=== PATIENT | female | born 1945 | race Caucasian/White ===

== ENCOUNTER 2019-04-09 10:04 | Inpatient (IN) ==
--- NOTE | 2019-04-09 11:06 | Emergency Department Note ---
[facility] [place] Disposition Clinical Impression: Ileus Abdominal pain Qualifiers: Abdominal location: left upper quadrant Qualified Code(s): R10.12 - Left upper quadrant pain Disposition: Still a Patient Condition on Discharge: Fair Referrals: Nancy Petersen MD [Primary Care Provider] - Time of Disposition: 11:14 Medical Decision Making - Medical Records Medical records reviewed: No: I reviewed the patient's medical records. - Alejandro Inquiry Pt receiving controlled substance: No Vital Signs: 04/09/19 10:09 04/09/19 11:12 04/09/19 11:23 Temperature 97.8 F 97.8 F 97.8 F Temperature Source Oral Oral Oral Pulse Rate [Right Radial] 97 H 97 H 97 H Respiratory Rate 18 18 18 Blood Pressure [Right Arm] 146/80 H 146/80 H 146/80 H Blood Pressure Mean [Right Arm] 102 102 102 02 Sat by Pulse Oximetry 97 97 97 Oxygen Delivery Method Room Air Room Air Room Air - Radiology Data #1 Image(s): Abdomen Image Reviewed: Yes I reviewed the patient's radiology image, Yes I have reviewed radiologist's interpretation Preliminary Findings: Abnormal FINDINGS: There are some mildly prominent small bowel loops noted in the mid abdomen and left. There is a mild amount of retained colonic feces. No acute bony anomalies or abnormal IMPRESSION: Calcifications constipation mildly prominent small bowel loops which are nonspecific. Early obstruction enteritis or ileus is a consideration. [facility] HPI - General Stated complaint: Constipation, vomiting Time Seen by Provider: 04/09/19 10:45 Mode of Arrival: Ambulatory Source of Information: Patient Limitations: No Limitations Description of Symptoms (Recalled from Triage Doc. by RN): pt states she has not had a bowel movement x 6 days. pt states she took a laxative on tuesday with no relief and the laxative made her sick. pt states she vomited this morning and it was consistent with a dr pepper she drank last pm. - History of Present Illness Provider Complaint: She c/o left sided abdominal pain and chilling. This has been ongoing for the past 6 days. She has not had a normal bowel movment in 6 days. - Related Data Home Medications Medication Instructions Recorded Confirmed No Known Home Medications 04/09/19 04/09/19 Allergies Allergy/AdvReac Type Severity Reaction Status Date / Time Sulfa (Sulfonamide Allergy Unknown Verified 04/10/18 09:04 Antibiotics) [SULFA (SULFONAMIDE ANTIBIOTICS)] walnut [WALNUT] Allergy Unknown Verified 04/10/18 09:04 FRESH ORANGES Allergy Unknown ASTHMA Uncoded 05/10/17 14:51 FL[facility]ES UP [facility] History - Hepatitis A Screen Attestation statement:: This patient has been screened for Hepatitis A risk factors. I have reviewed the patient's past medical history: Yes Medical History: Denies:: Cancer, Diabetes Mellitus Type 1, Diabetes Mellitus Type 2, MRSA Amputation: No Fractures: No - Social History Smoking Status: Never smoker Alcohol Intake: never ROS Obtained: Yes All systems reviewed & no additional complaints - Constitutional Constitutional: Reports chills, Denies fever(s), Reports poor appetite, Reports malaise - Eyes Eyes: Denies eye discharge - ENT Ears, Nose, Mouth, and Throat: Reports dizziness, Denies otalgia, Denies sore throat - Cardiovascular Cardiovascular: Denies chest pain - Respiratory Respiratory: No chest congestion, No cough - Gastrointestinal Gastrointestingal: Reports: as per HPI - Genitourinary Female Genitourinary: Denies dysuria - Musculoskeletal Musculoskeletal: Denies back pain - Integumentary/Breasts Skin/Breast: Denies rash Physical Exam - General General appearance: alert, in no apparent distress - Head Head exam: atraumatic, normocephalic, normal inspection - Eye Eye exam: Present: normal appearance, PERRL, EOMI - ENT ENT exam: Present: normal exam, normal oropharynx, mucous membranes moist, TM's normal bilaterally, normal external ear exam - Neck Neck exam: Present: normal inspection, full ROM, trachea midline. Absent: meningismus, lymphadenopathy - Chest Chest inspection: Present: normal inspection, symmetric chest wall rise. Absent: tenderness - Respiratory Respiratory exam: Present: normal lung sounds bilaterally. Absent: respiratory distress - Cardiovascular Cardiovascular exam: Present: regular rate, normal rhythm. Absent: JVD - Abdominal Exam Abdominal exam: Present: soft, tenderness, guarding, rebound, rigidity, hypoactive bowel sounds. Absent: distention, psoas sign, obturator sign, heel tap sign, Thompson's sign, Rovsing's sign, tenderness at McBurney's Point Abdominal tenderness: Present: LLQ, moderate - Extremities Exam Extremities exam: Present: normal inspection, full ROM, normal capillary refill. Absent: calf tenderness - Back Exam Back exam: Present: normal inspection. Absent: tenderness - Neurological Exam Neurological exam: Present: alert, oriented X3 - Psychiatric Psychiatric exam: Present: normal affect, normal mood - Skin Skin exam: Present: warm, dry, intact, normal color - Lymphatic Lymphatic Findings: no adenopathy
[2019-04-09 12:40] LABS: Basophils % 0.1 % (0.1-2.0); Eosinophils % 0.2 % (0.1-12.0); Hematocrit 46.3 % (37.0-47.0); Hemoglobin 15.2 g/dL (12.2-16.2); Lymphocytes # 2.4 K/mm3 (0.7-4.5); Lymphocytes % 12.2 % (10-50); Mean Corpuscular HGB Conc 32.9 g/dL (31.8-35.4); Mean Corpuscular Volume 94.9 fl (81-99); Mean Platelet Volume 9.2 fl (7.4-10.4); Monocytes # 1.3 K/mm3 (0.1-1.0); Monocytes % 6.7 % (1.7-9.3); Neutrophils % 80.8 % (37.0-80.0); Platelet Count 316 K/mm3 (142-424); Red Blood Count 4.88 M/mm3 (4.20-5.40); Red Cell Distribution Width 13.2 % (11.5-17.5); White Blood Count 19.9 K/mm3 (4.8-10.8)
[2019-04-09 12:48] LABS: Lymphocytes % 9 % (10-50); Monocytes % 8 % (2-9); Neutrophils % 83 % (42-76); Total Cells Counted 100
[2019-04-09 12:49] LABS: RBC Morphology Normal
[2019-04-09 13:00] LABS: Microscopic, Urine URINE MICROSCOPIC (MICROSCOPIC)
[2019-04-09 13:01] LABS: Appearance,Urine SL CLOUDY (Clear); Blood, Urine Negative (Negative); Color,Urine YELLOW (Yellow); Glucose,Urine (UA) 1+ (Negative); Ketones,Urine 1+ (Negative); Leukocyte Esterase,Urine Negative (Negative); PH,Urine 5.5 (5.0-8.5); Protein,Urine 2+ (Negative); Specific Gravity, Urine >= 1.030 (1.005-1.030); Urobilinogen,Urine 0.2 EU/dl (0.2)
[2019-04-09 13:03] LABS: Bilirubin,Urine Negative (Negative)
[2019-04-09 13:04] LABS: Albumin Level 3.6 gm/dL (3.4-5.0); Albumin/Globulin Ratio 0.7 (1.1-1.8); Anion Gap 14.4 mEq/L (5-15); Bilirubin,Total 0.7 mg/dL (0.2-1.0); Calcium 9.7 mg/dL (8.5-10.1); Globulin 5.1 gm/dl (1.3-3.2); Total Protein,Serum 8.7 gm/dL (6.4-8.2)
[2019-04-09 13:08] LABS: Bacteria,Urine 2+ /lpf
--- NOTE | 2019-04-09 14:44 | Emergency Department Note ---
ED Disposition Clinical Impression: Ileus, Small bowel obstruction, Umbilical hernia with obstruction Abdominal pain Qualifiers: Abdominal location: generalized Qualified Code(s): R10.84 - Generalized abdominal pain Disposition: Admitted As Inpatient Condition on Discharge: Fair Referrals: Nancy Petersen MD [Primary Care Provider] - - Critical Care Critical Care Time: Yes Attestation: On 04/09/19, the high probability of a clinically significant, sudden or life threatening deterioration of the following system(s) required my full and direct attention, intervention and personal management. The time I documented below is in addition to time spent performing reported procedures but includes the following listed in this critical care notation. 30 minutes of critical care at the bedside management as well as consult, do cumentation and admission. Total Critical Care Time: 30 Vital system(s) involved:: Metabolic Failure My critical care processes included: Assessment & monitoring of V/S, Initial and Re-exams, Data Review/Interpretation, Coordinating Care, Documentation Medical Decision Making - Alejandro Inquiry Pt receiving controlled substance: No Vital Signs: 04/09/19 10:09 04/09/19 11:12 04/09/19 11:23 Temperature 97.8 F 97.8 F 97.8 F Temperature Source Oral Oral Oral Pulse Rate [Right Radial] 97 H 97 H 97 H Respiratory Rate 18 18 18 Blood Pressure [Right Arm] 146/80 H 146/80 H 146/80 H Blood Pressure Mean [Right Arm] 102 102 102 Blood Pressure Position [Right Arm] 02 Sat by Pulse Oximetry 97 97 97 Oxygen Delivery Method Room Air Room Air Room Air 04/09/19 14:28 Temperature Temperature Source Pulse Rate [Right Radial] 71 Respiratory Rate Blood Pressure [Right Arm] 163/76 H Blood Pressure Mean [Right Arm] 105 Blood Pressure Position [Right Arm] Sitting 02 Sat by Pulse Oximetry 97 Oxygen Delivery Method Room Air - Lab Data Lab Results 04/09/19 12:20: WBC 19.9 H, RBC 4.88, Hgb 15.2, Hct 46.3, MCV 94.9, MCH 31.2, MCHC 32.9, RDW 13.2, Plt Count 316, MPV 9.2, Neut % (Auto) 80.8 H, Lymph % (Auto) 12.2, [place] % (Auto) 6.7, Eos % (Auto) 0.2, Baso % (Auto) 0.1, Neut # (Auto) 16.0 H, Lymph # (Auto) 2.4, [place] # (Auto) 1.3 H, Eos # (Auto) 0.0, Baso # (Auto) 0.0, Total Counted 100, Neutrophils % (Manual) 83 H, Lymphocytes % (Manual) 9 L, Monocytes % (Manual) 8, Platelet Estimate Normal, RBC Morphology N ormal 04/09/19 12:20: Sodium 133 L, Potassium 4.4, Chloride 95 L, Carbon Dioxide 28, Anion Gap 14.4, BUN 23 H, Creatinine 1.01, Estimated Creat Clear 52, Estimated GFR 54 L, Est GFR ( Amer) 65, Glucose 283 H, Calcium 9.7, Total Bilirubin 0.7, AST 17, ALT 25, Alkaline Phosphatase 104, Total Protein 8.7 H, Albumin 3.6, Globulin 5.1 H, Albumin/Globulin Ratio 0.7 L, Lipase 126 04/09/19 12:20: Urine Color Yellow, Urine Appearance Sl cloudy, Urine pH 5.5, Ur Specific [place] >= 1.030, Urine Protein 2+, Urine Glucose (UA) 1+, Urine Ketones 1+, Urine Blood Negative, Urine Nitrate Negative, Urine Bilirubin Negative, Urine Urobilinogen 0.2, Ur Leukocyte Esterase Negative, Urine WBC 3-5, Ur Squamous Epith Cells 10-20, Urine Bacteria 2+ Result diagrams: 04/09/19 12:20 04/09/19 12:20 Orders (Tests/Meds): ED MEDICATIONS Generic Name Dose Route Start Last Admin Trade Name Freq PRN Reason Stop Dose Admin Piperacillin Sod/Tazobactam 50 mls @ 100 mls/hr 04/09/19 14:19 04/09/19 14:22 Sod 3.375 gm/ Sodium Chloride IV 04/09/19 14:48 100 mls/hr ONCE ONE Administration Protocol Sodium Chloride 10 ml 04/09/19 13:50 04/09/19 13:50 Rad-Saline Flush 10ml Syringe IV 05/09/19 13:49 10 ml NEEDED PRN Administration Maintain IV Site Discontinued Medications Generic Name Dose Route Start Last Admin Trade Name Freq PRN Reason Stop Dose Admin Sodium Chloride 500 mls @ 999 mls/hr 04/09/19 12:15 04/09/19 12:16 Sod Chlor 0.9% 1000ml Bag IV 04/09/19 12:45 Not Given .Q31M ELIE Sodium Chloride 1,000 mls @ 999 mls/hr 04/09/19 12:30 04/09/19 12:36 Sod Chlor 0.9% 1000ml Bag IV 04/09/19 13:30 999 mls/hr .Q1H1M ELIE Administration Ioversol 75 ml 04/09/19 13:49 04/09/19 13:49 Rad-Optiray 350 100ml Vial IV 04/09/19 13:50 75 ml ONCE ONE Administration Protocol Morphine Sulfate 4 mg 04/09/19 14:29 04/09/19 14:30 Morphine 4mg/Ml Syringe IV 04/09/19 14:30 4 mg ONCE ONE Administration Ondansetron HCl 4 mg 04/09/19 14:28 04/09/19 14:30 Zofran 4mg/2ml Vial IV 04/09/19 14:29 4 mg ONCE ONE Administration ORDERS Category Date Time Status Urine Culture Stat Micro 04/09/19 12:20 Received - CT Data CT Scan: Abdomen Time Received: 14:00 (Small bowel obstruction with obstructed umbilical hernia.) ED CT Reviewed: Yes: I discussed the CT results w/the radiologist, I have viewed the radiologist's interpretation - Physician Consults Physician Consulted: Discussed with Dr. Chavez, regarding the patient and he came to see the pt Reason -: Admission, Pt condition, Surgical Eval/Care (Discussed with Dr. Chavez regarding the patient and the came to evaluate the patient in the emergency department and wanted to admit the patient to the surgical floor for surgical management possible open laparotomy.) Abdominal Pain HPI - General Chief Complaint: Abdominal Pain Stated Complaint: Constipation, vomiting Time Seen by Provider: 04/09/19 10:45 Mode of Arrival: Ambulatory Source of Information: Patient Limitations: No Limitations Description of Symptoms (Recalled from ER Triage Doc. by RN): pt presents to ed with c/o constipation x 6 days. pt was seen in [facility] and her kub showed a possible ileus. pt sent to ed for further care. - History of Present Illness HPI narrative: 74-year-old female presents to the emergency department with chief complaint of having abdomen pain and discomfort. She has been having pain and discomfort on the abdomen for the last 7 days. She has not had a bowel movement for the last 7 days. She had taken some [id number] medication for constipation but it did not help her. She has been vomiting a lot for the last 3 to 4 days. She vomited almost about 20 to 25 times in the last 3 days. She was seen at the urgent treatment center today and was referred to the emergency department to rule out bowel obstruction since the x-ray report was showing possibility of obstruction. MD complaint: abdominal pain Location: periumbilical, suprapubic Severity scale (1-10): 8 Quality: sharp Radiation: none Migration to: no migration Relieving factors: nothing Exacerbating factors: nothing - Related Data Home Medications Medication Instructions Recorded Confirmed No Known Home Medications 04/09/19 04/09/19 Allergies Allergy/AdvReac Type Severity Reaction Status Date / Time Sulfa (Sulfonamide Allergy Unknown Verified 04/10/18 09:04 Antibiotics) [SULFA (SULFONAMIDE ANTIBIOTICS)] walnut [WALNUT] Allergy Unknown Verified 04/10/18 09:04 FRESH ORANGES Allergy Unknown ASTHMA Uncoded 05/10/17 14:51 FL[facility] History - Hepatitis A Screen Drug use history?: No High risk sexual behaviors?: No History of sexually transmitted infection?: No Currently employed?: No Childcare worker?: No Do you have indoor plumbing?: Yes Do you have electricity?: Yes Attestation statement:: This patient has been screened for Hepatitis A risk factors. Medical History: Denies:: Cancer, Diabetes Mellitus Type 1, Diabetes Mellitus Type 2, MRSA Amputation: No Fractures: No - Social History Smoking Status: Never smoker Alcohol Intake: never Occupational Status: other ROS Obtained: Yes All systems reviewed & no additional complaints - Constitutional Constitutional: Denies chills, Denies fever(s) - Gastrointestinal Gastrointestingal: Reports: other (As mentioned in the HPI) Physical Exam - General General appearance: alert, in no apparent distress - Head Head exam: atraumatic, normocephalic - Eye Eye exam: Present: normal appearance, PERRL, EOMI - ENT ENT exam: Present: normal exam, normal oropharynx, mucous membranes moist - Neck Neck exam: Present: normal inspection, full ROM, trachea midline - Chest Chest inspection: Present: normal inspection - Respiratory Respiratory exam: Present: normal lung sounds bilaterally. Absent: respiratory distress, wheezes, stridor, accessory muscle use - Cardiovascular Cardiovascular exam: Present: regular rate, normal rhythm - Abdominal Exam Abdominal exam: Present: distention, tenderness, other (There is a 8 cm area of hernia on the supraumbilical aspect with form on palpation. The hernia is not reducible. Unable to appreciate bowel sounds on the hernia. Bowel sounds appreciated all other parts of the abdomen. Patient's abdomen is distended. She is tender on the abdomen throughout the abdomen. The tenderness may be worse on the left than the right side.) - Extremities Exam Extremities exam: Present: normal inspection, full ROM, normal capillary refill. Absent: tenderness - Back Exam Back exam: Present: normal inspection, full ROM. Absent: tenderness - Neurological Exam Neurological exam: Present: alert, oriented X3, CN II-XII intact, reflexes normal. Absent: normal gait, motor sensory deficit - Psychiatric Psychiatric exam: Present: normal affect, normal mood - Skin Skin exam: Present: normal color
--- NOTE | 2019-04-09 14:48 | History & Physical Report ---
*Admission Date: 04/09/19 *Chief complaint: Vomiting and abdominal pain *History of present illness: Patient is a very pleasant otherwise healthy 74-year-old female. She states that she has not moved her bowels for approximately 7 days. A few days ago she had taken a laxative. She then developed significant vomiting. Her symptoms persisted. She developed some pain and focal swelling in her mid abdomen. She presented to the [facility] this afternoon and underwent plain abdominal x-ray. There is concern for possible bowel obstruction she was sent to the ER where she underwent CT scan which reveals findings of small bowel obstruction secondary to supraumbilical hernia containing a loop of small bowel. This was unable to be reduced. The area is rather tender and surgical consultation was obtained. [facility] History I have reviewed the patient's past medical history: Yes Medical History: Denies:: Cancer, Diabetes Mellitus Type 1, Diabetes Mellitus Type 2, MRSA *Have you ever received a pneumonia vaccine?: No *Have you received a flu vaccine this season?: Yes Other Surgeries: Yes: Hysterectomy-Total Amputation: No Fractures: No - *Social History Smoking Status: Never smoker Alcohol Intake: never *Occupational Status:: other *Travel in the last 8 weeks: None Family Hx:: No significant family history Review of Systems - Review of Systems Review of systems:: pertinent systems reviewed and negative unless documented below - *Neurologic Reports dizziness Meds Home Medications Medication Instructions Recorded Confirmed Type No Known Home Medications 04/09/19 04/09/19 History Allergies Allergy/AdvReac Type Severity Reaction Status Date / Time Sulfa (Sulfonamide Allergy Unknown Verified 04/10/18 09:04 Antibiotics) [SULFA (SULFONAMIDE ANTIBIOTICS)] walnut [WALNUT] Allergy Unknown Verified 04/10/18 09:04 FRESH ORANGES Allergy Unknown ASTHMA Uncoded 05/10/17 14:51 FLARES UP Exam Vital signs and Labs for Last 24 Hours: Temp Pulse Resp BP Pulse Ox 97.8 F 71 18 163/76 H 97 04/09/19 11:23 04/09/19 14:28 04/09/19 11:23 04/09/19 14:28 04/09/19 14:28 Laboratory Results - last 24 hr 04/09/19 12:20: WBC 19.9 H, RBC 4.88, Hgb 15.2, Hct 46.3, MCV 94.9, MCH 31.2, MCHC 32.9, RDW 13.2, Plt Count 316, MPV 9.2, Neut % (Auto) 80.8 H, Lymph % (Auto) 12.2, [place] % (Auto) 6.7, Eos % (Auto) 0.2, Baso % (Auto) 0.1, Neut # (Auto) 16.0 H, Lymph # (Auto) 2.4, [place] # (Auto) 1.3 H, Eos # (Auto) 0.0, Baso # (Auto) 0.0, Total Counted 100, Neutrophils % (Manual) 83 H, Lymphocytes % (Manual) 9 L, Monocytes % (Manual) 8, Platelet Estimate Normal, RBC Morphology Normal 04/09/19 12:20: Sodium 133 L, Potassium 4.4, Chloride 95 L, Carbon Dioxide 28, Anion Gap 14.4, BUN 23 H, Creatinine 1.01, Estimated Creat Clear 52, Estimated GFR 54 L, Est GFR ( Amer) 65, Glucose 283 H, Calcium 9.7, Total Bilirubin 0.7, AST 17, ALT 25, Alkaline Phosphatase 104, Total Protein 8.7 H, Albumin 3.6, Globulin 5.1 H, Albumin/Globulin Ratio 0.7 L, Lipase 126 04/09/19 12:20: Urine Color Yellow, Urine Appearance Sl cloudy, Urine pH 5.5, Ur Specific [place] >= 1.030, Urine Protein 2+, Urine Glucose (UA) 1+, Urine Ketones 1+, Urine Blood Negative, Urine Nitrate Negative, Urine Bilirubin Negative, Urine Urobilinogen 0.2, Ur Leukocyte Esterase Negative, Urine WBC 3-5, Ur Squamous Epith Cells 10-20, Urine Bacteria 2+ I & O for Last 24 hours: Intake & Output 04/07/19 04/08/19 04/09/19 04/10/19 11:59 11:59 11:59 11:59 Weight 145 lb - *Routine HEENT Exam Head: Present: normocephalic Eye: Present: EOMI, PERRL ENT: Present: mucous membranes moist - *Routine Neck Exam Present: supple. Absent: lymphadenopathy - *Routine Respiratory Exam Present: CTA bilaterally - *Routine Cardiovascular Exam Present: RRR - *Routine Abdominal Exam Present: soft, tenderness Comments: She has a focal swelling above the umbilical area. Palpation elicits tenderness. I am unable to reduce the hernia. - *Routine Extremities Exam Absent: cyanosis, clubbing, edema - *Routine Skin Exam Present: warm. Absent: rash - *Routine Neurological Exam Present: alert, oriented X3 - Detailed Eye Exam Eyelids: Left normal inspection Assessment and Plan - Assessment and plan all Dx Assessment and Plan for all problems:: Patient has a small bowel obstruction secondary to incarcerated, potentially strangulated, ventral abdominal wall hernia. I explained the nature of this condition to the patient. I informed her that she needs surgical intervention to relieve the bowel obstruction. Also informed her that if there is evidence of strangulated and potentially necrotic bowel she could require small bowel resection. Patient understands and agrees to proceed.
--- NOTE | 2019-04-09 15:08 | Progress Note ---
[facility] Anesthesia Checklist - Structural Data Admitted From: Emergency Dept Planned Operative Procedure/s: hernia repair Consent for Planned Operative Procedure(s) Verified: Yes - Airway Assessment C-Spine Mobility Assessed: Yes TMJ Mobility Assessed: Yes Dentition: Poor Dentition - Neurological Assessment Level of Consciousness: Awake, Alert, Appropriate - Anesthesia Plan Anesthesia Risk discussed: Yes Anesthesia Plan: Verified Anesthesia Type: General [facility] History I have reviewed the patient's past medical history: Yes Medical History: Denies:: Cancer, Diabetes Mellitus Type 1, Diabetes Mellitus Type 2, MRSA *Have you ever received a pneumonia vaccine?: No *Have you received a flu vaccine this season?: Yes Anesthesia experience/problems:: none Other Surgeries: Yes: Hysterectomy-Total Amputation: No Fractures: No - *Social History Smoking Status: Never smoker Alcohol Intake: never Substance Use Type: denies use *Occupational Status:: other *Travel in the last 8 weeks: None Family Hx:: No significant family history
[2019-04-09 16:29] LABS: Prothrombin Time 10.4 seconds (9.4-11.8)
--- NOTE | 2019-04-09 17:26 | Operative Note ---
Date of procedure: 04/09/19 Pre-op Diagnosis:: Small bowel obstruction secondary to incarcerated ventral hernia Post-op Diagnosis:: Small bowel obstruction secondary to strangulated ventral hernia Procedure performed:: 1. Open repair of strangulated ventral hernia, primary repair 2. Small bowel resection with primary anastomosis 3. Freeing of intestinal obstruction Surgeon:: Omar Chavez MD IMPORT/EXPORT SPECIALIST:: Ghassan Isaca Anesthesia: GETA Estimated blood loss (mL): 30 Clinical Note:: Patient is a very pleasant otherwise healthy 74-year-old female. She states that she has not moved her bowels for approximately 7 days. A few days ago she had taken a laxative. She then developed significant vomiting. Her symptoms persisted. She developed some pain and focal swelling in her mid abdomen. She presented to the [facility] this afternoon and underwent plain abdominal x-ray. There was concern for possible bowel obstruction she was sent to the ER where she underwent CT scan which revealed findings of small bowel obstruction secondary to supraumbilical hernia containing a loop of small bowel. This was unable to be reduced. The area was rather tender and surgical consultation was obtained. She was seen and evaluated. She had findings of incarcerated with potentially strangulated ventral hernia with resultant complete bowel obstruction. Plan was made for emergent repair with possible bowel resection. Operative findings:: Patient had a rather small defect, approximately 3 cm. However there was a significant amount of omentum and a loop of small bowel within a rather large hernia sac. Small bowel was strangulated and somewhat necrotic but without perforation. Operative note:: Consent was obtained and patient was taken emergently to the operating room. She was given broad-spectrum preoperative intravenous antibiotics. In the operating room she was placed in a supine position. General anesthesia was induced via endotracheal tube. Fajardo catheter was placed. Abdomen was prepped and draped in the standard surgical fashion. Midline incision was made in the periumbilical location. Dissection was carried down through subcutaneous tissues until hernia sac was encountered. She had a rather large hernia sac which contained what appeared to be purplish dusky enteric contents. Neck of the hernia sac was isolated. Hernia sac was opened carefully sharply. There was some somewhat hemorrhagic fluid which exuded from the hernia sac consistent with omental and bowel infarction. Exposure was achieved. There was a loop of purplish dusky necrotic but nonperforated small bowel. There was also some ischemic infarcted omentum. Omental pedicle was clamped excised and ligated wi th Vicryl ties. She had extensive adhesions to the hernia sac including omentum and small bowel consistent with chronic underlying ventral hernia. Due to the appearance of the bowel plan was made for small bowel resection. The neck of the hernia was extremely tight. This was enlarged somewhat using electrocautery incising the fascia. Ultimately the majority of the remaining omentum in the hernia sac was able to be reduced into the peritoneal cavity. The loop of small bowel was then delivered through the wound. Proximally and distally the bowel appeared viable and healthy. Small bowel was divided at the proximal and distal healthy margins using a CHINEDU-75 type stapling device. The small bowel mesentery was sequentially clamped divided and ligated with Vicryl ties. A [id number], functional end-to-end anastomosis was created with a CHINEDU-75 type stapling device. The enterectomy was closed with a TX 60 B type stapling device. There was a small residual persistent residual enterotomy defect. This was closed with 3-0 Vicryl and then oversewn with 3 oh Surgilon seromuscular sutures. 3-0 Surgilon sutures were placed at the staple line angle and at the confluence of the staple lines. The mesenteric defect was closed with a running locking 3-0 Vicryl. Remaining adhesions of omentum to the hernia sac peritoneum were incised using electrocautery. The residual peritoneum of the hernia sac was dissected free from the fascia. Please note that the excised infarcted omentum and peritoneum of the hernia sac were sent as specimen labeled hernia sac and contents. Small bowel was sent as portion of small bowel. Enteric contents return to the peritoneal cavity. The fascia was closed primarily with multiple interrupted #1 Prolene sutures. Local anesthetic was infiltrated. There was good hemostasis. Wound was irrigated. Skin was closed with skin jaya. Clean dry sterile dressing was applied. Condition: stable Disposition: PACU Specimens:: Hernia sac and contents Small bowel Complications:: None immediately apparent
--- NOTE | 2019-04-09 17:50 | Progress Note ---
[facility] Anesthesia Record Part I Intake, IV Amount: 1,300 Estimated blood loss (mL): 20 Urine output (mL): 50 Blood Products used (#): none Blood Pressure: 128/61 SaO2: 97 Pulse Rate: 68 Respiratory Rate: 20 Temperature: 97.0 F Patient is:: Drowsy, Mask O2, Stable Stable to PACU at:: 17:30
--- NOTE | 2019-04-09 17:51 | Progress Note ---
[facility] Anesthesia Record Part II Discharge Time: 18:00 Destination: Medical Surgical Department PACU nurse assessment reviewed?: Yes Patient Condition:: Fair Anesthesia Complications:: None Swallowing reflex intact?: Yes Cyanosis?: No
[2019-04-10 06:12] LABS: Basophils % 0.1 % (0.1-2.0); Hematocrit 36.4 % (37.0-47.0); Lymphocytes % 12.8 % (10-50); Mean Corpuscular Volume 96.8 fl (81-99); Mean Platelet Volume 9.4 fl (7.4-10.4); Monocytes # 1.1 K/mm3 (0.1-1.0); Monocytes % 7.2 % (1.7-9.3); Neutrophils # 12.6 K/mm3 (1.8-7.8); Neutrophils % 79.8 % (37.0-80.0); Platelet Count 226 K/mm3 (142-424); Red Blood Count 3.76 M/mm3 (4.20-5.40); Red Cell Distribution Width 13.2 % (11.5-17.5); White Blood Count 15.8 K/mm3 (4.8-10.8)
[2019-04-10 06:19] LABS: Anion Gap 10.1 mEq/L (5-15)
--- NOTE | 2019-04-10 06:53 | Progress Note ---
Subjective Narrative: Patient is without any complaints other than being thirsty. She denies abdominal pain. Denies nausea. Exam Vital signs and Labs for Last 24 Hours: Temp Pulse Resp BP Pulse Ox 98.9 F 80 18 146/69 H 1 L 04/10/19 01:25 04/10/19 04:00 04/10/19 01:25 04/10/19 01:25 04/10/19 02:23 Laboratory Results - last 24 hr 04/09/19 12:20: WBC 19.9 H, RBC 4.88, Hgb 15.2, Hct 46.3, MCV 94.9, MCH 31.2, MCHC 32.9, RDW 13.2, Plt Count 316, MPV 9.2, Neut % (Auto) 80.8 H, Lymph % (Auto) 12.2, [place] % (Auto) 6.7, Eos % (Auto) 0.2, Baso % (Auto) 0.1, Neut # (Auto) 16.0 H, Lymph # (Auto) 2.4, [place] # (Auto) 1.3 H, Eos # (Auto) 0.0, Baso # (Auto) 0.0, Total Counted 100, Neutrophils % (Manual) 83 H, Lymphocytes % (Manual) 9 L, Monocytes % (Manual) 8, Platelet Estimate Normal, RBC Morphology Normal 04/09/19 12:20: Sodium 133 L, Potassium 4.4, Chloride 95 L, Carbon Dioxide 28, Anion Gap 14.4, BUN 23 H, Creatinine 1.01, Estimated Creat Clear 52, Estimated GFR 54 L, Est GFR ( Amer) 65, Glucose 283 H, Calcium 9.7, Total Bilirubin 0.7, AST 17, ALT 25, Alkaline Phosphatase 104, Total Protein 8.7 H, Albumin 3.6, Globulin 5.1 H, Albumin/Globulin Ratio 0.7 L, Lipase 126 04/09/19 12:20: Urine Color Yellow, Urine Appearance Sl cloudy, Urine pH 5.5, Ur Specific [place] >= 1.030, Urine Protein 2+, Urine Glucose (UA) 1+, Urine Ketones 1+, Urine Blood Negative, Urine Nitrate Negative, Urine Bilirubin Negative, Urine Urobilinogen 0.2, Ur Leukocyte Esterase Negative, Urine WBC 3-5, Ur Squamous Epith Cells 10-20, Urine Bacteria 2+ 04/09/19 12:20: PT 10.4, INR 1.00 04/09/19 12:20: Troponin I < 0.02 04/09/19 15:20: Urine Color Yellow, Urine Appearance Clear, Urine pH 5.5, Ur Specific [place] 1.010, Urine Protein 1+, Urine Glucose (UA) Negative, Urine Ketones Negative, Urine Blood Negative, Urine Nitrate Negative, Urine Bilirubin Negative, Urine Urobilinogen 0.2, Ur Leukocyte Esterase Negative, Urine WBC 3-5, Ur Squamous Epith Cells 20-50, Urine Bacteria 1+ 04/09/19 20:29: POC Glucose 253 H 04/10/19 05:37: WBC 15.8 H, RBC 3.76 L, Hgb 12.0 L D, Hct 36.4 L, MCV 96.8, MCH 31.9 H, MCHC 33.0, RDW 13.2, Plt Count 226 D, MPV 9.4, Neut % (Auto) 79.8, Lymph % (Auto) 12.8, [place] % (Auto) 7.2, Eos % (Auto) 0.0 L, Baso % (Auto) 0.1, N eut # (Auto) 12.6 H, Lymph # (Auto) 2.0, [place] # (Auto) 1.1 H, Eos # (Auto) 0.0, Baso # (Auto) 0.0 04/10/19 05:37: Sodium 138, Potassium 4.1, Chloride 105, Carbon Dioxide 27, Anion Gap 10.1, BUN 20 H, Creatinine 0.98, Estimated Creat Clear 52, Estimated GFR 56 L, Est GFR ( Amer) 67, Glucose , Calcium 04/10/19 05:38: POC Glucose 168 H I & O for Last 24 hours: Intake & Output 04/07/19 04/08/19 04/09/19 04/10/19 11:59 11:59 11:59 11:59 Intake Total 1300 / 1300 Output Total 250 / 250 Balance 1050 / 1050 Weight 145 lb 145 lb 2 oz - *Routine Abdominal Exam Present: soft Comments: Dressing intact. No appreciable bowel sounds. Progress Note: A&P Assessment and Plan for All Diagnoses:: Plan to transfer out of stepdown today. Continue nasogastric tube and IV fluids.
--- NOTE | 2019-04-10 07:27 | Consult Report ---
*Admission Date: 04/09/19 *Reason for consult:: Medical management *History of present illness: 74-year-old female with very little medical history underwent open repair of strangulated ventral hernia with resection of small bowel and primary anastomosis yesterday by Dr. Chavez. I have been consulted for medical management of issues that may arise during hospitalization. Patient's previous primary care physician was Dr. JANICE Petersen but she admits she has not seen him in over 10 years. Patient denies any significant health problems that were occurring prior to her admission. Patient did have hypoglycemia postoperatively and was ordered to have fingersticks with meals and at night. This morning her only request is water [facility] History I have reviewed the patient's past medical history: Yes Medical History: Denies:: Cancer, Diabetes Mellitus Type 1, Diabetes Mellitus Type 2, MRSA *Have you ever received a pneumonia vaccine?: No (does note want at d/c) *Have you received a flu vaccine this season?: No (does not want at d/c) Anesthesia experience/problems:: none Other Surgeries: Yes: Hysterectomy-Total Amputation: No Fractures: No - *Social History Educational Level: Completed High School Smoking Status: Never smoker Alcohol Intake: never Substance Use Type: denies use *Occupational Status:: other Household Members: spouse *Travel in the last 8 weeks: None Family Hx:: No significant family history Review of Systems - *Cardiovascular Denies chest pain, Denies chest pain at rest, Denies chest pain with activity, Denies shortness of breath with activity - *Respiratory Denies change in phlegm color, Denies cough - *Neurologic Reports dizziness Meds Home Medications Medication Instructions Recorded Confirmed Type No Known Home Medications 04/09/19 04/09/19 History Allergies Allergy/AdvReac Type Severity Reaction Status Date / Time orange Allergy Unknown ASTHMA Verified 04/09/19 16:04 FLARES UP Sulfa (Sulfonamide Allergy Unknown Unknown Verified 04/09/19 16:04 Antibiotics) allergy [SULFA (SULFONAMIDE reaction ANTIBIOTICS)] walnut [WALNUT] Allergy Unknown Unknown Verified 04/09/19 16:04 allergy reaction FRESH ORANGES Allergy Unknown ASTHMA Uncoded 05/10/17 14:51 FLARES UP Exam Vital signs and Labs for Last 24 Hours: Temp Pulse Resp BP Pulse Ox 98.9 F 80 18 146/69 H 1 L 04/10/19 01:25 04/10/19 04:00 04/10/19 01:25 04/10/19 01:25 04/10/19 02:23 Laboratory Results - last 24 hr 04/09/19 12:20: WBC 19.9 H, RBC 4.88, Hgb 15.2, Hct 46.3, MCV 94.9, MCH 31.2, MCHC 32.9, RDW 13.2, Plt Count 316, MPV 9.2, Neut % (Auto) 80.8 H, Lymph % (Auto) 12.2, [place] % (Auto) 6.7, Eos % (Auto) 0.2, Baso % (Auto) 0.1, Neut # (Auto) 16.0 H, Lymph # (Auto) 2.4, [place] # (Auto) 1.3 H, Eos # (Auto) 0.0, Baso # (Auto) 0.0, Total Counted 100, Neutrophils % (Manual) 83 H, Lymphocytes % (Manual) 9 L, Monocytes % (Manual) 8, Platelet Estimate Normal, RBC Morphology Normal 04/09/19 12:20: Sodium 133 L, Potassium 4.4, Chloride 95 L, Carbon Dioxide 28, Anion Gap 14.4, BUN 23 H, Creatinine 1.01, Estimated Creat Clear 52, Estimated G FR 54 L, Est GFR ( Amer) 65, Glucose 283 H, Calcium 9.7, Total Bilirubin 0.7, AST 17, ALT 25, Alkaline Phosphatase 104, Total Protein 8.7 H, Albumin 3.6, Globulin 5.1 H, Albumin/Globulin Ratio 0.7 L, Lipase 126 04/09/19 12:20: Urine Color Yellow, Urine Appearance Sl cloudy, Urine pH 5.5, Ur Specific [place] >= 1.030, Urine Protein 2+, Urine Glucose (UA) 1+, Urine Ketones 1+, Urine Blood Negative, Urine Nitrate Negative, Urine Bilirubin Negative, Urine Urobilinogen 0.2, Ur Leukocyte Esterase Negative, Urine WBC 3-5, Ur Squamous Epith Cells 10-20, Urine Bacteria 2+ 04/09/19 12:20: PT 10.4, INR 1.00 04/09/19 12:20: Troponin I < 0.02 04/09/19 15:20: Urine Color Yellow, Urine Appearance Clear, Urine pH 5.5, Ur Specific [place] 1.010, Urine Protein 1+, Urine Glucose (UA) Negative, Urine Ketones Negative, Urine Blood Negative, Urine Nitrate Negative, Urine Bilirubin Negative, Urine Urobilinogen 0.2, Ur Leukocyte Esterase Negative, Urine WBC 3-5, Ur Squamous Epith Cells 20-50, Urine Bacteria 1+ 04/09/19 20:29: POC Glucose 253 H 04/10/19 05:37: WBC 15.8 H, RBC 3.76 L, Hgb 12.0 L D, Hct 36.4 L, MCV 96.8, MCH 31.9 H, MCHC 33.0, RDW 13.2, Plt Count 226 D, MPV 9.4, Neut % (Auto) 79.8, Lymph % (Auto) 12.8, [place] % (Auto) 7.2, Eos % (Auto) 0.0 L, Baso % (Auto) 0.1, Neut # (Auto) 12.6 H, Lymph # (Auto) 2.0, [place] # (Auto) 1.1 H, Eos # (Auto) 0.0, Baso # (Auto) 0.0 04/10/19 05:37: Sodium 138, Potassium 4.1, Chloride 105, Carbon Dioxide 27, Anion Gap 10.1, BUN 20 H, Creatinine 0.98, Estimated Creat Clear 52, Estimated GFR 56 L, Est GFR ( Amer) 67, Glucose , Calcium 04/10/19 05:38: POC Glucose 168 H I & O for Last 24 hours: Intake & Output 04/07/19 04/08/19 04/09/19 04/10/19 11:59 11:59 11:59 11:59 Intake Total 1300 / 1300 Output Total 250 / 250 Balance 1050 / 1050 Weight 145 lb 145 lb 2 oz Narrative: Patient is awake and alert this morning. She is oriented to person, place, time. NG tube is in place. Oropharynx is dry. Neck is without lymphadeno regan. Lungs are clear to auscultation. Heart has a regular rate and rhythm. Abdomen is soft with midline tenderness. Bowel sounds are absent. Patient moves her arms and legs. There are no focal neurologic deficits. Skin is intact. Internal Medicine - CN: Reslt - Labs CBC & Chem 7: 04/10/19 05:37 04/10/19 05:37 Labs: Short CBC 04/09/19 04/10/19 Range/Units 12:20 05:37 WBC 19.9 H 15.8 H (4.8-10.8) K/mm3 Hgb 15.2 12.0 L D (12.2-16.2) g/dL Hct 46.3 36.4 L (37.0-47.0) % Plt Count 316 226 D (142-424) K/mm3 BMP 04/09/19 04/10/19 12:20 05:37 Sodium 133 L 138 Potassium 4.4 4.1 Chloride 95 L 105 Carbon Dioxide 28 27 BUN 23 H 20 H Creatinine 1.01 0.98 Glucose 283 H Calcium 9.7 Cardiac Enzymes 04/09/19 Range/Units 12:20 Troponin I < 0.02 (0.00-0.06) ng/ml Liver Function 04/09/19 Range/Units 12:20 Total Bilirubin 0.7 (0.2-1.0) mg/dL AST 17 (15-37) U/L ALT 25 (12-78) U/L Alkaline Phosphatase 104 (46-116) U/L Albumin 3.6 (3.4-5.0) gm/dL Urine 04/09/19 04/09/19 Range/Units 12:20 15:20 Urine Color Yellow Yellow (Yellow) Urine Appearance Sl cloudy Clear (Clear) Urine pH 5.5 5.5 (5.0-8.5) Ur Specific [place] >= 1.030 1.010 (1.005-1.030) Urine Protein 2+ 1+ (Negative) Urine Glucose (UA) 1+ Negative (Negative) Assessment and Plan (1) Ileus Current visit: Yes Status: Acute Category: Medical Code(s): K56.7 - Ileus, unspecified (2) Small bowel obstruction Current visit: Yes Status: Acute Category: Medical Code(s): K56.609 - Unspecified intestinal obstruction, unspecified as to partial versus complete obstruction (3) Umbilical hernia with obstruction Current visit: Yes Status: Acute Category: Medical Code(s): K42.0 - Umbil ical hernia with obstruction, without gangrene - Assessment and plan all Dx Assessment and Plan for all problems:: Patient is stable. Continue to follow blood sugars as well as blood pressures. Patient was mildly hypertensive on presentation and after surgery but blood pressure seem to be trending down. No medicine will be ordered at this time.
--- NOTE | 2019-04-10 07:50 | Pharmacy Consult Notes ---
[facility] Pharmacy VTE Monitoring - Patient Demographics Admission date: 04/09/19 Report Date: 04/10/19 Time: 07:50 Allergies/Adverse Reactions: Patient Allergies orange Allergy (Unknown, Verified 04/09/19 16:04) ASTHMA FLARES UP Sulfa (Sulfonamide Antibiotics) [SULFA (SULFONAMIDE ANTIBIOTICS)] Allergy (Unknown, Verified 04/09/19 16:04) Unknown allergy reaction walnut [WALNUT] Allergy (Unknown, Verified 04/09/19 16:04) Unknown allergy reaction FRESH ORANGES Allergy (Unknown, Uncoded 05/10/17 14:51) ASTHMA FLARES UP Height: 1.45 m Weight: 65.828 kg Patient Problems: Current Active Problems Abdominal pain (Acute) Ileus (Acute) Small bowel obstruction (Acute) Umbilical hernia with obstruction (Acute) - VTE Risk Labs: VTE Related Lab Results Hgb 12.0 g/dL (12.2-16.2) L D 04/10/19 05:37 Hct 36.4 % (37.0-47.0) L 04/10/19 05:37 Plt Count 226 K/mm3 (142-424) D 04/10/19 05:37 PT 10.4 seconds (9.4-11.8) 04/09/19 12:20 INR 1.00 (0.9-1.1) 04/09/19 12:20 BUN 20 mg/dL (7-18) H 04/10/19 05:37 Creatinine 0.98 mg/dL (0.55-1.02) 04/10/19 05:37 Estimated Creat Clear 52 mL/min (50-200) 04/10/19 05:37 VTE Score: 4 VTE Risk Level: Low Risk - Prophylaxis VTE Prophylaxis Ordered?: Yes Types of VTE Prophylaxis: IPCS Thigh High Location of Applied Device: Bilateral Lower Extremeties - VTE Diagnosis Confirmed Treatment or plan recommended: Continue Current Treatment
[2019-04-10 08:43] LABS: Lymphocytes % 21 % (10-50); Monocytes % 11 % (2-9); Neutrophils % 65 % (42-76); RBC Morphology Normal; Total Cells Counted 100
--- NOTE | 2019-04-11 06:59 | Progress Note ---
Subjective Narrative: Patient pulled out nasogastric tube yesterday afternoon. Plan was made to see how she does without this. This morning, a short time ago, she complained of some substernal sharp pain. This has now resolved. She denies nausea. She is not passing flatus. She does have some abdominal pains at the incision when moving according to her. She has had minimal effort with the incentive spirometer. Exam Vital signs and Labs for Last 24 Hours: Temp Pulse Resp BP Pulse Ox 98.3 F 70 16 165/77 H 100 04/11/19 06:30 04/11/19 06:30 04/11/19 06:30 04/11/19 06:30 04/11/19 06:30 Laboratory Results - last 24 hr 04/10/19 05:37: Total Counted 100, Neutrophils % (Manual) 65, Band Neutrophils % 3.0, Lymphocytes % (Manual) 21, Monocytes % (Manual) 11 H, Platelet Estimate Normal, RBC Morphology Normal 04/10/19 05:37: Glucose 175 H D, Calcium 8.0 L D 04/10/19 05:37: Hemoglobin A1c 8.4 H 04/10/19 11:07: POC Glucose 137 H 04/10/19 16:50: POC Glucose 129 H 04/10/19 19:58: POC Glucose 131 H I & O for Last 24 hours: Intake & Output 04/08/19 04/09/19 04/10/19 04/11/19 11:59 11:59 11:59 11:59 Intake Total 3209 / 3209 3293 / 3293 Output Total 355 / 355 1450 / 1450 Balance 2854 / 2854 1843 / 1843 Weight 145 lb 145 lb 2 oz 147 lb 3 oz Microbiology Reports for the Last 24 Hours: Microbiology 04/09/19 12:20 Urine,Clean Catch Urine Culture - Preliminary - *Routine Abdominal Exam Present: normoactive bowel sounds, distended Progress Note: A&P (1) Ileus Status: Acute Current Visit: Yes (2) Small bowel obstruction Status: Acute Current Visit: Yes (3) Umbilical hernia with obstruction Status: Acute Current Visit: Yes Assessment and Plan for All Diagnoses:: Continue to limit to ice chips and chewing gum at this time. LEVI Fajardo. Increase activity.
[2019-04-11 07:02] LABS: Basophils % 0.3 % (0.1-2.0); Eosinophils # 0.1 K/mm3 (0.0-0.4); Eosinophils % 0.7 % (0.1-12.0); Hematocrit 35.1 % (37.0-47.0); Hemoglobin 11.6 g/dL (12.2-16.2); Lymphocytes # 2.7 K/mm3 (0.7-4.5); Lymphocytes % 18.8 % (10-50); Mean Corpuscular HGB Conc 33.1 g/dL (31.8-35.4); Mean Corpuscular Volume 96.1 fl (81-99); Mean Platelet Volume 9.4 fl (7.4-10.4); Monocytes # 1.2 K/mm3 (0.1-1.0); Monocytes % 8.4 % (1.7-9.3); Neutrophils # 10.3 K/mm3 (1.8-7.8); Neutrophils % 71.8 % (37.0-80.0); Platelet Count 238 K/mm3 (142-424); Red Blood Count 3.65 M/mm3 (4.20-5.40); Red Cell Distribution Width 13.2 % (11.5-17.5); White Blood Count 14.3 K/mm3 (4.8-10.8)
[2019-04-11 07:16] LABS: Anion Gap 8.3 mEq/L (5-15); Blood Urea Nitrogen 12 mg/dL (7-18); Calcium 8.3 mg/dL (8.5-10.1); Carbon Dioxide 29 mmol/L (21.0-32.0); Chloride 104 mmol/L (98-107); Glucose 115 mg/dL (74-106); Sodium 137 mmol/L (136-145)
--- NOTE | 2019-04-11 07:31 | Progress Note ---
Internal Medicine - PN: Subj *Date: 04/11/19 *Time: 07:27 Interval history: Nursing staff reports patient had episode of chest pain radiating through to the back this morning. Labs were ordered including troponin which is been negative. EKG did not show any acute ischemic changes. Chest pain was relieved with morphine and nitroglycerin. Patient denies any prior history of chest pain. Does appear based on monitoring and labs that patient is a diabetic as well as has hypertension. Exam Vital signs and Labs for Last 24 Hours: Temp Pulse Resp BP Pulse Ox 98.3 F 70 16 165/77 H 100 04/11/19 06:30 04/11/19 06:30 04/11/19 06:30 04/11/19 06:30 04/11/19 06:30 Laboratory Results - last 24 hr 04/10/19 05:37: Total Counted 100, Neutrophils % (Manual) 65, Band Neutrophils % 3.0, Lymphocytes % (Manual) 21, Monocytes % (Manual) 11 H, Platelet Estimate Normal, RBC Morphology Normal 04/10/19 05:37: Glucose 175 H D, Calcium 8.0 L D 04/10/19 05:37: Hemoglobin A1c 8.4 H 04/10/19 11:07: POC Glucose 137 H 04/10/19 16:50: POC Glucose 129 H 04/10/19 19:58: POC Glucose 131 H 04/11/19 06:22: POC Glucose 110 04/11/19 06:35: WBC 14.3 H, RBC 3.65 L, Hgb 11.6 L, Hct 35.1 L, MCV 96.1, MCH 31.8 H, MCHC 33.1, RDW 13.2, Plt Count 238, MPV 9.4, Neut % (Auto) 71.8, Lymph % (Auto) 18.8, [place] % (Auto) 8.4, Eos % (Auto) 0.7, Baso % (Auto) 0.3, Neut # (Auto) 10.3 H, Lymph # (Auto) 2.7, [place] # (Auto) 1.2 H, Eos # (Auto) 0.1, Baso # (Auto) 0.0 04/11/19 06:35: Sodium 137, Potassium 4.3, Chloride 104, Carbon Dioxide 29, Anion Gap 8.3, BUN 12 D, Creatinine 0.76 D, Estimated Creat Clear 53, Estimated GFR 75, Est GFR ( Amer) 90 D, Glucose 115 H, Calcium 8.3 L, Troponin I < 0.02 I & O for Last 24 hours: Intake & Output 04/08/19 04/09/19 04/10/19 04/11/19 11:59 11:59 11:59 11:59 Intake Total 3209 / 3209 3293 / 3293 Output Total 355 / 355 1450 / 1450 Balance 2854 / 2854 1843 / 1843 Weight 145 lb 145 lb 2 oz 147 lb 3 oz Microbiology Reports for the Last 24 Hours: Microbiology 04/09/19 12:20 Urine,Clean Catch Urine Culture - Preliminary Narrative: Patient is awake and alert. Lungs are distant. Heart has a regular rate and rhythm with a systolic murmur best heard over the aortic valve. The aortic murmur radiates into both carotids. Abdomen is soft and without bowel sounds this morning. Extremities have no edema Assessment and Plan (1) Ileus Current visit: Yes Status: Acute Category: Medical Code(s): K56.7 - Ileus, unspecified (2) Small bowel obstruction Current visit: Yes Status: Acute Category: Medical Code(s): K56.609 - Unspecified intestinal obstruction, unspecified as to partial versus complete obstruction (3) Umbilical hernia with obstruction Current visit: Yes Status: Acute Category: Medical Code(s): K42.0 - Umbilical hernia with obstruction, without gangrene (4) Diabetes mellitus type 2, uncontrolled Current visit: Yes Status: Acute Category: Medical Code(s): E11.65 - Type 2 diabetes mellitus with hyperglycemia (5) Hypertension, essential Current visit: Yes Status: Acute Category: Medical Code(s): I10 - Essential (primary) hypertension (6) Aortic systolic murmur on examination Current visit: Yes Status: Acute Category: Medical Code(s): I35.8 - Other nonrheumatic aortic valve disorders - Assessment and plan all Dx Assessment and Plan for all problems:: 1. Continue sliding scale insulin coverage for now. Once patient is tolerating oral she can be transitioned to oral hypoglycemics 2. Echocardiogram will be ordered this morning for the patient's aortic murmur. 3. Antihypertensives will be ordered. Repeat BMP tomorrow
[2019-04-12 06:00] LABS: Basophils % 0.2 % (0.1-2.0); Eosinophils # 0.2 K/mm3 (0.0-0.4); Eosinophils % 1.5 % (0.1-12.0); Hemoglobin 11.5 g/dL (12.2-16.2); Lymphocytes # 2.6 K/mm3 (0.7-4.5); Lymphocytes % 18.5 % (10-50); Mean Corpuscular HGB Conc 31.9 g/dL (31.8-35.4); Mean Corpuscular Volume 98.2 fl (81-99); Mean Platelet Volume 9.3 fl (7.4-10.4); Monocytes # 1.1 K/mm3 (0.1-1.0); Monocytes % 7.4 % (1.7-9.3); Neutrophils # 10.2 K/mm3 (1.8-7.8); Neutrophils % 72.3 % (37.0-80.0); Platelet Count 262 K/mm3 (142-424); Red Blood Count 3.66 M/mm3 (4.20-5.40); Red Cell Distribution Width 13.2 % (11.5-17.5); White Blood Count 14.2 K/mm3 (4.8-10.8)
[2019-04-12 06:07] LABS: Calcium 8.6 mg/dL (8.5-10.1)
--- NOTE | 2019-04-12 06:58 | Progress Note ---
Internal Medicine - PN: Subj *Date: 04/12/19 *Time: 06:56 Interval history: Patient has no complaints this morning and she is feeling better. Nursing staff reports patient's blood pressures remained elevated overnight. Patient admits to flatus but no bowel movement. Exam Vital signs and Labs for Last 24 Hours: Temp Pulse Resp BP Pulse Ox 98.1 F 65 17 160/84 H 93 L 04/11/19 23:42 04/12/19 05:39 04/12/19 03:50 04/12/19 05:39 04/12/19 00:00 Laboratory Results - last 24 hr 04/11/19 06:22: POC Glucose 110 04/11/19 06:35: WBC 14.3 H, RBC 3.65 L, Hgb 11.6 L, Hct 35.1 L, MCV 96.1, MCH 31.8 H, MCHC 33.1, RDW 13.2, Plt Count 238, MPV 9.4, Neut % (Auto) 71.8, Lymph % (Auto) 18.8, [place] % (Auto) 8.4, Eos % (Auto) 0.7, Baso % (Auto) 0.3, Neut # (Auto) 10.3 H, Lymph # (Auto) 2.7, [place] # (Auto) 1.2 H, Eos # (Auto) 0.1, Baso # (Auto) 0.0 04/11/19 06:35: Sodium 137, Potassium 4.3, Chloride 104, Carbon Dioxide 29, Anion Gap 8.3, BUN 12 D, Creatinine 0.76 D, Estimated Creat Clear 53, Estimated GFR 75, Est GFR ( Amer) 90 D, Glucose 115 H, Calcium 8.3 L, Troponin I < 0.02 04/11/19 11:53: POC Glucose 100 04/11/19 16:52: POC Glucose 92 04/11/19 20:01: POC Glucose 84 04/12/19 05:40: WBC 14.2 H, RBC 3.66 L, Hgb 11.5 L, Hct 36.0 L, MCV 98.2, MCH 31.3 H, MCHC 31.9, RDW 13.2, Plt Count 262, MPV 9.3, Neut % (Auto) 72.3, Lymph % (Auto) 18.5, [place] % (Auto) 7.4, Eos % (Auto) 1.5, Baso % (Auto) 0.2, Neut # (Auto) 10.2 H, Lymph # (Auto) 2.6, [place] # (Auto) 1.1 H, Eos # (Auto) 0.2, Baso # (Auto) 0.0 04/12/19 05:40: Sodium 135 L, Potassium 4.0, Chloride 102, Carbon Dioxide 27, Anion Gap 10.0, BUN 10, Creatinine 0.72, Estimated Creat Clear 52, Estimated GFR 79, Est GFR ( Amer) 96, Glucose 91 D, Calcium 8.6 I & O for Last 24 hours: Intake & Output 04/09/19 04/10/19 04/11/19 04/12/19 11:59 11:59 11:59 11:59 Intake Total 3209 / 3209 3293 / 3293 3143 / 3143 Output Total 355 / 355 1950 / 1950 Balance 2854 / 2854 1343 / 1343 3143 / 3143 Weight 145 lb 145 lb 2 oz 147 lb 3 oz 143 lb 9 oz Microbiology Reports for the Last 24 Hours: Microbiology 04/09/19 12:20 Urine,Clean Catch Urine Culture - Preliminary Narrative: Patient looks like she is feeling better. Heart has a regular rate and rhythm with systolic murmur over the right second intercostal space. Lungs are clear. Abdomen is soft with hypoactive bowel sounds. Abdomen is also mildly distended this morning Assessment and Plan (1) Ileus Current visit: Yes Status: Acute Category: Medical Code(s): K56.7 - Ileus, unspecified (2) Small bowel obstruction Current visit: Yes Status: Acute Category: Medical Code(s): K56.609 - Unspecified intestinal obstruction, unspecified as to partial versus complete obstruction (3) Umbilical hernia with obstruction Current visit: Yes Status: Acute Category: Medical Code(s): K42.0 - Umbilical hernia with obstruction, without gangrene (4) Diabetes mellitus type 2, uncontrolled Current visit: Yes Status: Acute Category: Medical Code(s): E11.65 - Type 2 diabetes mellitus with hyperglycemia (5) Hypertension, essential Current visit: Yes Status: Acute Category: Medical Code(s): I10 - Essential (primary) hypertension (6) Aortic systolic murmur on examination Current visit: Yes Status: Acute Category: Medical Code(s): I35.8 - Other nonrheumatic aortic valve disorders - Assessment and plan all Dx Assessment and Plan for all problems:: Add IV hydralazine to antihypertensive regimen until patient is able to tolerate orals. Continue IV Vasotec
--- NOTE | 2019-04-12 07:17 | Progress Note ---
Subjective Patient reports: no new complaints, feels better, voiding w/o difficulty (ambulating without difficulty), flatus, no bowel movement Exam Vital signs and Labs for Last 24 Hours: Temp Pulse Resp BP Pulse Ox 98.1 F 65 17 160/84 H 93 L 04/11/19 23:42 04/12/19 05:39 04/12/19 03:50 04/12/19 05:39 04/12/19 00:00 Laboratory Results - last 24 hr 04/11/19 06:35: Sodium 137, Potassium 4.3, Chloride 104, Carbon Dioxide 29, Anion Gap 8.3, BUN 12 D, Creatinine 0.76 D, Estimated Creat Clear 53, Estimated GFR 75, Est GFR ( Amer) 90 D, Glucose 115 H, Calcium 8.3 L, Troponin I < 0.02 04/11/19 11:53: POC Glucose 100 04/11/19 16:52: POC Glucose 92 04/11/19 20:01: POC Glucose 84 04/12/19 05:40: WBC 14.2 H, RBC 3.66 L, Hgb 11.5 L, Hct 36.0 L, MCV 98.2, MCH 31.3 H, MCHC 31.9, RDW 13.2, Plt Count 262, MPV 9.3, Neut % (Auto) 72.3, Lymph % (Auto) 18.5, [place] % (Auto) 7.4, Eos % (Auto) 1.5, Baso % (Auto) 0.2, Neut # (Auto) 10.2 H, Lymph # (Auto) 2.6, [place] # (Auto) 1.1 H, Eos # (Auto) 0.2, Baso # (Auto) 0.0 04/12/19 05:40: Sodium 135 L, Potassium 4.0, Chloride 102, Carbon Dioxide 27, Anion Gap 10.0, BUN 10, Creatinine 0.72, Estimated Creat Clear 52, Estimated GFR 79, Est GFR ( Amer) 96, Glucose 91 D, Calcium 8.6 I & O for Last 24 hours: Intake & Output 04/09/19 04/10/19 04/11/19 04/12/19 11:59 11:59 11:59 11:59 Intake Total 3209 / 3209 3293 / 3293 3143 / 3143 Output Total 355 / 355 1950 / 1950 Balance 2854 / 2854 1343 / 1343 3143 / 3143 Weight 145 lb 145 lb 2 oz 147 lb 3 oz 143 lb 9 oz Microbiology Reports for the Last 24 Hours: Microbiology 04/09/19 12:20 Urine,Clean Catch Urine Culture - Preliminary - Constitutional no acute distress - *Routine Respiratory Exam Absent: respiratory distress - *Routine Cardiovascular Exam Present: RRR - *Routine Abdominal Exam Present: soft Comments: incision c/d/i. no erythema. Progress Note: A&P (1) Ileus Status: Acute Assessment and plan: Postoperative ileus improving with ongoing flatus. Slowly advance quantity of sips/chips. Current Visit: Yes (2) Small bowel obstruction Status: Acute Current Visit: Yes (3) Umbilical hernia with obstruction Status: Acute Assessment and plan: Overall, doing well status post operative repair with partial small bowel resection. Continue to increase ambulation and continue incentive spirometer. Current Visit: Yes (4) Diabetes mellitus type 2, uncontrolled Status: Acute Assessment and plan: As per primary care provider Current Visit: Yes (5) Hypertension, essential Status: Acute Assessment and plan: Ongoing therapeutic changes as per primary provider Current Visit: Yes (6) Aortic systolic murmur on examination Status: Acute Assessment and plan: Postoperative evaluation as directed by primary care provider Current Visit: Yes
--- NOTE | 2019-04-12 13:08 | Cardiology Report ---
APPROVED REPORT EXAM: Comprehensive 2D, Doppler, and color-flow Echocardiogram Configuration Engineer: Sagrario Staley CRT Ht: 4 ft 9 in Wt: 147lbs BSA: 1.58 BP: 165/77 mmHg Indications: murmur, small bowel obstruction 2D Dimensions LVOT 1.72 cm (M/F) 1.5-2.5 M-Mode Dimensions RVDd 3.14 cm (0.9-2.6)LVDd 4.89 cm (3.5-5.7) LVDs 3.75 cm (3.5-5.7)IVSd 1.50 cm (0.6-1.1) PWd 0.75 cm (0.6-1.1)EF (Teich) 46.60% FS 23.30% EDV (Teich) 112.30 mL ESV (Teich) 60.00 mL LV Diastology E/A Ratio 0.65 Aortic Valve LVOT Max 171.00 (70-110 cm/s)LVOT VTI 40.43 cm Mitral Valve MV A Velocity 106.00 (40-130 cm/s) Left Ventricle Left atrium is mildly enlarged, left ventricle is normal size, mild concentric left ventricular hypertrophy, visually estimated ejection fraction 55% with no regional wall motion abnormality, grade 1 diastolic dysfunction seen without tissue Doppler evidence of raise left atrial pressure. Right Ventricle Right atrium and right ventricle normal size and contractility. Aortic Valve Aortic valve is thickened and calcified, there is no aortic stenosis or aortic insufficiency. Mitral Valve Mitral valve has mitral calcification, there is no mitral stenosis, there is mild mitral regurgitation. Tricuspid Valve Tricuspid valve is grossly normal, there is mild tricuspid regurgitation. Pulmonic Valve Pulmonic valve is poorly visualized. Great Vessels Aortic root is normal size. Pericardium Trivial pericardial effusion noted. Conclusion 1. Mildly enlarged left atrium, normal left ventricular size, mild concentric left ventricular hypertrophy, visually estimated ejection fraction 55% with no regional wall motion abnormality, grade 1 diastolic dysfunction seen without tissue Doppler evidence of raise left atrial pressure. 2. Mild mitral and tricuspid regurgitation 3. Trivial pericardial effusion noted. Electronically signed by : Papa Claudio, 04/12/2019 13:08:23
[2019-04-13 06:47] LABS: Basophils % 0.3 % (0.1-2.0); Eosinophils # 0.3 K/mm3 (0.0-0.4); Eosinophils % 2.2 % (0.1-12.0); Hematocrit 36.2 % (37.0-47.0); Hemoglobin 11.9 g/dL (12.2-16.2); Lymphocytes # 1.9 K/mm3 (0.7-4.5); Lymphocytes % 14.7 % (10-50); Mean Corpuscular HGB Conc 32.8 g/dL (31.8-35.4); Mean Corpuscular Volume 95.2 fl (81-99); Mean Platelet Volume 9.2 fl (7.4-10.4); Monocytes % 7.6 % (1.7-9.3); Neutrophils # 9.9 K/mm3 (1.8-7.8); Neutrophils % 75.2 % (37.0-80.0); Platelet Count 278 K/mm3 (142-424); Red Blood Count 3.81 M/mm3 (4.20-5.40); Red Cell Distribution Width 13.3 % (11.5-17.5); White Blood Count 13.1 K/mm3 (4.8-10.8)
[2019-04-13 06:56] LABS: Anion Gap 14.4 mEq/L (5-15); Calcium 8.1 mg/dL (8.5-10.1)
--- NOTE | 2019-04-13 07:07 | Progress Note ---
Internal Medicine - PN: Subj *Date: 04/13/19 *Time: 07:06 Interval history: Patient has no complaints this morning and states her day went well yesterday. She reports a bowel movement yesterday. Nursing staff reports to me patient's O2 sats dropped to 88 to 89% overnight. Patient claims she is compliant with use of incentive spirometer Exam Vital signs and Labs for Last 24 Hours: Temp Pulse Resp BP Pulse Ox 97.8 F 72 26 H 153/68 H 96 04/13/19 04:00 04/13/19 04:00 04/13/19 04:00 04/13/19 06:30 04/13/19 04:00 Laboratory Results - last 24 hr 04/09/19 12:20: Urine Color Yellow, Urine Appearance Sl cloudy, Urine pH 5.5, Ur Specific [place] >= 1.030, Urine Protein 2+, Urine Glucose (UA) 1+, Urine Ketones 1+, Urine Blood Negative, Urine Nitrate Negative, Urine Bilirubin Negative, Urine Urobilinogen 0.2, Ur Leukocyte Esterase Negative, Urine WBC 3-5, Ur Squamous Epith Cells 10-20, Urine Bacteria 2+ 04/12/19 20:40: POC Glucose 103 04/13/19 05:36: POC Glucose 97 04/13/19 06:42: WBC 13.1 H, RBC 3.81 L, Hgb 11.9 L, Hct 36.2 L, MCV 95.2, MCH 31.3 H, MCHC 32.8, RDW 13.3, Plt Count 278, MPV 9.2, Neut % (Auto) 75.2, Lymph % (Auto) 14.7, [place] % (Auto) 7.6, Eos % (Auto) 2.2, Baso % (Auto) 0.3, Neut # (Auto) 9.9 H, Lymph # (Auto) 1.9, [place] # (Auto) 1.0, Eos # (Auto) 0.3, Baso # (Auto) 0.0 04/13/19 06:42: Sodium 134 L, Potassium 3.4 L, Chloride 100, Carbon Dioxide 23, Anion Gap 14.4, BUN 9, Creatinine 0.58, Estimated Creat Clear 53, Estimated GFR 102, Est GFR ( Amer) 123 D, Glucose 102, Calcium 8.1 L I & O for Last 24 hours: Intake & Output 04/10/19 04/11/19 04/12/19 04/13/19 11:59 11:59 11:59 11:59 Intake Total 3209 / 3209 3293 / 3293 3153 / 3153 3366 / 3366 Output Total 355 / 355 1950 / 1950 250 / 250 Balance 2854 / 2854 1343 / 1343 3153 / 3153 3116 / 3116 Weight 145 lb 2 oz 147 lb 3 oz 143 lb 9 oz 148 lb Microbiology Reports for the Last 24 Hours: Microbiology 04/09/19 12:20 Urine,Clean Catch Urine Culture - Preliminary Gram Positive Cocci Narrative: Patient is in no distress. Lungs are overall clear with distant breath sounds at the bases. Heart has a regular rate and rhythm. Abdomen is soft with mild distention and hypoactive bowel sounds. Assessment and Plan (1) Ileus Current visit: Yes Status: Acute Category: Medical Code(s): K56.7 - Ileus, unspecified (2) Small bowel obstruction Current visit: Yes Status: Acute Category: Medical Code(s): K56.609 - Unspecified intestinal obstruction, unspecified as to partial versus complete obstruction (3) Umbilical hernia with obstruction Current visit: Yes Status: Acute Category: Medical Code(s): K42.0 - Umbilical hernia with obstruction, without gangrene (4) Diabetes mellitus type 2, uncontrolled Current visit: Yes Status: Acute Category: Medical Code(s): E11.65 - Type 2 diabetes mellitus with hyperglycemia (5) Hypertension, essential Current visit: Yes Status: Acute Category: Medical Code(s): I10 - Essential (primary) hypertension (6) Aortic systolic murmur on examination Current visit: Yes Status: Acute Category: Medical Code(s): I35.8 - Other nonrheumatic aortic valve disorders - Assessment and plan all Dx Assessment and Plan for all problems:: 1. Patient's blood pressures remain high and I am going to add a beta-alphonso (bisoprolol) as well as torsemide 10 mg. 2. Patient's blood sugars have remained under very good control for the last few days. 3. DC telemetry
--- NOTE | 2019-04-13 07:46 | Progress Note ---
Subjective Narrative: Patient is without complaints. She did have apparent diminished oxygen saturations overnight but denied any subjective respiratory complaints. She did have a bowel movement. She has been taking ice chips and sips of water. Exam Vital signs and Labs for Last 24 Hours: Temp Pulse Resp BP Pulse Ox 97.8 F 72 26 H 153/68 H 96 04/13/19 04:00 04/13/19 04:00 04/13/19 04:00 04/13/19 06:30 04/13/19 04:00 Laboratory Results - last 24 hr 04/09/19 12:20: Urine Color Yellow, Urine Appearance Sl cloudy, Urine pH 5.5, Ur Specific [place] >= 1.030, Urine Protein 2+, Urine Glucose (UA) 1+, Urine Ketones 1+, Urine Blood Negative, Urine Nitrate Negative, Urine Bilirubin Negative, Urine Urobilinogen 0.2, Ur Leukocyte Esterase Negative, Urine WBC 3-5, Ur Squamous Epith Cells 10-20, Urine Bacteria 2+ 04/12/19 20:40: POC Glucose 103 04/13/19 05:36: POC Glucose 97 04/13/19 06:42: WBC 13.1 H, RBC 3.81 L, Hgb 11.9 L, Hct 36.2 L, MCV 95.2, MCH 31.3 H, MCHC 32.8, RDW 13.3, Plt Count 278, MPV 9.2, Neut % (Auto) 75.2, Lymph % (Auto) 14.7, [place] % (Auto) 7.6, Eos % (Auto) 2.2, Baso % (Auto) 0.3, Neut # (Auto) 9.9 H, Lymph # (Auto) 1.9, [place] # (Auto) 1.0, Eos # (Auto) 0.3, Baso # (Auto) 0.0 04/13/19 06:42: Sodium 134 L, Potassium 3.4 L, Chloride 100, Carbon Dioxide 23, Anion Gap 14.4, BUN 9, Creatinine 0.58, Estimated Creat Clear 53, Estimated GFR 102, Est GFR ( Amer) 123 D, Glucose 102, Calcium 8.1 L I & O for Last 24 hours: Intake & Output 04/10/19 04/11/19 04/12/19 04/13/19 11:59 11:59 11:59 11:59 Intake Total 3209 / 3209 3293 / 3293 3153 / 3153 3366 / 3366 Output Total 355 / 355 1950 / 1950 250 / 250 Balance 2854 / 2854 1343 / 1343 3153 / 3153 3116 / 3116 Weight 145 lb 2 oz 147 lb 3 oz 143 lb 9 oz 148 lb Microbiology Reports for the Last 24 Hours: Microbiology 04/09/19 12:20 Urine,Clean Catch Urine Culture - Final Staphylococcus intermedius - *Routine Abdominal Exam Present: soft Comments: Hypoactive bowel sounds Progress Note: A&P (1) Ileus Status: Acute Current Visit: Yes (2) Small bowel obstruction Status: Acute Current Visit: Yes (3) Umbilical hernia with obstruction Status: Acute Current Visit: Yes (4) Diabetes mellitus type 2, uncontrolled Status: Acute Current Visit: Yes (5) Hypertension, essential Status: Acute Current Visit: Yes (6) Aortic systolic murmur on examination Status: Acute Current Visit: Yes Assessment and Plan for All Diagnoses:: Clear liquid diet
--- NOTE | 2019-04-13 08:13 | Electrocardiograph Report ---
APPROVED REPORT Exam: Resting ECG HR:73 bpm ECG Measurements Heart Rate 73 AXES VA 144 P 58 QRSd 72 QRS 59 QT 398 T31 QTc 438 <Conclusion> Normal sinus rhythm Cannot rule out Anterior infarct, age undetermined Abnormal ECG Electronically signed by : Rhett Irving, 04/13/2019 08:13:23
--- NOTE | 2019-04-13 11:58 | Pharmacy Consult Notes ---
- Pharmacy Consult Date: 04/13/19 Time: 11:50 Referring provider: DR. OHARA Reason for Consult:: BASED ON PATIENT'S FACTORS, RECOMMEND SHE START WITH GENTAMICIN 260 MG Q48H AT THIS TIME. WILL OBTAIN 4 AND 12 HOUR POST INFUSION LEVELS. Allergies and ADEs:: Allergies Allergy/AdvReac Type Severity Reaction Status Date / Time orange Allergy Unknown ASTHMA Verified 04/09/19 16:04 FLARES UP Sulfa (Sulfonamide Allergy Unknown Unknown Verified 04/09/19 16:04 Antibiotics) allergy [SULFA (SULFONAMIDE reaction ANTIBIOTICS)] walnut [WALNUT] Allergy Unknown Unknown Verified 04/09/19 16:04 allergy reaction Home Medications:: Home Medications Medication Instructions Recorded Confirmed Type No Known Home Medications 04/09/19 04/09/19 History Height: 1.45 m Weight: 67.132 kg Laboratory Results:: Laboratory Results - last 24 hr 04/09/19 12:20: Urine Color Yellow, Urine Appearance Sl cloudy, Urine pH 5.5, Ur Specific [place] >= 1.030, Urine Protein 2+, Urine Glucose (UA) 1+, Urine Ketones 1+, Urine Blood Negative, Urine Nitrate Negative, Urine Bilirubin Negative, Urine Urobilinogen 0.2, Ur Leukocyte Esterase Negative, Urine WBC 3-5, Ur Squamous Epith Cells 10-20, Urine Bacteria 2+ 04/12/19 20:40: POC Glucose 103 04/13/19 05:36: POC Glucose 97 04/13/19 06:42: WBC 13.1 H, RBC 3.81 L, Hgb 11.9 L, Hct 36.2 L, MCV 95.2, MCH 31.3 H, MCHC 32.8, RDW 13.3, Plt Count 278, MPV 9.2, Neut % (Auto) 75.2, Lymph % (Auto) 14.7, [place] % (Auto) 7.6, Eos % (Auto) 2.2, Baso % (Auto) 0.3, Neut # (Auto) 9.9 H, Lymph # (Auto) 1.9, [place] # (Auto) 1.0, Eos # (Auto) 0.3, Baso # (Auto) 0.0 04/13/19 06:42: Sodium 134 L, Potassium 3.4 L, Chloride 100, Carbon Dioxide 23, Anion Gap 14.4, BUN 9, Creatinine 0.58, Estimated Creat Clear 53, Estimated GFR 102, Est GFR ( Amer) 123 D, Glucose 102, Calcium 8.1 L 04/13/19 10:54: POC Glucose 138 H Medical History: Denies:: Cancer, Diabetes Mellitus Type 1, Diabetes Mellitus Type 2, MRSA Assessment and Plan (1) Ileus Current visit: Yes Status: Acute Category: Medical Code(s): K56.7 - Ileus, unspecified (2) Small bowel obstruction Current visit: Yes Status: Acute Category: Medical Code(s): K56.609 - Unspecified intestinal obstruction, unspecified as to partial versus complete obstruction (3) Umbilical hernia with obstruction Current visit: Yes Status: Acute Category: Medical Code(s): K42.0 - Umbilical hernia with obstruction, without gangrene (4) Diabetes mellitus type 2, uncontrolled Current visit: Yes Status: Acute Category: Medical Code(s): E11.65 - Type 2 diabetes mellitus with hyperglycemia (5) Hypertension, essential Current visit: Yes Status: Acute Category: Medical Code(s): I10 - Essential (primary) hypertension (6) Aortic systolic murmur on examination Current visit: Yes Status: Acute Category: Medical Code(s): I35.8 - Other nonrheumatic aortic valve disorders
[2019-04-14 06:32] LABS: Basophils # 0.1 K/mm3 (0-0.2); Basophils % 0.5 % (0.1-2.0); Eosinophils # 0.4 K/mm3 (0.0-0.4); Eosinophils % 3.6 % (0.1-12.0); Hematocrit 33.9 % (37.0-47.0); Hemoglobin 11.7 g/dL (12.2-16.2); Lymphocytes # 2.3 K/mm3 (0.7-4.5); Lymphocytes % 21.2 % (10-50); Mean Corpuscular HGB Conc 34.4 g/dL (31.8-35.4); Mean Corpuscular Volume 92.6 fl (81-99); Mean Platelet Volume 8.9 fl (7.4-10.4); Monocytes % 9.6 % (1.7-9.3); Neutrophils # 7.1 K/mm3 (1.8-7.8); Neutrophils % 65.1 % (37.0-80.0); Platelet Count 326 K/mm3 (142-424); Red Blood Count 3.66 M/mm3 (4.20-5.40); Red Cell Distribution Width 12.7 % (11.5-17.5); White Blood Count 10.8 K/mm3 (4.8-10.8)
[2019-04-14 06:39] LABS: Anion Gap 12.4 mEq/L (5-15); Calcium 8.4 mg/dL (8.5-10.1)
--- NOTE | 2019-04-14 08:09 | Progress Note ---
Internal Medicine - PN: Subj *Date: 04/14/19 *Time: 08:05 Interval history: Patient has no complaints this morning. She is tolerating a full liquid diet. She had multiple loose watery bowel movements overnight. She denies nausea or abdominal pain. Urine culture grew staph intermedius and patient was given a dose of gentamicin. Patient denies any symptoms of urinary tract infection Exam Vital signs and Labs for Last 24 Hours: Temp Pulse Resp BP Pulse Ox 98.2 F 68 18 165/64 H 92 L 04/14/19 07:35 04/14/19 07:35 04/14/19 07:35 04/14/19 07:35 04/14/19 07:35 Laboratory Results - last 24 hr 04/12/19 09:31: POC Glucose 88 04/13/19 10:54: POC Glucose 138 H 04/13/19 16:28: POC Glucose 145 H 04/13/19 16:38: Random Gentamicin 4.9 04/13/19 20:06: POC Glucose 172 H 04/14/19 00:30: Random Gentamicin 1.4 L 04/14/19 05:36: POC Glucose 164 H 04/14/19 06:00: WBC 10.8, RBC 3.66 L, Hgb 11.7 L, Hct 33.9 L, MCV 92.6, MCH 31.8 H, MCHC 34.4, RDW 12.7, Plt Count 326, MPV 8.9, Neut % (Auto) 65.1, Lymph % (Auto) 21.2, [place] % (Auto) 9.6 H, Eos % (Auto) 3.6, Baso % (Auto) 0.5, Neut # (Auto) 7.1, Lymph # (Auto) 2.3, [place] # (Auto) 1.0, Eos # (Auto) 0.4, Baso # (Auto) 0.1 04/14/19 06:00: Sodium 137, Potassium 3.4 L, Chloride 101, Carbon Dioxide 27, Anion Gap 12.4, BUN 9, Creatinine 0.64, Estimated Creat Clear 52, Estimated GFR 91, Est GFR ( Amer) 110, Glucose 170 H D, Calcium 8.4 L I & O for Last 24 hours: Intake & Output 04/11/19 04/12/19 04/13/19 04/14/19 11:59 11:59 11:59 11:59 Intake Total 3293 / 3293 3153 / 3153 3366 / 3366 2695 / 2695 Output Total 1950 / 1950 250 / 250 Balance 1343 / 1343 3153 / 3153 3116 / 3116 2695 / 2695 Weight 147 lb 3 oz 143 lb 9 oz 148 lb 144 lb 5 oz Microbiology Reports for the Last 24 Hours: Microbiology 04/09/19 12:20 Urine,Clean Catch Urine Culture - Final Staphylococcus intermedius Narrative: Patient is awake and alert. Lungs are clear. Heart is a regular rate and rhythm with systolic murmur loudest at the right second intercostal space. Abdomen is soft and distended with hypoactive bowel sounds. Assessment and Plan (1) Ileus Current visit: Yes Status: Acute Category: Medical Code(s): K56.7 - Ileus, unspecified (2) Small bowel obstruction Current visit: Yes Status: Acute Category: Medical Code(s): K56.609 - Unspecified intestinal obstruction, unspecified as to partial versus complete obstruction (3) Umbilical hernia with obstruction Current visit: Yes Status: Acute Category: Medical Code(s): K42.0 - Umbilical hernia with obstruction, without gangrene (4) Diabetes mellitus type 2, uncontrolled Current visit: Yes Status: Acute Category: Medical Code(s): E11.65 - Type 2 diabetes mellitus with hyperglycemia (5) Hypertension, essential Current visit: Yes Status: Acute Category: Medical Code(s): I10 - Essential (primary) hypertension (6) Aortic systolic murmur on examination Current visit: Yes Status: Acute Category: Medical Code(s): I35.8 - Other nonrheumatic aortic valve disorders (7) Infection due to methicillin resistant Staphylococcus intermedius Current visit: Yes Status: Acute Category: Medical Code(s): B95.7 - Other staphylococcus as the cause of diseases classified elsewhere (8) Urinary tract infection Current visit: Yes Status: Acute Category: Medical Code(s): N39.0 - Urinary tract infection, site not specified - Assessment and plan all Dx Assessment and Plan for all problems:: 1. During hospitalization patient has been diagnosed as diabetic. Due to being under controlled conditions where her diet is limited I am going to wait and start oral hypoglycemics at follow-up appointments. 2. During hospitalization patient has been diagnosed as having hypertension. Medication will be started at discharge. 3. Patient's urine has grown staph intermedius which is very rare in the urine. I am going to repeat a urine culture. Patient was given gentamicin yesterday and will be given gentamicin today. I will send a prescription for doxycycline to her pharmacy as the bacteria is sensitive to tetracycline
--- NOTE | 2019-04-14 09:36 | Progress Note ---
Subjective Patient reports: feels better, bowel movement (loose stool yesterday...improved with last BM) Exam Vital signs and Labs for Last 24 Hours: Temp Pulse Resp BP Pulse Ox 98.2 F 68 18 165/64 H 92 L 04/14/19 07:35 04/14/19 07:35 04/14/19 07:35 04/14/19 07:35 04/14/19 07:35 Laboratory Results - last 24 hr 04/12/19 09:31: POC Glucose 88 04/13/19 10:54: POC Glucose 138 H 04/13/19 16:28: POC Glucose 145 H 04/13/19 16:38: Random Gentamicin 4.9 04/13/19 20:06: POC Glucose 172 H 04/14/19 00:30: Random Gentamicin 1.4 L 04/14/19 05:36: POC Glucose 164 H 04/14/19 06:00: WBC 10.8, RBC 3.66 L, Hgb 11.7 L, Hct 33.9 L, MCV 92.6, MCH 31.8 H, MCHC 34.4, RDW 12.7, Plt Count 326, MPV 8.9, Neut % (Auto) 65.1, Lymph % (Auto) 21.2, [place] % (Auto) 9.6 H, Eos % (Auto) 3.6, Baso % (Auto) 0.5, Neut # (Auto) 7.1, Lymph # (Auto) 2.3, [place] # (Auto) 1.0, Eos # (Auto) 0.4, Baso # (Auto) 0.1 04/14/19 06:00: Sodium 137, Potassium 3.4 L, Chloride 101, Carbon Dioxide 27, Anion Gap 12.4, BUN 9, Creatinine 0.64, Estimated Creat Clear 52, Estimated GFR 91, Est GFR ( Amer) 110, Glucose 170 H D, Calcium 8.4 L I & O for Last 24 hours: Intake & Output 04/11/19 04/12/19 04/13/19 04/14/19 11:59 11:59 11:59 11:59 Intake Total 3293 / 3293 3153 / 3153 3366 / 3366 2695 / 2695 Output Total 1950 / 1950 250 / 250 Balance 1343 / 1343 3153 / 3153 3116 / 3116 2695 / 2695 Weight 147 lb 3 oz 143 lb 9 oz 148 lb 144 lb 5 oz Microbiology Reports for the Last 24 Hours: Microbiology 04/09/19 12:20 Urine,Clean Catch Urine Culture - Final Staphylococcus intermedius - Constitutional no acute distress - *Routine Respiratory Exam Absent: respiratory distress - *Routine Cardiovascular Exam Present: RRR - *Routine Abdominal Exam Present: soft Comments: Incision clean, dry, and intact. No erythema. Progress Note: A&P (1) Ileus Status: Acute Current Visit: Yes (2) Small bowel obstruction Status: Acute Assessment and plan: Overall, doing well status post partial small bowel resection. Slowly advance diet Continue incentive spirometer Continue to to encourage ambulation Likely discharge home tomorrow after gentamicin re-dose for atypical urinary tract infection Current Visit: Yes (3) Umbilical hernia with obstruction Status: Acute Current Visit: Yes (4) Diabetes mellitus type 2, uncontrolled Status: Acute Current Visit: Yes (5) Hypertension, essential Status: Acute Current Visit: Yes (6) Aortic systolic murmur on examination Status: Acute Current Visit: Yes (7) Infection due to methicillin resistant Staphylococcus intermedius Status: Acute Current Visit: Yes (8) Urinary tract infection Status: Acute Assessment and plan: Due for Gent "re-dose" tomorrow Current Visit: Yes
--- NOTE | 2019-04-14 10:48 | Pharmacy Consult Notes ---
- Pharmacy Consult Date: 04/14/19 Time: 10:45 Referring provider: DR. OHARA Reason for Consult:: GENTAMICIN LEVELS AND DOSE CHANGE Allergies and ADEs:: Allergies Allergy/AdvReac Type Severity Reaction Status Date / Time orange Allergy Unknown ASTHMA Verified 04/09/19 16:04 FLARES UP Sulfa (Sulfonamide Allergy Unknown Unknown Verified 04/09/19 16:04 Antibiotics) allergy [SULFA (SULFONAMIDE reaction ANTIBIOTICS)] walnut [WALNUT] Allergy Unknown Unknown Verified 04/09/19 16:04 allergy reaction Home Medications:: Home Medications Medication Instructions Recorded Confirmed Type No Known Home Medications 04/09/19 04/09/19 History Bisoprolol Fumarate [Zebeta 5mg 5 mg PO DAILY #30 tab 04/14/19 Rx tablet] Doxycycline Hyclate [Doxycycline 100 mg PO Q12 #10 cap 04/14/19 Rx 100mg Capsule] Lisinopril/Hydrochlorothiazide 1 tab PO DAILY #30 tab 04/14/19 Rx [Lisinopril-Hctz 20-25 mg Tab] Height: 1.45 m Weight: 65.459 kg Laboratory Results:: Laboratory Results - last 24 hr 04/12/19 09:31: POC Glucose 88 04/13/19 10:54: POC Glucose 138 H 04/13/19 16:28: POC Glucose 145 H 04/13/19 16:38: Random Gentamicin 4.9 04/13/19 20:06: POC Glucose 172 H 04/14/19 00:30: Random Gentamicin 1.4 L 04/14/19 05:36: POC Glucose 164 H 04/14/19 06:00: WBC 10.8, RBC 3.66 L, Hgb 11.7 L, Hct 33.9 L, MCV 92.6, MCH 31.8 H, MCHC 34.4, RDW 12.7, Plt Count 326, MPV 8.9, Neut % (Auto) 65.1, Lymph % (Auto) 21.2, [place] % (Auto) 9.6 H, Eos % (Auto) 3.6, Baso % (Auto) 0.5, Neut # (Auto) 7.1, Lymph # (Auto) 2.3, [place] # (Auto) 1.0, Eos # (Auto) 0.4, Baso # (Auto) 0.1 04/14/19 06:00: Sodium 137, Potassium 3.4 L, Chloride 101, Carbon Dioxide 27, Anion Gap 12.4, BUN 9, Creatinine 0.64, Estimated Creat Clear 52, Estimated GFR 91, Est GFR ( Amer) 110, Glucose 170 H D, Calcium 8.4 L Medical History: Denies:: Cancer, Diabetes Mellitus Type 1, Diabetes Mellitus Type 2, MRSA Assessment and Plan (1) Ileus Current visit: Yes Status: Acute Category: Medical Code(s): K56.7 - Ileus, unspecified (2) Small bowel obstruction Current visit: Yes Status: Acute Category: Medical Code(s): K56.609 - Unspecified intestinal obstruction, unspecified as to partial versus complete obstruction (3) Umbilical hernia with obstruction Current visit: Yes Status: Acute Category: Medical Code(s): K42.0 - Umbilical hernia with obstruction, without gangrene (4) Diabetes mellitus type 2, uncontrolled Current visit: Yes Status: Acute Category: Medical Code(s): E11.65 - Type 2 diabetes mellitus with hyperglycemia (5) Hypertension, essential Current visit: Yes Status: Acute Category: Medical Code(s): I10 - Essential (primary) hypertension (6) Aortic systolic murmur on examination Current visit: Yes Status: Acute Category: Medical Code(s): I35.8 - Other nonrheumatic aortic valve disorders (7) Infection due to methicillin resistant Staphylococcus intermedius Current visit: Yes Status: Acute Category: Medical Code(s): B95.7 - Other staphylococcus as the cause of diseases classified elsewhere (8) Urinary tract infection Current visit: Yes Status: Acute Category: Medical Code(s): N39.0 - Urinary tract infection, site not specified - Assessment and plan all Dx Assessment and Plan for all problems:: CALCULATED CMAX OF 7.85 AND CMIN OF 0.00. 4-HOUR POST INFUSION LEVEL 4.9 AND 12- HOUR POST INFUSION LEVEL 1.4. RECOMMEND CHANGING GENTAMICIN DOSE TO 360MG (7MG/KG DBW) AND CHANGING INTERVAL TO Q24H. PHARMACY WILL OBTAIN TROUGH LEVEL PRIOR TO DOSE ON 04/15/19 AND ADJUST DOSE APPROPRIATE AT THAT POINT. -RAMIREZ ZACARIAS PHARMD
[2019-04-15 06:02] LABS: Basophils # 0.1 K/mm3 (0-0.2); Basophils % 0.5 % (0.1-2.0); Eosinophils # 0.4 K/mm3 (0.0-0.4); Eosinophils % 3.1 % (0.1-12.0); Hematocrit 35.5 % (37.0-47.0); Hemoglobin 11.9 g/dL (12.2-16.2); Lymphocytes % 25.8 % (10-50); Mean Corpuscular HGB Conc 33.4 g/dL (31.8-35.4); Mean Platelet Volume 8.7 fl (7.4-10.4); Monocytes % 8.2 % (1.7-9.3); Neutrophils # 7.3 K/mm3 (1.8-7.8); Neutrophils % 62.4 % (37.0-80.0); Platelet Count 346 K/mm3 (142-424); Red Blood Count 3.78 M/mm3 (4.20-5.40); Red Cell Distribution Width 12.7 % (11.5-17.5); White Blood Count 11.7 K/mm3 (4.8-10.8)
[2019-04-15 06:16] LABS: Anion Gap 10.7 mEq/L (5-15); Calcium 8.5 mg/dL (8.5-10.1)
--- NOTE | 2019-04-15 07:27 | Progress Note ---
Internal Medicine - PN: Subj *Date: 04/15/19 *Time: 07:25 Interval history: Patient has no complaints this morning. She has done well over the last 24 hours. She received gentamicin again yesterday because her trough level was low. She will receive a dose this morning. She is having bowel movements and is ambulating without difficulty. Her bowel movements are more formed Exam Vital signs and Labs for Last 24 Hours: Temp Pulse Resp BP Pulse Ox 97.8 F 61 22 179/71 H 95 04/15/19 04:00 04/15/19 04:00 04/15/19 04:00 04/15/19 04:00 04/15/19 04:00 Laboratory Results - last 24 hr 04/14/19 11:21: POC Glucose 248 H 04/14/19 16:23: POC Glucose 191 H 04/14/19 20:59: POC Glucose 180 H 04/15/19 05:50: WBC 11.7 H, RBC 3.78 L, Hgb 11.9 L, Hct 35.5 L, MCV 94.0, MCH 31.4 H, MCHC 33.4, RDW 12.7, Plt Count 346, MPV 8.7, Neut % (Auto) 62.4, Lymph % (Auto) 25.8, [place] % (Auto) 8.2, Eos % (Auto) 3.1, Baso % (Auto) 0.5, Neut # (Auto) 7.3, Lymph # (Auto) 3.0, [place] # (Auto) 1.0, Eos # (Auto) 0.4, Baso # (Auto) 0.1 04/15/19 05:50: Sodium 138, Potassium 3.7, Chloride 102, Carbon Dioxide 29, Anion Gap 10.7, BUN 6 L D, Creatinine 0.76, Estimated Creat Clear 51, Estimated GFR 75, Est GFR ( Amer) 90, Glucose 170 H, Calcium 8.5 04/15/19 06:19: POC Glucose 164 H I & O for Last 24 hours: Intake & Output 04/12/19 04/13/19 04/14/19 04/15/19 11:59 11:59 11:59 11:59 Intake Total 3153 / 3153 3366 / 3366 2695 / 2695 2544 / 2544 Output Total 250 / 250 Balance 3153 / 3153 3116 / 3116 2695 / 2695 2544 / 2544 Weight 143 lb 9 oz 148 lb 144 lb 5 oz 141 lb 3 oz Microbiology Reports for the Last 24 Hours: Microbiology 04/14/19 11:10 Urine,Clean Catch Urine Culture - Preliminary Narrative: Patient is awake and alert. Lungs are clear. Heart has a regular rate and rhythm. Abdomen is soft with active bowel sounds Assessment and Plan (1) Ileus Current visit: Yes Status: Acute Category: Medical Code(s): K56.7 - Ileus, unspecified (2) Small bowel obstruction Current visit: Yes Status: Acute Category: Medical Code(s): K56.609 - Unspecified intestinal obstruction, unspecified as to partial versus complete obstruction (3) Umbilical hernia with obstruction Current visit: Yes Status: Acute Category: Medical Code(s): K42.0 - Umbilical hernia with obstruction, without gangrene (4) Diabetes mellitus type 2, uncontrolled Current visit: Yes Status: Acute Category: Medical Code(s): E11.65 - Type 2 diabetes mellitus with hyperglycemia (5) Hypertension, essential Current visit: Yes Status: Acute Category: Medical Code(s): I10 - Essential (primary) hypertension (6) Aortic systolic murmur on examination Current visit: Yes Status: Chronic Category: Medical Code(s): I35.8 - Other nonrheumatic aortic valve disorders Co. cardiogram showed only mitral and tricuspid regurgitation (7) Infection due to methicillin resistant Staphylococcus intermedius Current visit: Yes Status: Acute Category: Medical Code(s): B95.7 - Other staphylococcus as the cause of diseases classified elsewhere (8) Urinary tract infection Current visit: Yes Status: Acute Category: Medical Code(s): N39.0 - Urinary tract infection, site not specified (9) History of rheumatic fever as a child Current visit: Yes Status: Chronic Category: Medical Code(s): Z86.79 - Personal history of other diseases of the circulatory system - Assessment and plan all Dx Assessment and Plan for all problems:: Anticipate discharge today. Patient should be discharged after receiving her morning dose of gentamicin. Prescriptions for antihypertensive and antibiotics have been sent to the pharmacy. Patient will follow-up in my office on Tuesday at 1030.
--- NOTE | 2019-04-15 09:49 | Progress Note ---
Subjective Patient reports: feels better, bowel movement (States that her last bowel movement was "more normal". She is tolerating advancement of her diet.) Exam Vital signs and Labs for Last 24 Hours: Temp Pulse Resp BP Pulse Ox 97.7 F 60 18 163/61 H 96 04/15/19 07:40 04/15/19 07:40 04/15/19 07:40 04/15/19 07:40 04/15/19 07:40 Laboratory Results - last 24 hr 04/14/19 11:21: POC Glucose 248 H 04/14/19 16:23: POC Glucose 191 H 04/14/19 20:59: POC Glucose 180 H 04/15/19 05:50: WBC 11.7 H, RBC 3.78 L, Hgb 11.9 L, Hct 35.5 L, MCV 94.0, MCH 31.4 H, MCHC 33.4, RDW 12.7, Plt Count 346, MPV 8.7, Neut % (Auto) 62.4, Lymph % (Auto) 25.8, [place] % (Auto) 8.2, Eos % (Auto) 3.1, Baso % (Auto) 0.5, Neut # (Auto) 7.3, Lymph # (Auto) 3.0, [place] # (Auto) 1.0, Eos # (Auto) 0.4, Baso # (Auto) 0.1 04/15/19 05:50: Sodium 138, Potassium 3.7, Chloride 102, Carbon Dioxide 29, Anion Gap 10.7, BUN 6 L D, Creatinine 0.76, Estimated Creat Clear 51, Estimated GFR 75, Est GFR ( Amer) 90, Glucose 170 H, Calcium 8.5 04/15/19 06:19: POC Glucose 164 H I & O for Last 24 hours: Intake & Output 04/12/19 04/13/19 04/14/19 04/15/19 11:59 11:59 11:59 11:59 Intake Total 3153 / 3153 3366 / 3366 2695 / 2695 2784 / 2784 Output Total 250 / 250 Balance 3153 / 3153 3116 / 3116 2695 / 2695 2784 / 2784 Weight 143 lb 9 oz 148 lb 144 lb 5 oz 141 lb 3 oz Microbiology Reports for the Last 24 Hours: Microbiology 04/14/19 11:10 Urine,Clean Catch Urine Culture - Preliminary - Constitutional no acute distress - *Routine Respiratory Exam Absent: respiratory distress - *Routine Cardiovascular Exam Present: RRR - *Routine Abdominal Exam Present: soft Comments: Incision clean, dry, and intact. No erythema. Progress Note: A&P (1) Ileus Status: Acute Current Visit: Yes (2) Small bowel obstruction Status: Acute Current Visit: Yes (3) Umbilical hernia with obstruction Status: Acute Assessment and plan: Overall, doing well status post small bowel resection and hernia repair. Discharge home today with close outpatient follow-up Current Visit: Yes (4) Diabetes mellitus type 2, uncontrolled Status: Acute Current Visit: Yes (5) Hypertension, essential Status: Acute Current Visit: Yes (6) Aortic systolic murmur on examination Status: Chronic Current Visit: Yes (7) Infection due to methicillin resistant Staphylococcus intermedius Status: Acute Current Visit: Yes (8) Urinary tract infection Status: Acute Current Visit: Yes (9) History of rheumatic fever as a child Status: Chronic Current Visit: Yes
--- NOTE | 2019-04-15 09:50 | Discharge Summary ---
General - General Admission date:: 04/09/19 Discharge date: 04/15/19 HPI HPI: Patient is a very pleasant otherwise healthy 74-year-old female. She states that she has not moved her bowels for approximately 7 days. A few days ago she had taken a laxative. She then developed significant vomiting. Her symptoms persisted. She developed some pain and focal swelling in her mid abdomen. She presented to the [facility] this afternoon and underwent plain abdominal x-ray. There is concern for possible bowel obstruction she was sent to the ER where she underwent CT scan which reveals findings of small bowel obstruction secondary to supraumbilical hernia containing a loop of small bowel. This was unable to be reduced. The area is rather tender and surgical consultation was obtained. Hospital Course Hospital Course: The patient was taken to the operating room for hernia repair. See the following findings. Operative findings:: Patient had a rather small defect, approximately 3 cm. However there was a significant amount of omentum and a loop of small bowel within a rather large hernia sac. Small bowel was strangulated and somewhat necrotic but without perforation. She underwent partial small bowel resection with primary hernia repair. Postoperatively she convalesced fairly well. However, she was found to have previously-undiagnosed hypertension and diabetes. Dr. Rhett Sage was consulted for medical management. Her blood pressures and glucose levels progressively improved and outpatient management will be ongoing. She was discharged with prescriptions for bisoprolol and lisinopril/hydrochlorothiazide. In addition, she was found to have a cardiac murmur. Concerns for possible aortic stenosis were evaluated. An echocardiogram revealed only mitral and t ricuspid regurgitation. A methicillin-resistant staph intermedius urinary tract infection was also treated during her hospitalization with gentamicin (dosing per pharmacy). A completion course of doxycycline was ordered by her primary service at time of discharge. At the time of discharge she was afebrile with stable and normal vital signs. She was tolerating slow advancement of her diet (soft diet at time of discharge) and ambulating without difficulty Objective Vital signs: Temp Pulse Resp BP Pulse Ox 97.7 F 60 18 163/61 H 96 04/15/19 07:40 04/15/19 07:40 04/15/19 07:40 04/15/19 07:40 04/15/19 07:40 no acute distress - *Routine HEENT Exam Head: Present: normocephalic, atraumatic - *Routine Neck Exam Present: full ROM - Routine Chest/Breast/Axilla Exam Chest wall: Absent: tenderness - *Routine Respiratory Exam Absent: respiratory distress - *Routine Cardiovascular Exam Present: RRR - *Routine Abdominal Exam Present: soft Comments: Incision clean, dry, and intact. No erythema. - *Routine Extremities Exam Present: full ROM. Absent: cyanosis, clubbing, edema - Routine Back/Spine/Pelvis Exam Back/Spine: Present: full ROM - *Routine Skin Exam Present: intact - *Routine Neurological Exam Present: alert, oriented X3 - Routine Psychiatric Exam Present: normal affect Results Labs on day of discharge: Labs from last 24 hours 04/15/19 04/15/19 04/15/19 06:19 05:50 05:50 WBC 11.7 H RBC 3.78 L Hgb 11.9 L Hct 35.5 L MCV 94.0 MCH 31.4 H MCHC 33.4 RDW 12.7 Plt Count 346 MPV 8.7 Neut % (Auto) 62.4 Lymph % (Auto) 25.8 [place] % (Auto) 8.2 Eos % (Auto) 3.1 Baso % (Auto) 0.5 Neut # (Auto) 7.3 Lymph # (Auto) 3.0 [place] # (Auto) 1.0 Eos # (Auto) 0.4 Baso # (Auto) 0.1 Sodium 138 Potassium 3.7 Chloride 102 Carbon Dioxide 29 Anion Gap 10.7 BUN 6 L D Creatinine 0.76 Estimated Creat Clear 51 Estimated GFR 75 Est GFR ( Amer) 90 Glucose 170 H POC Glucose 164 H Calcium 8.5 04/14/19 04/14/19 04/14/19 20:59 16:23 11:21 WBC RBC Hgb Hct MCV MCH MCHC RDW Plt Count MPV Neut % (Auto) Lymph % (Auto) [place] % (Auto) Eos % (Auto) Baso % (Auto) Neut # (Auto) Lymph # (Auto) [place] # (Auto) Eos # (Auto) Baso # (Auto) Sodium Potassium Chloride Carbon Dioxide Anion Gap BUN Creatinine Estimated Creat Clear Estimated GFR Est GFR ( Amer) Glucose POC Glucose 180 H 191 H 248 H Calcium Preliminary micro results at discharge 04/14/19 11:10 Urine Culture - Preliminary Urine,Clean Catch DS: Diagnosis - Discharge Diagnosis (1) Ileus Status: Resolved (2) Small bowel obstruction Status: Acute Problem details: Secondary to umbilical hernia. Surgically corrected by way of partial small bowel resection and hernia repair. (3) Umbilical hernia with obstruction Status: Acute Problem details: Surgically corrected by way of primary repair. (4) Diabetes mellitus type 2, uncontrolled Status: Acute (5) Hypertension, essential Status: Acute (6) Aortic systolic murmur on examination Status: Acute Problem details: No obvious aortic stenosis noted on echocar diogram. (7) Infection due to methicillin resistant Staphylococcus intermedius Status: Acute (8) Urinary tract infection Status: Acute (9) History of rheumatic fever as a child Status: Chronic Discharge Plan - Patient Discharge Instructions ACTIVITY: No heavy lifting DIET: advance to your usual diet Patient Instructions: Type 2 Diabetes, Methicillin-Resistant Staph Infection, DI for Ileus, DI for Small Bowel Obstruction, DI for Urinary Tract Infection (UTI), DI for Surgical Site Infection - Follow up Plan Follow up with: Omar Chavez MD [Staff Physician] - (Kathy (or Sanya) to see this week for staple removal. The patient will call on 04/16 to make appt.) Rhett Sage MD [Staff Physician] - 04/17/19 10:30 am Disposition: Home, [facility] Medications: Home Medications Medication Instructions Recorded Confirmed Type No Known Home Medications 04/09/19 04/09/19 History Bisoprolol Fumarate [Zebeta 5mg 5 mg PO DAILY #30 tab 04/14/19 Rx tablet] Doxycycline Hyclate [Doxycycline 100 mg PO Q12 #10 cap 04/14/19 Rx 100mg Capsule] Lisinopril/Hydrochlorothiazide 1 tab PO DAILY #30 tab 04/14/19 Rx [Lisinopril-Hctz 20-25 mg Tab] Prescriptions/Medication Reconciliation: New Lisinopril/Hydrochlorothiazide [Lisinopril-Hctz 20-25 mg Tab] 1 tab PO DAILY #30 tab Doxycycline Hyclate [Doxycycline 100mg Capsule] 100 mg PO Q12 #10 cap Bisoprolol Fumarate [Zebeta 5mg tablet] 5 mg PO DAILY #30 tab Continued No Known Home Medications - Problem Reconciliation Problems Reviewed?: Yes
== END 2019-04-15 15:30 | disposition home or self-care (01) | DRG 329 ==
LOC: ER 10:04 → UTC 10:04 → 2ND 14:48 → OR 15:00 → 2ND 15:16 → ICU 04-11 15:50 → 2ND 04-12 14:48
PROVIDERS: ADMIT Surgery; ATTEND Surgery
CPT/HCPCS: 36415; 74000; 74018; 74177; 80048; 80053; 80170; 81001; 82962; 83036; 83690; 84484; 85007; 85025; 85610; 87086; 87088; 87186; 88302; 88307; 93005; 93306; 94640; 94761; 96365; 96366; 96367; 96375; 99284; J1335; J2405; J2543; J3490; Q9967

== ENCOUNTER 2019-05-01 13:02 | Outpatient (CLI) | payer MEDICARE, OTHER, SELFPAY | END 2019-05-01 13:15 | disposition home or self-care (01) | LOC: INF 13:02 | PROVIDERS: Visit Provider Surgery | DX: Z48.01 Encounter for change or removal of surgical wound dressing (principal); K42.0 Umbilical hernia with obstruction, without gangrene; K56.609 Unspecified intestinal obstruction, unspecified as to partial versus complete obstruction | CPT/HCPCS: G0463 ==

== ENCOUNTER → 2020-02-25 09:30 | Outpatient (CLI) | payer MEDICARE, OTHER, SELFPAY ==
--- NOTE | 2020-02-25 | US_ITS ---
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: RT David(R) Indications Claudication: Bilaterally Rest Pain: Bilaterally Numbness/Tingling Risk Factors Hypertension Diabetes Pressures/Indices Right Indices Left Indices Brachial 211.00 mmHg Brachial 208.00 mmHg Low Thigh 177.00 mmHg 0.84 Low Thigh 140.00 mmHg 0.66 Calf 188.00 mmHg 0.89 Calf 219.00 mmHg 1.04 Ankle(PT) 136.00 mmHg 0.64 Ankle(PT) 165.00 mmHg 0.78 Ankle(DP) 127.00 mmHg 0.60 Ankle(DP) 161.00 mmHg 0.76 Digit 80.00 mmHg 0.38 Digit 52.00 mmHg 0.25 Findings RT GABRIEL=0.6 LT GABRIEL=0.8 RT TBI=0.4 LT TBI=0.3 Abnormal waveforms distally Diminished pulses bilaterally Conclusion RT GABRIEL=0.6 LT GABRIEL=0.8 RT TBI=0.4 LT TBI=0.3 Abnormal waveforms distally Diminished pulses bilaterally MODERATE ARTERIAL DISEASE Electronically signed by : Jerman Riley MD 02/25/2020 17:22:22
== END ==
PROVIDERS: PCP Family Medicine; Visit Provider Family Medicine
DX: I70.213 Atherosclerosis of native arteries of extremities with intermittent claudication, bilateral legs (principal)
CPT/HCPCS: 93923

== ENCOUNTER → 2020-03-07 12:27 | Outpatient (CLI) | payer MEDICARE, OTHER, SELFPAY ==
--- NOTE | 2020-03-07 12:34 | CT_ITS ---
Procedure: CT ANGIO ABDOMEN/FEMORAL CLINICAL HISTORY: DECREASED CIRCULATION <LEFT FOOT WORSE THAN RIGHT COMPARISON: CT CT ABDOMEN PELVIS W CON from 04/09/2019 TECHNIQUE: IV Contrast: 100ml Optiray 350 Axial images obtained with sagittal and coronal reformats. All CT scans at the facility use one or more dose reduction, viz: automated exposure control, ma/kV adjustment per patient size (including targeted exams where dose is matched to indication, i.e. head), or iterative reconstruction technique. FINDINGS: Moderate to severe atheromatous changes are present involving the aortoiliac vessels with diffuse calcific plaque. 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 Calcific plaque is also present at the ostium and proximal aspect of the SMA causing severe stenosis of approximately 90 percent. The MANUEL is patent. No stenotic lesions of the aorta. The renal arteries are somewhat difficult to evaluate. There does appear to be a moderate to high-grade stenosis of the ostium of the left renal artery of 50 percent or greater and 50 percent stenosis at the ostium of the right renal artery. Calcific plaque is present involving the right common iliac artery with approximately 40 percent stenosis of the distal aspect of the right common iliac. Calcific plaque involves the internal iliac on the right. Right external iliac artery has an unremarkable appearance. There is also calcific plaque in the left common iliac artery with 40 percent stenosis distally. No stenotic lesions of the left external iliac artery. Right lower extremity: Long segment soft plaque involves the proximal right femoral artery of approximately 50 percent. There is diffuse multi segmental areas of high-grade stenosis involving the mid distal aspect of the right superficial femoral artery with an 80 percent stenotic area in the mid right SFA and with a severe 99 percent area of stenosis involving the distal right SFA. There is irregular areas of stenosis involving the popliteal artery. There is 3 vessel runoff present with segmental areas of stenosis involving the runoff vessels. There is 3 vessel runoff to the ankle on the right. Left lower extremity: Severe multi segmental areas of stenosis are present involving the left SFA popliteal and runoff vessels. There is a short segment area of occlusion involving the proximal left SFA. This area of occlusion measures 15 mm with reconstitution of the mid SFA on the left. Additional severe areas of narrowing multi segmental nature involves the mid distal left SFA with short segment occlusion at the femoral artery popliteal junction with reconstitution of a small popliteal artery. Two vessel runoff is present on the left including anterior tib and peroneal artery. The peroneal artery reconstitutes the dorsalis pedis. Pertinent non vascular findings: There are 2 pulmonary nodules in the left lower lobe at 5 mm each and 1 in the right middle lobe at 4 mm. These were present on a previous exam of 04/09/2019. 5 mm hypodensity of the spleen nonspecific. Postsurgical changes anterior abdominal wall. There is mild wedging of T12 which appears chronic. Small bilateral inguinal lymph nodes are present IMPRESSION: 1. Abnormal CT angiogram of the abdominal aorta and bilateral lower extremity runoff vessels. Please see above for detailed description. 2. 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 Multi segmental areas of calcific plaque involves the lower extremities on both sides with a an 80 percent stenosis in the mid right SFA and a 99 percent stenosis of the distal right SFA 4. Short segment occlusion of proximal left SFA as well as distal left SFA 5. Three v
[2020-03-07 13:21] LABS: Blood Urea Nitrogen 19 mg/dl (7-17); Estimated Glomerular Filt Rate 44 ml/min (>60); GFR (African American) 53 ML/MIN (>60)
== END ==
PROVIDERS: PCP Family Medicine; Visit Provider Family Medicine
DX: I99.9 Unspecified disorder of circulatory system (principal)
CPT/HCPCS: 36415; 75635; 82565; 84520; Q9967

== ENCOUNTER → 2020-04-08 14:54 | Outpatient (CLI) | payer MEDICARE, OTHER, SELFPAY ==
[2020-04-08 16:05] LABS: Basophils # 0.1 K/mm3 (0-0.2); Basophils % 0.6 % (0.1-2.0); Eosinophils # 0.1 K/mm3 (0.0-0.4); Eosinophils % 1.1 % (0.1-12.0); Hemoglobin 12.9 g/dL (12.2-16.2); Lymphocytes # 2.9 K/mm3 (0.7-4.5); Lymphocytes % 26.9 % (10-50); Mean Corpuscular HGB Conc 32.3 g/dL (31.8-35.4); Mean Corpuscular Hemoglobin 30.1 pg (27.0-31.2); Mean Corpuscular Volume 93.3 fl (81-99); Mean Platelet Volume 9.6 fl (7.4-10.4); Monocytes # 0.5 K/mm3 (0.1-1.0); Monocytes % 5.1 % (1.7-9.3); Neutrophils # 7.1 K/mm3 (1.8-7.8); Neutrophils % 66.3 % (37.0-80.0); Platelet Count 251 K/mm3 (142-424); Red Blood Count 4.29 M/mm3 (4.20-5.40); Red Cell Distribution Width 13.1 % (11.5-17.5); White Blood Count 10.7 K/mm3 (4.8-10.8)
[2020-04-08 17:07] LABS: Chloride 105 mmol/L (98-107)
[2020-04-08 17:08] LABS: Potassium 4.2 mmoL/L (3.5-5.1); Sodium 141 mmol/L (136-145)
[2020-04-08 17:11] LABS: Anion Gap 13.2 mEq/L (5-15); Blood Urea Nitrogen 20 mg/dl (7-17); Calcium 9.6 mg/dl (8.4-10.2); Carbon Dioxide 27 mmol/L (22.0-30.0); Estimated Glomerular Filt Rate 44 ml/min (>60); GFR (African American) 53 ML/MIN (>60); Glucose 167 mg/dl (74-100)
[2020-04-08 17:52] LABS: Coronavirus 19 IgG Antibody Negative (Negative); Coronavirus 19 IgM Antibody Negative (Negative)
== END ==
PROVIDERS: Visit Provider Internal Medicine
DX: Z01.818 Encounter for other preprocedural examination (principal); I25.10 Atherosclerotic heart disease of native coronary artery without angina pectoris; R94.31 Abnormal electrocardiogram [ECG] [EKG]
CPT/HCPCS: 36415; 80048; 85025; 86328

== ENCOUNTER 2020-04-10 07:46 | Day surgery (SDC) | payer MEDICARE, OTHER, SELFPAY ==
[2020-04-10] VITALS (37 sets, daily range): BP systolic 110–207; BP diastolic 49–73; PULSE 50–72; RESP 12–24; TEMP 36.9; O2SAT 90–95; BMI 68.2
--- NOTE | 2020-04-10 | IR_ITS ---
APPROVED REPORT Patient Location: Outpatient Patient Service Specialist: MARILYN Owens RT (R) PROCEDURES Catheter placement in the left common iliac artery Left common iliac artery retrograde angiogram bilateral selective renal angiogram Bare-metal stent deployment to the right renal artery Bare-metal stent deployment to the left renal artery INDICATION Malignant hypertension, Bilateral renal artery stenosis, Renovascular hypertension, 30 mm stenotic gradient involving the right renal artery using a JR4 4 Mongolian catheter Informed consent was obtained prior to the procedure. COMPLICATIONS none Estimated Blood Loss: less than 10 mls TECHNIQUE 1% lidocaine used to anesthetize the right femoral groin. The right femoral artery was accessed via the Seldinger technique. The 5 Mongolian JR4 catheter was used to perform bilateral selective renal angiography. At the end of the procedure therapeutic heparin was administered giving a therapeutic ACT and the 5 Mongolian sheath was exchanged for a 7 Mongolian sheath. A short HERNÁNDEZ guide catheter was used to intubate the right renal artery and a Choice PT extra-support wire was placed distally. A 6 mm x 18 mm Herculink bare-metal stent was deployed at 14 gerald reducing the hemodynamically severe stenosis to 0%. The apparatus was removed and used to cannulate the left renal artery and the Choice PT wire was placed distally. A 6 mm x 15 mm Herculink stent was deployed at 14 gerald reducing the severe stenosis to 0%. Excellent angiographic results were obtained. At the end of the procedure the patient was transferred to the postop holding area in stable condition for sheath removal ANGIOGRAPHIC RESULTS The right renal artery singular and has an ostial hazy mild to moderate stenosis which had a 30 mm stenotic gradient upon pullback with a 4 Mongolian JR4 catheter The left renal artery singular and has an ostial 80 to 90% stenosis The left common, internal and external iliac arteries are patent without stenosis. The left SFA is proximally occluded while the left PF is widely patent IMPRESSION Severe bilateral renal artery stenosis Successful stenting of the bilateral renal arteries severe disease reduced to 0% with 1 bare-metal stent in each respective solitary renal artery PLAN 1. Aspirin and Plavix for 1 month then drop Plavix 2. In 1 month start Xarelto 2.5 mg twice daily combined with aspirin 81 mg 3. Patient can return to the Website Developer in 2 weeks for planned stenting of the left superficial femoral artery Electronically signed by : Brody Daley, 04/10/2020 11:14:36
--- NOTE | 2020-04-10 | CA_ITS ---
APPROVED REPORT EXAM: Comprehensive 2D, Doppler, and color-flow Echocardiogram System Administrator: Sagrario Staley CRT Ht: 4 ft 9 in Wt: 146lbs BSA: 1.57 BP: 200/100 mmHg Indications: Diabetes, Peripheral Edema, Hyperlipidemia, Hypertension/HDD 2D Dimensions LVOT 1.87 cm (M/F) 1.5-2.5 M-Mode Dimensions RVDd 2.90 cm (0.9-2.6) LA Diam 4.21 cm (1.9-4.0) LVDd 4.40 cm (3.5-5.7) Ao Diam 2.97 cm (2.0-3.7) LVDs 2.72 cm (3.5-5.7) IVSd 1.86 cm (0.6-1.1) PWd 0.82 cm (0.6-1.1) EF (Teich) 68.60% FS 38.20% EDV (Teich) 87.70 mL ESV (Teich) 27.50 mL LV Diastology E Decel Time 150.00 (160-240 msec) E/A Ratio 0.95 MED E' 7.60 (< 7 cm/sec) E'/MED E' Ratio 28.17 (>14) LAT E' 5.30 (<10 cm/sec) E/LAT E' Ratio 40.40 (>14) Aortic Valve AO Peak GR. 11.60 mmHg Mitral Valve MV E Max Girish. 214.00 (40-130 cm/s) MV A Velocity 224.00 (40-130 cm/s) E/A Ratio 0.95 MV Decel. Time 150.00 (160-240 ms) MV PHT 44.00 ms Pulmonary Valve PV Peak Velocity 80.00 (50-150 cm/s) Tricuspid Valve TR P. Velocity 297.00 cm/s RAP Estimate 10.00 mmHg RVSP 45.20 mmHg Left Ventricle Left atrium is mildly enlarged, left ventricle is normal size, mild concentric left ventricular hypertrophy visually estimated ejection fraction 55% with no regional wall motion abnormality, grade 1 diastolic dysfunction seen with tissue Doppler evidence of raise left atrial pressure. Right Ventricle Right atrium and right ventricle mildly enlarged with normal contractility. Aortic Valve Aortic valve is minimally thickened and fibrosed, there is no aortic stenosis or aortic insufficiency. Mitral Valve Mitral valve leaflets are minimally thickened, there is mild mitral regurgitation. Tricuspid Valve Tricuspid valve is grossly normal, there is mild tricuspid regurgitation. Tricuspid regurgitation jet velocity is inadequate for calculation of the right ventricular systolic pressure. Pulmonic Valve Pulmonic valve is poorly visualized. Great Vessels Aortic root is normal size. Inferior vena cava is mildly dilated without significant inspiratory collapse. Pericardium Trivial pericardial effusion noted. Conclusion 1. Biatrial enlargement, normal left ventricular size, mild concentric left ventricular hypertrophy, visually estimated ejection fraction 55% with no regional wall motion abnormality, grade 1 diastolic dysfunction seen with tissue Doppler evidence of raise left atrial pressure. 2. Mildly enlarged right ventricle with normal contractility. 3. Mild mitral and tricuspid regurgitation, tricuspid regurgitation jet velocity is inadequate for calculation of the right ventricular systolic pressure, inferior vena cava is mildly dilated without significant inspiratory collapse with 4. Trivial pericardial effusion noted. Electronically signed by : Papa Claudio, 04/10/2020 11:58:24
--- NOTE | 2020-04-10 | CA_ITS ---
APPROVED REPORT Medical Detailist: RONALD Laterality: Bilateral Study Quality: Good Indications: BRUIT Doppler Spectral Velocity Analysis dICA (R) 107.50/18.30 cm/s dICA (L) 88.80/14.70 cm/s Davidson (R) 100.60/19.40 cm/s Davidson (L) 88.80/17.60 cm/s pICA (R) 72.00/16.00 cm/s pICA (L) 81.80/13.40 cm/s dCCA (R) 95.20/23.40 cm/s dCCA (L) 83.50/83.50 cm/s pCCA (R) 107.80/18.00 cm/s pCCA (L) 80.10/16.00 cm/s Vert (R) 91.50/12.50 cm/s Vert (L) 102.10/15.60 cm/s ICA/CCA 1.10 ICA/CCA 1.10 Findings Duplex evaluation demonstrates stenosis of the right proximal internal carotid artery <20% with PSV <140 cm/sec, EDV <100 cm/sec, and IC/CC Ratio <4.0.Duplex evaluation demonstrates stenosis of the left proximal internal carotid artery <20% with PSV <140 cm/sec, EDV <100 cm/sec, and IC/CC Ratio <4.0.Antegrade flow seen bilateral vertebral arteries. Conclusion Duplex evaluation demonstrates stenosis of the right proximal internal carotid artery <20% with PSV <140 cm/sec, EDV <100 cm/sec, and IC/CC Ratio <4.0.Duplex evaluation demonstrates stenosis of the left proximal internal carotid artery <20% with PSV <140 cm/sec, EDV <100 cm/sec, and IC/CC Ratio <4.0.Antegrade flow seen bilateral vertebral arteries. Electronically signed by : Jerman Riley MD 04/10/2020 17:25:42
--- NOTE | 2020-04-10 13:16 | HMH.PHACLD ---
Keyonna Peralta has received discharge medication counseling on the following medications: PATIENT IS CURRENTLY TAKING ASPIRIN EC 81 MG DAILY, ATORVASTATIN 20 MG HS, AND BISOPROLOL 2.5 MG DAILY. PATIENT STARTING PLAVIX 75 MG DAILY POST RENAL STENTS.
[2020-04-10 14:20] LABS: CATHL Activated Clotting Time > 400 SEC (74-125)
[2020-08-04 14:06] LABS: CATHL Activated Clotting Time 167 SEC (74-125)
== END 2020-04-10 17:19 | disposition home or self-care (01) ==
PROVIDERS: PCP Family Medicine; Visit Provider Internal Medicine
DX: I70.223 Atherosclerosis of native arteries of extremities with rest pain, bilateral legs (principal); N18.9 Chronic kidney disease, unspecified; I16.0 Hypertensive urgency; I15.0 Renovascular hypertension; R42 Dizziness and giddiness; E11.22 Type 2 diabetes mellitus with diabetic chronic kidney disease; E11.51 Type 2 diabetes mellitus with diabetic peripheral angiopathy without gangrene; I77.1 Stricture of artery; I70.1 Atherosclerosis of renal artery; R09.89 Other specified symptoms and signs involving the circulatory and respiratory systems; Z79.84 Long term (current) use of oral hypoglycemic drugs; Z79.82 Long term (current) use of aspirin; Z79.899 Other long term (current) drug therapy; Z88.2 Allergy status to sulfonamides; Z88.8 Allergy status to other drugs, medicaments and biological substances; I25.10 Atherosclerotic heart disease of native coronary artery without angina pectoris; Z95.5 Presence of coronary angioplasty implant and graft; I70.213 Atherosclerosis of native arteries of extremities with intermittent claudication, bilateral legs
CPT/HCPCS: 36245; 37236; 37237; 85347; 93306; 93880; 99152; 99153; C1725; C1769; C1876; C1894; J1644; J2720; Q9966

== ENCOUNTER → 2020-04-21 12:05 | Outpatient (CLI) | payer MEDICARE, OTHER, SELFPAY ==
[2020-04-21 12:26] LABS: Basophils # 0.1 K/mm3 (0-0.2); Basophils % 0.8 % (0.1-2.0); Eosinophils # 0.1 K/mm3 (0.0-0.4); Eosinophils % 1.2 % (0.1-12.0); Hematocrit 39.2 % (37.0-47.0); Lymphocytes # 2.5 K/mm3 (0.7-4.5); Lymphocytes % 23.6 % (10-50); Mean Corpuscular HGB Conc 33.3 g/dL (31.8-35.4); Mean Corpuscular Hemoglobin 30.4 pg (27.0-31.2); Mean Corpuscular Volume 91.2 fl (81-99); Mean Platelet Volume 8.3 fl (7.4-10.4); Monocytes # 0.6 K/mm3 (0.1-1.0); Monocytes % 5.3 % (1.7-9.3); Neutrophils # 7.3 K/mm3 (1.8-7.8); Neutrophils % 69.1 % (37.0-80.0); Platelet Count 372 K/mm3 (142-424); Red Blood Count 4.29 M/mm3 (4.20-5.40); Red Cell Distribution Width 13.1 % (11.5-17.5); White Blood Count 10.5 K/mm3 (4.8-10.8)
[2020-04-21 12:43] LABS: Chloride 103 mmol/L (98-107); Potassium 3.7 mmoL/L (3.5-5.1); Sodium 139 mmol/L (136-145)
[2020-04-21 12:46] LABS: Anion Gap 14.7 mEq/L (5-15); Blood Urea Nitrogen 15 mg/dl (7-17); Calcium 9.9 mg/dl (8.4-10.2); Carbon Dioxide 25 mmol/L (22.0-30.0); Estimated Glomerular Filt Rate 49 ml/min (>60); GFR (African American) 59 ML/MIN (>60); Glucose 114 mg/dl (74-100)
[2020-04-21 15:02] LABS: Coronavirus 19 IgG Antibody Positive (Negative)
[2020-04-21 15:04] LABS: Coronavirus 19 IgM Antibody Positive (Negative)
[2020-04-22 10:57] LABS: Adenovirus,PCR Not Detected (NotDetected); Bordetella Pertussis Not Detected (NotDetected); Chlamydophila Pneumoniae, PCR Not Detected (NotDetected); Coronavirus 19, PCR Not Detected (NotDetected); Coronavirus 229E Not Detected (NotDetected); Coronavirus NL63 Not Detected (NotDetected); Coronavirus OC43 Not Detected (NotDetected); Coronovirus HKU1,PCR Not Detected (NotDetected); Human Metapneumovirus Not Detected (NotDetected); Influenza A, PCR Not Detected (NotDetected); Influenza AH1, 2009 Not Detected (NotDetected); Influenza AH1, PCR Not Detected (NotDetected); Influenza AH3,PCR Not Detected (NotDetected); Influenza B, PCR Not Detected (NotDetected); Mycoplasma Pneumoniae, PCR Not Detected (NotDetected); Parainfluenza 1, PCR Not Detected (NotDetected); Parainfluenza 2, PCR Not Detected (NotDetected); Parainfluenza 3, PCR Not Detected (NotDetected); Parainfluenza 4, PCR Not Detected (NotDetected); Respiratory Syncytial Virus Not Detected (NotDetected); Rhinovirus/Enterovirus Not Detected (NotDetected)
== END ==
LOC: LAB 15:55 → COVID.OUT 16:02
PROVIDERS: PCP Family Medicine; Visit Provider Internal Medicine
DX: Z01.818 Encounter for other preprocedural examination (principal); I25.10 Atherosclerotic heart disease of native coronary artery without angina pectoris
CPT/HCPCS: 36415; 80048; 85025; 86328; 87581; 87633; 87798; U0003; U0004

== ENCOUNTER 2020-04-23 08:46 | Day surgery (SDC) | payer MEDICARE, OTHER, SELFPAY ==
[2020-04-23] VITALS (24 sets, daily range): BP systolic 120–159; BP diastolic 51–77; PULSE 51–66; RESP 14–20; TEMP 36.4–36.7; O2SAT 91–100; BMI 31.6
--- NOTE | 2020-04-23 07:19 | IR_ITS ---
APPROVED REPORT Patient Location: Outpatient Electron Beam Welder Setter: MARILYN Owens RT (R) PROCEDURES Right femoral arterial access Catheter placement in the left popliteal artery Left popliteal artery angiogram Drug-coated balloon angioplasty to the left popliteal artery and left superficial femoral artery Bare-metal self-expanding stent deployment to the left popliteal artery INDICATION Peripheral artery disease, Ringgold class III claudication Informed consent was obtained prior to the procedure. COMPLICATIONS See below Estimated Blood Loss: less than 10 mls TECHNIQUE 1% lidocaine used anesthetize the right groin the right femoral artery was accessed via the Salinger technique and a 6 Maldivian sheath was placed in the right femoral artery. A rim catheter was used to cannulate the left common iliac artery and an advantage wire was placed distally. The wire was used to traverse the chronic occlusion throughout the left superficial femoral artery and left popliteal artery. A trailblazer catheter was advanced into the left popliteal artery the wire was pulled back and antegrade angiography was performed demonstrating the catheter was within the true lumen. A 4 mm x 150 mm drug-coated balloon was deployed for 3 minutes followed by a 5 mm x 250 mm drug-coated balloon in the superficial femoral artery yet still overlapping the treatment area for the first balloon. A small perforation was identified in the popliteal artery therefore a 5 mm x 120 mm self-expanding stent was deployed in the left popliteal artery and on multiple occasions the balloon was inflated for 5 and 10 minutes along with administration of protamine. At the end of the therapeutic balloon inflation the extravasation was minimal therefore the apparatus was removed and a 5 blood pressure cuff was placed distally on the thigh to achieve external hemostasis. After achieving excellent angiographic results the apparatus was removed the patient was transferred to the postop holding area stable condition for sheath removal IMPRESSION Successful reconstruction of the left superficial femoral artery left popliteal artery mostly with a drug-coated balloons along with one self-expanding stent in the left popliteal artery PLAN 1. Dual antiplatelet therapy 2. Risk factor modification 3. In 1 month convert to Xarelto 2.5 twice daily plus aspirin 81 mg daily Electronically signed by : Brody Daley, 04/23/2020 14:11:54
--- NOTE | 2020-04-23 14:15 | HMH.PHACLD ---
Keyonna Peralta has received discharge medication counseling on the following medications: CONTINUE MEDICATIONS: PLAVIX, ASPIRIN, LIPITOR, BISOPROLOL PERIPHERAL STENT-SHARITA/ARB NOT INDICATED
--- NOTE | 2020-04-23 14:58 | SUR.PHASEII ---
pt to stay for observation overnight as outpt. pt in stable condition.
[2020-04-23 14:59] LABS: CATHL Activated Clotting Time 125 SEC (74-125)
[2020-04-23 15:01] LABS: CATHL Activated Clotting Time 298 SEC (74-125)
[2020-04-24 04:00] VITALS: BP 161/72; PULSE 68; RESP 16; TEMP 37.2; O2SAT 95
[2020-04-24 04:50] VITALS: BMI 31.3
--- NOTE | 2020-04-24 06:00 | PC.NURSE ---
Pt is A&Ox4 and has ambualted to the bathroom 1x this shift with staff SBA and tolerated well. Pt has denied any pain, SOA, or dizziness. Cath site to R groin is soft, no bruising noted and DSG is C/D/I. Edema to left thigh did progress to the top of pt's knee. New borders marked. Dr. Daley was notified and no new orders given. MD stated pt could get up and walk and no limits. 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 It is noted the right foot is slightly cooler than left. Pt is anxious to go home. VSS, call light within reach.
--- NOTE | 2020-04-24 08:52 | HMH.DCSUM ---
General - General Admission date:: 04.23.2020 Discharge date: 04/24/20 HPI HPI: Patient was brought into the hospital as an outpatient to undergo a left lower extremity runoff. Patient had successful reconstruction of the left superficial femoral artery and left popliteal artery mostly with a drug-coated balloons along with 1 self-expanding stent in the left popliteal artery. She will remain on dual antiplatelet therapy with Plavix and aspirin. The patient was admitted overnight for observation due to the extensive procedure. This morning she denies any chest pain or pressure. She denies any shortness of breath or edema. She denies any fever, chills, nausea, vomiting, diarrhea, PND or orthopnea. She does complain of some pain in her left upper leg but she states that this is much better than it was prior to starting the procedure and the pain in the lower portion of her left leg has resolved. Objective Vital signs: Temp Pulse Resp BP Pulse Ox 98.9 F 68 16 161/72 H 95 04/24/20 04:00 04/24/20 04:00 04/24/20 04:00 04/24/20 04:00 04/24/20 04:00 no acute distress, obese - *Routine HEENT Exam Head: Present: normocephalic, atraumatic Eye: Present: EOMI, PERRL ENT: Present: mucous membranes moist - *Routine Neck Exam Present: supple, full ROM, normal carotid upstroke. Absent: JVD, carotid bruit - *Routine Respiratory Exam Present: CTA bilaterally - *Routine Cardiovascular Exam Present: RRR, Normal S1, Normal S2. Absent: murmur - *Routine Abdominal Exam Present: soft, normoactive bowel sounds. Absent: tenderness, distended - *Routine Extremities Exam Present: full ROM, pulses intact, normal capillary refill. Absent: cyanosis, clubbing, edema - *Routine Skin Exam Present: intact, warm. Absent: erythema, rash - Detailed Eye Exam Eyelids: Bilateral normal inspection Results Labs on day of discharge: Labs from last 24 hours 04/23/20 04/23/20 13:13 12:36 Activated Clotting Time 125 D 298 H* DS: Diagnosis - Discharge Diagnosis (1) Peripheral arterial disease Status: Acute Discharge Plan - Patient Discharge Instructions ACTIVITY: Ambulate as tolerated DIET: diabetic diet, cardiac - Follow up Plan Follow up with: Brody Daley MD [Staff Physician] - 1 week Disposition: Home, Self-[facility] Medications: Home Medications Medication Instructions Recorded Confirmed Type atorvastatin 20 mg tablet 20 mg PO HS tab 04/07/20 04/10/20 History glimepiride 2 mg tablet 2 mg PO DAILY 04/07/20 04/10/20 History Amlodipine Besylate [Amlodipine 10 mg PO DAILY 04/10/20 04/10/20 History 10mg Tab] Aspirin [Low Dose Aspirin EC] 81 mg PO DAILY 04/10/20 04/10/20 History bisoproloL fumarate [Bisoprolol 2.5 mg PO DAILY 04/10/20 04/10/20 History Fumarate] Clopidogrel Bisulfate [Plavix 75mg 75 mg PO DAILY 04/23/20 04/23/20 History Tab] Prescriptions/Medication Reconciliation: No Action atorvastatin 20 mg tablet 20 mg PO HS tab glimepiride 2 mg tablet 2 mg PO DAILY bisoproloL fumarate [Bisoprolol Fumarate] 2.5 mg PO DAILY Amlodipine Besylate [Amlodipine 10mg Tab] 10 mg PO DAILY Clopidogrel Bisulfate [Plavix 75mg Tab] 75 mg PO DAILY Aspirin [Low Dose Aspirin EC] 81 mg PO DAILY - Problem Reconciliation Problems Reviewed?: Yes
--- NOTE | 2020-04-24 09:18 | SUR.PHASEII ---
patient given discharge instructions, patient and spouse both stated understanding
--- NOTE | 2020-04-24 09:19 | SUR.PHASEII ---
Patient given discharge instructions, patient and spouse both stated understanding.
== END 2020-04-24 09:20 | disposition home or self-care (01) ==
PROVIDERS: PCP Family Medicine; Visit Provider Internal Medicine
DX: I70.212 Atherosclerosis of native arteries of extremities with intermittent claudication, left leg; E11.51 Type 2 diabetes mellitus with diabetic peripheral angiopathy without gangrene; I10 Essential (primary) hypertension; Z79.01 Long term (current) use of anticoagulants; Z88.2 Allergy status to sulfonamides; Z88.8 Allergy status to other drugs, medicaments and biological substances; Z79.899 Other long term (current) drug therapy; I77.1 Stricture of artery
CPT/HCPCS: 37226; 85347; 99152; 99153; C1725; C1766; C1769; C1876; C1894; C2623; J1644; J2720; Q9966

== ENCOUNTER → 2021-02-23 09:11 | Outpatient (CLI) | payer MEDICARE, OTHER, SELFPAY ==
[2021-02-23 11:04] LABS: Blood Urea Nitrogen 24 mg/dl (7-17); Calcium 9.7 mg/dl (8.4-10.2); Carbon Dioxide 26 mmol/L (22.0-30.0); Chloride 107 mmol/L (98-107); Estimated Glomerular Filt Rate 44 ml/min (>60); GFR (African American) 53 ML/MIN (>60); Glucose 129 mg/dl (74-100); Sodium 143 mmol/L (136-145)
== END ==
PROVIDERS: Visit Provider Nurse Practitioner Family
DX: E78.2 Mixed hyperlipidemia (principal); I10 Essential (primary) hypertension; I35.8 Other nonrheumatic aortic valve disorders; I73.9 Peripheral vascular disease, unspecified; R00.1 Bradycardia, unspecified; R60.0 Localized edema
CPT/HCPCS: 36415; 80048

== ENCOUNTER → 2021-08-31 12:04 | Outpatient (CLI) | payer MEDICARE, OTHER, SELFPAY ==
--- NOTE | 2021-08-31 12:10 | XR_ITS ---
FINAL REPORT CLINICAL HISTORY: left foot/ankle pain wt bearing views COMPARISON: June 05, 2019 FINDINGS: LEFT ANKLE Three weight-bearing views demonstrate no acute fracture or dislocation. The visualized joint spaces are normally aligned. There are vascular calcifications. There is mild soft tissue swelling. IMPRESSION: Swelling without acute bony abnormality. Reviewed, Interpreted and Dictated by Juno Dunaway MD Transcribed by Felisha De La Cruz Authenticated by Juno Dunaway MD on 08/31/2021 01:03:46 PM [facility]
--- NOTE | 2021-08-31 12:10 | XR_ITS ---
FINAL REPORT CLINICAL HISTORY: left foot/ankle pain wt bearing views COMPARISON: June 05, 2019 FINDINGS: LEFT FOOT Three weight-bearing views of the left foot demonstrate no acute fracture or dislocation. The visualized joint spaces are normally aligned. There is a small plantar spur. There is moderate Andreas's deformity. The soft tissues are unremarkable. IMPRESSION: Moderate Andreas's deformity. No acute bony abnormality. Reviewed, Interpreted and Dictated by Juno Dunaway MD Transcribed by Felisha De La Cruz Authenticated by Juno Dunaway MD on 08/31/2021 01:03:47 PM [facility]
[2021-08-31 12:54] LABS: Basophils # 0.1 K/mm3 (0-0.2); Basophils % 1.1 % (0.1-2.0); Eosinophils # 0.2 K/mm3 (0.0-0.4); Eosinophils % 1.5 % (0.1-12.0); Hematocrit 38.9 % (37.0-47.0); Hemoglobin 12.5 g/dL (12.2-16.2); Lymphocytes # 1.8 K/mm3 (0.7-4.5); Lymphocytes % 17.6 % (10-50); Mean Corpuscular HGB Conc 32.2 g/dL (31.8-35.4); Mean Corpuscular Volume 93.1 fl (81-99); Mean Platelet Volume 9.6 fl (7.4-10.4); Monocytes # 0.6 K/mm3 (0.1-1.0); Monocytes % 5.6 % (1.7-9.3); Neutrophils # 7.4 K/mm3 (1.8-7.8); Neutrophils % 74.1 % (37.0-80.0); Platelet Count 247 K/mm3 (142-424); Red Blood Count 4.18 M/mm3 (4.20-5.40); Red Cell Distribution Width 13.7 % (11.5-17.5)
[2021-08-31 13:19] LABS: Erythrocyte Sedimentation Rate 77 mm/hr (0-30)
[2021-08-31 13:40] LABS: Alanine Aminotransferase 21 U/L (12-78); Albumin Level 4.3 g/dl (3.5-5.0); Albumin/Globulin Ratio 1.4 (1.1-1.8); Alkaline Phosphatase 141 U/L (38-126); Anion Gap 14.8 mEq/L (5-15); Aspartate Amino Transferase 27 U/L (14-36); Bilirubin,Total 0.5 mg/dl (0.2-1.3); Blood Urea Nitrogen 27 mg/dl (7-17); Calcium 9.3 mg/dl (8.4-10.2); Carbon Dioxide 24 mmol/L (22.0-30.0); Chloride 109 mmol/L (98-107); Estimated Glomerular Filt Rate 40 ml/min (>60); GFR (African American) 48 ML/MIN (>60); Glucose 117 mg/dl (74-100); Potassium 4.8 mmoL/L (3.5-5.1); Sodium 143 mmol/L (136-145); Total Protein,Serum 7.3 g/dl (6.3-8.2)
[2021-08-31 13:45] LABS: C-Reactive Protein 17.4 mg/L (0-4)
[2021-08-31 14:41] LABS: Hemoglobin A1C 6.3 % (4.0-6.0)
== END ==
PROVIDERS: Nurse Practitioner Family; PCP Family Medicine; Visit Provider Podiatrist
DX: E11.8 Type 2 diabetes mellitus with unspecified complications (principal); Z87.2 Personal history of diseases of the skin and subcutaneous tissue; Z79.84 Long term (current) use of oral hypoglycemic drugs
CPT/HCPCS: 36415; 73610; 73630; 80053; 83036; 85025; 85651; 86140

== ENCOUNTER 2022-02-10 05:42 | Emergency (ER) | payer MEDICARE, OTHER, SELFPAY ==
[2022-02-10 05:43] VITALS: BP 199/74; PULSE 55; RESP 19; TEMP 36.8; O2SAT 98; BMI 31.2
[2022-02-10 06:20] VITALS: BMI 31.2
--- NOTE | 2022-02-10 06:24 | XR_ITS ---
FINAL REPORT CLINICAL HISTORY: pain, swelling, hit on something 1 wk ago FINDINGS: 3 views of the left wrist were obtained. There is no acute fracture or dislocation. There are moderate hypertrophic changes of osteoarthritis at the basilar joint. There is no soft tissue abnormality. IMPRESSION: No acute abnormality. Reviewed, Interpreted and Dictated by Juno Dunaway MD Transcribed by Yogesh Peña Authenticated and [facility]
[2022-02-10 06:31] VITALS: BP 199/74; PULSE 48; O2SAT 97
--- NOTE | 2022-02-10 06:49 | HMH.EDUPEXT ---
Discharge Plan Disposition Patient Disposition: Home, Self-Care Prescriptions Prescriptions: New prednisone [prednisone] 20 mg tablet 10 mg PO BID Qty: 10 0RF No Action atorvastatin 40 mg tablet 40 mg PO HS Qty: 90 3RF hydrochlorothiazide 12.5 mg tablet 12.5 mg PO DAILY Qty: 90 3RF lisinopril 2.5 mg tablet 2.5 mg PO glimepiride 1 mg tablet 1 mg PO bisoprolol fumarate 5 mg tablet 5 mg PO Label Comments: TAKE 1 TABLET BY MOUTH ONCE DAILY clopidogrel [Plavix] 75 mg tablet 75 mg PO DAILY Qty: 90 3RF aspirin 81 MG tablet,delayed release (DR/EC) 81 mg PO DAILY Referrals Follow up/Referrals: Nancy Petersen MD [Primary Care Provider] - See instructions Clinical Impressions Clinical Impression: Injury of wrist, left, Sprain and strain of wrist Instructions Patient Instructions: DI for Wrist Strain Discharge ED Provider: David Reina Upper Extremity HPI General Chief Complaint: Extremity Injury, Upper Stated Complaint: Left hand pain/swelling Time Seen by Provider: 02/10/22 05:45 Mode of Arrival: Family Vehicle Source of Information: Patient Limitations: No Limitations Description of Symptoms (Recalled from ER Triage Doc. by RN): Pt c/o pain, swelling, and redness to L wrsit. States she hit it on something about 1 wk ago. Denied any significant pain. Then, last night it became slightly swollen and pain increased. This am around 4am it woke her up from her sleep d/t the pain and swelling. Pt noted it was red and warm to touch. History of Present Illness HPI narrative: had acute injury to lt wrist about 1 week ago now has redness and swelling with dec rom MD complaint: injury to: right and wrist Onset (ago): day(s) Other Extremity Injury: Right: wrist Other injuries: none Handedness: right Place: home Severity: moderate Context: direct blow Associated symptoms: denies other symptoms Related Data Home Medications Medication Instructions Recorded Confirmed aspirin 81 mg tablet,delayed 81 mg PO DAILY [facility] 04/10/20 08/31/21 release bisoprolol fumarate 5 mg tablet 5 mg PO 08/31/21 08/31/21 glimepiride 1 mg tablet 1 mg PO 08/31/21 08/31/21 lisinopril 2.5 mg tablet 2.5 mg PO 08/31/21 08/31/21 Previous Rx's Medication Instructions Recorded atorvastatin 40 mg tablet 40 mg PO HS Cholesterol #90 tabs 06/29/21 hydrochlorothiazide 12.5 mg tablet 12.5 mg PO DAILY #90 tabs 06/29/21 clopidogrel 75 mg tablet (Plavix) 75 mg PO DAILY #90 tabs 07/13/21 prednisone 20 mg tablet 10 mg PO BID #10 tabs 02/10/22 Allergies Allergy/AdvReac Type Severity Reaction Status Date / Time orange Allergy Unknown ASTHMA Verified 08/31/21 11:00 FLARES UP Sulfa (Sulfonamide Allergy Unknown Unknown Verified 08/31/21 11:00 Antibiotics) allergy [SULFA (SULFONAMIDE reaction ANTIBIOTICS)] walnut [WALNUT] Allergy Unknown Unknown Verified 08/31/21 11:00 allergy reaction PFSH PFSH Social History Smoking Status: Never smoker alcohol intake: never substance use type: denies use current occupational status: retired Travel in the last 8 weeks: None household members: spouse housing: house 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 current occupational exposures/hazards: No caffeine: Yes ROS Obtained: Yes All systems reviewed & no additional complaints except as documented Constitutional Constitutional: Denies fever(s) and Denies headache(s) Eyes Eyes: Denies diplopia ENT Ears, Nose, Mouth, and Throat: Denies headache(s) Cardiovascular Cardiovascular: Denies chest pain with activity Respiratory Respiratory: Denies cough Gastrointestinal Gastrointestingal: Denies change in bowel habits Genitourinary Female Genitourinary: Denies hematuria Musculoskeletal Musculoskeletal: Reports as per HPI, Reports arthralgias, Reports joint swelling and Reports limited range of motion Integumentary/Breasts Skin/Breast: Denies rash Ne
--- NOTE | 2022-02-10 07:00 | PC.NURSE ---
Dr. Reina ordered velcro splint to L wrist
[2022-02-10 07:01] VITALS: BP 207/57; PULSE 48; O2SAT 98
[2022-02-10 07:31] VITALS: BP 205/66; PULSE 48; O2SAT 98
[2022-02-10 08:10] VITALS: BP 205/66; PULSE 48; RESP 19; TEMP 36.8; O2SAT 98
== END 2022-02-10 08:12 | disposition home or self-care (01) ==
PROVIDERS: Emergency Provider Emergency Medicine; PCP Family Medicine
DX: S63.502A Unspecified sprain of left wrist, initial encounter (principal); W22.8XXA Striking against or struck by other objects, initial encounter
CPT/HCPCS: 73110; 99283

== ENCOUNTER 2022-02-22 10:17 | Emergency (ER) | payer MEDICARE, OTHER, SELFPAY ==
[2022-02-22 10:18] VITALS: BP 179/54; PULSE 60; RESP 18; TEMP 36.7; O2SAT 100; BMI 33.6
--- NOTE | 2022-02-22 10:32 | HMH.EDGENADL ---
Discharge Plan Disposition Patient Disposition: Home, Self-Care Condition: Fair Chief Complaint: PAIN Prescriptions Prescriptions: No Action atorvastatin 40 mg tablet 40 mg PO HS Qty: 90 3RF hydrochlorothiazide 12.5 mg tablet 12.5 mg PO DAILY Qty: 90 3RF lisinopril 2.5 mg tablet 2.5 mg PO glimepiride 1 mg tablet 1 mg PO bisoprolol fumarate 5 mg tablet 5 mg PO Label Comments: TAKE 1 TABLET BY MOUTH ONCE DAILY clopidogrel [Plavix] 75 mg tablet 75 mg PO DAILY Qty: 90 3RF prednisone [prednisone] 20 mg tablet 10 mg PO BID Qty: 10 0RF aspirin 81 MG tablet,delayed release (DR/EC) 81 mg PO DAILY Referrals Follow up/Referrals: Rhett Sage MD [Primary Care Provider] - See instructions Activity Restrictions/Add. Instructions Additional Instructions/Restrictions: Please follow-up with your primary care doctor within the next 3 to 4 days to have your white blood cell count and kidney functions checked again. Your white blood cell count was elevated today. I believe this to be to the steroids you have been using. Please return to the emergency department if you develop a fever or feel worse in any way. Continue taking all medications as prescribed. Clinical Impressions Clinical Impression: Myoclonic jerking, Leukocytosis, Chronic renal insufficiency Discharge ED Provider: Antoni Bundy Adult HPI General Chief complaint: PAIN Stated complaint: both feet,right leg,left wrist pain, no accident Time Seen by Provider: 02/22/22 10:32 Mode of Arrival: Family Vehicle Source of Information: Patient Limitations: No Limitations History of Present Illness HPI narrative: The patient presents to the emergency department complaining of right sided foot jerking associated with intermittent burning sensation in the heel. She has a history of peripheral vascular disease and has stents in both legs. She is also diabetic. She denies fevers. She is worried that she may have cellulitis. Related Data Home Medications Medication Instructions Recorded Confirmed aspirin 81 mg tablet,delayed 81 mg PO DAILY heart [facility] 04/10/20 08/31/21 release bisoprolol fumarate 5 mg tablet 5 mg PO 08/31/21 08/31/21 glimepiride 1 mg tablet 1 mg PO 08/31/21 08/31/21 lisinopril 2.5 mg tablet 2.5 mg PO 08/31/21 08/31/21 Previous Rx's Medication Instructions Recorded atorvastatin 40 mg tablet 40 mg PO HS Cholesterol #90 tabs 06/29/21 hydrochlorothiazide 12.5 mg tablet 12.5 mg PO DAILY #90 tabs 06/29/21 clopidogrel 75 mg tablet (Plavix) 75 mg PO DAILY #90 tabs 07/13/21 prednisone 20 mg tablet 10 mg PO BID #10 tabs 02/10/22 Allergies Allergy/AdvReac Type Severity Reaction Status Date / Time orange Allergy Unknown ASTHMA Verified 08/31/21 11:00 FLARES UP Sulfa (Sulfonamide Allergy Unknown Unknown Verified 08/31/21 11:00 Antibiotics) allergy [SULFA (SULFONAMIDE reaction ANTIBIOTICS)] walnut [WALNUT] Allergy Unknown Unknown Verified 08/31/21 11:00 allergy reaction PFSH PFS Medical History (Updated 02/22/22 @ 12:54 by Antoni Bundy MD) Diabetes Hypertension Social History Smoking Status: Never smoker alcohol intake: never substance use type: denies use current occupational status: retired Travel in the last 8 weeks: None household members: spouse housing: house 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
[2022-02-22 10:49] LABS: Basophils # 0.1 K/mm3 (0-0.2); Basophils % 0.4 % (0.1-2.0); Eosinophils % 0.1 % (0.1-12.0); Hematocrit 38.3 % (37.0-47.0); Hemoglobin 12.5 g/dL (12.2-16.2); Lymphocytes # 1.1 K/mm3 (0.7-4.5); Lymphocytes % 5.3 % (10-50); Mean Corpuscular HGB Conc 32.6 g/dL (31.8-35.4); Mean Corpuscular Hemoglobin 30.4 pg (27.0-31.2); Mean Corpuscular Volume 93.2 fl (81-99); Mean Platelet Volume 9.1 fl (7.4-10.4); Monocytes # 1.1 K/mm3 (0.1-1.0); Monocytes % 5.4 % (1.7-9.3); Neutrophils # 18.5 K/mm3 (1.8-7.8); Neutrophils % 88.9 % (37.0-80.0); Platelet Count 327 K/mm3 (142-424); Red Blood Count 4.11 M/mm3 (4.20-5.40); Red Cell Distribution Width 14.1 % (11.5-17.5); White Blood Count 20.8 K/mm3 (4.8-10.8)
[2022-02-22 10:51] LABS: MANUAL DIFFERENTIAL MANUAL DIFFERENTIAL (MANUAL DIFF)
[2022-02-22 11:04] LABS: Lymphocytes % 7 % (10-50); Monocytes % 11 % (2-9); Neutrophils % 82 % (42-76); Total Cells Counted 100
[2022-02-22 11:05] LABS: Platelet Estimate Normal; RBC Morphology Normal
--- NOTE | 2022-02-22 11:15 | PC.NURSE ---
ER at inquiring about pt medication hx
[2022-02-22 11:18] VITALS: BP 178/62; PULSE 58; TEMP -7.7; TEMP 18; O2SAT 95
[2022-02-22 11:40] LABS: Magnesium 1.9 mg/dl (1.6-2.3)
[2022-02-22 11:49] LABS: NT Pro Brain Natriuretic Pep. 2010 pg/mL (0-450)
[2022-02-22 12:03] VITALS: BP 197/58; PULSE 52; O2SAT 98
[2022-02-22 12:31] VITALS: BP 205/59; PULSE 54; O2SAT 98
[2022-02-22 12:41] LABS: Chloride 101 mmol/L (98-107)
[2022-02-22 12:42] LABS: Potassium 4.8 mmoL/L (3.5-5.1); Sodium 137 mmol/L (136-145)
[2022-02-22 12:44] LABS: Blood Urea Nitrogen 32 mg/dl (7-17); Creatinine Clearance Estimated 37 mL/min (50-200); Estimated Glomerular Filt Rate 37 ml/min (>60); GFR (African American) 44 ML/MIN (>60)
[2022-02-22 12:45] LABS: Anion Gap 18.8 mEq/L (5-15); Calcium 8.8 mg/dl (8.4-10.2); Carbon Dioxide 22 mmol/L (22.0-30.0); Glucose 226 mg/dl (74-100)
[2022-02-22 13:01] VITALS: BP 194/59; PULSE 54; O2SAT 99
[2022-02-22 13:22] VITALS: BP 194/59; PULSE 54; RESP 19; TEMP 36.6; O2SAT 99
== END 2022-02-22 13:23 | disposition home or self-care (01) ==
PROVIDERS: Emergency Provider Emergency Medicine; PCP Family Medicine
DX: M79.604 Pain in right leg (principal); M25.532 Pain in left wrist; M79.672 Pain in left foot; M79.671 Pain in right foot; D72.829 Elevated white blood cell count, unspecified; I12.9 Hypertensive chronic kidney disease with stage 1 through stage 4 chronic kidney disease, or unspecified chronic kidney disease; N18.9 Chronic kidney disease, unspecified; I73.9 Peripheral vascular disease, unspecified; E11.22 Type 2 diabetes mellitus with diabetic chronic kidney disease; G25.3 Myoclonus; Z79.51 Long term (current) use of inhaled steroids; Z79.52 Long term (current) use of systemic steroids; Z79.899 Other long term (current) drug therapy; Z88.2 Allergy status to sulfonamides; Z91.018 Allergy to other foods; Z95.5 Presence of coronary angioplasty implant and graft
CPT/HCPCS: 80048; 83735; 83880; 85007; 85025; 99283

== ENCOUNTER → 2022-03-08 11:47 | Outpatient (CLI) | payer MEDICARE, OTHER, SELFPAY ==
--- NOTE | 2022-03-08 11:58 | XR_ITS ---
FINAL REPORT CLINICAL HISTORY: PAIN AND SWELLING OF LEFT WRIST COMPARISON: February 10, 2022 FINDINGS: LEFT WRIST Three views demonstrate no acute fracture or dislocation. The visualized joint spaces are normally aligned. There are mild and moderate degenerative changes which are greater at the 1st CMC joint. There are vascular calcifications. IMPRESSION: Mild and moderate degenerative changes with no acute bony abnormality. Reviewed, Interpreted and Dictated by Omar Tariq III, MD Transcribed by Felisha De La Cruz Authenticated and [facility]
== END ==
PROVIDERS: PCP Family Medicine; Visit Provider Family Medicine
DX: M25.532 Pain in left wrist (principal); M25.432 Effusion, left wrist
CPT/HCPCS: 73110

== ENCOUNTER → 2022-03-11 12:33 | Outpatient (CLI) | payer MEDICARE, OTHER, SELFPAY ==
--- NOTE | 2022-03-11 12:48 | US_ITS ---
FINAL REPORT CLINICAL HISTORY: claudication/swelling of legs.,PVD,STENTS IN BLE,DM,HTN FINDINGS: COMPLETE ANKLE/BRACHIAL INDICES BILATERAL Complete ankle brachial indices were obtained. The right GABRIEL is 0.73. The left GABRIEL is 1.1. IMPRESSION: Mild vascular disease in the right lower extremity. Reviewed, Interpreted and Dictated by Omar Tariq III, MD Transcribed by Randee Uribe Authenticated and [facility]
[2022-03-11 14:19] LABS: Chloride 107 mmol/L (98-107); Sodium 143 mmol/L (136-145)
[2022-03-11 14:20] LABS: Potassium 5.7 mmoL/L (3.5-5.1)
[2022-03-11 14:22] LABS: Blood Urea Nitrogen 33 mg/dl (7-17); Estimated Glomerular Filt Rate 40 ml/min (>60); GFR (African American) 48 ML/MIN (>60)
[2022-03-11 15:29] LABS: Anion Gap 17.7 mEq/L (5-15); Calcium 9.3 mg/dl (8.4-10.2); Carbon Dioxide 24 mmol/L (22.0-30.0); Glucose 163 mg/dl (74-100)
== END ==
PROVIDERS: PCP Family Medicine; Visit Provider Nurse Practitioner Family
DX: I73.9 Peripheral vascular disease, unspecified (principal); E78.2 Mixed hyperlipidemia; I10 Essential (primary) hypertension; R60.0 Localized edema
CPT/HCPCS: 36415; 80048; 93923

== ENCOUNTER → 2022-03-15 08:39 | Outpatient (CLI) | payer MEDICARE, OTHER, SELFPAY ==
[2022-03-15 10:28] LABS: Anion Gap 16.8 mEq/L (5-15); Blood Urea Nitrogen 31 mg/dl (7-17); Calcium 9.2 mg/dl (8.4-10.2); Carbon Dioxide 20 mmol/L (22.0-30.0); Chloride 107 mmol/L (98-107); Estimated Glomerular Filt Rate 40 ml/min (>60); GFR (African American) 48 ML/MIN (>60); Glucose 126 mg/dl (74-100); Potassium 4.8 mmoL/L (3.5-5.1); Sodium 139 mmol/L (136-145)
== END ==
PROVIDERS: PCP Family Medicine; Visit Provider Physician Assistant
DX: N18.9 Chronic kidney disease, unspecified (principal); I10 Essential (primary) hypertension
CPT/HCPCS: 36415; 80048

== ENCOUNTER → 2022-04-28 07:25 | Outpatient (CLI) | payer MEDICARE, OTHER, SELFPAY ==
--- NOTE | 2022-04-28 | CA_ITS ---
FINAL REPORT TECHNIQUE: Grayscale, color Doppler and duplex Doppler ultrasound of the kidneys, aorta and renal arteries was performed. Multiple velocities were measured. CLINICAL HISTORY: .HTN FINDINGS: Aorta velocity: 129 cm/sec Right kidney: 10.6 cm. No evidence of hydronephrosis or mass. Right intrarenal RI: .87 Right renal artery velocity: 175 cm/sec. Right RAR (Renal artery-Aortic Ratio): 1.4 Left Kidney: 9.6 cm. No evidence of hydronephrosis or mass. Left intrarenal RI: .85 Left renal artery velocity: 199 cm/sec. Left RAR (Renal Artery-Aortic Ratio): 1.6 IMPRESSION: No evidence of significant renal artery stenosis. There is less than 60% renal artery stenosis on the left. CT angiogram or postcontrast MR angiogram would be more sensitive for evaluation of possible renal artery stenosis. Reviewed, Interpreted and Dictated by Omar Tariq III, MD Transcribed by Randee Uribe Authenticated and [facility]
== END ==
PROVIDERS: PCP Family Medicine; Visit Provider Internal Medicine
DX: I10 Essential (primary) hypertension (principal)
CPT/HCPCS: 93976

== ENCOUNTER → 2022-05-25 12:38 | Outpatient (CLI) | payer MEDICARE, OTHER, SELFPAY ==
--- NOTE | 2022-05-25 12:39 | CA_ITS ---
FINAL REPORT TECHNIQUE: Axial and color Doppler waveform evaluation of the left and right upper extremity was performed. Spectral analysis was performed. CLINICAL HISTORY: evaluate for subclavian stenosis FINDINGS: Right upper extremity Velocities cm/sec: SCA: 86 AxA Mid: 92 BrA Prox: 129 BrA Mid: 72 BrA Dist: 70 Rad: 66 Ul: 47 : Waveforms are triphasic. Left upper extremity Velocities cm/sec: SCA: 109 AxA Mid: 152 BrA Prox: 46 BrA Mid: 43 BrA Dist: 39 Rad: 87 Ul: 67 Waveforms are triphasic. IMPRESSION: No significant peripheral vascular disease. Reviewed, Interpreted and Dictated by Evin Blackburn MD Transcribed by Yogesh Peña Authenticated and . [facility]
== END ==
PROVIDERS: PCP Family Medicine; Visit Provider Nurse Practitioner Family
DX: I73.9 Peripheral vascular disease, unspecified (principal)
CPT/HCPCS: 93930

== ENCOUNTER 2022-06-30 14:43 | Inpatient (IN) | payer MEDICARE, OTHER, SELFPAY ==
[2022-06-30] VITALS (25 sets, daily range): BP systolic 130–205; BP diastolic 70–100; PULSE 63–92; RESP 18–20; TEMP 36.4; O2SAT 95–99; BMI 31.8
--- NOTE | 2022-06-30 14:43 | ECG_ITS ---
APPROVED REPORT Exam: Resting ECG HR:65 bpm ECG Measurements Heart Rate 65 AXES MA 151 P 67 QRSd 87 QRS 51 QT 386 T 100 QTc [address] DEVIATION AND MODERATE T-WAVE ABNORMALITY, CONSIDER LATERAL ISCHEMIA [-0.1+ mV T-WAVE IN I/aVL/V5/V6] ABNORMAL ECG UNCONFIRMED REPORT Electronically signed by : Rhett Irving MD 06/30/2022 21:21:13
--- NOTE | 2022-06-30 14:51 | XR_ITS ---
FINAL REPORT CLINICAL HISTORY: chest pain FINDINGS: SINGLE-VIEW CHEST There is mild cardiomegaly. The mediastinum is normal. There are chronic changes at the bases. There is no pneumothorax. IMPRESSION: No acute cardiopulmonary process. Reviewed, Interpreted and Dictated by Juno Dunaway MD Transcribed by Randee Uribe Authenticated and [facility]
--- NOTE | 2022-06-30 15:00 | PC.NURSE ---
847- notified in house cra per dr. lopez to call blood bank laboratory technologist team in [phone]--[facility] [place] has spoken with all blood bank laboratory technologist staff for call back
--- NOTE | 2022-06-30 15:07 | HMH.EDGENADL ---
Discharge Plan Disposition Patient Disposition: Admitted As Inpatient Prescriptions Prescriptions: No Action doxazosin [Cardura] 1 mg tablet 1 mg PO DAILY Qty: 30 3RF atorvastatin 40 mg tablet 40 mg PO HS Qty: 90 3RF glimepiride 1 mg tablet 1 mg PO DAILY hydrochlorothiazide 25 mg tablet 25 mg PO DAILY Qty: 90 3RF lisinopril 40 mg tablet 80 mg PO DAILY Qty: 60 5RF clopidogrel [Plavix] 75 mg tablet 75 mg PO DAILY Qty: 90 3RF aspirin 81 MG tablet,delayed release (DR/EC) 81 mg PO DAILY Referrals Follow up/Referrals: Rhett Sage MD [Primary Care Provider] - See instructions Clinical Impressions Clinical Impression: Acute non-ST elevation myocardial infarction (NSTEMI) Discharge ED Provider: Royce Martinez General Adult HPI General Chief complaint: Chest Pain Stated complaint: chest pain Time Seen by Provider: 06/30/22 14:45 Mode of Arrival: Ambulatory Source of Information: Patient Limitations: No Limitations Description of Symptoms (Recalled from ER Triage Doc. by RN): Pt c/o chest pain for 2-3 days. Pt reports SOA with chest pain. Pt reports pain 10/10 upon arrival to ED. History of Present Illness HPI narrative: 77-year-old female with history of renal stents and peripheral artery disease presents with substernal chest pain for the last 3 days. She says she has had chest pain with exertion going down both arms. She also has shortness of breath when she walks. No nausea vomiting. No hemoptysis or prior pulmonary embolism. She does have history of diabetes and high blood pressure. Related Data Home Medications Medication Instructions Recorded Confirmed aspirin 81 mg tablet,delayed 81 mg PO DAILY [facility] 04/10/20 05/20/22 release glimepiride 1 mg tablet 1 mg PO DAILY 03/08/22 05/20/22 Previous Rx's Medication Instructions Recorded atorvastatin 40 mg tablet 40 mg PO HS Cholesterol #90 tabs 06/29/21 clopidogrel 75 mg tablet (Plavix) 75 mg PO DAILY #90 tabs 07/13/21 hydrochlorothiazide 25 mg tablet 25 mg PO DAILY #90 tabs 03/08/22 lisinopril 40 mg tablet 80 mg PO DAILY #60 tabs 04/20/22 doxazosin 1 mg tablet (Cardura) 1 mg PO DAILY #30 tabs 05/04/22 Allergies Allergy/AdvReac Type Severity Reaction Status Date / Time orange Allergy Unknown ASTHMA Verified 05/20/22 12:01 FLARES UP Sulfa (Sulfonamide Allergy Unknown Unknown Verified 05/20/22 12:01 Antibiotics) allergy [SULFA (SULFONAMIDE reaction ANTIBIOTICS)] walnut [WALNUT] Allergy Unknown Unknown Verified 05/20/22 12:01 allergy reaction PFSH [facility] Disclaimer: The information contained in this section may have been updated after the patient was seen, as this information can be updated by other users. Medical History Abnormal ankle brachial index (GABRIEL) Aortic systolic murmur on examination Chronic renal insufficiency Diabetes Diabetes mellitus Diabetes mellitus type 2, uncontrolled Heart murmur HLD (hyperlipidemia) HTN (hypertension) Hypertension Hypertension, essential Ileus PAD (peripheral artery disease) Peripheral arterial disease Sinus bradycardia Sinus bradycardia Small bowel obstruction Umbilical hernia with obstruction Social History Smoking Status: Never smoker alcohol intake: never substance use type: denies use current occupational status: retired Travel in the last 8 weeks: None household members: spouse housing: house 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 current occupational exposures/hazards: No caffeine: Yes ROS Obtained: Yes All systems reviewed & no additional complaints except as documented Constitutional Constitutional: Reports fatigue and Denies weakness Eyes Eyes: Denies dry eyes ENT Ears, Nose, Mouth, and Throat: Denies hoarseness and Denies tongue swelling Cardiovascular Cardiovascular: Denies diaphoresis and Reports dyspnea Respiratory Respiratory: Denies cough, Reports dyspnea and Denies wheezing Gastrointestinal Gastrointestingal: Denies constipation or hematemesis Genitourinary Female Genitourinary: Denies dysuria and Denies hematuria Musculoskeletal Musculoskeletal: Denies joint swelling and Denies numbness Integumentary/Breasts Skin/Breast: Denies rash Neurologic Neurologic: Denies confusion, Denies numbness and Denies weakness Endocrine Endocrine: Reports fatigue Hematologic/Lymphatic Henatologic/Lymphatic: Denies easy bleeding Allergic/Immunologic Allergic/Immunologic: Denies tongue swelling and Denies wheezing Physical Exam General General appearance: alert and in no apparent distress Eye Eye exam: Present PERRL and EOMI ENT ENT exam: Present normal exam and normal oropharynx Neck Neck exam: Present normal inspection Chest Chest inspection: Present symmetric chest wall rise Respiratory Respiratory exam: Present normal lung sounds bilaterally; Absent respiratory distress Cardiovascular Cardiovascular exam: Present regular rate and normal rhythm Abdominal Exam Abdominal exam: Present soft; Absent distention, tenderness, guarding, rebound, Thompson's sign or tenderness at McBurney's Point Back Exam Back exam: Present normal inspection Neurological Exam Neurological exam: Present alert and oriented X3 Psychiatric Psychiatric exam: Present normal affect and normal mood Skin Skin exam: Present warm, dry and intact Lymphatic Lymphatic Findings: no adenopathy Medical Decision Making Medical Records Medical records reviewed: Yes I reviewed the patient's medical records. Alejandro Inquiry Pt receiving controlled substance: No Alejandro was queried for this patient: No Vital Signs: 06/30/22 14:50 06/30/22 15:13 Temperature 97.6 F Temperature Source Oral Pulse Rate 65 Pulse Rate [Right Radial] 63 Respiratory Rate 18 18 Blood Pressure 196/93 H Blood Pressure [Right Arm] 130/80 Blood Pressure Mean 108 Blood Pressure Mean [Right Arm] 96 Blood Pressure Source [Right Arm] Automatic Cuff Blood Pressure Position [Right Arm] Sitting 02 Sat by Pulse Oximetry 99 97 Oxygen Delivery Method Room Air Lab Data Lab Results 06/30/22 14:56: WBC 15.6 H, RBC 4.15 L, Hgb 12.6, Hct 38.2, MCV 92.1, MCH 30.3, MCHC 32.9, RDW 15.0, Plt Count 252, MPV 8.9, Neut % (Auto) 91.1 H, Lymph % (Auto) 6.6 L, Warrick % (Auto) 2.0, Eos % (Auto) 0.1, Baso % (Auto) 0.3, Neut # (Auto) 14.2 H, Lymph # (Auto) 1.0, Warrick # (Auto) 0.3, Eos # (Auto) 0.0, Baso # (Auto) 0.0 06/30/22 14:56: Sodium 141, Potassium 4.9, Chloride 109 H, Carbon Dioxide 22, Anion Gap 14.9, BUN 34 H, Creatinine 1.30 H, Estimated Creat Clear 39, Estimated GFR 40 L, Est GFR ( Amer) 48 L, Glucose 278 H, Calcium 9.1, Troponin I 0.41 H Result diagrams: 06/30/22 14:56 06/30/22 14:56 Orders (Tests/Meds): ED MEDICATIONS Generic Name Dose Route Start Last Admin Trade Name Freq PRN Reason Stop Dose Admin Nitroglycerin/Dextrose 250 mls @ 1.5 mls/hr 06/30/22 16:00 Nitroglycerin 50mg/250ml D5w IV 07/30/22 15:59 .Q24H ELIE Protocol 5 MCG/MIN Nitroglycerin 0.4 mg 06/30/22 14:58 06/30/22 15:42 Nitroglycerin 0.4mg Sl Tablet SL 07/30/22 14:57 0.4 mg Q5MINP PRN Administration Chest Pain Sodium Chloride 10 ml 06/30/22 14:51 Sodium Chloride 0.9% 10ml Flush Syringe IV 07/30/22 14:50 NEEDED PRN Maintain IV Site Ticagrelor 90 mg 06/30/22 15:46 Ticagrelor 90mg Tablet PO 06/30/22 15:47 ONCE ONE Discontinued Medications Generic Name Dose Route Start Last Admin Trade Name Freq PRN Reason Stop Dose Admin Aspirin 325 mg 06/30/22 14:58 06/30/22 15:09 Aspirin 325mg Tablet PO 06/30/22 14:59 Not Given ONCE ONE Aspirin 243 mg 06/30/22 15:09 06/30/22 15:12 Aspirin 81mg Chewable Tablet PO 06/30/22 15:10 243 mg ONCE ONE Administration ORDERS Category Date Time Status Chest XR -- portable [XR chest portable] Stat Exams 06/30/22 14:51 Taken Basic Metabolic Panel Stat Lab 06/30/22 14:56 Completed Complete Blood Count Auto Diff Stat Lab 06/30/22 14:56 Results Troponin I Q3H Lab 06/30/22 18:00 Ordered Troponin I Q3H Lab 06/30/22 21:00 Ordered Troponin I Stat Lab 06/30/22 14:56 Completed ECG initial Besson Routine Y 06/30/22 14:43 Completed Medical Decision Narrative: 77-year-old female presents with chest pain. She is in no acute distress nontoxic-appearing comfortable in the room. She does have mild ST depression on EKG. Given aspirin and nitroglycerin in the emergency department. Plan to obtain troponin chest x-ray and chest pain work-up and discussed with cardiology Troponin elevated, cardiology consulted. Chest pain is improving with nitroglycerin Discussed with case with cardiology, plan to admit to medicine and do heart cath. Recommended Brilinta and NTG gtt. Will discuss with Dr. Pollack for admission Critical Care Time Critical Care Time Critical Care Time: No Attestation: On 06/30/22, the high probability of a clinically significant, sudden or life threatening deterioration of the following system(s) required my full and direct attention, intervention and personal management. The time I documented below is in addition to time spent performing reported procedures but includes the following listed in this critical care notation.
[2022-06-30] MEDS: NITROGLYCERIN 0.4MG SL TABLET 0.4 MG SL ×3 (15:12→15:42)
[2022-06-30] MEDS: ASPIRIN 81MG CHEWABLE TABLET 243 MG PO (15:12)
[2022-06-30 15:13] LABS: Basophils % 0.3 % (0.1-2.0); Eosinophils % 0.1 % (0.1-12.0); Hematocrit 38.2 % (37.0-47.0); Hemoglobin 12.6 g/dL (12.2-16.2); Lymphocytes % 6.6 % (10-50); Mean Corpuscular HGB Conc 32.9 g/dL (31.8-35.4); Mean Corpuscular Hemoglobin 30.3 pg (27.0-31.2); Mean Corpuscular Volume 92.1 fl (81-99); Mean Platelet Volume 8.9 fl (7.4-10.4); Monocytes # 0.3 K/mm3 (0.1-1.0); Neutrophils # 14.2 K/mm3 (1.8-7.8); Neutrophils % 91.1 % (37.0-80.0); Platelet Count 252 K/mm3 (142-424); Red Blood Count 4.15 M/mm3 (4.20-5.40); White Blood Count 15.6 K/mm3 (4.8-10.8)
[2022-06-30 15:17] LABS: Anion Gap 14.9 mEq/L (5-15); Blood Urea Nitrogen 34 mg/dl (7-17); Calcium 9.1 mg/dl (8.4-10.2); Carbon Dioxide 22 mmol/L (22.0-30.0); Chloride 109 mmol/L (98-107); Creatinine Clearance Estimated 39 mL/min (50-200); Estimated Glomerular Filt Rate 40 ml/min (>60); GFR (African American) 48 ML/MIN (>60); Glucose 278 mg/dl (74-100); Potassium 4.9 mmoL/L (3.5-5.1); Sodium 141 mmol/L (136-145)
[2022-06-30 15:22] LABS: MANUAL DIFFERENTIAL MANUAL DIFFERENTIAL (MANUAL DIFF)
[2022-06-30 15:32] LABS: Troponin I 0.41 ng/ml (0.00-0.034)
--- NOTE | 2022-06-30 15:32 | PC.NURSE ---
pt reports pain 8/10 after initial nitro dose, notified ER
--- NOTE | 2022-06-30 15:33 | PC.NURSE ---
critical lab value reported to INGRID goff MD. troponin 0.41
--- NOTE | 2022-06-30 15:34 | PC.NURSE ---
waiting customer contact representative back from cardiology
--- NOTE | 2022-06-30 15:37 | PC.NURSE ---
spoke with radha moss at this time notified her of pt consult
--- NOTE | 2022-06-30 15:43 | PC.NURSE ---
andres mossn at [facility]
--- NOTE | 2022-06-30 15:58 | EXP.CARD.CON ---
History of Present Illness History of Present Illness Consult date: 06/30/22 Requesting physician: Royce Martinez Consult reason: chest pain Chief complaint: chest pain History of present illness: This is a 77-year-old white female who presented to the emergency department with chest pain. She states her symptoms started initially about a week ago. She states that she has never had chest pain before that time. She states that she is having a substernal pressure with exertion and improves with rest. She states today the pain significantly worsened and was a 10 out of 10 in intensity. She is having shortness of breath associated with the chest pain. It gets better with rest but does not completely resolve. She states that the pain is radiating down her bilateral arms. She states that she is extremely short of breath when she is walking which is new for her. The patient does have known PAD and hypertension. She states that her blood pressure has been under good control until she got to the hospital today. She does not have a history of coronary disease that she is aware of. She is diabetic. She denies any lower extremity edema. She denies any fever, chills, nausea, vomiting, diarrhea, PND orthopnea. [facility] Disclaimer: The information contained in this section may have been updated after the patient was seen, as this information can be updated by other users. Medical History (Updated 06/30/22 @ 16:03 by Cookie Solorzano APRN) Abnormal ankle brachial index (GABRIEL) Aortic systolic murmur on examination Chronic renal insufficiency Diabetes Diabetes mellitus Diabetes mellitus type 2, uncontrolled Heart murmur HLD (hyperlipidemia) HTN (hypertension) Hypertension Hypertension, essential Ileus PAD (peripheral artery disease) Peripheral arterial disease Sinus bradycardia Sinus bradycardia Small bowel obstruction Umbilical hernia with obstruction Unstable angina Family History (Updated 06/30/22 @ 16:01 by Cookie Solorzano APRN) Father Heart attack Social History Smoking Status: Never smoker alcohol intake: never substance use type: denies use current occupational status: retired Travel in the last 8 weeks: None household members: spouse housing: house 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 current occupational exposures/hazards: No caffeine: Yes Review of Systems Review of Systems Review of systems:: pertinent systems reviewed and negative unless documented below Constitutional Constitutional: Reports system reviewed and no additional complaints, except as documented and Denies weakness Eyes Eyes: Reports system reviewed and no additional complaints, except as documented ENT Ears, Nose, Mouth, and Throat: Reports system reviewed and no additional complaints, except as documented *Cardiovascular Cardiovascular: Reports system reviewed and no additional complaints, except as documented, Reports chest pain at rest, Reports chest pain with activity, Reports claudication, Reports dyspnea, Reports dyspnea on exertion and Reports radiating jaw, neck or arm pain *Respiratory Respiratory: Reports system reviewed and no additional complaints, except as documented, Reports dyspnea and Reports dyspnea on exertion *Gastrointestinal Gastrointestinal: Reports system reviewed and no additional complaints, except as documented *Genitourinary Genitourinary: Reports system reviewed and no additional complaints, except as documented *Musculoskeletal Musculoskeletal: Reports system reviewed and no additional complaints, except as documented and Denies numbness Integumentary/Breasts Skin/Breast: Reports system reviewed and no additional complaints, except as documented *Neurologic Neurologic: Reports system reviewed and no additional complaints, except as documented, Denies confusion, Denies numbness and Denies weakness Psychiatric Psychiatric: Reports system reviewed and no additional complaints, except as documented and Denies confusion Endocrine Endocrine: Reports system reviewed and no additional complaints, except as documented Hematologic/Lymphatic Hematologic/Lymphatic: Reports system reviewed and no additional complaints, except as documented Allergic/Immunologic Allergic/Immunologic: Reports system reviewed and no additional complaints, except as documented Exam Data for Last 24 hours Vital signs and Labs for Last 24 Hours: Temp Pulse Resp BP Pulse Ox 97.6 F 65 18 196/93 H 97 06/30/22 14:50 06/30/22 15:13 06/30/22 15:13 06/30/22 15:13 06/30/22 15:13 Laboratory Results - last 24 hr 06/30/22 14:56: WBC 15.6 H, RBC 4.15 L, Hgb 12.6, Hct 38.2, MCV 92.1, MCH 30.3, MCHC 32.9, RDW 15.0, Plt Count 252, MPV 8.9, Neut % (Auto) 91.1 H, Lymph % (Auto) 6.6 L, [place] % (Auto) 2.0, Eos % (Auto) 0.1, Baso % (Auto) 0.3, Neut # (Auto) 14.2 H, Lymph # (Auto) 1.0, [place] # (Auto) 0.3, Eos # (Auto) 0.0, Baso # (Auto) 0.0 06/30/22 14:56: Sodium 141, Potassium 4.9, Chloride 109 H, Carbon Dioxide 22, Anion Gap 14.9, BUN 34 H, Creatinine 1.30 H, Estimated Creat Clear 39, Estimated GFR 40 L, Est GFR ( Amer) 48 L, Glucose 278 H, Calcium 9.1, Troponin I 0.41 H I & O for Last 24 hours: Intake & Output 06/27/22 06/28/22 06/29/22 06/30/22 23:59 23:59 23:59 23:59 Weight 147 lb Narrative: EKG is sinus rhythm with lateral ST depression and T wave abnormality. Rate is 65 bpm. Constitutional Constitutional: no acute distress and obese *Routine HEENT Exam Head: Present normocephalic and atraumatic ENT: Present mucous membranes moist *Routine Neck Exam Neck: Present supple, full ROM and normal carotid upstroke; Absent JVD, carotid bruit or lymphadenopathy *Routine Respiratory Exam Respiratory: Present CTA bilaterally, normal respiratory effort, able to speak in complete sentences and symmetric chest movement *Routine Cardiovascular Exam Cardiovascular: Present RRR, Normal S1 and Normal S2; Absent murmur or gallop *Routine Abdominal Exam Abdominal: Present soft and normoactive bowel sounds; Absent tenderness, distended or organomegaly *Routine Extremities Exam Extremities: Present full ROM, pulses intact and normal capillary refill; Absent cyanosis, clubbing or edema *Routine Skin Exam Skin: Present intact and warm; Absent erythema *Routine Neurological Exam Neurological: Present alert, oriented X3 and CN II-XII intact; Absent sensory deficit or motor deficit Routine Psychiatric Exam Psychiatric: Present normal affect Meds Home Medications and Allergies Home Medications Medication Instructions Recorded Confirmed Type aspirin 81 mg tablet,delayed 81 mg PO DAILY heart health 04/10/20 05/20/22 History release atorvastatin 40 mg tablet 40 mg PO HS Cholesterol #90 tabs 06/29/21 05/20/22 Rx clopidogrel 75 mg tablet (Plavix) 75 mg PO DAILY #90 tabs 07/13/21 05/20/22 Rx glimepiride 1 mg tablet 1 mg PO DAILY 03/08/22 05/20/22 History hydrochlorothiazide 25 mg tablet 25 mg PO DAILY #90 tabs 03/08/22 05/20/22 Rx lisinopril 40 mg tablet 80 mg PO DAILY #60 tabs 04/20/22 05/20/22 Rx doxazosin 1 mg tablet (Cardura) 1 mg PO DAILY #30 tabs 05/04/22 05/20/22 Rx New Prescriptions to Start Prescriptions: Allergies Allergy/AdvReac Type Severity Reaction Status Date / Time orange Allergy Unknown ASTHMA Verified 05/20/22 12:01 FLARES UP Sulfa (Sulfonamide Allergy Unknown Unknown Verified 05/20/22 12:01 Antibiotics) allergy [SULFA (SULFONAMIDE reaction ANTIBIOTICS)] walnut [WALNUT] Allergy Unknown Unknown Verified 05/20/22 12:01 allergy reaction Assessment and Plan *Assessment and plan (1) Acute non-ST elevation myocardial infarction (NSTEMI): Status: Acute Category: Medical Code(s): I21.4 - Non-ST elevation (NSTEMI) myocardial infarction (2) Unstable angina: Status: Acute Category: Medical Code(s): I20.0 - Unstable angina (3) PAD (peripheral artery disease): Status: Chronic Category: Medical Code(s): I73.9 - Peripheral vascular disease, unspecified (4) Hypertension, essential: Status: Chronic Category: Medical Code(s): I10 - Essential (primary) hypertension (5) Diabetes mellitus type 2, uncontrolled: Status: Chronic Qualifiers: Coma presence: without coma Glycemic state: with hypoglycemia Qualified Code(s): E11.649 - Type 2 diabetes mellitus with hypoglycemia without coma Category: Medical Code(s): E11.65 - Type 2 diabetes mellitus with hyperglycemia (6) HLD (hyperlipidemia): Status: Chronic Qualifiers: Hyperlipidemia type: mixed hyperlipidemia Qualified Code(s): E78.2 - Mixed hyperlipidemia Category: Medical Code(s): E78.5 - Hyperlipidemia, unspecified (7) Diabetes mellitus: Status: Chronic Qualifiers: Diabetes mellitus complication detail: with peripheral angiopathy without gangrene Diabetes mellitus complication status: with circulatory complication Diabetes mellitus director physical therapy insulin use: without intermediate use Diabetes mellitus type: type 2 Qualified Code(s): E11.51 - Type 2 diabetes mellitus with diabetic peripheral angiopathy without gangrene Category: Medical Code(s): E11.9 - Type 2 diabetes mellitus without complications (8) Chronic renal insufficiency: Status: Acute Qualifiers: Chronic kidney disease stage: unspecified stage Qualified Code(s): N18.9 - Chronic kidney disease, unspecified Category: Medical Code(s): N18.9 - Chronic kidney disease, unspecified Plan Plan: 1. The patient presented to the emergency department with complaints of chest pain. She is having symptoms consistent with unstable angina. She does have an elevated troponin consistent with a non-STEMI. The patient has known PAD which is CAD equivalent. We will plan to proceed with left cardiac catheterization today to evaluate her coronary artery disease. 2. The patient has been educated the risk and benefits of proceeding with left cardiac catheterization. The patient verbalized understanding and is agreeable to proceeding with the procedure. 3. The patient be n.p.o. in preparation for left cardiac catheterization. 4. Patient will get premedications and IV fluids prior to the procedure. 5. PAD is likely stable. 6. Her blood pressure is malignantly elevated at this time. We will start her on a nitroglycerin drip at this time for her hypertension and chest pain. 7. Brilinta 180 mg p.o. x1 dose now. 8. Aspirin 325 mg p.o. x1 dose now. 9. We will get an echocardiogram to evaluate her LV function. 10. Her LDL goal is less than 55. We will get a lipid panel in the morning. She is on a statin. 11. The patient is diabetic. She will need aggressive control of her diabetes. We will defer management of this to her primary care team. 12. Patient does have some renal insufficiency. We will repeat a BMP in the morning. 13. Further recommendations will be made pending the patient's response to treatment. Thank you for the opportunity to help participate in the care of this patient. All recommendations and orders are per Dr. Daley. AMB Pre-cath Criteria Pre-cath considerations: Clinical evaluation and indication for coronary angiography includes:: suspected CAD, new onset angina <= 2 months and worsening angina Patient is describing chest pain symtom as:: typical angina Clinical risk factors:: PAD, HTN, HLD, DM, family history of CAD. How many antianginals is the patient taking?: 0 Risks and benefits:: We will plan to proceed with LHC/coronary angiography with right radial access. The patient has been educated on the risks and benefits of proceeding with LHC/coronary angiography with right radial access. The patient verbalized understanding and is agreeable in proceeding with the procedure. SCAI (diagnostic catheter AUC results):: A8
[2022-06-30] MEDS: TICAGRELOR 90MG TABLET 180 MG PO (16:02)
[2022-06-30] MEDS: NITROGLYCERIN IN 5 % DEXTROSE 250 ML 1.5 MG IV (16:03)
[2022-06-30 16:07] LABS: Eosinophils % 1 % (0-3); Lymphocytes % 9 % (10-50); Monocytes % 1 % (2-9); Neutrophils % 89 % (42-76); Platelet Estimate Normal; RBC Morphology Normal; Total Cells Counted 100
[2022-06-30 16:24] LABS: Coronavirus 19, PCR Not Detected (NotDetected); Influenza A, PCR Not Detected (NotDetected); Influenza B, PCR Not Detected (NotDetected)
--- NOTE | 2022-06-30 16:27 | PC.NURSE ---
nitro drip increased to 10 mcg/min at this time
--- NOTE | 2022-06-30 16:28 | PC.NURSE ---
pt in gown, non-skid socks on, nitro drip infusing, cath procedure consent signed, saad groins clipped. pt resting in bed
--- NOTE | 2022-06-30 16:29 | IR_ITS ---
APPROVED REPORT Patient Location: [facility] Technician: MARILYN Alcantar RT (R) PROCEDURES Left heart catheterization Left ventriculogram Selective coronary angiogram Drug-eluting stent deployment to the ostial left main artery Drug-eluting stent deployment to the proximal LAD Intravascular lithotripsy to the mid dominant right coronary artery Drug-eluting stent deployment to the ostial proximal mid and distal dominant right coronary in a contiguous manner INDICATION Acute non-ST elevation myocardial infarction, Heavily calcified noncompliant coronary disease, Patient was not a surgical candidate Informed consent was obtained prior to the procedure. COMPLICATIONS None Estimated Blood Loss: Less than 10 mls TECHNIQUE One percent lidocaine used to anesthetize the right anterior aspect of the wrist. The right radial artery was accessed via the Seldinger technique. A 6 [place] sheath was placed in the right radial artery. 2.5 mg of verapamil, 800 mcg of nitroglycerin, 1mg Lidocaine and 5000 U Heparin were given through the arterial sheath. The papa catheter was also used to perform left heart catheterization, left ventriculogram and selective coronary angiogram. At the end the diagnostic angiogram therapeutic heparin was administered giving a therapeutic ACT and the guide catheter was placed in the left main artery followed by Choice PT extra-support wire down the LAD. A 2.5 x 12 mm noncompliant balloon was deployed at 20 gerald in the proximal LAD and then pulled back and deployed at 20 gerald in the ostial left main artery. A 3.5 x 12 mm resolute Velva stent was placed in the ostial proximal segment of the left main artery and deployed at 20 and then 24 gerald. An additional 2.75 x 15 mm resolute Bassam stent was then deployed in the proximal LAD which crossed the large first diagonal artery and deployed at 20 gerald. Excellent angiographic results were obtained with MARYANN-3 flow being present down the vessel before and after the procedure. The guide catheter was pulled back and placed into the right coronary artery followed by a new Choice PT extra-support wire. Predilatation was made using 3 mm noncompliant balloon. A guide liner was required and a 3.5 x 38 mm resolute Velva stent was placed in the ostial proximal mid segment and deployed at 20 and then 24 gerald. An additional 3.5 x 38 mm resolute Velva stent was placed distal to the first stent yet still overlapping it and deployed at 20 gerald. A 4 mm balloon was then deployed distally and in the midsegment at 2024 and then 26 gerald. When this failed to reduce the heavily calcified mid segment a 4 mm x 12 mm shockwave balloon was deployed at 810 and 12 gerald for a total of 80 pulsations which then reduced the stenosis. A 4.5 x 12 mm noncompliant balloon was then deployed at 20 and 24 gerald in the mid proximal and ostial segment. An additional 4 mm x 12 mm noncompliant balloon was then placed distally and deployed at 20 and 24 gerald to post dilate the distal segment. MARYANN II flow was present at the beginning of the procedure with MARYANN-3 flow at the end of the procedure. At the end of the procedure the apparatus was removed the sheath was removed good hemostasis was achieved using TR banding patient was transferred to the postop holding area in stable condition ANGIOGRAPHIC RESULTS The left main artery Has an ostial calcified 90% stenosis The left anterior descending artery Has a proximal calcified 80% stenosis immediately adjacent to the moderate-sized first diagonal artery. The remaining LAD has distal 30% calcified stenosis. The first diagonal artery has an ostial calcified 70 to 80% stenosis and is 2 mm in diameter The circumflex artery Is a nondominant vessel with proximal and mid vessel calcified 30% stenoses. The terminal obtuse marginal artery is less than 1.5 mm in diameter and has a proximal 80% calcified stenosis The right coronary artery Is a massively large dominant vessel and has proximal 60% and 70% calcified stenosis with a mid vessel heavily calcified greater than 90% stenosis with a distal calcified 70% stenosis The POWELL ventriculogram reveals Normal 65% The left ventricular end-diastolic pressure 30 mmHg IMPRESSION Critical ostial left main disease with successful stenting reducing the critical disease to 0% with 1 drug-eluting stent Severe proximal LAD disease with successful stenting reducing the severe disease to 0% with 1 drug-eluting stent Critical mid dominant right coronary artery stenosis with successful intravascular lithotripsy followed by extensive drug-eluting stenting to the ostial proximal mid and distal segment in a contiguous manner reducing all the disease to less than 10% Normal ejection fraction Elevated LVEDP PLAN 1. Brilinta 90 twice daily plus aspirin 81 mg daily 2. LDL less than 55 to be achieved with high intensity statin 3. IV fluids overnight due to copious contrast and renal insufficiency 4. Cardiac rehabilitation 5. Avoidance of tobacco products 6. Risk factor modification 7. Echocardiogram in the morning Electronically signed by : Brody Daley MD 06/30/2022 18:16:00
--- NOTE | 2022-06-30 16:45 | PC.NURSE ---
nitro drip increased to 15mcg/min at this time
--- NOTE | 2022-06-30 16:46 | PC.NURSE ---
pt being transported to the wastewater analyst lab analyst at this time
[2022-06-30] MEDS: diphenhydrAMINE 50MG/ML VIAL 50 MG IV (17:11)
[2022-06-30] MEDS: VERAPAMIL 2.5MG/ML 2ML VIAL 2.5 MG IV (17:11)
[2022-06-30] MEDS: HEPARIN 1,000 UNITS/500ML NS (CATH LAB) 3000 UNIT IV (17:11)
[2022-06-30] MEDS: HEPARIN 1,000 UNITS/ML 10ML VIAL (CATH LAB) 10000 UNIT IV (17:11)
[2022-06-30] MEDS: NITROGLYCERIN 800MCG/8ML SYR (CATH LAB) 800 MCG IV (17:11)
[2022-06-30] MEDS: LIDOCAINE 1% 10ML MDV 20 ML IJ (17:11)
[2022-06-30] MEDS: 0.9 % SODIUM CHLORIDE 500 ML 25 ML IV (17:12)
[2022-06-30] MEDS: FENTANYL 100MCG/2ML VIAL 25 MCG IV (17:12)
[2022-06-30] MEDS: MIDAZOLAM HCL 1MG/1ML 5ML VIAL 1 MG IV (18:16)
[2022-06-30] MEDS: IOPAMIDOL-370 (76%);100ML BOTTLE 200 ML IV (18:22)
[2022-06-30 18:24] LABS: CATHL Activated Clotting Time 305 SEC (74-125)
[2022-06-30 18:45] LABS: Hemoglobin A1C 7.1 % (4.0-6.0)
--- NOTE | 2022-06-30 19:01 | PC.NURSE ---
Pt arrived to floor via stretcher @ 1901 from chemical lab technician.
--- NOTE | 2022-06-30 21:13 | P.HP_ITS ---
History of Present Illness *Admission Date: 06/30/22 [facility] Disclaimer: The information contained in this section may have been updated after the patient was seen, as this information can be updated by other users. Medical History (Updated 06/30/22 @ 16:03 by Cookie Solorzano APRN) Abnormal ankle brachial index (GABRIEL) Aortic systolic murmur on examination Chronic renal insufficiency Diabetes Diabetes mellitus Diabetes mellitus type 2, uncontrolled Heart murmur HLD (hyperlipidemia) HTN (hypertension) Hypertension Hypertension, essential Ileus PAD (peripheral artery disease) Peripheral arterial disease Sinus bradycardia Sinus bradycardia Small bowel obstruction Umbilical hernia with obstruction Unstable angina Family History (Updated 06/30/22 @ 16:01 by Cookie Solorzano APRN) Father Heart attack Social History Smoking Status: Never smoker alcohol intake: never substance use type: denies use current occupational status: retired Travel in the last 8 weeks: None household members: spouse housing: house 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 current occupational exposures/hazards: No caffeine: Yes Review of Systems Constitutional Constitutional: Denies weakness *Musculoskeletal Musculoskeletal: Denies numbness *Neurologic Neurologic: Reports system reviewed and no additional complaints, except as documented, Denies confusion, Denies numbness and Denies weakness Psychiatric Psychiatric: Denies confusion Meds Home Medications and Allergies Home Medications Medication Instructions Recorded Confirmed Type aspirin 81 mg tablet,delayed 81 mg PO DAILY heart health 04/10/20 05/20/22 History release atorvastatin 40 mg tablet 40 mg PO HS Cholesterol #90 tabs 06/29/21 05/20/22 Rx clopidogrel 75 mg tablet (Plavix) 75 mg PO DAILY #90 tabs 07/13/21 05/20/22 Rx glimepiride 1 mg tablet 1 mg PO DAILY 03/08/22 05/20/22 History hydrochlorothiazide 25 mg tablet 25 mg PO DAILY #90 tabs 03/08/22 05/20/22 Rx lisinopril 40 mg tablet 80 mg PO DAILY #60 tabs 04/20/22 05/20/22 Rx doxazosin 1 mg tablet (Cardura) 1 mg PO DAILY #30 tabs 05/04/22 05/20/22 Rx New Prescriptions to Start Prescriptions: Allergies Allergy/AdvReac Type Severity Reaction Status Date / Time orange Allergy Unknown ASTHMA Verified 05/20/22 12:01 FLARES UP Sulfa (Sulfonamide Allergy Unknown Unknown Verified 05/20/22 12:01 Antibiotics) allergy [SULFA (SULFONAMIDE reaction ANTIBIOTICS)] walnut [WALNUT] Allergy Unknown Unknown Verified 05/20/22 12:01 allergy reaction Exam Data for Last 24 hours Vital signs and Labs for Last 24 Hours: Temp Pulse Resp BP Pulse Ox 97.6 F 81 18 158/96 H 97 06/30/22 16:50 06/30/22 18:55 06/30/22 18:55 06/30/22 18:55 06/30/22 18:55 Laboratory Results - last 24 hr 06/30/22 14:56: WBC 15.6 H, RBC 4.15 L, Hgb 12.6, Hct 38.2, MCV 92.1, MCH 30.3, MCHC 32.9, RDW 15.0, Plt Count 252, MPV 8.9, Neut % (Auto) 91.1 H, Lymph % (Auto) 6.6 L, [place] % (Auto) 2.0, Eos % (Auto) 0.1, Baso % (Auto) 0.3, Neut # (Auto) 14.2 H, Lymph # (Auto) 1.0, [place] # (Auto) 0.3, Eos # (Auto) 0.0, Baso # (Auto) 0.0, Total Counted 100, Neutrophils % (Manual) 89 H, Lymphocytes % (Manual) 9 L, Monocytes % (Manual) 1 L, Eosinophils % (Manual) 1, Platelet E stimate Normal, RBC Morphology Normal 06/30/22 14:56: Sodium 141, Potassium 4.9, Chloride 109 H, Carbon Dioxide 22, Anion Gap 14.9, BUN 34 H, Creatinine 1.30 H, Estimated Creat Clear 39, Estimated GFR 40 L, Est GFR ( Amer) 48 L, Glucose 278 H, Calcium 9.1, Troponin I 0.41 H 06/30/22 14:56: Hemoglobin A1c 7.1 H 06/30/22 16:00: SARS-CoV-2 (PCR) Not detected, Influenza A Untype (PCR) Not detected, Influenza Type B (PCR) Not detected 06/30/22 18:51: Activated Clotting Time 305 H* I & O for Last 24 hours: Intake & Output 06/27/22 06/28/22 06/29/22 06/30/22 23:59 23:59 23:59 23:59 Intake Total 8.425 / 8.425 Balance 8.425 / 8.425 Weight 66.678 kg
[2022-06-30] MEDS: ATORVASTATIN 40MG TABLET 80 MG PO (21:52)
--- NOTE | 2022-06-30 22:12 | EXP.HP ---
History of Present Illness *Admission Date: 06/30/22 *Reason for visit:: Chest Pain *History of present illness: Ms. Peralta is a 77-year-old female who presented to the ER due to chest pain that had been going on and off for 1 week prior to arrival but worsened on the day of arrival. The pain was reported to be in the substernal area and was associated with shortness of air and radiation down both arms. In the ER EKG showed ST with no ST segment elevation or depression. Troponin was elevated at 0.41. Cxray showed no acute cardiopulmonary process. The patient was taken to the shift lab technician and underwent percutaneous intervention with drug-eluting stents by [employer] Dr. Daley. She had stents placed to the ostial left main, proximal LAD, mid dominant RCA and Ostial Proximal mid and distal dominant RCA. She was seen following her cardiac intervention. Family is at bedside. She is stable at bedside on exam. [facility] Disclaimer: The information contained in this section may have been updated after the patient was seen, as this information can be updated by other users. Medical History Abnormal ankle brachial index (GABRIEL) Aortic systolic murmur on examination Chronic renal insufficiency Diabetes Diabetes mellitus Diabetes mellitus type 2, uncontrolled DVT (deep venous thrombosis) Heart murmur HLD (hyperlipidemia) HTN (hypertension) Hypertension Hypertension, essential Ileus PAD (peripheral artery disease) Peripheral arterial disease Sinus bradycardia Sinus bradycardia Small bowel obstruction Umbilical hernia with obstruction Unstable angina Surgical History History of hernia surgery History of renal stent Family History Father Heart attack Other Gout Renal insufficiency UTI (urinary tract infection) Social History Smoking Status: Never smoker alcohol intake: never substance use type: denies use current occupational status: retired Travel in the last 8 weeks: None household members: spouse housing: house 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 current occupational exposures/hazards: No caffeine: Yes Review of Systems Review of Systems Review of systems:: pertinent systems reviewed and negative unless documented below Constitutional Constitutional: Reports system reviewed and no additional complaints, except as documented and Denies weakness Eyes Eyes: Reports system reviewed and no additional complaints, except as documented ENT Ears, Nose, Mouth, and Throat: Reports system reviewed and no additional complaints, except as documented *Cardiovascular Cardiovascular: Reports chest pain and Reports dyspnea *Respiratory Respiratory: Reports dyspnea *Gastrointestinal Gastrointestinal: Reports system reviewed and no additional complaints, except as documented *Genitourinary Genitourinary: Reports system reviewed and no additional complaints, except as documented *Musculoskeletal Musculoskeletal: Reports system reviewed and no additional complaints, except as documented and Denies numbness Integumentary/Breasts Skin/Breast: Reports system reviewed and no additional complaints, except as documented *Neurologic Neurologic: Reports system reviewed and no additional complaints, except as documented, Denies confusion, Denies numbness and Denies weakness Psychiatric Psychiatric: Reports system reviewed and no additional complaints, except as documented and Denies confusion Hematologic/Lymphatic Hematologic/Lymphatic: Reports system reviewed and no additional complaints, except as documented Meds Home Medications and Allergies Home Medications Medication Instructions Recorded Confirmed Type aspirin 81 mg tablet,delayed 81 mg PO DAILY heart health 04/10/20 06/30/22 History release atorvastatin 40 mg tablet 40 mg PO HS Cholesterol #90 tabs 06/29/21 06/30/22 Rx clopidogrel 75 mg tablet (Plavix) 75 mg PO DAILY #90 tabs 07/13/21 06/30/22 Rx glimepiride 1 mg tablet 1 mg PO DAILY Diabetes 03/08/22 06/30/22 History hydrochlorothiazide 25 mg tablet 25 mg PO DAILY #90 tabs 03/08/22 06/30/22 Rx lisinopril 40 mg tablet 80 mg PO DAILY #60 tabs 04/20/22 06/30/22 Rx doxazosin 1 mg tablet (Cardura) 1 mg PO DAILY #30 tabs 05/04/22 06/30/22 Rx New Prescriptions to Start Prescriptions: Allergies Allergy/AdvReac Type Severity Reaction Status Date / Time orange Allergy Unknown ASTHMA Verified 05/20/22 12:01 FLARES UP Sulfa (Sulfonamide Allergy Unknown Unknown Verified 05/20/22 12:01 Antibiotics) allergy [SULFA (SULFONAMIDE reaction ANTIBIOTICS)] walnut [WALNUT] Allergy Unknown Unknown Verified 05/20/22 12:01 allergy reaction Exam Data for Last 24 hours Vital signs and Labs for Last 24 Hours: Temp Pulse Resp BP Pulse Ox 97.6 F 81 18 158/96 H 97 06/30/22 16:50 06/30/22 18:55 06/30/22 18:55 06/30/22 18:55 06/30/22 18:55 Laboratory Results - last 24 hr 06/30/22 14:56: WBC 15.6 H, RBC 4.15 L, Hgb 12.6, Hct 38.2, MCV 92.1, MCH 30.3, MCHC 32.9, RDW 15.0, Plt Count 252, MPV 8.9, Neut % (Auto) 91.1 H, Lymph % (Auto) 6.6 L, [place] % (Auto) 2.0, Eos % (Auto) 0.1, Baso % (Auto) 0.3, Neut # (Auto) 14.2 H, Lymph # (Auto) 1.0, [place] # (Auto) 0.3, Eos # (Auto) 0.0, Baso # (Auto) 0.0, Total Counted 100, Neutrophils % (Manual) 89 H, Lymphocytes % (Manual) 9 L, Monocytes % (Manual) 1 L, Eosinophils % (Manual) 1, Platelet Estimate Normal, RBC Morphology Normal 06/30/22 14:56: Sodium 141, Potassium 4.9, Chloride 109 H, Carbon Dioxide 22, Anion Gap 14.9, BUN 34 H, Creatinine 1.30 H, Estimated Creat Clear 39, Estimated GFR 40 L, Est GFR ( Amer) 48 L, Glucose 278 H, Calcium 9.1, Troponin I 0.41 H 06/30/22 14:56: Hemoglobin A1c 7.1 H 06/30/22 16:00: SARS-CoV-2 (PCR) Not detected, Influenza A Untype (PCR) Not detected, Influenza Type B (PCR) Not detected 06/30/22 18:51: Activated Clotting Time 305 H* I & O for Last 24 hours: Intake & Output 06/27/22 06/28/22 06/29/22 06/30/22 23:59 23:59 23:59 23:59 Intake Total 8.425 / 8.425 Output Total 0 / 0 Balance 8.425 / 8.425 Weight 66.678 kg Constitutional Constitutional: no acute distress *Routine HEENT Exam Head: Present normocephalic Eye: Present EOMI ENT: Present mucous membranes moist *Routine Neck Exam Neck: Present supple *Routine Respiratory Exam Respiratory: Present CTA bilaterally *Routine Cardiovascular Exam Cardiovascular: Present RRR, Normal S1 and Normal S2 *Routine Abdominal Exam Abdominal: Present soft and normoactive bowel sounds *Routine Rectal Exam Rectal:: deferred *Routine Genitalia Exam Genitalia:: deferred Assessment and Plan *Assessment and plan (1) NSTEMI (non-ST elevated myocardial infarction): Status: Acute Category: Medical Code(s): I21.4 - Non-ST elevation (NSTEMI) myocardial infarction (2) ELDA (acute kidney injury): Status: Acute Category: Medical Code(s): N17.9 - Acute kidney failure, unspecified (3) Diabetes: Status: Acute Category: Medical Code(s): E11.9 - Type 2 diabetes mellitus without complications (4) PAD (peripheral artery disease): Status: Acute Category: Medical Code(s): I73.9 - Peripheral vascular disease, unspecified (5) Hypertension: Status: Acute Category: Medical Code(s): I10 - Essential (primary) hypertension (6) Hyperlipidemia: Status: Acute Category: Medical Code(s): E78.5 - Hyperlipidemia, unspecified (7) Gout: Status: Acute Category: Medical Code(s): M10.9 - Gout, unspecified Plan 77-year-old female presents with substernal chest pain that was present x 1 week, worsened over 1 day associated with shortness of air and bilateral arm pain, taken to shift lab technician found to have multi-vessel disease not amendable to surgery, underwent percutaneous intervention with drug-eluting stents - NSTEMI Cardiology following, appreciate consult Echo ordered for am Brilinta 90 mg po bid SHARITA LDL recommended <55, continue statin, checking FLP in am Cardiac Rehab at discharge and follow-up with Cardiology - Diabetes Sliding Scale insulin while inpatient Check A1c in am - PAD Brilinta, ASA, Statin - Hypertension Continue Lisinopril 80 mg po q day - Hypertension Atorvastatin, check FLP in am, goal therapy for LDL <55 - Gout Continue diet low in purines - DVT ppx Brilinta
[2022-06-30 22:27] LABS: POC Glucose,Bedside 158 (70-110)
[2022-07-01] VITALS (24 sets, daily range): BP systolic 125–155; BP diastolic 60–82; PULSE 67–90; RESP 17–26; TEMP 36.4–37.4; O2SAT 95–98; BMI 32.8
[2022-07-01] MEDS: 0.9 % SODIUM CHLORIDE 1,000 ML 100 ML IV ×2 (01:55→11:56)
--- NOTE | 2022-07-01 05:30 | PC.NURSE ---
Nitro gtt titrated to 10 mcg/min. Pt resting in bed. (R) radial cath site has some drainage to dressing.
[2022-07-01 05:38] LABS: POC Glucose,Bedside 138 (70-110)
--- NOTE | 2022-07-01 05:59 | PC.NURSE ---
Nitro gtt titrated to 10 mcg/min.
[2022-07-01 07:02] LABS: Basophils # 0.1 K/mm3 (0-0.2); Basophils % 0.4 % (0.1-2.0); Eosinophils # 0.1 K/mm3 (0.0-0.4); Eosinophils % 0.6 % (0.1-12.0); Hematocrit 29.4 % (37.0-47.0); Lymphocytes # 1.5 K/mm3 (0.7-4.5); Lymphocytes % 9.7 % (10-50); Mean Corpuscular HGB Conc 31.7 g/dL (31.8-35.4); Mean Corpuscular Hemoglobin 29.6 pg (27.0-31.2); Mean Corpuscular Volume 93.5 fl (81-99); Mean Platelet Volume 9.3 fl (7.4-10.4); Monocytes # 0.8 K/mm3 (0.1-1.0); Monocytes % 5.3 % (1.7-9.3); Neutrophils # 12.8 K/mm3 (1.8-7.8); Neutrophils % 84.1 % (37.0-80.0); Platelet Count 234 K/mm3 (142-424); Red Blood Count 3.15 M/mm3 (4.20-5.40); Red Cell Distribution Width 15.3 % (11.5-17.5); White Blood Count 15.2 K/mm3 (4.8-10.8)
[2022-07-01 07:07] LABS: MANUAL DIFFERENTIAL MANUAL DIFFERENTIAL (MANUAL DIFF)
[2022-07-01 07:12] LABS: Hemoglobin 9.3 g/dL (12.2-16.2)
[2022-07-01 07:13] LABS: Chloride 115 mmol/L (98-107); Potassium 4.6 mmoL/L (3.5-5.1); Sodium 140 mmol/L (136-145)
[2022-07-01 07:16] LABS: Alanine Aminotransferase 68 U/L (12-78); Albumin Level 3.1 g/dl (3.5-5.0); Albumin/Globulin Ratio 1.1 (1.1-1.8); Alkaline Phosphatase 87 U/L (38-126); Anion Gap 8.6 mEq/L (5-15); Aspartate Amino Transferase 382 U/L (14-36); Bilirubin,Total 0.6 mg/dl (0.2-1.3); Blood Urea Nitrogen 29 mg/dl (7-17); Calcium 8.1 mg/dl (8.4-10.2); Carbon Dioxide 21 mmol/L (22.0-30.0); Creatinine Clearance Estimated 47 mL/min (50-200); Estimated Glomerular Filt Rate 48 ml/min (>60); GFR (African American) 58 ML/MIN (>60); Globulin 2.7 g/dL (1.3-3.2); Glucose 117 mg/dl (74-100); Total Protein,Serum 5.8 g/dl (6.3-8.2)
[2022-07-01 07:17] LABS: Magnesium 1.9 mg/dl (1.6-2.3)
[2022-07-01 07:30] LABS: Anisocytosis 1+; Hypochromasia 1+; Lymphocytes % 9 % (10-50); Monocytes % 3 % (2-9); Neutrophils % 88 % (42-76); Platelet Estimate Normal; Total Cells Counted 100
--- NOTE | 2022-07-01 09:09 | HMH.PHAINT1 ---
Pharmacy Intervention Comments: Medication reconciliation completed utilizing external fill history
--- NOTE | 2022-07-01 09:23 | EXP.PN ---
Subjective *Date: 07/01/22 *Time: 20:17 Interval history: Date of service July 01, 2022 The patient reports that her chest pain has resolved. Nursing staff report that she remains afebrile with stable vital signs and saturating appropriately on room air. We have reviewed and discussed her morning labs. I have personally interpreted her CBC which identifies a white blood cell count of 15,000, hemoglobin 9.3, hematocrit 29.4 and platelet count of 234. Her morning electrolytes are normal her BUN is 29 and her creatinine is 1.1. Her glucose levels are under 175. Her hemoglobin A1c was 7.1%. Exam Data for Last 24 hours Vital signs and Labs for Last 24 Hours: Temp Pulse Resp BP Pulse Ox 97.8 F 76 17 129/76 97 07/01/22 07:51 07/01/22 06:00 07/01/22 06:00 07/01/22 06:00 07/01/22 06:00 Laboratory Results - last 24 hr 06/30/22 14:56: WBC 15.6 H, RBC 4.15 L, Hgb 12.6, Hct 38.2, MCV 92.1, MCH 30.3, MCHC 32.9, RDW 15.0, Plt Count 252, MPV 8.9, Neut % (Auto) 91.1 H, Lymph % (Auto) 6.6 L, [place] % (Auto) 2.0, Eos % (Auto) 0.1, Baso % (Auto) 0.3, Neut # (Auto) 14.2 H, Lymph # (Auto) 1.0, [place] # (Auto) 0.3, Eos # (Auto) 0.0, Baso # (Auto) 0.0, Total Counted 100, Neutrophils % (Manual) 89 H, Lymphocytes % (Manual) 9 L, Monocytes % (Manual) 1 L, Eosinophils % (Manual) 1, Platelet Estimate Normal, RBC Morphology Normal 06/30/22 14:56: Sodium 141, Potassium 4.9, Chloride 109 H, Carbon Dioxide 22, Anion Gap 14.9, BUN 34 H, Creatinine 1.30 H, Estimated Creat Clear 39, Estimated GFR 40 L, Est GFR ( Amer) 48 L, Glucose 278 H, Calcium 9.1, Troponin I 0.41 H 06/30/22 14:56: Hemoglobin A1c 7.1 H 06/30/22 16:00: SARS-CoV-2 (PCR) Not detected, Influenza A Untype (PCR) Not detected, Influenza Type B (PCR) Not detected 06/30/22 18:51: Activated Clotting Time 305 H* 06/30/22 21:58: POC Glucose 158 H 06/30/22 22:34: Troponin I 147.00 H 07/01/22 05:29: POC Glucose 138 H 07/01/22 06:04: WBC 15.2 H, RBC 3.15 L, Hgb 9.3 L D, Hct 29.4 L, MCV 93.5, MCH 29.6, MCHC 31.7 L, RDW 15.3, Plt Count 234, MPV 9.3, Neut % (Auto) 84.1 H, Lymph % (Auto) 9.7 L, [place] % (Auto) 5.3, Eos % (Auto) 0.6, Baso % (Auto) 0.4, Neut # (Auto) 12.8 H, Lymph # (Auto) 1.5, [place]ye # (Auto) 0.8, Eos # (Auto) 0.1, Baso # (Auto) 0.1, Total Counted 100, Neutrophils % (Manual) 88 H, Lymphocytes % (Manual) 9 L, Monocytes % (Manual) 3, Platelet Estimate Normal, RBC Morphology Not Reportable, Hypochromasia 1+, Anisocytosis 1+ 07/01/22 06:04: Sodium 140, Potassium 4.6, Chloride 115 H, Carbon Dioxide 21 L, Anion Gap 8.6, BUN 29 H, Creatinine 1.10 H, Estimated Creat Clear 47, Estimated GFR 48 L, Est GFR ( Amer) 58 L D, Glucose 117 H D, Calcium 8.1 L, Magnesium 1.9, Total Bilirubin 0.6, AST 382 H*, ALT 68, Alkaline Phosphatase 87, Total Protein 5.8 L, Albumin 3.1 L, Globulin 2.7, Albumin/Globulin Ratio 1.1 I & O for Last 24 hours: Intake & Output 06/28/22 06/29/22 06/30/22 07/01/22 23:59 23:59 23:59 23:59 Intake Total 8.425 / 8.425 800 / 800 Output Total 0 / 0 0 / 0 Balance 8.425 / 8.425 800 / 800 Weight 66.678 kg 69.037 kg Constitutional Constitutional: no acute distress and cooperative *Routine HEENT Exam Head: Present normocephalic Eye: Present EOMI and PERRL ENT: Present mucous membranes moist *Routine Neck Exam Neck: Present supple; Absent lymphadenopathy *Routine Respiratory Exam Respiratory: Present CTA bilaterally, normal respiratory effort and symmetric chest movement *Routine Cardiovascular Exam Cardiovascular: Present RRR *Routine Abdominal Exam Abdominal: Present soft and normoactive bowel sounds; Absent tenderness *Routine Extremities Exam Extremities: Absent cyanosis, clubbing or edema *Routine Skin Exam Skin: Present warm; Absent rash *Routine Neurological Exam Neurological: Present alert, oriented X3, moving all extremities, vision grossly intact, hearing grossly intact and normal speech Routine Psychiatric Exam Psychiatric: Present normal affect, normal thought process, cooperative and good insight Assessment and Plan *Assessment and plan (1) NSTEMI (non-ST elevated myocardial infarction): Status: Acute Category: Medical Code(s): I21.4 - Non-ST elevation (NSTEMI) myocardial infarction (2) ELDA (acute kidney injury): Status: Acute Category: Medical Code(s): N17.9 - Acute kidney failure, unspecified (3) Diabetes: Status: Acute Category: Medical Code(s): E11.9 - Type 2 diabetes mellitus without complications (4) PAD (peripheral artery disease): Status: Acute Category: Medical Code(s): I73.9 - Peripheral vascular disease, unspecified (5) Hypertension: Status: Acute Category: Medical Code(s): I10 - Essential (primary) hypertension (6) Hyperlipidemia: Status: Acute Category: Medical Code(s): E78.5 - Hyperlipidemia, unspecified (7) Gout: Status: Acute Category: Medical Code(s): M10.9 - Gout, unspecified Plan 77-year-old female presents with substernal chest pain that was present x 1 week, worsened over 1 day associated with shortness of air and bilateral arm pain, taken to cardiac catheterization technician found to have multi-vessel disease not amendable to surgery, underwent percutaneous intervention with drug-eluting stents - NSTEMI Cardiology consult noted and discussed with cardiology PA including post cath ACC guideline directed therapy Echo pending Brilinta 90 mg po bid Aspirin 81 mg daily Statin therapy Beta-alphonso therapy ARB therapy Cardiac Rehab at discharge and follow-up with Cardiology - Diabetes Routine blood sugar monitoring Sliding Scale insulin therapy Carbohydrate controlled diet - PAD Brilinta, ASA, Statin - Hypertension Continue Lisinopril 80 mg po q day - Hypertension Atorvastatin, check FLP in am, goal therapy for LDL <55 - Gout Continue diet low in purines The patient is hospitalized day 1 with above diagnoses. We appreciate cardiology evaluation, procedural intervention and ongoing recommendations. Barriers to discharge currently include postprocedural care including monitoring of hemoglobin. Expected date of discharge June 01, 2022.
[2022-07-01] MEDS: DOXAZOSIN MESYLATE 1 MG TABLET PO (09:35)
[2022-07-01] MEDS: TICAGRELOR 90MG TABLET 90 MG PO ×2 (09:35→21:16)
[2022-07-01] MEDS: ASPIRIN EC 81MG TABLET 81 MG PO (09:35)
[2022-07-01] MEDS: hydroCHLOROthiazide 25MG TABLET 25 MG PO (09:35)
[2022-07-01 10:24] LABS: Bilirubin,Direct 0.3 mg/dl (0.0-0.4); Cholesterol 128 mg/dl (140-200); HDL Cholesterol 42 mg/dl (40-60); Triglycerides 108 mg/dl (30-150); VLDL Cholesterol 22 mg/dL (0-40)
--- NOTE | 2022-07-01 11:18 | P.PN_ITS ---
Subjective Subjective Date: 07/01/22 Time: 08:30 Principal diagnosis: non-stemi, CAD Interval history: This is a 77-year-old white female who presented to the emergency department with complaints of chest pain. The patient states that her pain started about a week ago. She was having substernal chest pressure with exertion that improved with rest. She states that it was a 10 out of 10 in intensity. The patient was taken to the cardiac catheterization laboratory last night and underwent stenting to the critical ostial left main with 1 drug-eluting stent. She also had 1 stent placed to the superior proximal LAD. The patient had a critical mid dominant right coronary artery disease with successful intravascular lithotripsy followed by extensive drug-eluting stenting to the ostial proximal mid and distal right coronary artery. This morning she denies any chest pain or pressure. She denies any shortness of breath or edema. She denies any fever, chills, nausea, vomiting, diarrhea, PND or orthopnea Exam Data for Last 24 hours Vital signs and Labs for Last 24 Hours: Temp Pulse Resp BP Pulse Ox 98.1 F 76 17 129/76 97 07/01/22 11:09 07/01/22 06:00 07/01/22 06:00 07/01/22 06:00 07/01/22 06:00 Laboratory Results - last 24 hr 06/30/22 14:56: WBC 15.6 H, RBC 4.15 L, Hgb 12.6, Hct 38.2, MCV 92.1, MCH 30.3, MCHC 32.9, RDW 15.0, Plt Count 252, MPV 8.9, Neut % (Auto) 91.1 H, Lymph % (Auto) 6.6 L, [place] % (Auto) 2.0, Eos % (Auto) 0.1, Baso % (Auto) 0.3, Neut # (Auto) 14.2 H, Lymph # (Auto) 1.0, [place] # (Auto) 0.3, Eos # (Auto) 0.0, Baso # (Auto) 0.0, Total Counted 100, Neutrophils % (Manual) 89 H, Lymphocytes % (Manual) 9 L, Monocytes % (Manual) 1 L, Eosinophils % (Manual) 1, Platelet Estimate Normal, RBC Morphology Normal 06/30/22 14:56: Sodium 141, Potassium 4.9, Chloride 109 H, Carbon Dioxide 22, Anion Gap 14.9, BUN 34 H, Creatinine 1.30 H, Estimated Creat Clear 39, Estimated GFR 40 L, Est GFR ( Amer) 48 L, Glucose 278 H, Calcium 9.1, Troponin I 0.41 H 06/30/22 14:56: Hemoglobin A1c 7.1 H 06/30/22 16:00: SARS-CoV-2 (PCR) Not detected, Influenza A Untype (PCR) Not detected, Influenza Type B (PCR) Not detected 06/30/22 18:51: Activated Clotting Time 305 H* 06/30/22 21:58: POC Glucose 158 H 06/30/22 22:34: Troponin I 147.00 H 07/01/22 05:29: POC Glucose 138 H 07/01/22 06:04: Sodium Cancelled, Potassium Cancelled, Chloride Cancelled, Carbon Dioxide Cancelled, Anion Gap Cancelled, BUN Cancelled, Creatinine Cancelled, Estimated Creat Clear Cancelled, Estimated GFR Cancelled, Est GFR ( Amer) Cancelled, Glucose Cancelled, Calcium Cancelled, Total Bilirubin Cancelled, Direct Bilirubin 0.3, Conjugated Bilirubin Cancelled, Unconjugated Bilirubin Cancelled, AST Cancelled, ALT Cancelled, Alkaline Phosphatase Cancelled, Total Protein Cancelled, Albumin Cancelled, Triglycerides 108, Cholesterol 128 L, LDL Cholesterol Direct 63.90 L, VLDL Cholesterol 22, HDL Cholesterol 42, Cholesterol/HDL Ratio 3.0 07/01/22 06:04: WBC 15.2 H, RBC 3.15 L, Hgb 9.3 L D, Hct 29.4 L, MCV 93.5, MCH 29.6, MCHC 31.7 L, RDW 15.3, Plt Count 234, MPV 9.3, Neut % (Auto) 84.1 H, Lymph % (Auto) 9.7 L, [place] % (Auto) 5.3, Eos % (Auto) 0.6, Baso % (Auto) 0.4, Neut # (Auto) 12.8 H, Lymph # (Auto) 1.5, [place] # (Auto) 0.8, Eos # (Auto) 0.1, Baso # (Auto) 0.1, Total Counted 100, Neutrophils % (Manual) 88 H, Lymphocytes % (Manual) 9 L, Monocytes % (Manual) 3, Platelet Estimate Normal, RBC Morphology Not Reportable, Hypochromasia 1+, Anisocytosis 1+ 07/01/22 06:04: Sodium 140, Potassium 4.6, Chloride 115 H, Carbon Dioxide 21 L, Anion Gap 8.6, BUN 29 H, Creatinine 1.10 H, Estimated Creat Clear 47, Estimated GFR 48 L, Est GFR ( Amer) 58 L D, Glucose 117 H D, Calcium 8.1 L, Magnesium 1.9, Total Bilirubin 0.6, AST 382 H*, ALT 68, Alkaline Phosphatase 87, Total Protein 5.8 L, Albumin 3.1 L, Globulin 2.7, Albumin/Globulin Ratio 1.1 I & O for Last 24 hours: Intake & Output 06/28/22 06/29/22 06/30/22 07/01/22 23:59 23:59 23:59 23:59 Intake Total 8.425 / 8.425 800 / 800 Output Total 0 / 0 0 / 0 Balance 8.425 / 8.425 800 / 800 Weight 147 lb 152 lb 3.2 oz Narrative: Telemetry strip is sinus rhythm. Constitutional Constitutional: no acute distress and obese *Routine HEENT Exam Head: Present normocephalic and atraumatic ENT: Present mucous membranes moist *Routine Neck Exam Neck: Present supple, full ROM and normal carotid upstroke; Absent JVD, carotid bruit or lymphadenopathy *Routine Respiratory Exam Respiratory: Present CTA bilaterally, normal respiratory effort, able to speak in complete sentences and symmetric chest movement *Routine Cardiovascular Exam Cardiovascular: Present RRR, Normal S1 and Normal S2; Absent murmur or gallop *Routine Abdominal Exam Abdominal: Present soft and normoactive bowel sounds; Absent tenderness, distended or organomegaly *Routine Extremities Exam Extremities: Present full ROM, pulses intact and normal capillary refill; Absent cyanosis, clubbing or edema *Routine Skin Exam Skin: Present intact and warm; Absent erythema *Routine Neurological Exam Neurological: Present alert, oriented X3 and CN II-XII intact; Absent sensory deficit or motor deficit Routine Psychiatric Exam Psychiatric: Present normal affect Progress Note: A&P Assessment and plan (1) NSTEMI (non-ST elevated myocardial infarction): Status: Acute (2) CAD in [place] artery: Status: Acute (3) ELDA (acute kidney injury): Status: Acute (4) Diabetes: Status: Acute (5) PAD (peripheral artery disease): Status: Acute (6) Hypertension: Status: Acute (7) Hyperlipidemia: Status: Acute (8) Gout: Status: Acute (9) Stented coronary artery: Status: Acute Assessment and Plan Assessment and Plan for All Diagnoses:: Plan: 1. This is a 77-year-old female who presented to the emergency department with complaints of chest pain. The patient was found to have a non-STEMI and taken directly to the cardiac catheterization laboratory yesterday. The patient underwent stenting to the left main, LAD and right coronary artery. Her right coronary artery had lithotripsy with multiple stents placed. The patient is on Brilinta and aspirin for dual antiplatelet therapy. This morning she denies any chest pain or pressure. We will continue her dual antiplatelet therapy at this time. 2. Her blood pressure is well controlled this morning but she remains on a nitroglycerin drip. We will add Toprol-XL 25 mg daily and switch her lisinopril over to losartan 100 mg daily. Apparently, the patient's primary care provider had already switched her to losartan on an outpatient basis and the patient did not report this when she was admitted to the hospital. We will try to wean her off of the nitroglycerin drip today. 3. Her LDL goal is less than 55. Her LDL is 63. We will increase her Lipitor to 80 mg p.o. nightly. 4. Her echocardiogram is currently pending. 5. PAD is present. This is likely stable. 6. The patient is diabetic. She needs aggressive control of her diabetes. Will defer this to the hospitalist. 7. Her renal function is stable today with a creatinine of 1.1. 8. The patient is anemic this morning with a hemoglobin of 9.3 which is down from 12.6. We will continue to follow. 9. Further recommendations were made pending the patient's response to treatment. Thank you for the opportunity to help participate in the care of this patient. All recommendations and orders are per Dr. Daley.
[2022-07-01] MEDS: METOPROLOL SUCCINATE XL 25MG TABLET 25 MG PO (11:57)
[2022-07-01] MEDS: IRBESARTAN 150MG TAB 150 MG PO (11:57)
[2022-07-01 12:05] LABS: POC Glucose,Bedside 133 (70-110)
--- NOTE | 2022-07-01 12:21 | PC.NURSE ---
at start of shift pt nitroglycerin drip was infusing at 10mcg. 1220 drip decreased to 6mcg r/t bp 125/81 and no cp this shift.
--- NOTE | 2022-07-01 16:09 | CA_ITS ---
APPROVED REPORT EXAM: Comprehensive 2D, Doppler, and color-flow Echocardiogram Stock Handler: Sagrario Staley CRT Ht: 4 ft 9 in Wt: 147lbs BSA: 1.58 BP: 196/93 mmHg Indications: Chest Pain, Shortness of Breath, Non STEMI, Diabetes, Hyperlipidemia, Hypertension/HDD, renal and leg stents 2D Dimensions LVOT 1.70 cm (M/F) 1.5-2.5 LA Volume 45.10 mL LA Volume Index 27.80 mL/m2 (M/F) 16-34 M-Mode Dimensions RVDd 3.51 cm (0.9-2.6) LA Diam 4.08 cm (1.9-4.0) LVDd 3.78 cm (3.5-5.7) Ao Diam 3.49 cm (2.0-3.7) LVDs 2.75 cm (3.5-5.7) IVSd 1.73 cm (0.6-1.1) PWd 1.12 cm (0.6-1.1) EF (Teich) 53.80% FS 27.20% EDV (Teich) 61.20 mL TAPSE 1.33 (<1.7) ESV (Teich) 28.30 mL LV Diastology E Decel Time 220.00 (160-240 msec) E/A Ratio 0.53 MED E' 5.50 (< 7 cm/sec) MED A' 10.50 cm/s E'/MED E' Ratio 12.33 (>14) LAT E' 4.10 (<10 cm/sec) LAT A' 7.30 cm/s E/LAT E' Ratio 16.54 (>14) Aortic Valve AI PHT 474.00 ms AO Peak GR. 9.70 mmHg Mitral Valve MV E Max Girish. 68.00 (40-130 cm/s) MV A Velocity 127.00 (40-130 cm/s) E/A Ratio 0.53 MV Decel. Time 220.00 (160-240 ms) MV PHT 64.00 ms Pulmonary Valve PV Peak Velocity 95.00 (50-150 cm/s) Tricuspid Valve TR P. Velocity 341.00 cm/s RAP Estimate 10.00 mmHg RVSP 56.40 mmHg Left Ventricle Left atrium is mildly enlarged, left ventricle is normal size moderate concentric left ventricular hypertrophy, estimated ejection fraction 45%, there is moderate hypokinesis involving mid to distal septum, anterior, and anterior apical wall. Grade 1 diastolic dysfunction seen with tissue Doppler evidence of restricted atrial pressure. Right Ventricle Right atrium and right ventricle are mildly large with normal contractility. Aortic Valve Aortic valve is thickened and calcified without aortic stenosis, there is trace aortic insufficiency. Mitral Valve Mitral valve has mitral calcification, there is no mitral stenosis, there is mild mitral regurgitation. Tricuspid Valve Tricuspid valve grossly normal, there is mild tricuspid regurgitation, tricuspid regurgitation jet velocity is inadequate for calculation of the right ventricular systolic pressure. Pulmonic Valve Pulmonic valve is poorly visualized. Great Vessels Aortic root is normal size. Inferior vena cava is poorly visualized. Pericardium Small pericardial effusion noted. Conclusion 1. Biatrial enlargement, normal left ventricular size, moderate concentric left ventricular hypertrophy, estimated ejection fraction 45% with segmental wall motion abnormality described above, grade 1 diastolic dysfunction seen with tissue Doppler evidence of wrist left atrial pressure. 2. Trace aortic, mild mitral and tricuspid regurgitation. 3. Mildly ventricle with normal contractility. 4. Small pericardial effusion noted. 5. Inferior vena cava is poorly visualized. Electronically signed by : Papa Claudio MD 07/02/2022 16:42:23
[2022-07-01] MEDS: humaLOG 100 UNITS/ML 3ML VIAL (SSI) SQ (16:30)
[2022-07-01 16:34] LABS: POC Glucose,Bedside 166 (70-110)
--- NOTE | 2022-07-01 18:23 | PC.NURSE ---
nitro gtt turned to standby at approximately 1615, SBP have been less than 160, no complaints of chest pain or SOA, remains on room air, telemetry has shown NSR, right radial cath site, dressing in place, changed this shift, small amount of sanguineous drainage noted
[2022-07-01] MEDS: ATORVASTATIN 40MG TABLET 80 MG PO (21:16)
[2022-07-01 21:37] LABS: POC Glucose,Bedside 132 (70-110)
[2022-07-02] VITALS (8 sets, daily range): BP systolic 144–162; BP diastolic 59–80; PULSE 60–100; RESP 19–23; TEMP 36.8–37.7; O2SAT 95–98; BMI 32.8
[2022-07-02 06:14] LABS: Basophils % 0.3 % (0.1-2.0); Eosinophils # 0.3 K/mm3 (0.0-0.4); Eosinophils % 2.6 % (0.1-12.0); Hematocrit 27.9 % (37.0-47.0); Hemoglobin 9.2 g/dL (12.2-16.2); Lymphocytes # 1.7 K/mm3 (0.7-4.5); Lymphocytes % 14.4 % (10-50); Mean Corpuscular HGB Conc 32.9 g/dL (31.8-35.4); Mean Corpuscular Volume 91.2 fl (81-99); Mean Platelet Volume 9.2 fl (7.4-10.4); Monocytes # 0.7 K/mm3 (0.1-1.0); Monocytes % 5.9 % (1.7-9.3); Neutrophils # 9.2 K/mm3 (1.8-7.8); Neutrophils % 76.8 % (37.0-80.0); Platelet Count 212 K/mm3 (142-424); Red Blood Count 3.06 M/mm3 (4.20-5.40); Red Cell Distribution Width 15.3 % (11.5-17.5); White Blood Count 11.9 K/mm3 (4.8-10.8)
[2022-07-02 06:16] LABS: Chloride 115 mmol/L (98-107); Sodium 140 mmol/L (136-145)
[2022-07-02 06:17] LABS: Potassium 4.3 mmoL/L (3.5-5.1)
[2022-07-02 06:19] LABS: Blood Urea Nitrogen 24 mg/dl (7-17); Creatinine Clearance Estimated 37 mL/min (50-200); Estimated Glomerular Filt Rate 37 ml/min (>60); GFR (African American) 44 ML/MIN (>60)
[2022-07-02 06:20] LABS: Anion Gap 7.3 mEq/L (5-15); Carbon Dioxide 22 mmol/L (22.0-30.0); Glucose 80 mg/dl (74-100)
[2022-07-02 06:40] LABS: POC Glucose,Bedside 86 (70-110)
--- NOTE | 2022-07-02 07:42 | PC.NURSE ---
Pt continues to have bruising and swelling to RUE. States that it is sore. Hanna CONSTANTINO aware. VSS overnight. Has ambulated to [facility] with standby assist. FSBS 86 this am. Family remains at bedside.
[2022-07-02] MEDS: ASPIRIN EC 81MG TABLET 81 MG PO (08:38)
[2022-07-02] MEDS: DOXAZOSIN MESYLATE 1 MG TABLET PO (08:39)
[2022-07-02] MEDS: TICAGRELOR 90MG TABLET 90 MG PO (08:39)
[2022-07-02] MEDS: METOPROLOL SUCCINATE XL 25MG TABLET 25 MG PO (08:39)
[2022-07-02] MEDS: hydroCHLOROthiazide 25MG TABLET 25 MG PO (08:39)
[2022-07-02] MEDS: IRBESARTAN 150MG TAB 150 MG PO (08:39)
--- NOTE | 2022-07-02 10:30 | CA_ITS ---
FINAL REPORT TECHNIQUE: Limited duplex Doppler imaging of the right upper extremity was obtained. CLINICAL HISTORY: r radial hematoma post heart cath with right wrist access 06/30/22. Bruising and hematoma right arm. DM, HLD, HTN. cardiac stents placed. FINDINGS: Radial artery is patent. Proper flow is seen in the visualized upper extremity vessels. There is heterogeneous soft tissue at the access site likely due to small hematoma. There is no evidence of pseudoaneurysm. IMPRESSION: Heterogeneous soft tissue at the access site likely due to small hematoma. No evidence of pseudoaneurysm . Reviewed, Interpreted and Dictated by Juno Dunaway MD Transcribed by Mariah Askew Authenticated and [facility]
[2022-07-02 11:20] LABS: POC Glucose,Bedside 106 (70-110)
--- NOTE | 2022-07-02 11:49 | EXP.CARD.PN ---
Subjective Subjective Date: 07/02/22 Time: 09:30 Principal diagnosis: non-stemi, CAD Interval history: This is a 77-year-old female who presented to the emergency department complaints of chest pain. The patient was found to have a non-STEMI. 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 The patient underwent stenting to the ostial left main with 1 drug-eluting stent, 1 stent placed to the proximal LAD and the patient had a critical stenosis to the right coronary artery that underwent successful intravascular lithotripsy followed by extensive drug-eluting stenting. The patient tolerated the procedure well. She denies any chest pain or pressure. She is on Brilinta and aspirin for dual antiplatelet therapy. She is complaining of right radial pain and soreness. She denies any chest pain or pressure. She denies any shortness of breath or edema. She denies any fever, chills, nausea, vomiting, diarrhea, PND or orthopnea. Exam Data for Last 24 hours Vital signs and Labs for Last 24 Hours: Temp Pulse Resp BP Pulse Ox 98.2 F 68 20 162/74 H 96 07/02/22 08:00 07/02/22 10:00 07/02/22 10:00 07/02/22 10:00 07/02/22 10:00 Laboratory Results - last 24 hr 07/01/22 06:04: Indirect Bilirubin Cancelled 07/01/22 11:57: POC Glucose 133 H 07/01/22 16:25: POC Glucose 166 H 07/01/22 21:19: POC Glucose 132 H 07/02/22 05:49: WBC 11.9 H, RBC 3.06 L, Hgb 9.2 L, Hct 27.9 L, MCV 91.2, MCH 30.0, MCHC 32.9, RDW 15.3, Plt Count 212, MPV 9.2, Neut % (Auto) 76.8, Lymph % (Auto) 14.4, [place] % (Auto) 5.9, Eos % (Auto) 2.6, Baso % (Auto) 0.3, Neut # (Auto) 9.2 H, Lymph # (Auto) 1.7, [place] # (Auto) 0.7, Eos # (Auto) 0.3, Baso # (Auto) 0.0 07/02/22 05:49: Sodium 140, Potassium 4.3, Chloride 115 H, Carbon Dioxide 22, Anion Gap 7.3, BUN 24 H, Creatinine 1.40 H D, Estimated Creat Clear 37, Estimated GFR 37 L, Est GFR ( Amer) 44 L D, Glucose 80 D, Calcium 8.0 L 07/02/22 06:31: POC Glucose 86 07/02/22 11:12: POC Glucose 106 I & O for Last 24 hours: Intake & Output 06/29/22 06/30/22 07/01/22 07/02/22 23:59 23:59 23:59 23:59 Intake Total 8.425 / 8.425 7 / 2477 240 / 240 Output Total 0 / 0 0 / 0 0 / 0 Balance 8.425 / 8.425 7 / 2477 240 / 240 Weight 147 lb 152 lb 3.2 oz 152 lb 3.173 oz Narrative: Telemetry strip is sinus rhythm. Constitutional Constitutional: no acute distress and obese *Routine HEENT Exam Head: Present normocephalic and atraumatic ENT: Present mucous membranes moist *Routine Neck Exam Neck: Present supple, full ROM and normal carotid upstroke; Absent JVD, carotid bruit or lymphadenopathy *Routine Respiratory Exam Respiratory: Present CTA bilaterally, normal respiratory effort, able to speak in complete sentences and symmetric chest movement *Routine Cardiovascular Exam Cardiovascular: Present RRR, Normal S1 and Normal S2; Absent murmur or gallop *Routine Abdominal Exam Abdominal: Present soft and normoactive bowel sounds; Absent tenderness, distended or organomegaly *Routine Extremities Exam Extremities: Present full ROM, pulses intact and normal capillary refill; Absent cyanosis, clubbing or edema *Routine Skin Exam Skin: Present intact, warm and ecchymosis (To right upper extremity from the wrist to the forearm.); Absent erythema *Routine Neurological Exam Neurological: Present alert, oriented X3 and CN II-XII intact; Absent sensory deficit or motor deficit Routine Psychiatric Exam Psychiatric: Present normal affect Progress Note: A&P Assessment and plan (1) NSTEMI (non-ST elevated myocardial infarction): Status: Acute (2) CAD in [place] artery: Status: Acute (3) ELDA (acute kidney injury): Status: Acute (4) Diabetes: Status: Acute (5) PAD (peripheral artery disease): Status: Acute (6) Hypertension: Status: Acute (7) Hyperlipidemia: Status: Acute (8) Stented coronary artery: Status: Acute Assessment and Plan Assessment and Plan for All Diagnoses:: Plan: 1. This is a 77-year-old female who was admitted to the hospital with chest pain. She was found to have a non-STEMI and underwent left cardiac catheterization with stenting to the left main, LAD and right coronary artery. The patient did have lithotripsy with multiple stents placed to the right coronary artery. She will remain on Brilinta and aspirin for dual antiplatelet therapy. 2. This morning she denies any chest pain or pressure. Her coronary artery disease is likely stable. 3. Her blood pressure is acceptable. She is off of the nitroglycerin drip at this time. We will increase her Cardura to 4 mg p.o. daily for better blood pressure control. 4. Her LDL goal is less than 55. Her LDL is 63. She is on Lipitor. 5. Her echocardiogram is still currently pending. Her preliminary report shows a preserved ejection fraction. 6. Her PAD is likely stable. 7. The patient is diabetic. She will need aggressive control of her diabetes. 8. The patient does have chronic kidney disease. Her creatinine is stable. 9. Her anemia is stable. 10. The patient does have extensive bruising to the right radial site. She does have some soreness and pain with palpation. We will obtain a right arterial duplex. Preliminary report shows no hematoma or AV fistula. 11. No further recommendations at this time from a cardiac standpoint. The patient is stable for discharge home today from a cardiac standpoint. She will need to follow-up in cardiology clinic in 1 week. The patient will need to be discharged on the following cardiac medications: Aspirin 81 mg daily, Brilinta 90 mg p.o. twice daily, Lipitor 80 mg daily, Toprol-XL 25 mg daily, losartan 100 mg daily, Cardura 4 mg daily, HCTZ 25 mg daily. Thank you for the opportunity to participate in the care of this patient. All recommendations and orders are per Dr. Daley.
[2022-07-02] MEDS: DOXAZOSIN 4MG TAB 4 MG PO (12:20)
--- NOTE | 2022-07-02 13:19 | PC.WOUNDNOTE ---
bruising noted from heart cath
--- NOTE | 2022-07-02 15:57 | EXP.DC.SUM ---
General Admission date:: 06/30/22 Discharge date: 07/02/22 HPI HPI HPI: Ms. Peralta is a 77-year-old female who presented to the ER due to chest pain that had been going on and off for 1 week prior to arrival but worsened on the day of arrival.? The pain was reported to be in the substernal area and was associated with shortness of air and radiation down both arms.?In the ER EKG showed ST with no ST segment elevation or depression.? Troponin was elevated at 0.41.? Cxray showed no acute cardiopulmonary process.? The patient was taken to the general laborer and underwent percutaneous intervention with drug-eluting stents by Apparel Pattern Maker Dr. Daley.? She had stents placed to the ostial left main, proximal LAD, mid dominant RCA and Ostial Proximal mid and distal dominant RCA.? She was seen following her cardiac intervention.? Family is at bedside. She is stable at bedside on exam.? Hospital Course Hospital Course Hospital Course: The patient is admitted to the medical unit with telemetry monitoring post left heart cath. Her laboratory studies and inflammatory markers are trended. A discharge echocardiogram preliminary results identified preserved ejection fraction with final report pending. The patient identified improvement and reported no further chest pain, dyspnea or palpitations. She voiced concerns with her right upper extremity bruising. An arterial Doppler identified no pseudoaneurysm or flow restrictions. She identified improvement and inquired about discharge home. Her and family are at bedside on day of discharge and we have reviewed discharge medications and follow-up instructions. Her nurse is at bedside on day of discharge to assist with discharge planning. She will be discharged on dual antiplatelet therapy with high-dose statin therapy. I spent 35 minutes in [id number] time with the patient and nursing staff concerning the discharge process. We discussed the admitting diagnoses and hospital course. We discussed identified improvement and the patient's desire to be discharged. We reviewed inpatient studies and imaging. The patient voiced understanding on the importance of follow-up with her primary care provider and tallier. The patient plans to be compliant with the medication regimen prescribed and follow-up appointments. She understands that she can return to the emergency department with any sudden changes or concerns. Exam Data for Last 24 hours Vital signs and Labs for Last 24 Hours: Temp Pulse Resp BP Pulse Ox 98.7 F 100 H 20 160/79 H 96 07/02/22 12:00 07/02/22 12:00 07/02/22 10:00 07/02/22 12:00 07/02/22 10:00 Laboratory Results - last 24 hr 07/01/22 16:25: POC Glucose 166 H 07/01/22 21:19: POC Glucose 132 H 07/02/22 05:49: WBC 11.9 H, RBC 3.06 L, Hgb 9.2 L, Hct 27.9 L, MCV 91.2, MCH 30.0, MCHC 32.9, RDW 15.3, Plt Count 212, MPV 9.2, Neut % (Auto) 76.8, Lymph % (Auto) 14.4, [place] % (Auto) 5.9, Eos % (Auto) 2.6, Baso % (Auto) 0.3, Neut # (Auto) 9.2 H, Lymph # (Auto) 1.7, [place] # (Auto) 0.7, Eos # (Auto) 0.3, Baso # (Auto) 0.0 07/02/22 05:49: Sodium 140, Potassium 4.3, Chloride 115 H, Carbon Dioxide 22, Anion Gap 7.3, BUN 24 H, Creatinine 1.40 H D, Estimated Creat Clear 37, Estimated GFR 37 L, Est GFR ( Amer) 44 L D, Glucose 80 D, Calcium 8.0 L 07/02/22 06:31: POC Glucose 86 07/02/22 11:12: POC Glucose 106 I & O for Last 24 hours: Intake & Output 06/29/22 06/30/22 07/01/22 07/02/22 23:59 23:59 23:59 23:59 Intake Total 8.425 / 8.425 2477 / 2477 480 / 480 Output Total 0 / 0 0 / 0 0 / 0 Balance 8.425 / 8.425 2477 / 2477 480 / 480 Weight 66.678 kg 69.037 kg 69.036 kg Constitutional Constitutional: no acute distress and cooperative *Routine HEENT Exam Head: Present normocephalic Eye: Present EOMI and PERRL ENT: Present mucous membranes moist *Routine Neck Exam Neck: Present supple; Absent lymphadenopathy *Routine Respiratory Exam Respiratory: Present CTA bilaterally, normal respiratory effort and symmetric chest movement *Routine Cardiovascular Exam Cardiovascular: Present RRR *Routine Abdominal Exam Abdominal: Present soft and normoactive bowel sounds; Absent tenderness *Routine Extremities Exam Extremities: Present full ROM, pulses intact and normal capillary refill Comments: Her right upper extremity ventral forearm identifies ecchymosis with a small palpable hematoma distal to her surgical dressing site. Her brachial pulses are intact, she has good opposition to thumb and pinky, good engineer rf deployment and sensory is intact. *Routine Skin Exam Skin: Present warm; Absent rash *Routine Neurological Exam Neurological: Present alert, oriented X3, moving all extremities, vision grossly intact, hearing grossly intact and normal speech Routine Psychiatric Exam Psychiatric: Present normal affect, normal thought process, cooperative and good insight Results Data Completed and Pending Labs on day of discharge: Labs from last 24 hours 07/02/22 07/02/22 07/02/22 11:12 06:31 05:49 WBC RBC Hgb Hct MCV MCH MCHC RDW Plt Count MPV Neut % (Auto) Lymph % (Auto) [place] % (Auto) Eos % (Auto) Baso % (Auto) Neut # (Auto) Lymph # (Auto) [place] # (Auto) Eos # (Auto) Baso # (Auto) Sodium 140 Potassium 4.3 Chloride 115 H Carbon Dioxide 22 Anion Gap 7.3 BUN 24 H Creatinine 1.40 H D Estimated Creat Clear 37 Estimated GFR 37 L Est GFR ( Amer) 44 L D Glucose 80 D POC Glucose 106 86 Calcium 8.0 L 07/02/22 07/01/22 07/01/22 05:49 21:19 16:25 WBC 11.9 H RBC 3.06 L Hgb 9.2 L Hct 27.9 L MCV 91.2 MCH 30.0 MCHC 32.9 RDW 15.3 Plt Count 212 MPV 9.2 Neut % (Auto) 76.8 Lymph % (Auto) 14.4 [place] % (Auto) 5.9 Eos % (Auto) 2.6 Baso % (Auto) 0.3 Neut # (Auto) 9.2 H Lymph # (Auto) 1.7 [place] # (Auto) 0.7 Eos # (Auto) 0.3 Baso # (Auto) 0.0 Sodium Potassium Chloride Carbon Dioxide Anion Gap BUN Creatinine Estimated Creat Clear Estimated GFR Est GFR ( Amer) Glucose POC Glucose 132 H 166 H Calcium DS: Diagnosis Discharge Diagnosis (1) NSTEMI (non-ST elevated myocardial infarction): Status: Acute (2) CAD in [place] artery: Status: Acute (3) ELDA (acute kidney injury): Status: Acute (4) Diabetes: Status: Acute (5) PAD (peripheral artery disease): Status: Acute (6) Hypertension: Status: Acute (7) Hyperlipidemia: Status: Acute (8) Stented coronary artery: Status: Acute Meds Home Medications and Allergies Home Medications Medication Instructions Recorded Confirmed Type aspirin 81 mg tablet,delayed 81 mg PO DAILY heart health 04/10/20 06/30/22 History release glimepiride 1 mg tablet 1 mg PO DAILY Diabetes 03/08/22 06/30/22 History allopurinol 100 mg tablet 100 mg PO DAILY gout 07/01/22 07/01/22 History hydrochlorothiazide 25 mg tablet 25 mg PO DAILY High blood pressure 07/01/22 07/01/22 History atorvastatin 40 mg tablet 80 mg PO HS #30 tabs 07/02/22 Rx doxazosin 4 mg tablet 4 mg PO DAILY #30 tabs 07/02/22 Rx losartan 25 mg tablet 100 mg PO DAILY High blood 07/02/22 07/01/22 Rx pressure #30 tabs metoprolol succinate 25 mg 25 mg PO DAILY #30 tabs 07/02/22 Rx tablet,extended release 24 hr ticagrelor 90 mg tablet (Brilinta) 90 mg PO BID #60 tabs 07/02/22 Rx New Prescriptions to Start Prescriptions: atorvastatin Emeric,Loy doxazosin Emeric,Loy metoprolol succinate Emeric,Loy ticagrelor [Brilinta] Emeric,Loy Allergies Allergy/AdvReac Type Severity Reaction Status Date / Time orange Allergy Unknown ASTHMA Verified 05/20/22 12:01 FLARES UP Sulfa (Sulfonamide Allergy Unknown Unknown Verified 05/20/22 12:01 Antibiotics) allergy [SULFA (SULFONAMIDE reaction ANTIBIOTICS)] walnut [WALNUT] Allergy Unknown Unknown Verified 05/20/22 12:01 allergy reaction Discharge Plan Disposition Patient Disposition: Home, Self-Care Condition: Good Discharge Order Discharge Orders: Discharge Order (Routine); Ordered 07/02/22 Ordered By: Loy Carrnaza Follow up Plan Follow up with: Brody Daley MD [Staff Physician] - 07/12/22 8:30 am Rhett Sage MD [Primary Care Provider] - 07/12/22 11:15 am Prescriptions/Medication Reconciliation: New atorvastatin 40 mg Tablet 80 mg PO HS Qty: 30 0RF doxazosin 4 mg Tablet 4 mg PO DAILY Qty: 30 0RF metoprolol succinate 25 mg Tablet Extended Release 24 Hr 25 mg PO DAILY Qty: 30 0RF Brilinta 90 mg Tablet 90 mg PO BID Qty: 60 0RF Continued glimepiride 1 mg tablet 1 mg PO DAILY allopurinol 100 mg tablet 100 mg PO DAILY hydrochlorothiazide 25 mg tablet 25 mg PO DAILY Label Comments: TAKE 1 TABLET BY MOUTH ONCE DAILY aspirin 81 MG tablet,delayed release (DR/EC) 81 mg PO DAILY Changed losartan 25 mg tablet 100 mg PO DAILY Qty: 30 0RF Discontinued atorvastatin 40 mg tablet 40 mg PO HS Qty: 90 3RF doxazosin 1 mg tablet 1 mg PO DAILY Label Comments: TAKE 1 TABLET BY MOUTH ONCE DAILY clopidogrel 75 mg tablet 75 mg PO DAILY Label Comments: TAKE 1 TABLET BY MOUTH ONCE DAILY Problem Reconciliation Problems Reviewed?: Yes Patient Discharge Instructions ACTIVITY: Continue current activity DIET: diabetic diet and cardiac Patient Instructions: DI for Cardiac Catheterization, DI for Surgical Site Infection Providers Primary Care Provider: Rhett Sage Admit Provider: Octavio Pollack Attending Provider: Octavio Pollack
--- NOTE | 2022-07-02 16:08 | HMH.PHACL ---
PHA Analytical Lab Analyst Discharge Med Sustainability Project Manager: Keyonna Peralta has received discharge medication counseling on the following medications: -ASPIRIN (ON PREVIOUSLY, NO QUESTIONS) -ATORVASTATIN (DOSE INCREASE FROM 40 MG TO 80 MG, WATCH FOR MUSCLE PAIN/WEAKNESS) -BRILINTA (BLOOD THINNER, TWICE DAILY, BLEED/BRUISE RISK, BUMP HEAD = GO TO ER, BLEED LOCATION AND APPEARANCE) -LOSARTAN (DOSE INCREASE TO 100 MG DAILY, DIZZINESS, LIGHTHEADEDNESS, LOW BP POSSIBLE) -METOPROLOL(BETA MACEY FOR BP/HEART RATE, DAILY, DIZZINESS/LIGHTHEADEDNESS, LOW BP/SLOWED HEART RATE POSSIBLE) -INCREASE DOXAZOSIN TO 4 MG DAILY. -STOP PLAVIX, LOSARTAN 25 MG, DOXAZOSIN 1 MG, ATORVASTATIN 40 MG.
--- NOTE | 2022-07-05 13:45 | CARE MANAGER ---
Contacted patient related to hospital discharge. Patient was able to tack picker all her medications. She is aware of her follow up appointments and denies any questions or concerns. POOJA Mariscal
== END 2022-07-02 16:44 | disposition home or self-care (01) | DRG 246 ==
LOC: ER 16:49 → CATHLAB 16:50 → 2ND 07-01 01:14
PROVIDERS: Nurse Practitioner Family; Admitting Provider Internal Medicine Adolescent Medicine; Emergency Provider Emergency Medicine; PCP Family Medicine; Referring Provider Internal Medicine; Visit Provider Internal Medicine Adolescent Medicine
DX: I21.4 Non-ST elevation (NSTEMI) myocardial infarction (principal); N17.9 Acute kidney failure, unspecified; I25.10 Atherosclerotic heart disease of native coronary artery without angina pectoris; E11.51 Type 2 diabetes mellitus with diabetic peripheral angiopathy without gangrene; Z79.84 Long term (current) use of oral hypoglycemic drugs; E11.22 Type 2 diabetes mellitus with diabetic chronic kidney disease; I12.9 Hypertensive chronic kidney disease with stage 1 through stage 4 chronic kidney disease, or unspecified chronic kidney disease; N18.9 Chronic kidney disease, unspecified; E78.5 Hyperlipidemia, unspecified; M10.9 Gout, unspecified
CPT/HCPCS: 0715T; 36415; 71045; 80048; 80053; 80061; 82248; 82962; 83036; 83735; 84484; 85007; 85025; 85347; 92928; 92941; 93005; 93306; 93458; 93931; 99152; 99153; 99285; C1725; C1761; C1769; C1876; C9600; C9606; C9803; J1644; Q9967; U0003; U0005

== ENCOUNTER → 2022-07-12 08:50 | Outpatient (CLI) | payer MEDICARE, OTHER, SELFPAY ==
--- NOTE | 2022-07-12 08:50 | CA_ITS ---
FINAL REPORT TECHNIQUE: Color Doppler, duplex Doppler and compression sonography of the left lower extremity deep venous systems was performed. CLINICAL HISTORY: left lower extremity swelling. previous Hx chronic edema with cellulitis FINDINGS: There is no evidence of deep venous thrombosis from the level of the groin to the calf. The veins are patent and compressible. IMPRESSION: No evidence of deep venous thrombosis left lower extremity. Reviewed, Interpreted and Dictated by Omar Tariq III, MD Transcribed by Randee Uribe Authenticated and [facility]
== END ==
PROVIDERS: PCP Family Medicine; Visit Provider Nurse Practitioner
DX: E78.5 Hyperlipidemia, unspecified (principal); I10 Essential (primary) hypertension; I25.10 Atherosclerotic heart disease of native coronary artery without angina pectoris; I73.9 Peripheral vascular disease, unspecified; M79.605 Pain in left leg; M79.89 Other specified soft tissue disorders; N18.9 Chronic kidney disease, unspecified; Z95.5 Presence of coronary angioplasty implant and graft
CPT/HCPCS: 93971

== ENCOUNTER → 2022-07-28 10:17 | Outpatient (CLI) | payer MEDICARE, OTHER, SELFPAY ==
--- NOTE | 2022-07-28 10:18 | CA_ITS ---
FINAL REPORT TECHNIQUE: Color Doppler, duplex Doppler and rodriguez scale sonography of the bilateral neck arterial vasculature was performed. Velocities were measured in the carotid arteries. Stenosis evaluation based on the validated velocity criteria. CLINICAL HISTORY: right carotid bruit, OLAF, BILATERAL BRUIT COMPARISON: none FINDINGS: The peak systolic velocity of the right common carotid artery is 83 cm/s. The peak systolic velocity of the right internal carotid artery is 122 cm/s and end diastolic velocity 25 cm/s. The ICA/CCA ratio is 1.5. A mild amount of plaque is present. The right external carotid artery is patent. The right vertebral artery is patent with antegrade flow. The peak systolic velocity of the left common carotid artery is 109 cm/s. The peak systolic velocity of the left internal carotid artery is 106 cm/s and end diastolic velocity 27 cm/s. The ICA/CCA ratio is 1.4. A moderate amount of plaque is present. The left external carotid artery is patent.The left vertebral artery is patent with antegrade flow. IMPRESSION: Less than 50% bilateral carotid stenoses. Bilateral patent vertebral arteries with antegrade flow. If indicated, CTA or MRA could further evaluate. Reviewed, Interpreted and Dictated by Omar Tariq III, MD Transcribed by Mary Gillette Authenticated and [facility]
== END ==
PROVIDERS: PCP Family Medicine; Visit Provider Nurse Practitioner Family
DX: I65.23 Occlusion and stenosis of bilateral carotid arteries (principal); R09.89 Other specified symptoms and signs involving the circulatory and respiratory systems
CPT/HCPCS: 93880

== ENCOUNTER → 2023-01-05 10:35 | Outpatient (CLI) | payer MEDICARE, OTHER, SELFPAY ==
[2023-01-05 11:08] LABS: Basophils % 0.5 % (0.1-2.0); Eosinophils # 0.2 K/mm3 (0.0-0.4); Eosinophils % 2.1 % (0.1-12.0); Hematocrit 39.4 % (37.0-47.0); Hemoglobin 12.9 g/dL (12.2-16.2); Lymphocytes # 1.9 K/mm3 (0.7-4.5); Lymphocytes % 22.8 % (10-50); Mean Corpuscular HGB Conc 32.6 g/dL (31.8-35.4); Mean Corpuscular Hemoglobin 30.9 pg (27.0-31.2); Mean Corpuscular Volume 94.9 fl (81-99); Mean Platelet Volume 9.6 fl (7.4-10.4); Monocytes # 0.5 K/mm3 (0.1-1.0); Monocytes % 6.4 % (1.7-9.3); Neutrophils # 5.7 K/mm3 (1.8-7.8); Neutrophils % 68.2 % (37.0-80.0); Platelet Count 213 K/mm3 (142-424); Red Blood Count 4.15 M/mm3 (4.20-5.40); Red Cell Distribution Width 15.9 % (11.5-17.5); White Blood Count 8.4 K/mm3 (4.8-10.8)
[2023-01-05 11:45] LABS: Alanine Aminotransferase 27 U/L (12-78); Alkaline Phosphatase 175 U/L (38-126); Anion Gap 13.3 mEq/L (5-15); Aspartate Amino Transferase 34 U/L (14-36); Bilirubin,Indirect 0.5 mg/dL (0.0-0.9); Bilirubin,Total 0.5 mg/dl (0.2-1.3); Bilirubin,Unconjugated 0.6 mg/dL (0.0-1.1); Blood Urea Nitrogen 26 mg/dl (7-17); Calcium 9.3 mg/dl (8.4-10.2); Carbon Dioxide 24 mmol/L (22.0-30.0); Chloride 111 mmol/L (98-107); Chol/HDL Ratio 3.8 (1-3.5); Cholesterol 126 mg/dl (140-200); Estimated Glomerular Filt Rate 37 ml/min (>60); GFR (African American) 44 ML/MIN (>60); Glucose 96 mg/dl (74-100); HDL Cholesterol 33 mg/dl (40-60); Potassium 4.3 mmoL/L (3.5-5.1); Sodium 144 mmol/L (136-145); Total Protein,Serum 6.8 g/dl (6.3-8.2); Triglycerides 163 mg/dl (30-150); VLDL Cholesterol 33 mg/dL (0-40)
[2023-01-05 11:56] LABS: Direct LDL Cholesterol 61.94 mg/dL (100-129)
[2023-01-05 12:03] LABS: Free T4 (Free Thyroxine) 0.72 ng/dl (0.78-2.19)
[2023-01-05 12:16] LABS: Thyroid Stimulating Hormone 4.44 uIU/mL (0.465-4.68)
== END ==
PROVIDERS: PCP Family Medicine; Visit Provider Nurse Practitioner
DX: E78.5 Hyperlipidemia, unspecified (principal); I10 Essential (primary) hypertension; I25.10 Atherosclerotic heart disease of native coronary artery without angina pectoris; I65.29 Occlusion and stenosis of unspecified carotid artery; I73.9 Peripheral vascular disease, unspecified; M79.89 Other specified soft tissue disorders; N18.9 Chronic kidney disease, unspecified; R06.00 Dyspnea, unspecified; R09.89 Other specified symptoms and signs involving the circulatory and respiratory systems; Z95.5 Presence of coronary angioplasty implant and graft; I63.9 Cerebral infarction, unspecified; E11.9 Type 2 diabetes mellitus without complications
CPT/HCPCS: 36415; 80048; 80061; 80076; 84439; 84443; 85025

== ENCOUNTER 2023-07-12 08:37 | Outpatient (CLI) | payer MEDICARE, OTHER, SELFPAY ==
--- NOTE | 2023-07-12 08:45 | CT_ITS ---
FINAL REPORT CLINICAL HISTORY: malignant hypertension COMPARISON: 03/07/2020 FINDINGS: Thin section axial CT images of the abdomen, pelvis and lower extremities were obtained with contrast. Multiplanar reformatted images were also obtained and reviewed. ABDOMEN AND PELVIS: There is no abdominal aortic aneurysm or dissection. 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 There are dense calcifications involving the superior mesenteric artery origin, with approximately 90% luminal diameter stenosis. The MANUEL remains patent. There are bilateral stents in the renal arteries, new since the prior exam of 2019. There are mild to moderate stenoses of the common iliac arteries bilaterally, approximately 40% stenosis, stable since the prior exam. The internal iliac arteries are patent. RIGHT LOWER EXTREMITY: There are bulky calcifications and multifocal stenoses of the right superficial femoral artery, with approximately 90% stenosis of the proximal right superficial femoral artery, and approximately 90% distal stenoses of the superficial femoral artery. The right popliteal artery is patent. There is three-vessel runoff to the distal lower leg. LEFT LOWER EXTREMITY: There are irregular calcifications of the left superficial femoral artery, with a proximal approximately 80% stenosis. There is a vascular stent present in the distal third of the superficial femoral artery extending into the popliteal artery. The left popliteal artery is patent. There is 2-vessel runoff to the distal lower leg. OTHER FINDINGS: There are 2 pulmonary nodules in the left lower lobe, which are stable in appearance. There is 1 nodule in the right middle lobe, also stable in appearance. There are several other small less than 5 mm in size pulmonary nodules identified. There is sludge versus debris in the dependent portion of the gallbladder which was not present on the prior exam. There is segmental mucosal thickening in the proximal sigmoid colon best seen on image #66 of series 3, that was not clearly present on the prior examination. 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 Dense calcification and narrowing of the superior mesenteric artery persists. The inferior mesenteric artery is patent. Bilateral renal artery stents are present, new since the prior exam. Multifocal stenoses of the common iliac and superficial femoral arteries remains present. In the interval since the prior exam a stent has been placed in the left superficial femoral artery extending into the popliteal artery with two-vessel runoff in the left leg. Three-vessel runoff remains present in the right leg. Sludge versus debris in the dependent portion of the gallbladder, new since the prior exam. Segmental mucosal thickening of the proximal sigmoid colon as described above, would recommend follow-up with CT with oral and IV contrast as clinically indicated. Reviewed, Interpreted and Dictated by Juno Dunaway MD Transcribed by Humera Abrams Authenticated and [facility]
[2023-07-12 09:30] LABS: Blood Urea Nitrogen 22 mg/dl (7-17); Estimated Glomerular Filt Rate 36 ml/min (>60); GFR (African American) 44 ML/MIN (>60)
[2023-07-12] MEDS: IOPAMIDOL-370 (76%);100ML BOTTLE 120 ML IV (10:14)
[2023-07-12] MEDS: 0.9 % SODIUM CHLORIDE 50 ML VIAL 100 ML IV (10:14)
== END 2023-07-12 23:59 ==
LOC: RAD 08:40
PROVIDERS: PCP Family Medicine; Visit Provider Physician Assistant
DX: I10 Essential (primary) hypertension (principal)
CPT/HCPCS: 36415; 75635; 82565; 84520; Q9967

== ENCOUNTER 2024-08-15 13:55 | Inpatient (IN) | payer MEDICARE, OTHER, SELFPAY ==
[2024-08-15] VITALS (8 sets, daily range): BP systolic 162–190; BP diastolic 69–84; PULSE 62–75; RESP 16–25; TEMP 36.4–36.9; O2SAT 96–99; BMI 32.4; BMI 29.7
--- NOTE | 2024-08-15 14:01 | ED_ITS ---
Discharge Plan Disposition Patient Disposition: Admitted Condition: Serious Clinical Impressions Clinical Impression: Syncope and collapse, Dyspnea on exertion, Elevated brain natriuretic peptide (BNP) level, Elevated troponin I level Acute on chronic renal failure Qualifiers: Acute renal failure type: unspecified Chronic kidney disease stage: stage 4 (GFR 15-29) Qualified Code(s): N17.9 - Acute kidney failure, unspecified Discharge ED Provider: Raimundo Darling General Adult HPI <MARIA DE JESUS Jackson - Last Filed: 08/15/24 16:34> General Chief complaint: Syncope Stated complaint: soa Time Seen by Provider: 08/15/24 14:01 History of Present Illness HPI narrative: Patient presents for evaluation of syncope and collapse. Patient states that she was walking down the hallway felt lightheaded and had a syncopal event. Apparently this was witnessed and she was caught by staff reportedly and was eased to the ground however prior to that she struck her mid to low back against a railing. Patient gives a history of right-sided chest pain that has been going on since June. Patient does have a cardiac history and has a history of previous stents. She saw cardiology for this in June however no further workup was planned. Patient reports that she is continued to have this primarily with exercise and it goes away with rest. Patient currently denies head pain neck pain chest pain-free currently no shortness of breath fever chills hemoptysis hematochezia melena nausea vomiting diarrhea. Related Data Home Medications ?Medication ?Instructions ?Recorded ?Confirmed colchicine 0.6 mg tablet 0.3 mg PO DAILY gout 01/05/23 08/16/24 allopurinol 100 mg tablet 100 mg PO DAILY 08/15/24 08/15/24 atorvastatin 80 mg tablet 80 mg PO HS 08/15/24 08/16/24 eplerenone 25 mg tablet (Inspra) 25 mg PO MOWEFR 08/15/24 08/16/24 Previous Rx's ?Medication ?Instructions ?Recorded aspirin 81 mg tablet,delayed 81 mg PO DAILY heart Audemat #90 08/26/22 release tabs glimepiride 1 mg tablet 1 mg PO DAILY #30 tabs 07/11/23 irbesartan 150 mg tablet 150 mg PO BID #60 tabs 06/04/24 Allergies Allergy/AdvReac Type Severity Reaction Status Date / Time orange Allergy Unknown ASTHMA Verified 08/15/24 14:14 FLARES UP Sulfa (Sulfonamide Allergy Unknown Unknown Verified 08/15/24 14:14 Antibiotics) (SULFA allergy (SULFONAMIDE ANTIBIOTICS)) reaction walnut (WALNUT) Allergy Unknown Unknown Verified 08/15/24 14:14 allergy reaction PFSH <MARIA DE JESUS Jackson - Last Filed: 08/15/24 16:34> [facility] Disclaimer: The information contained in this section may have been updated after the patient was seen, as this information can be updated by other users. 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 DVT (deep venous thrombosis) Heart murmur Sinus bradycardia Chronic renal insufficiency Diabetes Hypertension Peripheral arterial disease HLD (hyperlipidemia) Umbilical hernia with obstruction Small bowel obstruction Surgical History Stented coronary artery History of renal stent History of hernia surgery Family History Father Heart attack Other Gout Renal insufficiency UTI (urinary tract infection) Social History Smoking Status: Never smoker alcohol intake: never substance use type: denies use current occupational status: retired Travel in the last 8 weeks: None household members: spouse housing: house 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 current occupational exposures/hazards: No caffeine: Yes Have you lived/traveled outside US in past 30 days?: No Contact w/someone who lives/traveled outside US past 30 days?: No Exposure to someone with infectious disease in past 14 days?: No Do you have a fever (greater than 100.4 F or 38 C)?: No Have you tested positive for COVID-19: No Exposed to someone with COVID-19 in past 14 days?: No Do you have a sore throat?: No Do you have a cough?: No Do you have any weakness?: No Do you have any diarrhea?: No Are you experiencing any unusual bleeding?: No Do you have any muscle aches/pain?: No Do you have any abdominal pain?: No Are you experiencing loss of taste or smell?: No Other Medical History Have you received the Flu Vaccine for this season: No Have you received the Pneumonia Vaccine: No <MARIA DE JESUS Jackson - Last Filed: 08/15/24 16:34> ROS Obtained: Yes Systems reviewed as appropriate & no additional complaints except as documented Physical Exam <MARIA DE JESSU Jackson - Last Filed: 08/15/24 16:34> General General appearance: alert and in no apparent distress Respiratory Respiratory exam: Present normal lung sounds bilaterally Cardiovascular Cardiovascular exam: Present regular rate Neurological Exam Neurological exam: Present alert and oriented X3 Medical Decision Making <MARIA DE JESUS Jackson - Last Filed: 08/15/24 16:34> Medical Records Medical records reviewed: Yes I reviewed the patient's medical records. Screening: Per USPSTF and CDC recommendations, given the prevalence of disease in our region, it is our hospital?s policy to screen for HIV and viral Hepatitis for all patients aged 18 and over and those with ongoing risk factors. Alejandro Inquiry Pt receiving controlled substance: No Vital Signs: 08/15/24 14:05 08/15/24 14:06 08/15/24 14:31 Temperature 98.5 F Temperature Source Oral Pulse Rate 72 69 Pulse Rate [Left Radial] 71 Respiratory Rate 20 21 20 Blood Pressure 166/79 H 173/74 H Blood Pressure [Right Arm] 162/69 H Blood Pressure Mean Blood Pressure Mean [Right Arm] 100 Blood Pressure Source [Right Arm] Blood Pressure Position [Right Arm] 02 Sat by Pulse Oximetry 97 96 98 Oxygen Delivery Method Room Air Room Air 08/15/24 15:30 08/15/24 16:00 08/15/24 16:41 Temperature Temperature Source Pulse Rate 64 67 Pulse Rate [Left Radial] Respiratory Rate 19 25 H Blood Pressure 182/84 H 190/79 H Blood Pressure [Right Arm] Blood Pressure Mean 116 Blood Pressure Mean [Right Arm] Blood Pressure Source [Right Arm] Blood Pressure Position [Right Arm] 02 Sat by Pulse Oximetry 98 99 Oxygen Delivery Method Room Air Room Air 08/15/24 16:41 08/15/24 16:51 Temperature 98.2 F Temperature Source Pulse Rate 72 Pulse Rate [Left Radial] 62 Respiratory Rate 18 24 Blood Pressure 180/70 H Blood Pressure [Right Arm] 178/71 H Blood Pressure Mean Blood Pressure Mean [Right Arm] 106 Blood Pressure Source [Right Arm] Automatic Cuff Blood Pressure Position [Right Arm] Supine 02 Sat by Pulse Oximetry 98 Oxygen Delivery Method Room Air Room Air Lab Data Lab results reviewed: Yes I reviewed the patient's lab results. Lab Results 08/15/24 13:50: WBC 14.2 H, RBC 3.47 L, Hgb 11.1 L, Hct 33.4 L, MCV 96.3, MCH 32.0 H, MCHC 33.2, RDW 13.7, Plt Count 313, MPV 11.6 H, Neut % (Auto) 71.0, Lymph % (Auto) 19.6, [place] % (Auto) 7.4, Eos % (Auto) 0.8, Baso % (Auto) 0.6, N eut # (Auto) 10.1 H, Lymph # (Auto) 2.8, [place] # (Auto) 1.1 H, Eos # (Auto) 0.1, Baso # (Auto) 0.1, PT 10.9, INR 0.97, Sodium 142, Potassium 5.0, Chloride 113 H, Carbon Dioxide 19 L, Anion Gap 15.0, BUN 40 H, Creatinine 2.60 H, Estimated Creat Clear 19, Estimated GFR 18 L*, Est GFR ( Amer) 22 L, Glucose 91, Calcium 9.2, Magnesium 1.8, Total Bilirubin 0.5, AST 44 H, ALT 31, Alkaline Phosphatase 169 H, Troponin I 0.14 H, NT-Pro-B Natriuret Pep 7970 H, Total Protein 6.7, Albumin 3.9, Globulin 2.8, Albumin/Globulin Ratio 1.4, Procalcitonin 0.201, TSH 6.16 H, Free T4 Index 2.9 L, Thyroxine (T4) 9.3, T3 Uptake 31 08/15/24 14:49: Urine Color Yellow, Urine Appearance Clear, Urine pH 6.0, Ur Specific [place] 1.025, Urine Protein >=300, Urine Glucose (UA) Negative, Urine Ketones Negative, Urine Blood Trace-i, Urine Nitrate Negative, Urine Bilirubin Negative, Urine Urobilinogen 0.2, Ur Leukocyte Esterase Negative, Urine RBC 5- 10, Urine WBC 5-10, Urine Bacteria Trace 08/15/24 16:20: Troponin I 0.20 H 08/16/24 06:10 08/16/24 06:10 Orders (Tests/Meds): ED MEDICATIONS Generic Name Dose Route Start Last Admin Trade Name Chanduq PRN Reason Stop Dose Admin Acetaminophen 650 mg 08/15/24 18:38 Acetaminophen 325mg Tab PO 09/14/24 18:37 Q4HP PRN Fever or Mild Pain (1-3) Aspirin 81 mg 08/17/24 09:00 Aspirin Ec 81mg Tablet PO 09/16/24 08:59 DAILY ELIE Atorvastatin Calcium 40 mg 08/15/24 21:25 08/15/24 22:17 Atorvastatin 40mg Tablet PO 09/14/24 21:24 40 mg HS ELIE Administration Clopidogrel Bisulfate 75 mg 08/17/24 09:00 Clopidogrel 75mg Tab PO 09/16/24 08:59 DAILY ELIE Fentanyl Citrate 50 mcg 08/16/24 10:20 08/16/24 13:24 Fentanyl 100mcg/2ml Vial IV 08/16/24 22:21 37.5 mcg Q3MINP PRN Administration Sedation Fentanyl Citrate 25 mcg 08/16/24 10:20 Fentanyl 100mcg/2ml Vial IV 08/16/24 22:21 Q3MINP PRN Sedation Fentanyl Citrate 50 mcg 08/16/24 13:13 Fentanyl 100mcg/2ml Vial IV 08/17/24 01:13 Q3MINP PRN Sedation Fentanyl Citrate 25 mcg 08/16/24 13:13 Fentanyl 100mcg/2ml Vial IV 08/17/24 01:13 Q3MINP PRN Sedation Flumazenil 0.2 mg 08/16/24 10:20 Flumazenil 0.1mg/Ml 5ml Vial IV 08/16/24 22:21 NEEDED PRN Sedation Flumazenil 0.2 mg 08/16/24 13:13 Flumazenil 0.1mg/Ml 5ml Vial IV 08/17/24 01:13 NEEDED PRN Sedation Heparin Sodium (Porcine) 10,000 unit 08/16/24 13:13 Heparin 1,000 Units/Ml 10ml Vial ([employer]) IV 08/16/24 17:13 NEEDED PRN Emergency [employer] Hydralazine HCl 20 mg 08/16/24 13:13 Hydralazine 20mg/Ml Vial IV 08/16/24 17:13 ONCE PRN sbp>160 Lactated Ringer's 1,000 mls @ 75 mls/hr 08/15/24 18:45 08/16/24 08:47 Lactated Ringer's 1000 Ml Bag IV 09/14/24 18:44 75 mls/hr .[id number] ELIE Administration Adenosine 180 mg/ Sodium 90 mls @ 338.04 mls/hr 08/16/24 13:13 Chloride IV 08/16/24 17:13 ONCE PRN fractional flow reserve 180 MCG/KG/MIN Sodium Chloride 1,000 mls @ 25 mls/hr 08/16/24 13:15 08/16/24 13:23 Sod Chloride 0.9% 500ml Bag IV 08/17/24 13:13 25 mls/hr .Q25H ELIE Administration Adenosine 90 mg/ Sodium 90 mls @ 676.08 mls/hr 08/16/24 13:13 Chloride IV 08/16/24 17:13 ONCE PRN fractional flow reserve 180 MCG/KG/MIN Insulin Human Lispro 0 unit 08/15/24 21:00 08/16/24 11:05 Humalog 100 Units/Ml 10ml Vial ([facility]) SUBCUT 09/14/24 20:59 Not Given ACHS ELIE Protocol Labetalol HCl 20 mg 08/16/24 13:13 08/16/24 14:01 Labetalol 20mg/4ml Syringe IV 08/16/24 17:13 20 mg ONCE PRN Administration sbp>160 Metoprolol Succinate 25 mg 08/15/24 21:25 08/16/24 08:47 Metoprolol Succinate Xl 25mg Tablet PO 09/14/24 21:24 25 mg DAILY ELIE Administration Midazolam HCl 1 mg 08/16/24 10:20 Midazolam 2mg/2ml Vial IV 08/16/24 22:21 Q3MINP PRN Sedation Midazolam HCl 1 mg 08/16/24 10:20 08/16/24 13:23 Midazolam Hcl 1mg/Ml 5ml Vial IV 08/16/24 22:21 2 mg Q3MINP PRN Administration Sedation Midazolam HCl 1 mg 08/16/24 13:13 Midazolam 2mg/2ml Vial IV 08/17/24 01:13 Q3MINP PRN Sedation Midazolam HCl 1 mg 08/16/24 13:13 Midazolam Hcl 1mg/Ml 5ml Vial IV 08/17/24 01:13 Q3MINP PRN Sedation Miscellaneous 1 each 08/16/24 14:48 Consider Pt For Dual Antiplatelet Therapy At Discharge-Stent NOTAPPLIC 09/15/24 14:47 NEEDED PRN Reminder for s/p stent Naloxone HCl 0.4 mg 08/16/24 10:20 Naloxone 0.4mg/Ml Vial IV 08/16/24 22:21 Q5MINP PRN Decreased Respirations Naloxone HCl 0.4 mg 08/16/24 13:13 Naloxone 0.4mg/Ml Vial IV 08/17/24 01:13 Q5MINP PRN Decreased Respirations Nitroglycerin 0.5 gm 08/16/24 11:00 08/16/24 11:17 Nitroglycerin 1 Gm Ointment TD 09/15/24 10:59 0.5 gm Q8H ELIE Administration Nitroglycerin 800 mcg 08/16/24 13:13 Nitroglycerin 800mcg/8ml Syr ([employer]) IA 08/16/24 17:13 NEEDED PRN Emergency [employer] Nitroglycerin 0.4 mg 08/16/24 14:48 Nitroglycerin 0.4mg Sl Tablet SL 09/15/24 14:47 Q5MINP PRN Chest Pain Ondansetron HCl 4 mg 08/15/24 18:38 08/16/24 09:52 Ondansetron 4mg/2ml Vial IV 09/14/24 18:37 4 mg Q8HP PRN Administration Nausea Protamine Sulfate 50 mg 08/16/24 13:13 Protamine Sulfate 50mg/5ml Vial ([employer]) IV 08/16/24 17:13 ONCE PRN act>200 Sodium Chloride 10 ml 08/15/24 18:38 Sodium Chloride 0.9% 10ml Flush Syringe IV 09/14/24 18:37 NEEDED PRN Maintain IV Site Sodium Chloride 10 ml 08/16/24 13:13 Sodium Chloride 0.9% 10ml Flush Syringe IV 09/15/24 13:12 NEEDED PRN Maintain IV Site Discontinued Medications Generic Name Dose Route Start Last Admin Trade Name Freq PRN Reason Stop Dose Admin Acetaminophen 1,000 mg 08/15/24 14:16 08/15/24 14:30 Acetaminophen 500mg Tab PO 08/15/24 14:17 1,000 mg ONCE ONE Administration Aspirin 325 mg 08/15/24 21:20 08/15/24 22:17 Aspirin 325mg Tablet PO 08/15/24 21:21 325 mg ONCE ONE Administration Belladonna Alkaloids 60 ml 08/16/24 09:45 08/16/24 09:52 Belladonna Alkaloids 60 Ml Ml PO 08/16/24 09:46 60 ml ONCE ONE Administration Clopidogrel Bisulfate 600 mg 08/16/24 14:51 08/16/24 14:53 Clopidogrel 300mg Tablet PO 08/16/24 14:52 600 mg ONCE ONE Administration Diphenhydramine HCl 50 mg 08/16/24 13:10 08/16/24 13:12 Diphenhydramine 50mg/Ml Vial IV 08/16/24 13:11 50 mg ONCE ONE Administration Diphenhydramine HCl 50 mg 08/16/24 13:13 Diphenhydramine 50mg/Ml Vial IV 08/16/24 13:14 ONCE ONE Heparin Sodium (Porcine) 3,750 unit 08/15/24 20:15 08/15/24 20:55 Heparin Sodium 5,000 Unit/Ml Vial IV 08/15/24 20:16 3,750 unit BOLUS ONE Administration Heparin Sodium (Porcine) 4,000 unit 08/16/24 09:00 08/16/24 09:06 Heparin Sodium 5,000 Unit/Ml Vial IV 08/16/24 09:01 4,000 unit ONCE ONE Administration Heparin Sodium/Sodium Chloride 3,000 unit 08/16/24 13:13 08/16/24 13:23 Heparin 1,000 Units/500ml Ns ([employer]) IV 08/16/24 13:14 8,600 unit ONCE ONE Administration Lactated Ringer's 1,000 mls @ 999 mls/hr 08/15/24 17:09 08/15/24 17:54 Lactated Ringer's 1000 Ml Bag IV 08/15/24 18:09 999 mls/hr .Q1H1M ONE Administration Heparin Sodium/Dextrose 500 mls @ 15.023 mls/hr 08/15/24 20:15 08/15/24 20:55 Heparin 25,000 Units In D5w 500ml Premix IV 09/14/24 20:14 15.023 mls/hr .Q25H ELIE Administration 12 UNITS/KG/HR Heparin Sodium/Dextrose 500 mls @ 20 mls/hr 08/16/24 09:00 08/16/24 09:06 Heparin 25,000 Units In D5w 500ml Premix IV 09/15/24 08:59 20 mls/hr .Q25H ELIE Administration 1,000 UNIT/HR Iopamidol 120 ml 08/16/24 15:01 08/16/24 15:03 Iopamidol-370 (76%);100ml Bottle IV 08/16/24 15:02 120 ml ONCE ONE Administration Lidocaine HCl 20 ml 08/16/24 13:13 Lidocaine 1% 5ml Pf Vial IJ 08/16/24 13:14 ONCE ONE Lidocaine HCl 20 ml 08/16/24 13:13 08/16/24 13:22 Lidocaine 1% 10ml Mdv IJ 08/16/24 13:14 10 ml ONCE ONE Administration Miscellaneous 1 each 08/15/24 18:45 08/15/24 19:53 Heparin Drip Consult NOTAPPLIC 09/14/24 18:44 1 each CONSULT PHARMACY ELIE Administration Nitroglycerin 0.4 mg 08/16/24 10:00 08/16/24 10:02 Nitroglycerin 0.4mg Sl Tablet SL 08/16/24 10:01 0.4 mg ONCE ONE Administration Perflutren Lipid Microsphere 2 mg 08/16/24 08:26 08/16/24 08:29 Definity Us Echo Contrast 2ml Inj IV 08/16/24 08:27 2 mg ONCE ONE Administration Verapamil HCl 2.5 mg 08/16/24 13:13 08/16/24 13:22 Verapamil 2.5mg/Ml 2ml Vial IV 08/16/24 13:14 2.5 mg ONCE ONE Administration ORDERS Category Date Time Status CT cervical spine wo con Stat Cat Scan 08/15/24 14:[address] chest wo con Stat Cat Scan 08/15/24 14:[address] head/brain wo con Stat Cat Scan 08/15/24 14:[address] lumbar spine wo con Stat Cat Scan 08/15/24 14:[address] thoracic spine wo con Stat Cat Scan 08/15/24 14:18 Completed BNP [NT Pro Brain Natriuretic Pep.] Stat Lab 08/15/24 13:50 Completed CBC w/Auto Diff [Complete Blood Count Auto Diff] Stat Lab 08/15/24 13:50 Completed CMP [Comprehensive Metabolic Panel] Stat Lab 08/15/24 13:50 Completed INR [Prothrombin Time INR] Stat Lab 08/15/24 13:50 Completed Magnesium Stat Lab 08/15/24 13:50 Completed Procalcitonin Stat Lab 08/15/24 13:50 Completed Thyroid Panel Stat Lab 08/15/24 13:50 Completed Trop I [Troponin I] Stat Lab 08/15/24 13:50 Completed Troponin I Q3H Lab 08/15/24 16:20 Completed Troponin I Q3H Lab 08/15/24 19:12 Completed UA [Urinalysis and Microscopic] Stat Lab 08/15/24 14:49 Completed HEART Score History (anamnesis): Slightly suspicious ECG: Non-specific disturbance Age: >65 years Risk factors: Atherosclerosis history Troponin: 1-3x normal limit HEART Score: 6 Medical Decision Narrative: In summary patient is a 79-year-old female who presents to the emergency department for evaluation of syncope and collapse. Patient is currently hemodynamically stable and afebrile upon arrival. Physical exam is remarkable for a [place] Coma Score 15 patient is awake alert and oriented person place and circumstance however she is amnestic of events, she has no cervical spine tenderness but is tender to palpation in the mid to low T/lumbar spine without palpable bony deformities ecchymosis contusions abrasions. Breath sounds clear and equal bilaterally to the bases without adventitious sounds patient is normal sinus rhythm on the bedside monitor, cranial nerves II through XII are intact grossly to exam, patient moves all 4 extremities fully without loss of motor or sensory she has no focal neurologic deficits no dependent edema noted. Patient is cleared by [facility] C-spine and head injury rules however given mechanism will remain C-spine precautions. Differential diagnosis includes vasovagal syncope versus cardiac arrhythmia versus occult fracture etc. Initial workup will be conducted with hematologic labs twelve-lead EKG CT scan urinalysis.. Initial interventions were considered however patient has no complaints currently other than her mid to low back pain so Tylenol for now. Initial workup reviewed by me and her hematologic labs are significant for white count of 14.2 hemoglobin hematocrit 11.1 and 33.4 with an absolute neutrophil count of 10.1, BUN of 40 creatinine 2.6 GFR of 18 initial troponin of 0.14 and NT proBNP of 7970 procalcitonin is 0.201 TSH is 6.16 urinalysis was bland remarkable interpretation of her imaging shows some trace pulmonary edema no effusions and no acute fractures. Please see radiology read for formal interpretation.. Upon repeat evaluation patient remains hemodynamically stable awake alert and oriented. Given this I had interactive discussion with Dr. Daley of cardiology about patient presentation CAPONE and patient management and he is going to plan cardiovascular CAPONE tomorrow. Given that I had interactive discussion with hospital medicine regarding patient management and she will be admitted for further evaluation and care <Moy Garza MD - Last Filed: 08/15/24 16:39> Vital Signs: 08/15/24 14:05 08/15/24 14:06 08/15/24 14:31 Temperature 98.5 F Temperature Source Oral Pulse Rate 72 69 Pulse Rate [Left Radial] 71 Respiratory Rate 20 21 20 Blood Pressure 166/79 H 173/74 H Blood Pressure [Right Arm] 162/69 H Blood Pressure Mean Blood Pressure Mean [Right Arm] 100 Blood Pressure Source [Right Arm] Blood Pressure Position [Right Arm] 02 Sat by Pulse Oximetry 97 96 98 Oxygen Delivery Method Room Air Room Air 08/15/24 15:30 08/15/24 16:00 08/15/24 16:41 Temperature Temperature Source Pulse Rate 64 67 Pulse Rate [Left Radial] Respiratory Rate 19 25 H Blood Pressure 182/84 H 190/79 H Blood Pressure [Right Arm] Blood Pressure Mean 116 Blood Pressure Mean [Right Arm] Blood Pressure Source [Right Arm] Blood Pressure Position [Right Arm] 02 Sat by Pulse Oximetry 98 99 Oxygen Delivery Method Room Air Room Air 08/15/24 16:41 08/15/24 16:51 Temperature 98.2 F Temperature Source Pulse Rate 72 Pulse Rate [Left Radial] 62 Respiratory Rate 18 24 Blood Pressure 180/70 H Blood Pressure [Right Arm] 178/71 H Blood Pressure Mean Blood Pressure Mean [Right Arm] 106 Blood Pressure Source [Right Arm] Automatic Cuff Blood Pressure Position [Right Arm] Supine 02 Sat by Pulse Oximetry 98 Oxygen Delivery Method Room Air Room Air Lab Data Lab Results 08/15/24 13:50: WBC 14.2 H, RBC 3.47 L, Hgb 11.1 L, Hct 33.4 L, MCV 96.3, MCH 32.0 H, MCHC 33.2, RDW 13.7, Plt Count 313, MPV 11.6 H, Neut % (Auto) 71.0, Lymph % (Auto) 19.6, [place] % (Auto) 7.4, Eos % (Auto) 0.8, Baso % (Auto) 0.6, N eut # (Auto) 10.1 H, Lymph # (Auto) 2.8, [place] # (Auto) 1.1 H, Eos # (Auto) 0.1, Baso # (Auto) 0.1, PT 10.9, INR 0.97, Sodium 142, Potassium 5.0, Chloride 113 H, Carbon Dioxide 19 L, Anion Gap 15.0, BUN 40 H, Creatinine 2.60 H, Estimated Creat Clear 19, Estimated GFR 18 L*, Est GFR ( Amer) 22 L, Glucose 91, Calcium 9.2, Magnesium 1.8, Total Bilirubin 0.5, AST 44 H, ALT 31, Alkaline Phosphatase 169 H, Troponin I 0.14 H, NT-Pro-B Natriuret Pep 7970 H, Total Protein 6.7, Albumin 3.9, Globulin 2.8, Albumin/Globulin Ratio 1.4, Procalcitonin 0.201, TSH 6.16 H, Free T4 Index 2.9 L, Thyroxine (T4) 9.3, T3 Uptake 31 08/15/24 14:49: Urine Color Yellow, Urine Appearance Clear, Urine pH 6.0, Ur Specific [place] 1.025, Urine Protein >=300, Urine Glucose (UA) Negative, Urine Ketones Negative, Urine Blood Trace-i, Urine Nitrate Negative, Urine Bilirubin Negative, Urine Urobilinogen 0.2, Ur Leukocyte Esterase Negative, Urine RBC 5- 10, Urine WBC 5-10, Urine Bacteria Trace 08/15/24 16:20: Troponin I 0.20 H Orders (Tests/Meds): ED MEDICATIONS Generic Name Dose Route Start Last Admin Trade Name Ramila PRN Reason Stop Dose Admin Acetaminophen 650 mg 08/15/24 18:38 Acetaminophen 325mg Tab PO 09/14/24 18:37 Q4HP PRN Fever or Mild Pain (1-3) Aspirin 81 mg 08/17/24 09:00 Aspirin Ec 81mg Tablet PO 09/16/24 08:59 DAILY ELIE Atorvastatin Calcium 40 mg 08/15/24 21:25 08/15/24 22:17 Atorvastatin 40mg Tablet PO 09/14/24 21:24 40 mg HS ELIE Administration Clopidogrel Bisulfate 75 mg 08/17/24 09:00 Clopidogrel 75mg Tab PO 09/16/24 08:59 DAILY ELIE Fentanyl Citrate 50 mcg 08/16/24 10:20 08/16/24 13:24 Fentanyl 100mcg/2ml Vial IV 08/16/24 22:21 37.5 mcg Q3MINP PRN Administration Sedation Fentanyl Citrate 25 mcg 08/16/24 10:20 Fentanyl 100mcg/2ml Vial IV 08/16/24 22:21 Q3MINP PRN Sedation Fentanyl Citrate 50 mcg 08/16/24 13:13 Fentanyl 100mcg/2ml Vial IV 08/17/24 01:13 Q3MINP PRN Sedation Fentanyl Citrate 25 mcg 08/16/24 13:13 Fentanyl 100mcg/2ml Vial IV 08/17/24 01:13 Q3MINP PRN Sedation Flumazenil 0.2 mg 08/16/24 10:20 Flumazenil 0.1mg/Ml 5ml Vial IV 08/16/24 22:21 NEEDED PRN Sedation Flumazenil 0.2 mg 08/16/24 13:13 Flumazenil 0.1mg/Ml 5ml Vial IV 08/17/24 01:13 NEEDED PRN Sedation Heparin Sodium (Porcine) 10,000 unit 08/16/24 13:13 Heparin 1,000 Units/Ml 10ml Vial ([employer]) IV 08/16/24 17:13 NEEDED PRN Emergency [employer] Hydralazine HCl 20 mg 08/16/24 13:13 Hydralazine 20mg/Ml Vial IV 08/16/24 17:13 ONCE PRN sbp>160 Lactated Ringer's 1,000 mls @ 75 mls/hr 08/15/24 18:45 08/16/24 08:47 Lactated Ringer's 1000 Ml Bag IV 09/14/24 18:44 75 mls/hr .[id number] ELIE Administration Adenosine 180 mg/ Sodium 90 mls @ 338.04 mls/hr 08/16/24 13:13 Chloride IV 08/16/24 17:13 ONCE PRN fractional flow reserve 180 MCG/KG/MIN Sodium Chloride 1,000 mls @ 25 mls/hr 08/16/24 13:15 08/16/24 13:23 Sod Chloride 0.9% 500ml Bag IV 08/17/24 13:13 25 mls/hr .Q25H ELIE Administration Adenosine 90 mg/ Sodium 90 mls @ 676.08 mls/hr 08/16/24 13:13 Chloride IV 08/16/24 17:13 ONCE PRN fractional flow reserve 180 MCG/KG/MIN Insulin Human Lispro 0 unit 08/15/24 21:00 08/16/24 11:05 Humalog 100 Units/Ml 10ml Vial (Ssi) SUBCUT 09/14/24 20:59 Not Given ACHS ELIE Protocol Labetalol HCl 20 mg 08/16/24 13:13 08/16/24 14:01 Labetalol 20mg/4ml Syringe IV 08/16/24 17:13 20 mg ONCE PRN Administration sbp>160 Metoprolol Succinate 25 mg 08/15/24 21:25 08/16/24 08:47 Metoprolol Succinate Xl 25mg Tablet PO 09/14/24 21:24 25 mg DAILY ELIE Administration Midazolam HCl 1 mg 08/16/24 10:20 Midazolam 2mg/2ml Vial IV 08/16/24 22:21 Q3MINP PRN Sedation Midazolam HCl 1 mg 08/16/24 10:20 08/16/24 13:23 Midazolam Hcl 1mg/Ml 5ml Vial IV 08/16/24 22:21 2 mg Q3MINP PRN Administration Sedation Midazolam HCl 1 mg 08/16/24 13:13 Midazolam 2mg/2ml Vial IV 08/17/24 01:13 Q3MINP PRN Sedation Midazolam HCl 1 mg 08/16/24 13:13 Midazolam Hcl 1mg/Ml 5ml Vial IV 08/17/24 01:13 Q3MINP PRN Sedation Miscellaneous 1 each 08/16/24 14:48 Consider Pt For Dual Antiplatelet Therapy At Discharge-Stent NOTAPPLIC 09/15/24 14:47 NEEDED PRN Reminder for s/p stent Naloxone HCl 0.4 mg 08/16/24 10:20 Naloxone 0.4mg/Ml Vial IV 08/16/24 22:21 Q5MINP PRN Decreased Respirations Naloxone HCl 0.4 mg 08/16/24 13:13 Naloxone 0.4mg/Ml Vial IV 08/17/24 01:13 Q5MINP PRN Decreased Respirations Nitroglycerin 0.5 gm 08/16/24 11:00 08/16/24 11:17 Nitroglycerin 1 Gm Ointment TD 09/15/24 10:59 0.5 gm Q8H ELIE Administration Nitroglycerin 800 mcg 08/16/24 13:13 Nitroglycerin 800mcg/8ml Syr ([employer]) IA 08/16/24 17:13 NEEDED PRN Emergency Box [employer] Nitroglycerin 0.4 mg 08/16/24 14:48 Nitroglycerin 0.4mg Sl Tablet SL 09/15/24 14:47 Q5MINP PRN Chest Pain Ondansetron HCl 4 mg 08/15/24 18:38 08/16/24 09:52 Ondansetron 4mg/2ml Vial IV 09/14/24 18:37 4 mg Q8HP PRN Administration Nausea Protamine Sulfate 50 mg 08/16/24 13:13 Protamine Sulfate 50mg/5ml Vial ([employer]) IV 08/16/24 17:13 ONCE PRN act>200 Sodium Chloride 10 ml 08/15/24 18:38 Sodium Chloride 0.9% 10ml Flush Syringe IV 09/14/24 18:37 NEEDED PRN Maintain IV Site Sodium Chloride 10 ml 08/16/24 13:13 Sodium Chloride 0.9% 10ml Flush Syringe IV 09/15/24 13:12 NEEDED PRN Maintain IV Site Discontinued Medications Generic Name Dose Route Start Last Admin Trade Name Freq PRN Reason Stop Dose Admin Acetaminophen 1,000 mg 08/15/24 14:16 08/15/24 14:30 Acetaminophen 500mg Tab PO 08/15/24 14:17 1,000 mg ONCE ONE Administration Aspirin 325 mg 08/15/24 21:20 08/15/24 22:17 Aspirin 325mg Tablet PO 08/15/24 21:21 325 mg ONCE ONE Administration Belladonna Alkaloids 60 ml 08/16/24 09:45 08/16/24 09:52 Belladonna Alkaloids 60 Ml Ml PO 08/16/24 09:46 60 ml ONCE ONE Administration Clopidogrel Bisulfate 600 mg 08/16/24 14:51 08/16/24 14:53 Clopidogrel 300mg Tablet PO 08/16/24 14:52 600 mg ONCE ONE Administration Diphenhydramine HCl 50 mg 08/16/24 13:10 08/16/24 13:12 Diphenhydramine 50mg/Ml Vial IV 08/16/24 13:11 50 mg ONCE ONE Administration Diphenhydramine HCl 50 mg 08/16/24 13:13 Diphenhydramine 50mg/Ml Vial IV 08/16/24 13:14 ONCE ONE Heparin Sodium (Porcine) 3,750 unit 08/15/24 20:15 08/15/24 20:55 Heparin Sodium 5,000 Unit/Ml Vial IV 08/15/24 20:16 3,750 unit BOLUS ONE Administration Heparin Sodium (Porcine) 4,000 unit 08/16/24 09:00 08/16/24 09:06 Heparin Sodium 5,000 Unit/Ml Vial IV 08/16/24 09:01 4,000 unit ONCE ONE Administration Heparin Sodium/Sodium Chloride 3,000 unit 08/16/24 13:13 08/16/24 13:23 Heparin 1,000 Units/500ml Ns ([employer]) IV 08/16/24 13:14 8,600 unit ONCE ONE Administration Lactated Ringer's 1,000 mls @ 999 mls/hr 08/15/24 17:09 08/15/24 17:54 Lactated Ringer's 1000 Ml Bag IV 08/15/24 18:09 999 mls/hr .Q1H1M ONE Administration Heparin Sodium/Dextrose 500 mls @ 15.023 mls/hr 08/15/24 20:15 08/15/24 20:55 Heparin 25,000 Units In D5w 500ml Premix IV 09/14/24 20:14 15.023 mls/hr .Q25H ELIE Administration 12 UNITS/KG/HR Heparin Sodium/Dextrose 500 mls @ 20 mls/hr 08/16/24 09:00 08/16/24 09:06 Heparin 25,000 Units In D5w 500ml Premix IV 09/15/24 08:59 20 mls/hr .Q25H ELIE Administration 1,000 UNIT/HR Iopamidol 120 ml 08/16/24 15:01 08/16/24 15:03 Iopamidol-370 (76%);100ml Bottle IV 08/16/24 15:02 120 ml ONCE ONE Administration Lidocaine HCl 20 ml 08/16/24 13:13 Lidocaine 1% 5ml Pf Vial IJ 08/16/24 13:14 ONCE ONE Lidocaine HCl 20 ml 08/16/24 13:13 08/16/24 13:22 Lidocaine 1% 10ml Mdv IJ 08/16/24 13:14 10 ml ONCE ONE Administration Miscellaneous 1 each 08/15/24 18:45 08/15/24 19:53 Heparin Drip Consult NOTAPPLIC 09/14/24 18:44 1 each CONSULT PHARMACY ELIE Administration Nitroglycerin 0.4 mg 08/16/24 10:00 08/16/24 10:02 Nitroglycerin 0.4mg Sl Tablet SL 08/16/24 10:01 0.4 mg ONCE ONE Administration Perflutren Lipid Microsphere 2 mg 08/16/24 08:26 08/16/24 08:29 Definity Us Echo Contrast 2ml Inj IV 08/16/24 08:27 2 mg ONCE ONE Administration Verapamil HCl 2.5 mg 08/16/24 13:13 08/16/24 13:22 Verapamil 2.5mg/Ml 2ml Vial IV 08/16/24 13:14 2.5 mg ONCE ONE Administration ORDERS Category Date Time Status CT cervical spine wo con Stat Cat Scan 08/15/24 14:[address] chest wo con Stat Cat Scan 08/15/24 14:[address] head/brain wo con Stat Cat Scan 08/15/24 14:[address] lumbar spine wo con Stat Cat Scan 08/15/24 14:[address] thoracic spine wo con Stat Cat Scan 08/15/24 14:18 Completed BNP [NT Pro Brain Natriuretic Pep.] Stat Lab 08/15/24 13:50 Completed CBC w/Auto Diff [Complete Blood Count Auto Diff] Stat Lab 08/15/24 13:50 Completed CMP [Comprehensive Metabolic Panel] Stat Lab 08/15/24 13:50 Completed INR [Prothrombin Time INR] Stat Lab 08/15/24 13:50 Completed Magnesium Stat Lab 08/15/24 13:50 Completed Procalcitonin Stat Lab 08/15/24 13:50 Completed Thyroid Panel Stat Lab 08/15/24 13:50 Completed Trop I [Troponin I] Stat Lab 08/15/24 13:50 Completed Troponin I Q3H Lab 08/15/24 16:20 Completed Troponin I Q3H Lab 08/15/24 19:12 Completed UA [Urinalysis and Microscopic] Stat Lab 08/15/24 14:49 Completed HEART Score HEART Score: 6 Medical Decision Narrative: In summary patient is a 79-year-old female who presents to the emergency department for evaluation of syncope and collapse. Patient is currently hemodynamically stable and afebrile upon arrival. Physical exam is remarkable for a [place] Coma Score 15 patient is awake alert and oriented person place and circumstance however she is amnestic of events, she has no cervical spine tenderness but is tender to palpation in the mid to low T/lumbar spine without palpable bony deformities ecchymosis contusions abrasions. Breath sounds clear and equal bilaterally to the bases without adventitious sounds patient is normal sinus rhythm on the bedside monitor, cranial nerves II through XII are intact grossly to exam, patient moves all 4 extremities fully without loss of motor or sensory she has no focal neurologic deficits no dependent edema noted. Patient is cleared by [facility] C-spine and head injury rules however given mechanism will remain C-spine precautions. Differential diagnosis includes vasovagal syncope versus cardiac arrhythmia versus occult fracture etc. Initial workup will be conducted with hematologic labs twelve-lead EKG CT scan urinalysis.. Initial interventions were considered however patient has no complaints currently other than her mid to low back pain so Tylenol for now. Initial workup reviewed by me and her hematologic labs are significant for white count of 14.2 hemoglobin hematocrit 11.1 and 33.4 with an absolute neutrophil count of 10.1, BUN of 40 creatinine 2.6 GFR of 18 initial troponin of 0.14 and NT proBNP of 7970 procalcitonin is 0.201 TSH is 6.16 urinalysis was bland remarkable interpretation of her imaging shows some trace pulmonary edema no effusions and no acute fractures. Please see radiology read for formal interpretation.. Upon repeat evaluation patient remains hemodynamically stable awake alert and oriented. Given this I had interactive discussion with Dr. Daley of cardiology about patient presentation CAPONE and patient management and he is going to plan cardiovascular CAPONE tomorrow. Given that I had interactive discussion with hospital medicine regarding patient management and she will be admitted for further evaluation and care I was consulted by the TASNEEM, and we discussed the complexity of the problems being addressed. I approved the treatment and management plan for this patient's care in the emergency department, thus performing a substantive portion of the medical decision making. Moy Garza MD <Raimundo Darling MD - Last Filed: 08/16/24 15:20> Vital Signs: 08/15/24 14:05 08/15/24 14:06 08/15/24 14:31 Temperature 98.5 F Temperature Source Oral Pulse Rate 72 69 Pulse Rate [Left Radial] 71 Respiratory Rate 20 21 20 Blood Pressure 166/79 H 173/74 H Blood Pressure [Right Arm] 162/69 H Blood Pressure Mean Blood Pressure Mean [Right Arm] 100 Blood Pressure Source [Right Arm] Blood Pressure Position [Right Arm] 02 Sat by Pulse Oximetry 97 96 98 Oxygen Delivery Method Room Air Room Air 08/15/24 15:30 08/15/24 16:00 08/15/24 16:41 Temperature Temperature Source Pulse Rate 64 67 Pulse Rate [Left Radial] Respiratory Rate 19 25 H Blood Pressure 182/84 H 190/79 H Blood Pressure [Right Arm] Blood Pressure Mean 116 Blood Pressure Mean [Right Arm] Blood Pressure Source [Right Arm] Blood Pressure Position [Right Arm] 02 Sat by Pulse Oximetry 98 99 Oxygen Delivery Method Room Air Room Air 08/15/24 16:41 08/15/24 16:51 Temperature 98.2 F Temperature Source Pulse Rate 72 Pulse Rate [Left Radial] 62 Respiratory Rate 18 24 Blood Pressure 180/70 H Blood Pressure [Right Arm] 178/71 H Blood Pressure Mean Blood Pressure Mean [Right Arm] 106 Blood Pressure Source [Right Arm] Automatic Cuff Blood Pressure Position [Right Arm] Supine 02 Sat by Pulse Oximetry 98 Oxygen Delivery Method Room Air Room Air Lab Data Lab Results 08/15/24 13:50: WBC 14.2 H, RBC 3.47 L, Hgb 11.1 L, Hct 33.4 L, MCV 96.3, MCH 32.0 H, MCHC 33.2, RDW 13.7, Plt Count 313, MPV 11.6 H, Neut % (Auto) 71.0, Lymph % (Auto) 19.6, [place] % (Auto) 7.4, Eos % (Auto) 0.8, Baso % (Auto) 0.6, N eut # (Auto) 10.1 H, Lymph # (Auto) 2.8, [place] # (Auto) 1.1 H, Eos # (Auto) 0.1, Baso # (Auto) 0.1, PT 10.9, INR 0.97, Sodium 142, Potassium 5.0, Chloride 113 H, Carbon Dioxide 19 L, Anion Gap 15.0, BUN 40 H, Creatinine 2.60 H, Estimated Creat Clear 19, Estimated GFR 18 L*, Est GFR ( Amer) 22 L, Glucose 91, Calcium 9.2, Magnesium 1.8, Total Bilirubin 0.5, AST 44 H, ALT 31, Alkaline Phosphatase 169 H, Troponin I 0.14 H, NT-Pro-B Natriuret Pep 7970 H, Total Protein 6.7, Albumin 3.9, Globulin 2.8, Albumin/Globulin Ratio 1.4, Procalcitonin 0.201, TSH 6.16 H, Free T4 Index 2.9 L, Thyroxine (T4) 9.3, T3 Uptake 31 08/15/24 14:49: Urine Color Yellow, Urine Appearance Clear, Urine pH 6.0, Ur Specific [place] 1.025, Urine Protein >=300, Urine Glucose (UA) Negative, Urine Ketones Negative, Urine Blood Trace-i, Urine Nitrate Negative, Urine Bilirubin Negative, Urine Urobilinogen 0.2, Ur Leukocyte Esterase Negative, Urine RBC 5- 10, Urine WBC 5-10, Urine Bacteria Trace 08/15/24 16:20: Troponin I 0.20 H Orders (Tests/Meds): ED MEDICATIONS Generic Name Dose Route Start Last Admin Trade Name Freq PRN Reason Stop Dose Admin Acetaminophen 650 mg 08/15/24 18:38 Acetaminophen 325mg Tab PO 09/14/24 18:37 Q4HP PRN Fever or Mild Pain (1-3) Aspirin 81 mg 08/17/24 09:00 Aspirin Ec 81mg Tablet PO 09/16/24 08:59 DAILY ELIE Atorvastatin Calcium 40 mg 08/15/24 21:25 08/15/24 22:17 Atorvastatin 40mg Tablet PO 09/14/24 21:24 40 mg HS ELIE Administration Clopidogrel Bisulfate 75 mg 08/17/24 09:00 Clopidogrel 75mg Tab PO 09/16/24 08:59 DAILY ELIE Fentanyl Citrate 50 mcg 08/16/24 10:20 08/16/24 13:24 Fentanyl 100mcg/2ml Vial IV 08/16/24 22:21 37.5 mcg Q3MINP PRN Administration Sedation Fentanyl Citrate 25 mcg 08/16/24 10:20 Fentanyl 100mcg/2ml Vial IV 08/16/24 22:21 Q3MINP PRN Sedation Fentanyl Citrate 50 mcg 08/16/24 13:13 Fentanyl 100mcg/2ml Vial IV 08/17/24 01:13 Q3MINP PRN Sedation Fentanyl Citrate 25 mcg 08/16/24 13:13 Fentanyl 100mcg/2ml Vial IV 08/17/24 01:13 Q3MINP PRN Sedation Flumazenil 0.2 mg 08/16/24 10:20 Flumazenil 0.1mg/Ml 5ml Vial IV 08/16/24 22:21 NEEDED PRN Sedation Flumazenil 0.2 mg 08/16/24 13:13 Flumazenil 0.1mg/Ml 5ml Vial IV 08/17/24 01:13 NEEDED PRN Sedation Heparin Sodium (Porcine) 10,000 unit 08/16/24 13:13 Heparin 1,000 Units/Ml 10ml Vial ([employer]) IV 08/16/24 17:13 NEEDED PRN Emergency Box [employer] Hydralazine HCl 20 mg 08/16/24 13:13 Hydralazine 20mg/Ml Vial IV 08/16/24 17:13 ONCE PRN sbp>160 Lactated Ringer's 1,000 mls @ 75 mls/hr 08/15/24 18:45 08/16/24 08:47 Lactated Ringer's 1000 Ml Bag IV 09/14/24 18:44 75 mls/hr .[id number] ELIE Administration Adenosine 180 mg/ Sodium 90 mls @ 338.04 mls/hr 08/16/24 13:13 Chloride IV 08/16/24 17:13 ONCE PRN fractional flow reserve 180 MCG/KG/MIN Sodium Chloride 1,000 mls @ 25 mls/hr 08/16/24 13:15 08/16/24 13:23 Sod Chloride 0.9% 500ml Bag IV 08/17/24 13:13 25 mls/hr .Q25H ELIE Administration Adenosine 90 mg/ Sodium 90 mls @ 676.08 mls/hr 08/16/24 13:13 Chloride IV 08/16/24 17:13 ONCE PRN fractional flow reserve 180 MCG/KG/MIN Insulin Human Lispro 0 unit 08/15/24 21:00 08/16/24 11:05 Humalog 100 Units/Ml 10ml Vial (Ssi) SUBCUT 09/14/24 20:59 Not Given ACHS ELIE Protocol Labetalol HCl 20 mg 08/16/24 13:13 08/16/24 14:01 Labetalol 20mg/4ml Syringe IV 08/16/24 17:13 20 mg ONCE PRN Administration sbp>160 Metoprolol Succinate 25 mg 08/15/24 21:25 08/16/24 08:47 Metoprolol Succinate Xl 25mg Tablet PO 09/14/24 21:24 25 mg DAILY ELIE Administration Midazolam HCl 1 mg 08/16/24 10:20 Midazolam 2mg/2ml Vial IV 08/16/24 22:21 Q3MINP PRN Sedation Midazolam HCl 1 mg 08/16/24 10:20 08/16/24 13:23 Midazolam Hcl 1mg/Ml 5ml Vial IV 08/16/24 22:21 2 mg Q3MINP PRN Administration Sedation Midazolam HCl 1 mg 08/16/24 13:13 Midazolam 2mg/2ml Vial IV 08/17/24 01:13 Q3MINP PRN Sedation Midazolam HCl 1 mg 08/16/24 13:13 Midazolam Hcl 1mg/Ml 5ml Vial IV 08/17/24 01:13 Q3MINP PRN Sedation Miscellaneous 1 each 08/16/24 14:48 Consider Pt For Dual Antiplatelet Therapy At Discharge-Stent NOTAPPLIC 09/15/24 14:47 NEEDED PRN Reminder for s/p stent Naloxone HCl 0.4 mg 08/16/24 10:20 Naloxone 0.4mg/Ml Vial IV 08/16/24 22:21 Q5MINP PRN Decreased Respirations Naloxone HCl 0.4 mg 08/16/24 13:13 Naloxone 0.4mg/Ml Vial IV 08/17/24 01:13 Q5MINP PRN Decreased Respirations Nitroglycerin 0.5 gm 08/16/24 11:00 08/16/24 11:17 Nitroglycerin 1 Gm Ointment TD 09/15/24 10:59 0.5 gm Q8H ELIE Administration Nitroglycerin 800 mcg 08/16/24 13:13 Nitroglycerin 800mcg/8ml Syr ([employer]) IA 08/16/24 17:13 NEEDED PRN Emergency [employer] Nitroglycerin 0.4 mg 08/16/24 14:48 Nitroglycerin 0.4mg Sl Tablet SL 09/15/24 14:47 Q5MINP PRN Chest Pain Ondansetron HCl 4 mg 08/15/24 18:38 08/16/24 09:52 Ondansetron 4mg/2ml Vial IV 09/14/24 18:37 4 mg Q8HP PRN Administration Nausea Protamine Sulfate 50 mg 08/16/24 13:13 Protamine Sulfate 50mg/5ml Vial ([employer]) IV 08/16/24 17:13 ONCE PRN act>200 Sodium Chloride 10 ml 08/15/24 18:38 Sodium Chloride 0.9% 10ml Flush Syringe IV 09/14/24 18:37 NEEDED PRN Maintain IV Site Sodium Chloride 10 ml 08/16/24 13:13 Sodium Chloride 0.9% 10ml Flush Syringe IV 09/15/24 13:12 NEEDED PRN Maintain IV Site Discontinued Medications Generic Name Dose Route Start Last Admin Trade Name Chanduq PRN Reason Stop Dose Admin Acetaminophen 1,000 mg 08/15/24 14:16 08/15/24 14:30 Acetaminophen 500mg Tab PO 08/15/24 14:17 1,000 mg ONCE ONE Administration Aspirin 325 mg 08/15/24 21:20 08/15/24 22:17 Aspirin 325mg Tablet PO 08/15/24 21:21 325 mg ONCE ONE Administration Belladonna Alkaloids 60 ml 08/16/24 09:45 08/16/24 09:52 Belladonna Alkaloids 60 Ml Ml PO 08/16/24 09:46 60 ml ONCE ONE Administration Clopidogrel Bisulfate 600 mg 08/16/24 14:51 08/16/24 14:53 Clopidogrel 300mg Tablet PO 08/16/24 14:52 600 mg ONCE ONE Administration Diphenhydramine HCl 50 mg 08/16/24 13:10 08/16/24 13:12 Diphenhydramine 50mg/Ml Vial IV 08/16/24 13:11 50 mg ONCE ONE Administration Diphenhydramine HCl 50 mg 08/16/24 13:13 Diphenhydramine 50mg/Ml Vial IV 08/16/24 13:14 ONCE ONE Heparin Sodium (Porcine) 3,750 unit 08/15/24 20:15 08/15/24 20:55 Heparin Sodium 5,000 Unit/Ml Vial IV 08/15/24 20:16 3,750 unit BOLUS ONE Administration Heparin Sodium (Porcine) 4,000 unit 08/16/24 09:00 08/16/24 09:06 Heparin Sodium 5,000 Unit/Ml Vial IV 08/16/24 09:01 4,000 unit ONCE ONE Administration Heparin Sodium/Sodium Chloride 3,000 unit 08/16/24 13:13 08/16/24 13:23 Heparin 1,000 Units/500ml Ns ([employer]) IV 08/16/24 13:14 8,600 unit ONCE ONE Administration Lactated Ringer's 1,000 mls @ 999 mls/hr 08/15/24 17:09 08/15/24 17:54 Lactated Ringer's 1000 Ml Bag IV 08/15/24 18:09 999 mls/hr .Q1H1M ONE Administration Heparin Sodium/Dextrose 500 mls @ 15.023 mls/hr 08/15/24 20:15 08/15/24 20:55 Heparin 25,000 Units In D5w 500ml Premix IV 09/14/24 20:14 15.023 mls/hr .Q25H ELIE Administration 12 UNITS/KG/HR Heparin Sodium/Dextrose 500 mls @ 20 mls/hr 08/16/24 09:00 08/16/24 09:06 Heparin 25,000 Units In D5w 500ml Premix IV 09/15/24 08:59 20 mls/hr .Q25H ELIE Administration 1,000 UNIT/HR Iopamidol 120 ml 08/16/24 15:01 08/16/24 15:03 Iopamidol-370 (76%);100ml Bottle IV 08/16/24 15:02 120 ml ONCE ONE Administration Lidocaine HCl 20 ml 08/16/24 13:13 Lidocaine 1% 5ml Pf Vial IJ 08/16/24 13:14 ONCE ONE Lidocaine HCl 20 ml 08/16/24 13:13 08/16/24 13:22 Lidocaine 1% 10ml Mdv IJ 08/16/24 13:14 10 ml ONCE ONE Administration Miscellaneous 1 each 08/15/24 18:45 08/15/24 19:53 Heparin Drip Consult NOTAPPLIC 09/14/24 18:44 1 each CONSULT PHARMACY ELIE Administration Nitroglycerin 0.4 mg 08/16/24 10:00 08/16/24 10:02 Nitroglycerin 0.4mg Sl Tablet SL 08/16/24 10:01 0.4 mg ONCE ONE Administration Perflutren Lipid Microsphere 2 mg 08/16/24 08:26 08/16/24 08:29 Definity Us Echo Contrast 2ml Inj IV 08/16/24 08:27 2 mg ONCE ONE Administration Verapamil HCl 2.5 mg 08/16/24 13:13 08/16/24 13:22 Verapamil 2.5mg/Ml 2ml Vial IV 08/16/24 13:14 2.5 mg ONCE ONE Administration ORDERS Category Date Time Status CT cervical spine wo con Stat Cat Scan 08/15/24 14:[address] chest wo con Stat Cat Scan 08/15/24 14:[address] head/brain wo con Stat Cat Scan 08/15/24 14:[address] lumbar spine wo con Stat Cat Scan 08/15/24 14:[address] thoracic spine wo con Stat Cat Scan 08/15/24 14:18 Completed BNP [NT Pro Brain Natriuretic Pep.] Stat Lab 08/15/24 13:50 Completed CBC w/Auto Diff [Complete Blood Count Auto Diff] Stat Lab 08/15/24 13:50 Completed CMP [Comprehensive Metabolic Panel] Stat Lab 08/15/24 13:50 Completed INR [Prothrombin Time INR] Stat Lab 08/15/24 13:50 Completed Magnesium Stat Lab 08/15/24 13:50 Completed Procalcitonin Stat Lab 08/15/24 13:50 Completed Thyroid Panel Stat Lab 08/15/24 13:50 Completed Trop I [Troponin I] Stat Lab 08/15/24 13:50 Completed Troponin I Q3H Lab 08/15/24 16:20 Completed Troponin I Q3H Lab 08/15/24 19:12 Completed UA [Urinalysis and Microscopic] Stat Lab 08/15/24 14:49 Completed HEART Score HEART Score: 6 Critical Care <MARIA DE JESUS Jackson - Last Filed: 08/15/24 16:34> Critical Care Time Critical Care Time: No
--- NOTE | 2024-08-15 14:01 | ECG_ITS ---
APPROVED REPORT Exam: Resting ECG HR:60 bpm ECG Measurements Heart Rate 60 AXES SD 176 P 68 QRSd 94 QRS 16 QT 458 T 101 QTc [address] DEVIATION AND MODERATE T-WAVE ABNORMALITY, CONSIDER LATERAL ISCHEMIA [-0.1+ mV T-WAVE IN I/aVL/V5/V6] ABNORMAL ECG No STEMI Electronically signed by : LUIS FELIPE, 08/17/2024 04:47:32
--- NOTE | 2024-08-15 14:16 | PC.NURSE ---
fbs 72 per er staff
--- NOTE | 2024-08-15 14:18 | CT_ITS ---
FINAL REPORT TECHNIQUE: Thin section axial images were obtained through the thoracic spine without contrast. Sagittal and coronal images were obtained from the axial data. CLINICAL HISTORY: Syncope and collapse COMPARISON: CT abdomen and pelvis 04/09/2019 FINDINGS: There is a chronic mild compression deformity of T12. There is a mild compression deformity of T3, also likely chronic. Remaining vertebral body heights are preserved. There is no acute fracture of the thoracic spine. There is no malalignment. Multilevel degenerative disc disease is noted.. No acute paraspinal abnormality is identified. IMPRESSION: No acute fracture. Chronic compression deformities of T3 and T12. Reviewed, Interpreted and Dictated by Priscilla Shelton MD Transcribed by Mary Gillette Authenticated and [facility]
--- NOTE | 2024-08-15 14:18 | CT_ITS ---
FINAL REPORT TECHNIQUE: Thin section axial images were obtained through the lumbar spine without contrast. Sagittal and coronal reconstruction images were obtained from the axial data. Exam was performed using dose reduction techniques. CLINICAL HISTORY: Syncope and collapse COMPARISON: None FINDINGS: There is no acute fracture or acute malalignment of the lumbar spine. Vertebral body height is preserved. There is mild multilevel degenerative disc disease. There is no significant central stenosis. Paraspinal soft tissues are within normal limits. There is no paraspinal mass or fluid collection. IMPRESSION: No acute abnormality of the lumbar spine. Reviewed, Interpreted and Dictated by Priscilla Shelton MD Transcribed by Mary Gillette Authenticated and [facility]
--- NOTE | 2024-08-15 14:18 | CT_ITS ---
FINAL REPORT TECHNIQUE: Thin section axial images were obtained from skull base to vertex without contrast. Coronal reconstruction images were obtained from the axial data. Exam was performed using dose reduction techniques such as automated exposure control, adjustment of the mA and kV according to patient size, and use of iterative reconstruction technique. CLINICAL HISTORY: Syncope and collapse COMPARISON: None FINDINGS: There is no mass effect or midline shift. There is no hydrocephalus. There is no intracranial hemorrhage. Periventricular hypodensities are likely chronic small vessel ischemia. There are chronic lacunar infarcts in the inferior basal ganglia. There is a nonspecific calcification along the anterior horn of the right lateral ventricle. The soft tissues are without acute abnormality. No acute osseous abnormality is identified. IMPRESSION: No acute intracranial abnormality. Chronic findings. Reviewed, Interpreted and Dictated by Priscilla Shelton MD Transcribed by Mary Gillette Authenticated and [facility]
--- NOTE | 2024-08-15 14:18 | CT_ITS ---
FINAL REPORT TECHNIQUE: Thin section axial images were obtained through the cervical spine without contrast. Multiplanar reconstruction images were obtained from the axial data. Exam was performed using dose reduction techniques. CLINICAL HISTORY: Syncope and collapse COMPARISON: None FINDINGS: There is no acute fracture or acute malalignment of the cervical spine. There is no evidence of unilateral or bilateral facet lock. The craniocervical junction is intact. Multilevel degenerative disc disease is noted. No acute paraspinal abnormality is identified. IMPRESSION: Degenerative changes without acute osseous abnormality of the cervical spine. Reviewed, Interpreted and Dictated by Priscilla Shelton MD Transcribed by Mary Gillette Authenticated and [facility]
[2024-08-15] MEDS: ACETAMINOPHEN 500MG TAB 1000 MG PO (14:30)
[2024-08-15 14:31] LABS: Albumin Level 3.9 g/dl (3.5-5.0); Chloride 113 mmol/L (98-107); Sodium 142 mmol/L (136-145)
[2024-08-15 14:34] LABS: Alanine Aminotransferase 31 U/L (12-78); Albumin/Globulin Ratio 1.4 (1.1-1.8); Alkaline Phosphatase 169 U/L (38-126); Aspartate Amino Transferase 44 U/L (14-36); Basophils # 0.1 K/mm3 (0-0.2); Basophils % 0.6 % (0.1-2.0); Bilirubin,Total 0.5 mg/dl (0.2-1.3); Blood Urea Nitrogen 40 mg/dl (7-17); Carbon Dioxide 19 mmol/L (22.0-30.0); Creatinine Clearance Estimated 19 mL/min (50-200); Eosinophils # 0.1 K/mm3 (0.0-0.4); Eosinophils % 0.8 % (0.1-12.0); Estimated Glomerular Filt Rate 18 ml/min (>60); GFR (African American) 22 ML/MIN (>60); Globulin 2.8 g/dL (1.3-3.2); Hematocrit 33.4 % (37.0-47.0); Hemoglobin 11.1 g/dL (12.2-16.2); Lymphocytes # 2.8 K/mm3 (0.7-4.5); Lymphocytes % 19.6 % (10-50); Mean Corpuscular HGB Conc 33.2 g/dL (31.8-35.4); Mean Corpuscular Volume 96.3 fl (81-99); Mean Platelet Volume 11.6 fl (7.4-10.4); Monocytes # 1.1 K/mm3 (0.1-1.0); Monocytes % 7.4 % (1.7-9.3); Neutrophils # 10.1 K/mm3 (1.8-7.8); Platelet Count 313 K/mm3 (142-424); Red Blood Count 3.47 M/mm3 (4.20-5.40); Red Cell Distribution Width 13.7 % (11.5-17.5); Total Protein,Serum 6.7 g/dl (6.3-8.2); White Blood Count 14.2 K/mm3 (4.8-10.8)
[2024-08-15 14:35] LABS: Calcium 9.2 mg/dl (8.4-10.2); Glucose 91 mg/dl (74-100); Magnesium 1.8 mg/dl (1.6-2.3)
[2024-08-15 14:41] LABS: INR 0.97 (0.9-1.1); Prothrombin Time 10.9 seconds (10.1-12.5)
[2024-08-15 14:45] LABS: NT Pro Brain Natriuretic Pep. 7970 pg/mL (0-450)
[2024-08-15 14:48] LABS: Troponin I 0.14 ng/ml (0.00-0.034)
[2024-08-15 14:51] LABS: Triiodothryronine (T3) Uptake 31 % (23.5-40.5)
[2024-08-15 14:52] LABS: Free Thyroxine Index 2.9 ug/dL (5.93-13.13); T4 (Thyroxine) 9.3 ug/dl (5.53-11.0)
--- NOTE | 2024-08-15 14:54 | CT_ITS ---
FINAL REPORT TECHNIQUE: Thin section axial images were obtained from the lung apices through the upper abdomen without contrast. This study was performed with techniques to keep radiation doses as low as reasonably achievable (ALARA). Individualized dose reduction techniques using automated exposure control or adjustment of mA and/or kV according to the patient's size were employed. CLINICAL HISTORY: Syncope and collapse COMPARISON: None FINDINGS: There is no mediastinal, hilar, or axillary lymphadenopathy. No pleural or pericardial effusion. There are prominent coronary artery calcifications. There is a 14 mm nodule in the left upper lobe. A 5 mm nodule is noted in the right lower lobe on series 3 image 52. There are multiple bilateral additional 1 cm or less pulmonary nodules. A 15 mm nodule is noted in the upper left breast. Limited, unenhanced evaluation of the upper abdomen demonstrates gallstones in the gallbladder. No acute findings.. There is no acute osseous abnormality. IMPRESSION: Multiple bilateral noncalcified pulmonary nodules. Metastatic disease not excluded. Infectious or inflammatory etiology is less likely. Left breast nodule. Recommend correlation with mammogram. Reviewed, Interpreted and Dictated by Priscilla Shelton MD Transcribed by Mary Gillette Authenticated and [facility]
[2024-08-15 15:04] LABS: Microscopic, Urine URINE MICROSCOPIC (MICROSCOPIC)
[2024-08-15 15:06] LABS: Thyroid Stimulating Hormone 6.16 uIU/mL (0.465-4.68)
[2024-08-15 15:09] LABS: Appearance,Urine CLEAR (Clear); Bilirubin,Urine Negative (Negative); Blood, Urine TRACE-I (Negative); Color,Urine YELLOW (Yellow); Glucose,Urine (UA) Negative (Negative); Ketones,Urine Negative (Negative); Leukocyte Esterase,Urine Negative (Negative); Nitrate,Urine Negative (Negative); Protein,Urine >=300 (Negative); Specific Gravity, Urine 1.025 (1.005-1.030); Urobilinogen,Urine 0.2 EU/dl (0.2)
--- NOTE | 2024-08-15 15:10 | PC.NURSE ---
PT RETURNED FROM CT
[2024-08-15 15:42] LABS: Procalcitonin 0.201 ng/mL (0.0-2.0)
--- NOTE | 2024-08-15 16:34 | PC.NURSE ---
LADLE REPAIRMAN NOTIFIED OF ADMISSION
[2024-08-15] MEDS: LACTATED RINGERS 1000ML 1,000 ML 999 ML IV (17:54)
--- NOTE | 2024-08-15 18:18 | PC.NURSE ---
a&ox4. resting supine in bed with son at bedside. bolus of LR running currently per JUL. pt denies any pain or feelings of dizziness. tolerating ra with sats >90%. no needs at this time. bed alarm on and bed in low and locked position for pt safety. call light within reach.
--- NOTE | 2024-08-15 18:40 | EXP.HP ---
History of Present Illness *Admission Date: 08/15/24 *Reason for visit:: Syncope *History of present illness: Keyonna Peralta is a 79-year-old female with a medical history significant for NSTEMI/CAD with stents in 2022, HFpEF, OLAF, PAD, type 2 diabetes, CKD who presents after a syncopal event today. Patient states she was dropping off her at [facility] today after he had fallen and fractured nonoperable hip. She states this has been especially stressful for her as has Parkinson's, has had recurrent falls, and ultimately broke her hip requiring SNF placement. She states she has not been eating or drinking as well over the past few days, and felt lightheaded today at the nursing facility and had an episode of syncope. She also endorses right-sided chest pain that is ongoing for 2 weeks without radiation, denies shortness of breath, abdominal pain, fever/chills. Workup in the ED significant for WBC 14.2, creatinine 2.6, troponin 0.14, BNP 7970. CT chest showed multiple bilateral noncalcified pulmonary nodules but no acute findings. Case discussed with ED provider and decision was made to admit patient for NSTEMI, ELDA. [facility] Disclaimer: The information contained in this section may have been updated after the patient was seen, as this information can be updated by other users. Medical History Wound of right lower extremity Renal artery stenosis Nonadherence to medication Left leg pain Swelling of lower extremity CAD in [place] artery DVT (deep venous thrombosis) Heart murmur Sinus bradycardia Chronic renal insufficiency Diabetes Hypertension Peripheral arterial disease HLD (hyperlipidemia) Umbilical hernia with obstruction Small bowel obstruction Surgical History Stented coronary artery History of renal stent History of hernia surgery Family History Father Heart attack Other Gout Renal insufficiency UTI (urinary tract infection) Social History Smoking Status: Never smoker alcohol intake: never substance use type: denies use current occupational status: retired Travel in the last 8 weeks: None household members: spouse housing: house 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 current occupational exposures/hazards: No caffeine: Yes Have you lived/traveled outside [place] in past 30 days?: No Contact w/someone who lives/traveled outside US past 30 days?: No Exposure to someone with infectious disease in past 14 days?: No Do you have a fever (greater than 100.4 F or 38 C)?: No Have you tested positive for COVID-19: No Exposed to someone with COVID-19 in past 14 days?: No Do you have a sore throat?: No Do you have a cough?: No Do you have any weakness?: No Do you have any diarrhea?: No Are you experiencing any unusual bleeding?: No Do you have any muscle aches/pain?: No Do you have any abdominal pain?: No Are you experiencing loss of taste or smell?: No Other Medical History Have you received the Flu Vaccine for this season: Yes Have you received the Pneumonia Vaccine: No Meds Home Medications and Allergies Home Medications ?Medication ?Instructions ?Recorded ?Confirmed ?Type aspirin 81 mg tablet,delayed 81 mg PO DAILY heart health #90 08/26/22 08/15/24 Rx release tabs colchicine 0.6 mg tablet 0.6 mg PO DAILY gout 01/05/23 08/15/24 History glimepiride 1 mg tablet 1 mg PO DAILY #30 tabs 07/11/23 08/15/24 Rx irbesartan 150 mg tablet 150 mg PO BID #60 tabs 06/04/24 08/15/24 Rx allopurinol 100 mg tablet 100 mg PO DAILY 08/15/24 08/15/24 History atorvastatin 80 mg tablet 80 mg PO DAILY 08/15/24 08/15/24 History eplerenone 25 mg tablet (Inspra) 25 mg PO DAILY 08/15/24 08/15/24 History New Prescriptions to Start Prescriptions: Allergies Allergy/AdvReac Type Severity Reaction Status Date / Time orange Allergy Unknown ASTHMA Verified 08/15/24 14:14 FLARES UP Sulfa (Sulfonamide Allergy Unknown Unknown Verified 08/15/24 14:14 Antibiotics) (SULFA allergy (SULFONAMIDE ANTIBIOTICS)) reaction walnut (WALNUT) Allergy Unknown Unknown Verified 08/15/24 14:14 allergy reaction Exam Data for Last 24 hours Vital signs and Labs for Last 24 Hours: Temp Pulse Resp BP Pulse Ox O2 Del Method 98.2 F 72 24 180/70 H 98 Room Air 08/15/24 16:51 08/15/24 16:51 08/15/24 16:51 08/15/24 16:51 08/15/24 16:41 08/15/24 18:39 Laboratory Results - last 24 hr 08/15/24 13:50: WBC 14.2 H, RBC 3.47 L, Hgb 11.1 L, Hct 33.4 L, MCV 96.3, MCH 32.0 H, MCHC 33.2, RDW 13.7, Plt Count 313, MPV 11.6 H, Neut % (Auto) 71.0, Lymph % (Auto) 19.6, [place] % (Auto) 7.4, Eos % (Auto) 0.8, Baso % (Auto) 0.6, Neut # (Auto) 10.1 H, Lymph # (Auto) 2.8, [place] # (Auto) 1.1 H, Eos # (Auto) 0.1, Baso # (Auto) 0.1, PT 10.9, INR 0.97, Sodium 142, Potassium 5.0, Chloride 113 H, Carbon Dioxide 19 L, Anion Gap 15.0, BUN 40 H, Creatinine 2.60 H, Estimated Creat Clear 19, Estimated GFR 18 L*, Est GFR ( Amer) 22 L, Glucose 91, Calcium 9.2, Magnesium 1.8, Total Bilirubin 0.5, AST 44 H, ALT 31, Alkaline Phosphatase 169 H, Troponin I 0.14 H, NT-Pro-B Natriuret Pep 7970 H, Total Protein 6.7, Albumin 3.9, Globulin 2.8, Albumin/Globulin Ratio 1.4, Procalcitonin 0.201, TSH 6.16 H, Free T4 Index 2.9 L, Thyroxine (T4) 9.3, T3 Uptake 31 08/15/24 14:49: Urine Color Yellow, Urine Appearance Clear, Urine pH 6.0, Ur Specific [place] 1.025, Urine Protein >=300, Urine Glucose (UA) Negative, Urine Ketones Negative, Urine Blood Trace-i, Urine Nitrate Negative, Urine Bilirubin Negative, Urine Urobilinogen 0.2, Ur Leukocyte Esterase Negative 08/15/24 16:20: Troponin I 0.20 H I & O for Last 24 hours: Intake & Output 08/12/24 08/13/24 08/14/24 03/26/25 23:59 23:59 23:59 23:59 Intake Total 240 / 240 Balance 240 / 240 Weight 62.596 kg Constitutional Constitutional: no acute distress *Routine HEENT Exam Head: Present normocephalic Eye: Present EOMI and PERRL ENT: Present mucous membranes moist *Routine Neck Exam Neck: Present supple; Absent lymphadenopathy *Routine Respiratory Exam Respiratory: Present CTA bilaterally *Routine Cardiovascular Exam Cardiovascular: Present RRR *Routine Abdominal Exam Abdominal: Present soft and normoactive bowel sounds; Absent tenderness *Routine Rectal Exam Rectal:: deferred *Routine Genitalia Exam Genitalia:: deferred *Routine Extremities Exam Extremities: Present edema; Absent cyanosis or clubbing *Routine Skin Exam Skin: Present warm; Absent rash *Routine Neurological Exam Neurological: Present alert and oriented X3 Assessment and Plan *Assessment and plan (1) NSTEMI (non-ST elevated myocardial infarction): Status: Resolved Category: Medical Code(s): I21.4 - Non-ST elevation (NSTEMI) myocardial infarction Plan Keyonna Peralta is a 79-year-old female with a medical history significant for NSTEMI/CAD with stents in 2022, HFpEF, OLAF, PAD, type 2 diabetes, CKD who presents after a syncopal event today. Patient states she was dropping off her at [facility] today after he had fallen and fractured nonoperable hip. She states this has been especially stressful for her as has Parkinson's, has had recurrent falls, and ultimately broke her hip requiring SNF placement. She states she has not been eating or drinking as well over the past few days, and felt lightheaded today at the nursing facility and had an episode of syncope. She also endorses right-sided chest pain that is ongoing for 2 weeks without radiation, denies shortness of breath, abdominal pain, fever/chills. Workup in the ED significant for WBC 14.2, creatinine 2.6, troponin 0.14, BNP 7970. CT chest showed multiple bilateral noncalcified pulmonary nodules but no acute findings. Case discussed with ED provider and decision was made to admit patient for NSTEMI, ELDA. #Chest pain #NSTEMI #History of CAD with stents, OLAF, PAD ? Two week onset of right-sided chest pain without radiation, shortness of breath. ? Troponins up trended to 0.23, EKG without acute ischemic changes. ? While this may be demand ischemia from dehydration, cannot rule out underlying coronary event with a history of NSTEMI with stents. ? Started heparin drip. Ordered aspirin 324 mg. ? Aspirin 81 mg, metoprolol succinate 25 mg, atorvastatin 40 mg daily. ? Follow-up ECHO, A1c, lipid panel, TSH. ? Cardiology consulted, pending further recommendations. ? Continuous cardiology telemetry. #Dehydration #ELDA on CKD stage III ? Initial creatinine 2.6, improved to 2.1 with 1 L LR bolus. ? Will hold off on further IV fluids given HFpEF, will encourage oral repletion. #Hypertension ? Hold home irbesartan, eplerenone due to ELDA. #Type 2 diabetes ? ACHS glucose checks, LDSSI. ? Follow-up repeat A1c. #Gout ? Hold home allopurinol due to ELDA. Full code DVT prophylaxis: Heparin drip.
[2024-08-15] MEDS: LACTATED RINGERS 1000ML 1,000 ML 75 ML IV (18:55)
[2024-08-15 19:31] LABS: Chloride 114 mmol/L (98-107); Sodium 142 mmol/L (136-145)
[2024-08-15 19:32] LABS: Potassium 5.4 mmoL/L (3.5-5.1)
[2024-08-15 19:35] LABS: Anion Gap 16.4 mEq/L (5-15); Blood Urea Nitrogen 36 mg/dl (7-17); Calcium 9.1 mg/dl (8.4-10.2); Carbon Dioxide 17 mmol/L (22.0-30.0); Creatinine Clearance Estimated 22 mL/min (50-200); Estimated Glomerular Filt Rate 23 ml/min (>60); GFR (African American) 28 ML/MIN (>60); Glucose 89 mg/dl (74-100)
[2024-08-15] MEDS: HEPARIN DRIP CONSULT 1 EACH NOTAPPLIC (19:53)
[2024-08-15 19:56] LABS: PTT Heparin (inpatient only) 27.8 Seconds (50-75)
[2024-08-15 20:53] LABS: POC Glucose,Bedside 92 (70-110)
[2024-08-15] MEDS: HEPARIN SODIUM,PORCINE/D5W 500 ML 15.023 UNIT IV (20:55)
[2024-08-15] MEDS: HEPARIN SODIUM 5,000 UNIT/ML VIAL 3750 UNIT IV (20:55)
[2024-08-15 21:16] LABS: Troponin I 0.23 ng/ml (0.00-0.034)
[2024-08-15] MEDS: METOPROLOL SUCCINATE XL 25MG TABLET 25 MG PO (22:17)
[2024-08-15] MEDS: ATORVASTATIN 40MG TABLET 40 MG PO (22:17)
[2024-08-15] MEDS: ASPIRIN 325MG TABLET 325 MG PO (22:17)
[2024-08-16] VITALS (23 sets, daily range): BP systolic 133–176; BP diastolic 71–94; PULSE 60–90; RESP 16–24; TEMP 36.6; O2SAT 90–99; BMI 29.7
[2024-08-16 01:00] LABS: Bacteria,Urine Trace /lpf
[2024-08-16 01:54] LABS: PTT Heparin (inpatient only) 63.2 Seconds (50-75)
--- NOTE | 2024-08-16 02:18 | PC.NURSE ---
[facility] called at this time concerning the patient's infusing heparin drip and aPTT draw (results from 01:20, value was 63.2). Heparin drip is allowed to continue at the same, current rate of 12 units/kg/hr + 15.023 mL/hr.
--- NOTE | 2024-08-16 04:00 | PC.NURSE ---
Patient is alert and oriented x4. She was observed to have eyes closed, respirations even and unlabored on room air, and no apparent distress throughout the night. Patient has not had any complaints of chest pain nor further syncopal episodes this shift. She ambulated with at least x1 assistance in her room/to the bathroom with slight swaying noticed. Patient appeared to be mildly winded after being assisted back into bed. Heparin drip was initiated this shift and continues to infuse in right antecubital IV site; next aPTT draw is expected for 08:00 this morning. Lactated Ringers also continue to infuse at 75 mL/hr in left antecubital IV site. Other scheduled medications were administered as appropriately per JUL. She has been NPO since midnight; previous diet was tolerated well. Auscultation of her heart, lungs, and bowels were within normal findings. Normal sinus rhythm on telemetry. Blood pressures elevated; other vital signs stable. ACHS glucose checks performed. A skin tear on her right elbow was dressed this shift; mild bleeding noted. The patient stated that she could have possibly torn her skin during the fall at [facility]. At this time, the patient is resting in bed without any further complaints. No acute changes noted thus far. Call light within reach.
--- NOTE | 2024-08-16 06:00 | CA_ITS ---
APPROVED REPORT EXAM: Comprehensive 2D, Doppler, and color-flow Echocardiogram with contrast Debeader: Sagrario Staley CRT Ht: 4 ft 9 in Wt: 138lbs BSA: 1.54 BP: 180/70 mmHg Indications: NSTEMI, Congestive Heart Failure, Diabetes, Hyperlipidemia, Hypertension/HDD, CAD, OLAF, PAD, CKD, CARRIE Echo Enhancing Agent Indication: Endocardial border delineation Agent(s) / Amount(s) Used: Definity 2 cc Comments: Definity given 2D Dimensions LA Volume 35.00 mL LA Volume Index 22.30 mL/m2 (M/F) 16-34 M-Mode Dimensions RVDd 2.14 cm (0.9-2.6) LA Diam 3.95 cm (1.9-4.0) LVDd 5.62 cm (3.5-5.7) LVDs 3.80 cm (3.5-5.7) IVSd 1.79 cm (0.6-1.1) PWd 0.61 cm (0.6-1.1) EF (Teich) 60.00% FS 32.40% EDV (Teich) 154.90 mL TAPSE 1.60 (<1.7) ESV (Teich) 62.00 mL LV Diastology E Decel Time 150 (160-240 msec) E/A Ratio 0.62 MED A' 9.20 cm/s LAT A' 6.80 cm/s Aortic Valve AI PHT 514.00 ms AO Peak GR. 6.80 mmHg Mitral Valve MV E Max Girish. 81.0 (40-130 cm/s) MV A Velocity 130.0 (40-130 cm/s) E/A Ratio 0.62 MV PHT 44.0 ms Pulmonary Valve PV Peak Velocity 135.0 (50-150 cm/s) Tricuspid Valve TR P. Velocity 359.00 cm/s RAP Estimate 10.00 mmHg RVSP 61.50 mmHg Left Ventricle The left ventricle is normal size. The left ventricular systolic function is mildly to moderately reduced. There is mild to moderate global hypokinesis. The distal septal and apical LV deluna are akinetic. There is increased LV wall thickness. Grade 1 diastolic dysfunction is present. No left ventricle thrombus noted on this study. LVEF is 40%. Right Ventricle The right ventricle is normal size. The right ventricular systolic function is normal. Atria The left atrium size is normal. The right atrium size is normal. There is no Doppler evidence of interatrial shunt. Aortic Valve Aortic valve is mildly thickened. Mild aortic regurgitation. There is no aortic valvular stenosis. Mitral Valve Mild mitral annular calcification. Mitral valve leaflets are mildly thickened. Trace mitral regurgitation. Tricuspid Valve The tricuspid valve leaflets are thin and pliable. Mild tricuspid regurgitation. RVSP is 30-35 mmHg. Pulmonic Valve The pulmonary valve is normal in structure. Trace pulmonic regurgitation. Great Vessels The aortic root is normal in size. IVC is normal in size and collapses >50% with inspiration. Pericardium There is no pericardial effusion. Other Information Study Quality: Fair Conclusion Mild to moderate reduction in LV systolic function (LVEF 40%). The distal septal and apical LV deluna are akinetic. Mild AI, mild TR. RVSP is 30-35 mmHg. Electronically signed by : Soo Gastelum MD 08/16/2024 13:48:30
[2024-08-16 06:41] LABS: Basophils # 0.1 K/mm3 (0-0.2); Basophils % 0.6 % (0.1-2.0); Eosinophils # 0.3 K/mm3 (0.0-0.4); Eosinophils % 2.3 % (0.1-12.0); Hematocrit 34.7 % (37.0-47.0); Hemoglobin 11.4 g/dL (12.2-16.2); Lymphocytes # 1.6 K/mm3 (0.7-4.5); Lymphocytes % 14.2 % (10-50); Mean Corpuscular HGB Conc 32.9 g/dL (31.8-35.4); Mean Corpuscular Hemoglobin 31.4 pg (27.0-31.2); Mean Corpuscular Volume 95.6 fl (81-99); Mean Platelet Volume 11.4 fl (7.4-10.4); Monocytes % 8.4 % (1.7-9.3); Neutrophils # 8.5 K/mm3 (1.8-7.8); Neutrophils % 74.2 % (37.0-80.0); Platelet Count 302 K/mm3 (142-424); Red Blood Count 3.63 M/mm3 (4.20-5.40); Red Cell Distribution Width 13.6 % (11.5-17.5); White Blood Count 11.5 K/mm3 (4.8-10.8)
[2024-08-16 07:00] LABS: NT Pro Brain Natriuretic Pep. 13000 pg/mL (0-450)
--- NOTE | 2024-08-16 07:40 | HMH.PHAINT1 ---
Pharmacy Intervention Comments: HOME MEDICATION LIST VERIFIED USING LIST FROM OUTPATIENT PHARMACY
[2024-08-16 07:41] LABS: Vitamin B12 601 pg/mL (239-931)
--- NOTE | 2024-08-16 07:44 | HMH.PHAHEP ---
[facility] Heparin Dosing Demographic Data Admission date:: 08/15/24 Date: 08/16/24 Time: 07:44 Allergies Allergy/AdvReac Type Severity Reaction Status Date / Time orange Allergy Unknown ASTHMA Verified 08/15/24 14:14 FLARES UP Sulfa (Sulfonamide Allergy Unknown Unknown Verified 08/15/24 14:14 Antibiotics) (SULFA allergy (SULFONAMIDE ANTIBIOTICS)) reaction walnut (WALNUT) Allergy Unknown Unknown Verified 08/15/24 14:14 allergy reaction Height: 1.45 m Weight: 62.6 kg Indication Medication therapy:: Heparin Current Active Problems (Updated 08/16/24 @ 10:48 by MARIA DE JESUS Pierson) HFrEF (heart failure with reduced ejection fraction) (Acute) NSTEMI (non-ST elevated myocardial infarction) (Acute) Elevated troponin I level (Acute) Elevated brain natriuretic peptide (BNP) level (Acute) Dyspnea on exertion (Acute) Acute on chronic renal failure (Acute) Syncope and collapse (Acute) Hyperlipidemia (Acute) Hypertension (Acute) PAD (peripheral artery disease) (Acute) Diabetes (Acute) CVA?: No Bleeding problem?: No Kidney disease?: No VA?: No Desired PTT range:: 50-75 seconds Labs Anticoagulation Lab Results:: 08/15/24 08/16/24 13:50 06:10 Hgb 11.1 L 11.4 L Hct 33.4 L 34.7 L Plt Count 313 302 Monitoring Dose Monitor 1: Date: 08/15/24 Time: 19:12 PTT Result:: 27.8 (BASELINE) Infusion Rate:: 750 UNITS/HR Comment:: 3,750 UNIT BOLUS Dose Monitor 2: Date: 08/16/24 Time: 01:30 PTT Result:: 63.2 Infusion Rate:: 750 UNITS/HR Dose Monitor 3: Date: 08/16/24 Time: 08:00 Comment:: 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 Is INR > or = 2 at discharge?: No Most Recent Labs:: Laboratory Results - last 24 hr 08/15/24 13:50: WBC 14.2 H, RBC 3.47 L, Hgb 11.1 L, Hct 33.4 L, MCV 96.3, MCH 32.0 H, MCHC 33.2, RDW 13.7, Plt Count 313, MPV 11.6 H, Neut % (Auto) 71.0, Lymph % (Auto) 19.6, [place] % (Auto) 7.4, Eos % (Auto) 0.8, Baso % (Auto) 0.6, Neut # (Auto) 10.1 H, Lymph # (Auto) 2.8, [place] # (Auto) 1.1 H, Eos # (Auto) 0.1, Baso # (Auto) 0.1, PT 10.9, INR 0.97, Sodium 142, Potassium 5.0, Chloride 113 H, Carbon Dioxide 19 L, Anion Gap 15.0, BUN 40 H, Creatinine 2.60 H, Estimated Creat Clear 19, Estimated GFR 18 L*, Est GFR ( Amer) 22 L, Glucose 91, Calcium 9.2, Magnesium 1.8, Total Bilirubin 0.5, AST 44 H, ALT 31, Alkaline Phosphatase 169 H, Troponin I 0.14 H, NT-Pro-B Natriuret Pep 7970 H, Total Protein 6.7, Albumin 3.9, Globulin 2.8, Albumin/Globulin Ratio 1.4, Procalcitonin 0.201, TSH 6.16 H, Free T4 Index 2.9 L, Thyroxine (T4) 9.3, T3 Uptake 31 08/15/24 14:49: Urine Color Yellow, Urine Appearance Clear, Urine pH 6.0, Ur Specific [place] 1.025, Urine Protein >=300, Urine Glucose (UA) Negative, Urine Ketones Negative, Urine Blood Trace-i, Urine Nitrate Negative, Urine Bilirubin Negative, Urine Urobilinogen 0.2, Ur Leukocyte Esterase Negative, Urine RBC 5-10, Urine WBC 5-10, Urine Bacteria Trace 08/15/24 16:20: Troponin I 0.20 H 08/15/24 19:12: APTT 27.8 L, Sodium 142, Potassium 5.4 H, Chloride 114 H, Carbon Dioxide 17 L, Anion Gap 16.4 H, BUN 36 H, Creatinine 2.10 H, Estimated Creat Clear 22, Estimated GFR 23 L, Est GFR ( Amer) 28 L D, Glucose 89, Calcium 9.1, Troponin I 0.23 H 08/15/24 19:55: POC Glucose 92 08/16/24 01:20: APTT 63.2 08/16/24 06:10: WBC 11.5 H, RBC 3.63 L, Hgb 11.4 L, Hct 34.7 L, MCV 95.6, MCH 31.4 H, MCHC 32.9, RDW 13.6, Plt Count 302, MPV 11.4 H, Neut % (Auto) 74.2, Lymph % (Auto) 14.2, [place] % (Auto) 8.4, Eos % (Auto) 2.3, Baso % (Auto) 0.6, Neut # (Auto) 8.5 H, Lymph # (Auto) 1.6, [place] # (Auto) 1.0, Eos # (Auto) 0.3, Baso # (Auto) 0.1, NT-Pro-B Natriuret Pep 56105 H Were Heparin and Warfarin started on the same day?: No If not, why?: 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
[2024-08-16] MEDS: DEFINITY US ECHO CONTRAST 2ML INJ 2 MG IV (08:29)
[2024-08-16 08:31] LABS: Free T4 (Free Thyroxine) 1.24 ng/dl (0.78-2.19)
[2024-08-16 08:42] LABS: PTT Heparin (inpatient only) 37.4 Seconds (50-75)
[2024-08-16 08:43] LABS: Iron 79 ug/dL (37-170)
[2024-08-16] MEDS: LACTATED RINGERS 1000ML 1,000 ML 75 ML IV (08:47)
[2024-08-16] MEDS: METOPROLOL SUCCINATE XL 25MG TABLET 25 MG PO (08:47)
[2024-08-16 08:55] LABS: Total Iron Binding Capacity 298 ug/dL (265-497)
[2024-08-16] MEDS: HEPARIN SODIUM 5,000 UNIT/ML VIAL 4000 UNIT IV (09:06)
[2024-08-16] MEDS: HEPARIN SODIUM,PORCINE/D5W 500 ML 20 UNIT IV (09:06)
[2024-08-16 09:07] LABS: Alanine Aminotransferase 34 U/L (12-78); Albumin Level 3.4 g/dl (3.5-5.0); Albumin/Globulin Ratio 1.2 (1.1-1.8); Alkaline Phosphatase 144 U/L (38-126); Anion Gap 16.3 mEq/L (5-15); Aspartate Amino Transferase 105 U/L (14-36); Bilirubin,Total 0.4 mg/dl (0.2-1.3); Blood Urea Nitrogen 35 mg/dl (7-17); Calcium 9.1 mg/dl (8.4-10.2); Carbon Dioxide 18 mmol/L (22.0-30.0); Chloride 112 mmol/L (98-107); Chol/HDL Ratio 4.2 (1-3.5); Cholesterol 133 mg/dl (140-200); Creatinine Clearance Estimated 21 mL/min (50-200); Estimated Glomerular Filt Rate 22 ml/min (>60); GFR (African American) 26 ML/MIN (>60); Globulin 2.8 g/dL (1.3-3.2); Glucose 85 mg/dl (74-100); HDL Cholesterol 32 mg/dl (40-60); Potassium 5.3 mmoL/L (3.5-5.1); Sodium 141 mmol/L (136-145); Total Protein,Serum 6.2 g/dl (6.3-8.2); Triglycerides 142 mg/dl (30-150); VLDL Cholesterol 28 mg/dL (0-40)
[2024-08-16 09:18] LABS: Direct LDL Cholesterol 56.25 mg/dL (100-129)
[2024-08-16 09:21] LABS: Ferritin 113 ng/ml (11.1-264)
[2024-08-16 09:23] LABS: Hemoglobin A1C 6.4 % (4.0-6.0)
--- NOTE | 2024-08-16 09:44 | ECG_ITS ---
APPROVED REPORT Exam: Resting ECG HR:74 bpm ECG Measurements Heart Rate 74 AXES RI 174 P 67 QRSd 93 QRS 27 QT 380 T 123 QTc 407 Conclusion SINUS RHYTHM ANTEROSEPTAL MYOCARDIAL INFARCTION , OF INDETERMINATE AGE [40+ ms Q WAVE IN V1-V4] MODERATE T-WAVE ABNORMALITY, CONSIDER LATERAL ISCHEMIA [-0.1+ mV T-WAVE IN I/aVL/V5/V6] ABNORMAL ECG UNCONFIRMED REPORT Electronically signed by : Rhett Irving MD 08/17/2024 08:32:49
[2024-08-16] MEDS: BELLADONNA ALKALOIDS 60 ML ML PO (09:52)
[2024-08-16] MEDS: ONDANSETRON 4MG/2ML VIAL 4 MG IV (09:52)
--- NOTE | 2024-08-16 09:59 | PC.NURSE ---
Patient c/o of right sided chest pain 11/29, STAT EKG was ordered, RT was notified. MD Lester at bedside. Verbal orders to administer, GI cocktail, 4mg Zofran, and 1 Nitro tab. All orders carried out. Patient reports pain has decreased some.
[2024-08-16] MEDS: NITROGLYCERIN 0.4MG SL TABLET 0.4 MG SL (10:02)
--- NOTE | 2024-08-16 10:24 | P.CONCA_ITS ---
History of Present Illness History of Present Illness Consult date: 08/16/24 Requesting physician: Carlos Lester Consult reason: chest pain, known to you and shortness of breath Chief complaint: NSTEMI, CHF Additional Medical History:: 1. PAD A. Drug coated balloon with BMS to Left SFA/Popliteal, 04/2020 B. Abdominal CTA, 07/12/2023, high-grade stenosis of the origin of the right celiac axis, dense calcification and narrowing of the SMA. Bilateral patent renal artery stents. 2. CARRIE A. BMS to bilateral renal arteries, 03/2020 3. Diabetes mellitus A. Hemoglobin A1c 6.4 4. Chronic left lower extremity edema 5. Hyperlipidemia A. LDL 56 on 08/16/2024 6. CAD A. MATILDA to ostial left main, proximal LAD, RCA, 06/30/2022 7. Hypertension A. Echo, 07/01/2022, EF 45% with moderate hypokinesis of the mid to distal septum, anterior and anteroapical deluna. No significant valve disease. 8. CKD with baseline creatinine around 1.4 History of present illness: Keyonna Peralta is a 79-year-old female with a medical history significant for NSTEMI/CAD with stents in 2022, HFpEF, OLAF, PAD, type 2 diabetes, CKD who presents after a syncopal event today. Patient states she was dropping off her at [place] today after he had fallen and fractured nonoperable hip. She states this has been especially stressful for her as has Parkinson's, has had recurrent falls, and ultimately broke her hip requiring SNF placement. She states she has not been eating or drinking as well over the past few days, and felt lightheaded today at the nursing facility and had an episode of syncope. She also endorses right-sided chest pain that is ongoing for 2 weeks without radiation, denies shortness of breath, abdominal pain, fever/chills. Workup in the ED significant for WBC 14.2, creatinine 2.6, troponin 0.14, BNP 7970. CT chest showed multiple bilateral noncalcified pulmonary nodules but no acute findings. Case discussed with ED provider and decision was made to admit patient for NSTEMI, ELDA. The above per Dr. Lester Patient had recurrent right-sided chest pain overnight which she states is similar to her symptoms prior to her non-STEMI in 2022. She subsequently had stents placed to her LAD and right arteries back in 2022. Patient also does complain of shortness of breath but dry mucous membranes noted of the mouth. Son is in the room and states patient has neglected her health over the last several months due to declining health of her . He has noted an increased in her shortness of breath and reduced exercise capacity over the last 4 months. Initial troponins trended from 0.14 up to 0.23 with troponin this morning increasing to 14.4. Creatinine has improved from 2.6 down to 2.2 with IV fluids. [facility] Disclaimer: The information contained in this section may have been updated after the patient was seen, as this information can be updated by other users. Medical History (Updated 08/16/24 @ 10:48 by MARIA DE JESUS Pierson) Wound of right lower extremity Renal artery stenosis Nonadherence to medication Left leg pain Swelling of lower extremity CAD in [place] artery DVT (deep venous thrombosis) Heart murmur Sinus bradycardia Chronic renal insufficiency Diabetes Hypertension Peripheral arterial disease HLD (hyperlipidemia) Umbilical hernia with obstruction Small bowel obstruction Surgical History Stented coronary artery History of renal stent History of hernia surgery Family History Father Heart attack Other Gout Renal insufficiency UTI (urinary tract infection) Social History Smoking Status: Never smoker alcohol intake: never substance use type: denies use current occupational status: retired Travel in the last 8 weeks: None household members: spouse housing: house 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 current occupational exposures/hazards: No caffeine: Yes Have you lived/traveled outside US in past 30 days?: No Contact w/someone who lives/traveled outside US past 30 days?: No Exposure to someone with infectious disease in past 14 days?: No Do you have a fever (greater than 100.4 F or 38 C)?: No Have you tested positive for COVID-19: No Exposed to someone with COVID-19 in past 14 days?: No Do you have a sore throat?: No Do you have a cough?: No Do you have any weakness?: No Do you have any diarrhea?: No Are you experiencing any unusual bleeding?: No Do you have any muscle aches/pain?: No Do you have any abdominal pain?: No Are you experiencing loss of taste or smell?: No Review of Systems Review of Systems Review of systems:: pertinent systems reviewed and negative unless documented below *Cardiovascular Cardiovascular: Reports chest pain and Reports dyspnea *Respiratory Respiratory: Reports dyspnea Exam Data for Last 24 hours Vital signs and Labs for Last 24 Hours: Temp Pulse Resp BP Pulse Ox O2 Del Method 97.9 F 75 18 156/75 H 97 Room Air 08/16/24 08:00 08/16/24 10:22 08/16/24 10:22 08/16/24 10:22 08/16/24 10:22 08/16/24 10:22 Laboratory Results - last 24 hr 08/15/24 13:50: WBC 14.2 H, RBC 3.47 L, Hgb 11.1 L, Hct 33.4 L, MCV 96.3, MCH 32.0 H, MCHC 33.2, RDW 13.7, Plt Count 313, MPV 11.6 H, Neut % (Auto) 71.0, Lymph % (Auto) 19.6, [place] % (Auto) 7.4, Eos % (Auto) 0.8, Baso % (Auto) 0.6, Neut # (Auto) 10.1 H, Lymph # (Auto) 2.8, [place] # (Auto) 1.1 H, Eos # (Auto) 0.1, Baso # (Auto) 0.1, PT 10.9, INR 0.97, Sodium 142, Potassium 5.0, Chloride 113 H, Carbon Dioxide 19 L, Anion Gap 15.0, BUN 40 H, Creatinine 2.60 H, Estimated Creat Clear 19, Estimated GFR 18 L*, Est GFR ( Amer) 22 L, Glucose 91, Calcium 9.2, Magnesium 1.8, Total Bilirubin 0.5, AST 44 H, ALT 31, Alkaline Phosphatase 169 H, Troponin I 0.14 H, NT-Pro-B Natriuret Pep 7970 H, Total Protein 6.7, Albumin 3.9, Globulin 2.8, Albumin/Globulin Ratio 1.4, Procalcitonin 0.201, TSH 6.16 H, Free T4 Index 2.9 L, Thyroxine (T4) 9.3, T3 Uptake 31 08/15/24 14:49: Urine Color Yellow, Urine Appearance Clear, Urine pH 6.0, Ur Specific [place] 1.025, Urine Protein >=300, Urine Glucose (UA) Negative, Urine Ketones Negative, Urine Blood Trace-i, Urine Nitrate Negative, Urine Bilirubin Negative, Urine Urobilinogen 0.2, Ur Leukocyte Esterase Negative, Urine RBC 5- 10, Urine WBC 5-10, Urine Bacteria Trace 08/15/24 16:20: Troponin I 0.20 H 08/15/24 19:12: APTT 27.8 L, Sodium 142, Potassium 5.4 H, Chloride 114 H, Carbon Dioxide 17 L, Anion Gap 16.4 H, BUN 36 H, Creatinine 2.10 H, Estimated Creat Clear 22, Estimated GFR 23 L, Est GFR ( Amer) 28 L D, Glucose 89, Calcium 9.1, Troponin I 0.23 H 08/15/24 19:55: POC Glucose 92 08/16/24 01:20: APTT 63.2 08/16/24 06:10: WBC 11.5 H, RBC 3.63 L, Hgb 11.4 L, Hct 34.7 L, MCV 95.6, MCH 31.4 H, MCHC 32.9, RDW 13.6, Plt Count 302, MPV 11.4 H, Neut % (Auto) 74.2, Lymph % (Auto) 14.2, [place] % (Auto) 8.4, Eos % (Auto) 2.3, Baso % (Auto) 0.6, Neut # (Auto) 8.5 H, Lymph # (Auto) 1.6, [place] # (Auto) 1.0, Eos # (Auto) 0.3, Baso # (Auto) 0.1, Sodium 141, Potassium 5.3 H, Chloride 112 H, Carbon Dioxide 18 L, Anion Gap 16.3 H, BUN 35 H, Creatinine 2.20 H, Estimated Creat Clear 21, Estimated GFR 22 L, Est GFR ( Amer) 26 L, Glucose 85, Hemoglobin A1c 6.4 H, Calcium 9.1, Magnesium 2.0 D, Iron 79, TIBC 298, Iron Saturation 26.69844, Ferritin 113, Total Bilirubin 0.4, AST 105 H D, ALT 34, Alkaline Phosphatase 144 H, NT-Pro-B Natriuret Pep 82980 H, Total Protein 6.2 L, Albumin 3.4 L D, Globulin 2.8, Albumin/Globulin Ratio 1.2, Triglycerides 142, Cholesterol 133 L, LDL Cholesterol Direct 56.25 L, VLDL Cholesterol 28, HDL Cholesterol 32 L, Cholesterol/HDL Ratio 4.2 H, Vitamin B12 601, Free T4 1.24 08/16/24 08:21: APTT 37.4 L, Troponin I 14.40 H I & O for Last 24 hours: Intake & Output 08/13/24 08/14/24 08/15/24 08/16/24 11:59 11:59 11:59 11:59 Intake Total 1976 Output Total 0 / 0 Balance 1976 Weight 138 lb 0.15 oz Constitutional Constitutional: mild distress and moderate distress *Routine Respiratory Exam Respiratory: Present crackles; Absent wheezes *Routine Cardiovascular Exam Cardiovascular: Present RRR; Absent murmur, gallop or rubs *Routine Extremities Exam Extremities: Absent edema *Routine Neurological Exam Neurological: Present alert, oriented X3 and CN II-XII intact Meds Home Medications and Allergies Home Medications ?Medication ?Instructions ?Recorded ?Confirmed ?Type aspirin 81 mg tablet,delayed 81 mg PO DAILY heart health #90 08/26/22 08/15/24 Rx release tabs colchicine 0.6 mg tablet 0.3 mg PO DAILY gout 01/05/23 08/16/24 History glimepiride 1 mg tablet 1 mg PO DAILY #30 tabs 07/11/23 08/15/24 Rx irbesartan 150 mg tablet 150 mg PO BID #60 tabs 06/04/24 08/15/24 Rx allopurinol 100 mg tablet 100 mg PO DAILY 08/15/24 08/15/24 History atorvastatin 80 mg tablet 80 mg PO HS 08/15/24 08/16/24 History eplerenone 25 mg tablet (Inspra) 25 mg PO MOWEFR 08/15/24 08/16/24 History New Prescriptions to Start Prescriptions: Allergies Allergy/AdvReac Type Severity Reaction Status Date / Time orange Allergy Unknown ASTHMA Verified 08/15/24 14:14 FLARES UP Sulfa (Sulfonamide Allergy Unknown Unknown Verified 08/15/24 14:14 Antibiotics) (SULFA allergy (SULFONAMIDE ANTIBIOTICS)) reaction walnut (WALNUT) Allergy Unknown Unknown Verified 08/15/24 14:14 allergy reaction Assessment and Plan *Assessment and plan (1) NSTEMI (non-ST elevated myocardial infarction): Status: Acute Category: Medical Code(s): I21.4 - Non-ST elevation (NSTEMI) myocardial infarction (2) Acute on chronic renal failure: Status: Acute Qualifiers: Acute renal failure type: unspecified Chronic kidney disease stage: stage 4 (GFR 15-29) Qualified Code(s): N17.9 - Acute kidney failure, unspecified; N18.4 - Chronic kidney disease, stage 4 (severe) Category: Medical Code(s): N17.9 - Acute kidney failure, unspecified; N18.9 - Chronic kidney disease, unspecified (3) Syncope and collapse: Status: Acute Category: Medical Code(s): R55 - Syncope and collapse (4) Dyspnea on exertion: Status: Acute Category: Medical Code(s): R06.09 - Other forms of dyspnea (5) Elevated brain natriuretic peptide (BNP) level: Status: Acute Category: Medical Code(s): R79.89 - Other specified abnormal findings of blood chemistry (6) Hyperlipidemia: Status: Acute Qualifiers: Hyperlipidemia type: unspecified Qualified Code(s): E78.5 - Hyperlipidemia, unspecified Category: Medical Code(s): E78.5 - Hyperlipidemia, unspecified (7) Hypertension: Status: Acute Qualifiers: Hypertension type: unspecified Qualified Code(s): I10 - Essential (primary) hypertension Category: Medical Code(s): I10 - Essential (primary) hypertension (8) PAD (peripheral artery disease): Status: Acute Category: Medical Code(s): I73.9 - Peripheral vascular disease, unspecified (9) Diabetes: Status: Acute Qualifiers: Chronic kidney disease stage: stage 4 (GFR 15-29) Diabetes mellitus complication detail: with chronic kidney disease Diabetes mellitus complication status: with kidney complications Diabetes mellitus 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 Acute on chronic CKD -continue IVF despite elevated BNP 3. HFrEF -elevated BNP with dyspnea -chest CT did not show any evidence of CHF. Presence of pulm nodules noted 4. Syncope and collapse -head CT negative -likely related to dehydration and NSTEMI -monitor on telemetry 5. DM, type 2 -defer to Hospitalist -Hgb A1C 6.4 6. Hypertension -Continue beta-alphonso 7. Hyperlipidemia -Continue statin therapy [facility] today Continue IVF check echo
[2024-08-16 11:12] LABS: POC Glucose,Bedside 169 (70-110)
[2024-08-16] MEDS: NITROGLYCERIN 1 GM OINTMENT 0.5 GM TD ×2 (11:17→21:00)
--- NOTE | 2024-08-16 12:35 | IR_ITS ---
APPROVED REPORT Patient Location: Inpatient PROCEDURES Selective coronary angiogram Drug-eluting stent deployment to the ostial proximal and mid left main artery Drug-eluting stent deployment to the ostial proximal mid and distal LAD in a contiguous manner Drug-eluting stent deployment to the first diagonal artery Drug-eluting stent deployment to the ostial proximal mid and distal dominant right coronary artery in a contiguous manner INDICATION Acute non-ST elevation myocardial infarction, Systolic congestive heart failure, Patient is not a candidate for bypass surgery Informed consent was obtained prior to the procedure. COMPLICATIONS NONE Estimated Blood Loss: LESS THAN 10 ML TECHNIQUE One percent lidocaine used to anesthetize the right anterior aspect of the wrist. The right radial artery was accessed via the Seldinger technique. A 6 Urdu sheath was placed in the right radial artery. 2.5 mg of Verapamil, 800 mcg of nitroglycerin, 1mg Lidocaine and 5000 U Heparin were given through the arterial sheath. The papa catheter was also used to perform selective coronary angiogram. After engaging the right coronary artery therapeutic Was administered giving a therapeutic ACT and a Choice PT extra-support wire was placed distally. At two 3.5 x 38 mm [place] frontier stents were placed in the ostial proximal and mid segment in a contiguous manner each deployed at 20 gerald. An additional 3 mm x 22 mm [place] frontier stent was placed distal to the last stent yet still overlapping and deployed at 20 gerald. A 3.5 x 12 mm noncompliant balloon was then placed distally into the 3 mm stent and deployed at 20 gerald to post dilate the eccentric calcified stenosis. The balloon was deployed at 24 gerald throughout the right coronary artery to further post dilate. MARYANN II flow was present at the beginning the procedure with MARYANN-3 flow at the end the procedure. Following this the catheter was placed in the left main artery and wires were placed in the LAD and diagonal artery. 2.5 x 20 mm balloon was used to predilate the critical stenosis in a large first diagonal artery and this was repeated in the mid LAD. A 2.5 x 38 mm [place] frontier stent was placed in the proximal LAD extending into the proximal diagonal artery and deployed at 20 gerald. The wire was placed back through the LAD struts into the LAD and predilated with a 2.5 mm balloon. Following this a 3 mm x 34 mm [place] frontier stent was deployed in the proximal LAD extending into the mid LAD at 20 gerald. An additional 2.5 by 15 mm [place] frontier stent was then placed distal to the 3 mm stent and deployed at 20 gerald. Nitroglycerin was administered intra-arterially however persistent lesion remained therefore a 2 mm x 12 mm [place] frontier stent was then deployed distal to the 2.5 mm stent yet still overlapping it and deployed at 20 gerald. The balloon was brought back at 24 gerald and used to post dilate. There was severe dampening each time the catheter went into the left main artery and patient had conduction abnormalities with AV block. Because of this a 3.5 x 26 mm [place] frontier stent was placed in the ostial left main artery extending the proximal LAD and deployed at 24 gerald crossing the circumflex artery. An additional stenosis was identified in the diagonal artery therefore a 2.25 x 12 mm [place] frontier stent was placed distal to the 2.5 mm stent yet still overlapping and deployed at 18 gerald. The balloon was brought back and deployed at 24 gerald to post dilate. A total of 10 stents were placed in the coronary arteries to revascularize the patient. At the end of the procedure the apparatus was removed the sheath was removed and hemostasis was achieved using TR banding patient was transferred to the postop putting in stable addition ANGIOGRAPHIC RESULTS The left main artery Has a severe ostial proximal stenosis based on severe dampening of the catheter which cannot be determined angiographically The left anterior descending artery Has proximal calcified 30% stenosis with a proximal concentric 90% stenosis representing in-stent restenosis which extends into the midportion distal to the diagonal artery. The remaining LAD is wide open. A large diagonal artery has an ostial greater than 90% stenosis followed by an additional 60% concentric stenosis The circumflex artery Nondominant yet still large and patent The right coronary artery Is a large dominant vessel has proximal 80% concentric stenosis followed by mid vessel 80% stenosis with a distal calcified eccentric 90% stenosis. The POWELL ventriculogram reveals Not performed The left ventricular end-diastolic pressure Not measured IMPRESSION Critical coronary artery disease and a nonsurgical bypass candidate patient Successful percutaneous revascularization of the ostial proximal mid distal dominant right coronary artery critical disease reduced to 0% with 3 contiguous drug-eluting stents Successful bifurcating stenting of the proximal to mid LAD with bifurcating stents extending into an ostial and proximal diagonal artery critical disease reduced to 0% with 6 drug-eluting stents as described above, 4 in the LAD and 2 in the large diagonal artery Successful stenting the ostial proximal left main artery severe disease reduced to 0% with 1 drug-eluting stent PLAN 1. IV fluids overnight 2. Supportive care 3. Chemistry panel in the morning 4. Patient is at high risk for contrast nephropathy 5. Dual antiplatelet therapy Electronically signed by : Brody Daley MD 08/16/2024 15:42:10
[2024-08-16] MEDS: diphenhydrAMINE 50MG/ML VIAL 50 MG IV (13:12)
[2024-08-16] MEDS: LIDOCAINE 1% 10ML MDV 20 ML IJ (13:22)
[2024-08-16] MEDS: VERAPAMIL 2.5MG/ML 2ML VIAL 2.5 MG IV (13:22)
[2024-08-16] MEDS: 0.9 % SODIUM CHLORIDE 500 ML 25 ML IV (13:23)
[2024-08-16] MEDS: MIDAZOLAM HCL 1MG/ML 5ML VIAL 1 MG IV (13:23)
[2024-08-16] MEDS: FENTANYL 100MCG/2ML VIAL 50 MCG IV (13:24)
[2024-08-16] MEDS: LABETALOL 20MG/4ML SYRINGE 20 MG IV (14:01)
[2024-08-16] MEDS: CLOPIDOGREL 300MG TABLET 600 MG PO (14:53)
[2024-08-16] MEDS: IOPAMIDOL-370 (76%);100ML BOTTLE 120 ML IV (15:03)
[2024-08-16] MEDS: HEPARIN 1,000 UNITS/500ML NS (CATH LAB) 3000 UNIT IV (16:01)
[2024-08-16] MEDS: HEPARIN 1,000 UNITS/ML 10ML VIAL (CATH LAB) 10000 UNIT IV (16:02)
--- NOTE | 2024-08-16 16:11 | PC.NURSE ---
Report given to POOJA Washington and transferred to ICU at this time.
[2024-08-16] MEDS: humaLOG 100 UNITS/ML 10ML VIAL (SSI) SUBCUT (17:09)
[2024-08-16 17:10] LABS: POC Glucose,Bedside 177 (70-110)
[2024-08-16 17:19] LABS: CATHL Activated Clotting Time 275 SEC (74-125)
--- NOTE | 2024-08-16 19:58 | PC.NURSE ---
Pt left ICU unit transferred to Med Surg floor via bed @ 1957 M Sam SRNA
--- NOTE | 2024-08-16 20:39 | EXP.PN ---
Subjective *Date: 08/16/24 *Time: 20:39 Interval history: Patient had worsening right-sided chest pain, troponins bumped to 14. Taken to [facility] and received 10 drug-eluting stents. Tolerated procedure well. Continue IV fluids to reduce risk of contrast nephropathy, high risk given advanced CKD. Exam Data for Last 24 hours Vital signs and Labs for Last 24 Hours: Temp Pulse Resp BP Pulse Ox O2 Del Method O2 Flow Rate 97.9 F 72 16 150/75 H 95 BiPAP 2 08/16/24 08:00 08/16/24 19:00 08/16/24 19:00 08/16/24 19:00 08/16/24 19:00 08/16/24 19:00 08/16/24 18:44 Laboratory Results - last 24 hr 08/15/24 14:49: Urine RBC 5-10, Urine WBC 5-10, Urine Bacteria Trace 08/15/24 19:12: Troponin I 0.23 H 08/15/24 19:55: POC Glucose 92 08/16/24 01:20: APTT 63.2 08/16/24 06:10: WBC 11.5 H, RBC 3.63 L, Hgb 11.4 L, Hct 34.7 L, MCV 95.6, MCH 31.4 H, MCHC 32.9, RDW 13.6, Plt Count 302, MPV 11.4 H, Neut % (Auto) 74.2, Lymph % (Auto) 14.2, [place] % (Auto) 8.4, Eos % (Auto) 2.3, Baso % (Auto) 0.6, Neut # (Auto) 8.5 H, Lymph # (Auto) 1.6, [place] # (Auto) 1.0, Eos # (Auto) 0.3, Baso # (Auto) 0.1, Sodium 141, Potassium 5.3 H, Chloride 112 H, Carbon Dioxide 18 L, Anion Gap 16.3 H, BUN 35 H, Creatinine 2.20 H, Estimated Creat Clear 21, Estimated GFR 22 L, Est GFR ( Amer) 26 L, Glucose 85, Hemoglobin A1c 6.4 H, Calcium 9.1, Magnesium 2.0 D, Iron 79, TIBC 298, Iron Saturation 26.40787, Ferritin 113, Total Bilirubin 0.4, AST 105 H D, ALT 34, Alkaline Phosphatase 144 H, NT-Pro-B Natriuret Pep 84574 H, Total Protein 6.2 L, Albumin 3.4 L D, Globulin 2.8, Albumin/Globulin Ratio 1.2, Triglycerides 142, Cholesterol 133 L, LDL Cholesterol Direct 56.25 L, VLDL Cholesterol 28, HDL Cholesterol 32 L, Cholesterol/HDL Ratio 4.2 H, Vitamin B12 601, Free T4 1.24 08/16/24 08:21: APTT 37.4 L, Troponin I 14.40 H 08/16/24 11:04: POC Glucose 169 H 08/16/24 14:10: Activated Clotting Time 275 H* 08/16/24 17:02: POC Glucose 177 H I & O for Last 24 hours: Intake & Output 08/13/24 08/14/24 08/15/24 08/16/24 23:59 23:59 23:59 23:59 Intake Total 1976 1737 / 1737 Output Total 0 / 0 400 / 400 Balance 1976 1337 / 1337 Weight 62.596 kg 62.6 kg Constitutional Constitutional: no acute distress *Routine HEENT Exam Head: Present normocephalic Eye: Present EOMI and PERRL ENT: Present mucous membranes moist *Routine Neck Exam Neck: Present supple; Absent lymphadenopathy *Routine Respiratory Exam Respiratory: Present CTA bilaterally *Routine Cardiovascular Exam Cardiovascular: Present RRR *Routine Abdominal Exam Abdominal: Present soft and normoactive bowel sounds; Absent tenderness *Routine Extremities Exam Extremities: Present edema; Absent cyanosis or clubbing *Routine Skin Exam Skin: Present warm; Absent rash *Routine Neurological Exam Neurological: Present alert and oriented X3 Assessment and Plan *Assessment and plan (1) NSTEMI (non-ST elevated myocardial infarction): Status: Resolved Category: Medical Code(s): I21.4 - Non-ST elevation (NSTEMI) myocardial infarction Plan Keyonna Peralta is a 79-year-old female with a medical history significant for NSTEMI/CAD with stents in 2022, HFpEF, OLAF, PAD, type 2 diabetes, CKD who presents after a syncopal event today. Patient states she was dropping off her at [place] today after he had fallen and fractured nonoperable hip. She states this has been especially stressful for her as has Parkinson's, has had recurrent falls, and ultimately broke her hip requiring SNF placement. She states she has not been eating or drinking as well over the past few days, and felt lightheaded today at the nursing facility and had an episode of syncope. She also endorses right-sided chest pain that is ongoing for 2 weeks without radiation, denies shortness of breath, abdominal pain, fever/chills. Workup in the ED significant for WBC 14.2, creatinine 2.6, troponin 0.14, BNP 7970. CT chest showed multiple bilateral noncalcified pulmonary nodules but no acute findings. Case discussed with ED provider and decision was made to admit patient for NSTEMI, ELDA. #Chest pain #NSTEMI #History of CAD with stents, OLAF, PAD #HFrEF ? Two week onset of right-sided chest pain without radiation, shortness of breath. ? Troponins up trended to 14, EKG without acute ischemic changes. ? Cardiology consulted, s/p PCI 08/16/2024 with MATILDA x 10 to RCA, LAD, LMA. Patient tolerated procedure well. However, high risk for contrast nephropathy given advanced CKD. ? Aspirin 81 mg, Plavix 75 mg, metoprolol succinate 25 mg, atorvastatin 40 mg daily. ? ECHO reveals LVEF 40%, with distal and apical akinetic deluna. ? A1c 6.4, LDL 56, TSH slightly elevated 6.16 but acceptable given significant CAD. ? Continuous cardiology telemetry. #Dehydration #ELDA on CKD stage III ? Initial creatinine 2.6, improved to 2.1 with 1 L LR bolus. ? Continue LR at 75 mm/h to reduce risk of contrast nephropathy. #Hypertension ? Hold home irbesartan, eplerenone due to ELDA. #Type 2 diabetes ? ACHS glucose checks, LDSSI. ? A1c 6.4. #Gout ? Hold home allopurinol due to ELDA. Full code DVT prophylaxis: Received heparin bolus in [facility].
--- NOTE | 2024-08-16 21:34 | PC.NURSE ---
Rhythm change noticed on patient Dorene kruse at tele monitor to discuss, patient has no complaints of pain or SOA. No new orders at this time.
[2024-08-16] MEDS: LACTATED RINGERS 1000ML 1,000 ML 50 ML IV (22:06)
[2024-08-16] MEDS: ATORVASTATIN 40MG TABLET 40 MG PO (22:06)
[2024-08-17] VITALS (10 sets, daily range): BP systolic 95–147; BP diastolic 53–83; PULSE 67–80; RESP 14–24; TEMP 36.3–36.8; O2SAT 90–100; BMI 31.5
[2024-08-17] MEDS: ACETAMINOPHEN 325MG TAB 650 MG PO ×2 (01:46→16:23)
[2024-08-17] MEDS: NITROGLYCERIN 1 GM OINTMENT 0.5 GM TD ×2 (03:44→10:56)
--- NOTE | 2024-08-17 05:44 | PC.NURSE ---
Alert and oriented. Right radial cath site, dressing CDI. Patient has had no reports of chest pain or SOA. Tele NSR. Patient was placed on 2L NC when sleeping due to O2 sat dropping to 88%, patient weaned back to room air with no issues. Patient did complain of lower back pain, treated per jul. Uses bedside commode with 1 assist. Bed alarm on. Call light in reach.
[2024-08-17 06:02] LABS: POC Glucose,Bedside 106 (70-110)
[2024-08-17 06:11] LABS: Basophils # 0.1 K/mm3 (0-0.2); Basophils % 0.3 % (0.1-2.0); Eosinophils % 0.1 % (0.1-12.0); Hematocrit 34.4 % (37.0-47.0); Hemoglobin 11.2 g/dL (12.2-16.2); Lymphocytes # 1.5 K/mm3 (0.7-4.5); Lymphocytes % 8.3 % (10-50); Mean Corpuscular HGB Conc 32.6 g/dL (31.8-35.4); Mean Corpuscular Hemoglobin 31.7 pg (27.0-31.2); Mean Corpuscular Volume 97.5 fl (81-99); Mean Platelet Volume 11.7 fl (7.4-10.4); Monocytes # 1.5 K/mm3 (0.1-1.0); Monocytes % 8.7 % (1.7-9.3); Neutrophils # 14.3 K/mm3 (1.8-7.8); Neutrophils % 81.9 % (37.0-80.0); Platelet Count 279 K/mm3 (142-424); Red Blood Count 3.53 M/mm3 (4.20-5.40); Red Cell Distribution Width 13.9 % (11.5-17.5); White Blood Count 17.5 K/mm3 (4.8-10.8)
[2024-08-17 06:27] LABS: Alanine Aminotransferase 58 U/L (12-78); Albumin Level 3.4 g/dl (3.5-5.0); Albumin/Globulin Ratio 1.2 (1.1-1.8); Alkaline Phosphatase 130 U/L (38-126); Anion Gap 19.8 mEq/L (5-15); Aspartate Amino Transferase 284 U/L (14-36); Bilirubin,Total 0.5 mg/dl (0.2-1.3); Blood Urea Nitrogen 38 mg/dl (7-17); Calcium 8.9 mg/dl (8.4-10.2); Carbon Dioxide 14 mmol/L (22.0-30.0); Chloride 110 mmol/L (98-107); Creatinine Clearance Estimated 20 mL/min (50-200); Estimated Glomerular Filt Rate 20 ml/min (>60); GFR (African American) 24 ML/MIN (>60); Globulin 2.8 g/dL (1.3-3.2); Glucose 105 mg/dl (74-100); Potassium 5.8 mmoL/L (3.5-5.1); Sodium 138 mmol/L (136-145); Total Protein,Serum 6.2 g/dl (6.3-8.2)
[2024-08-17 06:36] LABS: MANUAL DIFFERENTIAL MANUAL DIFFERENTIAL (MANUAL DIFF)
[2024-08-17 08:30] LABS: Lymphocytes % 12 % (10-50); Monocytes % 7 % (2-9); Neutrophils % 81 % (42-76); Total Cells Counted 100
[2024-08-17 08:31] LABS: Platelet Estimate Normal; RBC Morphology Normal
[2024-08-17] MEDS: LACTATED RINGERS 1000ML 500 ML 999 ML IV (08:56)
[2024-08-17] MEDS: ASPIRIN EC 81MG TABLET 81 MG PO (08:57)
[2024-08-17] MEDS: METOPROLOL SUCCINATE XL 25MG TABLET 25 MG PO (08:57)
[2024-08-17] MEDS: CLOPIDOGREL 75MG TAB 75 MG PO (08:57)
[2024-08-17] MEDS: DEXTROSE 50% 50ML SYRINGE (CRASH CART) 50 ML IV (10:13)
[2024-08-17] MEDS: INSULIN HUMAN REGULAR 100 UNITS/ML 10ML VIAL 10 UNIT IV (10:13)
[2024-08-17] MEDS: humaLOG 100 UNITS/ML 10ML VIAL (SSI) SUBCUT (10:54)
[2024-08-17 10:58] LABS: POC Glucose,Bedside 267 (70-110)
--- NOTE | 2024-08-17 12:50 | P.PN_ITS ---
Subjective Subjective Date: 08/17/24 Time: 12:50 Principal diagnosis: NSTEMI Interval history: 79 yo WF in bed in NAD Multivessel stenting yesterday Feels better today but has some edema Exam Data for Last 24 hours Vital signs and Labs for Last 24 Hours: Temp Pulse Resp BP Pulse Ox O2 Del Method O2 Flow Rate 97.6 F 72 18 131/61 94 L Room Air 2 08/17/24 08:00 08/17/24 12:00 08/17/24 12:00 08/17/24 12:00 08/17/24 12:00 08/17/24 12:00 08/17/24 08:00 Laboratory Results - last 24 hr 08/16/24 14:10: Activated Clotting Time 275 H* 08/16/24 17:02: POC Glucose 177 H 08/17/24 05:28: WBC 17.5 H D, RBC 3.53 L, Hgb 11.2 L, Hct 34.4 L, MCV 97.5, MCH 31.7 H, MCHC 32.6, RDW 13.9, Plt Count 279, MPV 11.7 H, Neut % (Auto) 81.9 H, Lymph % (Auto) 8.3 L, [place] % (Auto) 8.7, Eos % (Auto) 0.1, Baso % (Auto) 0.3, Neut # (Auto) 14.3 H, Lymph # (Auto) 1.5, [place] # (Auto) 1.5 H, Eos # (Auto) 0.0, Baso # (Auto) 0.1, Total Counted 100, Neutrophils % (Manual) 81 H, Lymphocytes % (Manual) 12, Monocytes % (Manual) 7, Platelet Estimate Normal, RBC Morphology Normal, Sodium 138, Potassium 5.8 H, Chloride 110 H, Carbon Dioxide 14 L, Anion Gap 19.8 H, BUN 38 H, Creatinine 2.40 H, Estimated Creat Clear 20, Estimated GFR 20 L, Est GFR ( Amer) 24 L, Glucose 105 H D, Calcium 8.9, Magnesium 2.0, Total Bilirubin 0.5, AST 284 H D, ALT 58 D, Alkaline Phosphatase 130 H, Total Protein 6.2 L, Albumin 3.4 L, Globulin 2.8, Albumin/Globulin Ratio 1.2 08/17/24 05:53: POC Glucose 106 08/17/24 10:51: POC Glucose 267 H I & O for Last 24 hours: Intake & Output 08/15/24 08/16/24 08/17/24 08/18/24 11:59 11:59 11:59 11:59 Intake Total 1976 576 / 576 Output Total 0 / 0 400 / 400 Balance 1976 176 / 176 Weight 138 lb 0.15 oz 146 lb 3 oz Constitutional Constitutional: no acute distress *Routine Respiratory Exam Respiratory: Present decreased breath sounds, rhonchi and crackles *Routine Cardiovascular Exam Cardiovascular: Present RRR Progress Note: A&P Assessment and plan (1) NSTEMI (non-ST elevated myocardial infarction): Status: Resolved Assessment and Plan Assessment and Plan for All Diagnoses:: 1. NSTEMI -trop up to 14.4 -continue ASA, plavix, BB and statin -stop NTG paste -add ranexa for coronary spasm -multivessel stenting yesterday (3 MATILDA to RCA, 1 MATILDA to L Main and 6 MATILDA to LAD/Diagonal) 2. Acute on chronic CKD -continue IVF despite elevated BNP -Cr up to 2.4 today (baseline is 1.4) -hold on SHARITA/ARB/ARNi 3. HFrEF -elevated BNP with dyspnea -holding off on diuretics until renal functions improved 4. Syncope and collapse -head CT negative -likely related to dehydration and NSTEMI -monitor on telemetry 5. DM, type 2 -defer to Hospitalist -Hgb A1C 6.4 6. Hypertension -Continue beta-alphonso 7. Hyperlipidemia -Continue statin therapy 8. Hyperkalemia -K 5.8 -recheck later today after IVF Stop NTG paste due to headache Start ranexa for coronary spasm continue IVF until renal functions improve then consider gentle diuresis if needed. Will likely be here through the weekend. We will see her on Tuesday.
[2024-08-17] MEDS: RANOLAZINE 500MG ER TABLET 500 MG PO ×2 (13:20→20:41)
--- NOTE | 2024-08-17 13:48 | CT_ITS ---
FINAL REPORT TECHNIQUE: Axial images of the head were obtained without contrast. Coronal reformatted images were also obtained. This study was performed with techniques to keep radiation doses as low as reasonably achievable (ALARA). Individualized dose reduction techniques using automated exposure control or adjustment of mA and/or kV according to the patient's size were employed. CLINICAL HISTORY: Right sided facial droop COMPARISON: 08/15/2024 FINDINGS: Mild atrophy is noted, which is stable. There is moderate patchy decreased attenuation in the deep white matter probably due to chronic ischemia. There is no evidence of intracranial hemorrhage or mass. The ventricular size is within normal limits. There is calcification in the anterior horn of the right lateral ventricle, which is stable. There is no evidence of shift of the midline structures. No skull abnormality is seen on the bone window images. The paranasal sinuses are well aerated. IMPRESSION: No acute intracranial abnormality, no significant interval change. Reviewed, Interpreted and Dictated by Juno Dunaway MD Transcribed by [place] Authenticated and [facility]
--- NOTE | 2024-08-17 14:06 | SW/DCPLANNER ---
Per PT no needs at this time.
[2024-08-17 15:36] LABS: Basophils # 0.1 K/mm3 (0-0.2); Basophils % 0.4 % (0.1-2.0); Eosinophils # 0.1 K/mm3 (0.0-0.4); Eosinophils % 0.8 % (0.1-12.0); Hematocrit 31.7 % (37.0-47.0); Hemoglobin 10.4 g/dL (12.2-16.2); Lymphocytes # 1.6 K/mm3 (0.7-4.5); Lymphocytes % 9.5 % (10-50); Mean Corpuscular HGB Conc 32.8 g/dL (31.8-35.4); Mean Corpuscular Hemoglobin 31.7 pg (27.0-31.2); Mean Corpuscular Volume 96.6 fl (81-99); Mean Platelet Volume 11.3 fl (7.4-10.4); Monocytes # 1.9 K/mm3 (0.1-1.0); Monocytes % 11.2 % (1.7-9.3); Neutrophils # 13.3 K/mm3 (1.8-7.8); Neutrophils % 77.6 % (37.0-80.0); Platelet Count 302 K/mm3 (142-424); Red Blood Count 3.28 M/mm3 (4.20-5.40); Red Cell Distribution Width 13.9 % (11.5-17.5); White Blood Count 17.1 K/mm3 (4.8-10.8)
[2024-08-17 15:38] LABS: Chloride 108 mmol/L (98-107); Potassium 5.3 mmoL/L (3.5-5.1); Sodium 136 mmol/L (136-145)
[2024-08-17 15:41] LABS: Blood Urea Nitrogen 40 mg/dl (7-17); Creatinine Clearance Estimated 17 mL/min (50-200); Estimated Glomerular Filt Rate 16 ml/min (>60); GFR (African American) 19 ML/MIN (>60)
[2024-08-17 15:42] LABS: Anion Gap 13.3 mEq/L (5-15); Calcium 8.9 mg/dl (8.4-10.2); Carbon Dioxide 20 mmol/L (22.0-30.0); Glucose 137 mg/dl (74-100)
--- NOTE | 2024-08-17 15:49 | HMH.PTEV ---
Physical Therapy Evaluation Rehab PT IP Evaluation Start: 08/16/24 09:38 Freq: ONCE Status: Active Protocol: Document 08/17/24 15:43 SARAH (Rec: 08/17/24 15:48 SARAH [id number]) Subjective/History History History 79-year-old female with a medical history significant for NSTEMI/CAD with stents in 2022, HFpEF, OLAF, PAD, type 2 diabetes, CKD who presents after a syncopal event today. Patient states she was dropping off her at [facility] today after he had fallen and fractured nonoperable hip. She states this has been especially stressful for her as has Parkinson's, has had recurrent falls, and ultimately broke her hip requiring SNF placement. She states she has not been eating or drinking as well over the past few days, and felt lightheaded today at the nursing facility and had an episode of syncope. She also endorses right-sided chest pain that is ongoing for 2 weeks without radiation, denies shortness of breath, abdominal pain, fever/chills. Workup in the ED significant for WBC 14.2, creatinine 2.6, troponin 0.14, BNP 7970. CT chest showed multiple bilateral noncalcified pulmonary nodules but no acute findings. Case discussed with ED provider and decision was made to admit patient for NSTEMI, ELDA. Pt had heart cath 08/16 with 10 stents placed. She reports she feels better today. She lives with her , but he was just placed in a SNF recently. She reports 2 VIOLA the home and she is generally independent with all mobility without AD at baseline. Subjective Subjective Pt reports no c/o this pm, agrees to OOB mobility assessment. [facility] How much help from another person do you currently need... Turning from your back to your side None while in a flat bed without using bedrails? Moving from lying on back to sitting on None the side of a flat bed without using bedrails? Moving to and from a bed to a chair ( None including a wheelchair)? Standing up from a chair using your arms None ? (e.g., wheelchair, bedside chair) Walking in hospital room? None Climbing 3-5 steps with a railing? None Mobility Score 24 Mobility Level [facility] Mobility Calculator Mobility 8 Walk 250 feet or more Rehab PT IP Eval Objective Appearance Patient Behavior Appropriate Patient Orientation Person,Place,Time Difficulty following instructions none Speech Pattern Clear Ambulation Patient Able to Ambulate Yes Ambulation Observation IP General Gait Pattern Observation No Deviations/Normal Ambulation Distance (feet) 200 Ambulation Assistive Device None Ambulation Ability Supervision/Stand by Balance Ability to Arise Able, uses arms to help Sitting Balance Steady, safe Standing Balance Steady, wide stance Dynamic Sitting Balance Ability Good Dynamic Standing Balance Ability Good Transfers Bed Transfer Ability Independent Chair Transfer Ability Independent Sit to Stand Bed Transfer Ability Supervision/Stand by Sit to Stand Chair Transfer Ability Independent Rehab PT IP prob,goals,plan Problems Date of Evaluation: 08/17/24 Discharge Plan PT Discharge Plan Pt is currently appropriate to return home once medically stable for d/c. Pt may benefit from home health therapy or outpatient cardiac rehab after return home. No current acute therapy needs. Eval Complexity Eval Charge Codes 28554 - High Complexity PHYSICIAN CERTIFICATION: I certify the specified therapy services for Keyonna Peralta are required, authorized, and reviewed every 30 days.
--- NOTE | 2024-08-17 16:00 | PC.NURSE ---
PT IS RESTING IN BED. ALERT AND ORIENTED X4. EATING AND DRINKING FAIR. LUNG SOUNDS DIMINISHED WITH RT SIDED CRACKLES. ABDOMEN SOFT/NON TENDER WITH ACTIVE BOWEL SOUNDS. AMBULATED IN THE CHILD WITH PHYSICAL THERAPY THIS SHIFT. WILL CONTINUE TO MONITOR.
[2024-08-17 16:10] LABS: Creatine Kinase 708 U/L (30-135)
[2024-08-17 16:24] LABS: MANUAL DIFFERENTIAL MANUAL DIFFERENTIAL (MANUAL DIFF)
--- NOTE | 2024-08-17 16:26 | XR_ITS ---
PROCEDURE INFORMATION: Exam: XR Chest Exam date and time: 08/17/2024 4:42 PM Age: 79 years old Clinical indication: Shortness of breath; Additional info: SOB TECHNIQUE: Imaging protocol: Radiologic exam of the chest. Views: 1 view. COMPARISON: CT CHEST WO CON 08/15/2024 3:04 PM FINDINGS: Lungs: Unremarkable. No consolidation. Pleural spaces: Unremarkable. No pleural effusion. No pneumothorax. Heart/Mediastinum: Mild enlargement of the cardiac silhouette. Vasculature: Severe atherosclerotic calcifications of the aorta. Bones/joints: Unremarkable. IMPRESSION: 1. Pulmonary vascular redistribution without overt edema. 2. Mild enlargement of the cardiac silhouette.
[2024-08-17 16:31] LABS: POC Glucose,Bedside 136 (70-110)
[2024-08-17 17:04] LABS: NT Pro Brain Natriuretic Pep. 66800 pg/mL (0-450)
[2024-08-17] MEDS: FUROSEMIDE 40MG/4ML VIAL 40 MG IV (17:30)
[2024-08-17 17:44] LABS: Eosinophils % 3 % (0-3); Lymphocytes % 13 % (10-50); Monocytes % 14 % (2-9); Neutrophils % 70 % (42-76); Platelet Estimate Normal; RBC Morphology Normal; Total Cells Counted 100
--- NOTE | 2024-08-17 18:28 | P.PN_ITS ---
Subjective *Date: 08/17/24 *Time: 18:28 Interval history: Patient feels better than yesterday, no chest pain. However decreased appetite likely due to hyper uremia, LEDA. Given IV Lasix 40 mg, follow-up BMP 9 PM. Exam Data for Last 24 hours Vital signs and Labs for Last 24 Hours: Temp Pulse Resp BP Pulse Ox O2 Del Method O2 Flow Rate 97.8 F 74 14 126/64 94 L Room Air 2 08/17/24 16:00 08/17/24 16:00 08/17/24 16:00 08/17/24 16:00 08/17/24 16:00 08/17/24 18:27 08/17/24 08:00 Laboratory Results - last 24 hr 08/17/24 05:28: WBC 17.5 H D, RBC 3.53 L, Hgb 11.2 L, Hct 34.4 L, MCV 97.5, MCH 31.7 H, MCHC 32.6, RDW 13.9, Plt Count 279, MPV 11.7 H, Neut % (Auto) 81.9 H, Lymph % (Auto) 8.3 L, [place] % (Auto) 8.7, Eos % (Auto) 0.1, Baso % (Auto) 0.3, Neut # (Auto) 14.3 H, Lymph # (Auto) 1.5, [place] # (Auto) 1.5 H, Eos # (Auto) 0.0, Baso # (Auto) 0.1, Total Counted 100, Neutrophils % (Manual) 81 H, Lymphocytes % (Manual) 12, Monocytes % (Manual) 7, Platelet Estimate Normal, RBC Morphology Normal, Sodium 138, Potassium 5.8 H, Chloride 110 H, Carbon Dioxide 14 L, Anion Gap 19.8 H, BUN 38 H, Creatinine 2.40 H, Estimated Creat Clear 20, Estimated GFR 20 L, Est GFR ( Amer) 24 L, Glucose 105 H D, Calcium 8.9, Magnesium 2.0, Total Bilirubin 0.5, AST 284 H D, ALT 58 D, Alkaline Phosphatase 130 H, Total Protein 6.2 L, Albumin 3.4 L, Globulin 2.8, Albumin/Globulin Ratio 1.2 08/17/24 05:53: POC Glucose 106 08/17/24 10:51: POC Glucose 267 H 08/17/24 15:18: WBC 17.1 H, RBC 3.28 L, Hgb 10.4 L, Hct 31.7 L, MCV 96.6, MCH 31.7 H, MCHC 32.8, RDW 13.9, Plt Count 302, MPV 11.3 H, Neut % (Auto) 77.6, Lymph % (Auto) 9.5 L, [place] % (Auto) 11.2 H, Eos % (Auto) 0.8, Baso % (Auto) 0.4, Neut # (Auto) 13.3 H, Lymph # (Auto) 1.6, [place] # (Auto) 1.9 H, Eos # (Auto) 0.1, Baso # (Auto) 0.1, Total Counted 100, Neutrophils % (Manual) 70, Lymphocytes % (Manual) 13, Monocytes % (Manual) 14 H, Eosinophils % (Manual) 3, Platelet Estimate Normal, RBC Morphology Normal, Sodium 136, Potassium 5.3 H, Chloride 108 H, Carbon Dioxide 20 L, Anion Gap 13.3, BUN 40 H, Creatinine 2.90 H D, Estimated Creat Clear 17, Estimated GFR 16 L*, Est GFR ( Amer) 19 L* D, Glucose 137 H D, Calcium 8.9, Total Creatine Kinase 708 H*, NT-Pro-B Natriuret Pep 15762 H 08/17/24 16:23: POC Glucose 136 H I & O for Last 24 hours: Intake & Output 08/14/24 08/15/24 08/16/24 08/17/24 23:59 23:59 23:59 23:59 Intake Total 1976 1737 / 1737 1852 Output Total 0 / 0 400 / 400 0 / 0 Balance 1976 1337 / 1337 1852 Weight 62.596 kg 62.6 kg 66.31 kg Constitutional Constitutional: no acute distress *Routine HEENT Exam Head: Present normocephalic Eye: Present EOMI and PERRL ENT: Present mucous membranes moist *Routine Neck Exam Neck: Present supple; Absent lymphadenopathy *Routine Respiratory Exam Respiratory: Present CTA bilaterally *Routine Cardiovascular Exam Cardiovascular: Present RRR *Routine Abdominal Exam Abdominal: Present soft and normoactive bowel sounds; Absent tenderness *Routine Extremities Exam Extremities: Absent cyanosis, clubbing or edema *Routine Skin Exam Skin: Present warm; Absent rash *Routine Neurological Exam Neurological: Present alert and oriented X3 Assessment and Plan *Assessment and plan (1) NSTEMI (non-ST elevated myocardial infarction): Status: Resolved Category: Medical Code(s): I21.4 - Non-ST elevation (NSTEMI) myocardial infarction Plan Keyonna Peralta is a 79-year-old female with a medical history significant for NSTEMI/CAD with stents in 2022, HFpEF, OLAF, PAD, type 2 diabetes, CKD who presents after a syncopal event today. Patient states she was dropping off her at [facility] today after he had fallen and fractured nonoperable hip. She states this has been especially stressful for her as has Parkinson's, has had recurrent falls, and ultimately broke her hip requiring SNF placement. She states she has not been eating or drinking as well over the past few days, and felt lightheaded today at the nursing facility and had an episode of syncope. She also endorses right-sided chest pain that is ongoing for 2 weeks without radiation, denies shortness of breath, abdominal pain, fever/chills. Workup in the ED significant for WBC 14.2, creatinine 2.6, troponin 0.14, BNP 7970. CT chest showed multiple bilateral noncalcified pulmonary nodules but no acute findings. Case discussed with ED provider and decision was made to admit patient for NSTEMI, ELDA. #NSTEMI #History of CAD with stents, OLAF, PAD #HFrEF ? Two week onset of right-sided chest pain without radiation, shortness of breath. ? Troponins up trended to 14, EKG without acute ischemic changes. ? Cardiology consulted, s/p PCI 08/16/2024 with MATILDA x 10 to RCA, LAD, LMA. Patient tolerated procedure well. However, high risk for contrast nephropathy given advanced CKD. ? Aspirin 81 mg, Plavix 75 mg, metoprolol succinate 25 mg, atorvastatin 40 mg daily. ? ECHO reveals LVEF 40%, with distal and apical akinetic deluna. ? A1c 6.4, LDL 56, TSH slightly elevated 6.16 but acceptable given significant CAD. ? Continuous cardiology telemetry. ? Patient given IV fluids throughout the night and day to reduce risk of contrast nephropathy. However, creatinine bumped to 2.9 with evidence of pulmonary edema on CXR and BNP now 66,800. ? Given IV Lasix 40 mg. Follow-up response, BMP at 9 PM. #Dehydration #ELDA on CKD stage III ? Patient given IV fluids throughout the night and day to reduce risk of contrast nephropathy. However, creatinine bumped to 2.9 with evidence of pulmonary edema on CXR and BNP now 66,800. ? Given IV Lasix 40 mg. Follow-up response, BMP at 9 PM. #Hypertension ? Hold home irbesartan, eplerenone due to ELDA. #Type 2 diabetes ? ACHS glucose checks, LDSSI. ? A1c 6.4. #Gout ? Hold home allopurinol due to ELDA. Full code DVT prophylaxis: Lovenox 30 mg
[2024-08-17 19:15] LABS: Creatinine,Urine Random 109 mg/dL (Not Estab.); Urea Nitrogen,Urine Random 404 mg/dl (Not Estab.)
[2024-08-17 19:58] LABS: POC Glucose,Bedside 123 (70-110)
[2024-08-17] MEDS: ATORVASTATIN 40MG TABLET 40 MG PO (20:41)
[2024-08-17 21:22] LABS: Chloride 108 mmol/L (98-107); Sodium 137 mmol/L (136-145)
[2024-08-17 21:25] LABS: Blood Urea Nitrogen 41 mg/dl (7-17); Carbon Dioxide 20 mmol/L (22.0-30.0); Creatinine Clearance Estimated 16 mL/min (50-200); Estimated Glomerular Filt Rate 15 ml/min (>60); GFR (African American) 18 ML/MIN (>60); Glucose 124 mg/dl (74-100)
[2024-08-18] VITALS (8 sets, daily range): BP systolic 123–153; BP diastolic 67–84; PULSE 65–90; RESP 16–18; TEMP 36.4–36.8; O2SAT 92–97; BMI 31.4
--- NOTE | 2024-08-18 03:38 | PC.NURSE ---
Pt is stable at this time. Put 2L prn nasal cannula on pt for a couple of hours due to O2 stat staying around 90. Removed and pt is now maintaining 94% on room air. Denies feeling short of air or any pain. Assisted pt to BSC and back into bed. Respirations even and unlabored. Resting in low, locked bed with call light within reach.
[2024-08-18 05:44] LABS: POC Glucose,Bedside 98 (70-110)
[2024-08-18 07:01] LABS: Basophils # 0.1 K/mm3 (0-0.2); Basophils % 0.4 % (0.1-2.0); Eosinophils # 0.4 K/mm3 (0.0-0.4); Eosinophils % 3.2 % (0.1-12.0); Hematocrit 29.3 % (37.0-47.0); Hemoglobin 9.7 g/dL (12.2-16.2); Lymphocytes # 1.4 K/mm3 (0.7-4.5); Lymphocytes % 12.3 % (10-50); Mean Corpuscular HGB Conc 33.1 g/dL (31.8-35.4); Mean Corpuscular Hemoglobin 31.7 pg (27.0-31.2); Mean Corpuscular Volume 95.8 fl (81-99); Mean Platelet Volume 11.3 fl (7.4-10.4); Monocytes # 1.2 K/mm3 (0.1-1.0); Monocytes % 9.8 % (1.7-9.3); Neutrophils # 8.6 K/mm3 (1.8-7.8); Neutrophils % 73.8 % (37.0-80.0); Platelet Count 259 K/mm3 (142-424); Red Blood Count 3.06 M/mm3 (4.20-5.40); Red Cell Distribution Width 13.9 % (11.5-17.5); White Blood Count 11.7 K/mm3 (4.8-10.8)
[2024-08-18 07:10] LABS: Albumin Level 2.9 g/dl (3.5-5.0); Chloride 109 mmol/L (98-107); Sodium 136 mmol/L (136-145)
[2024-08-18 07:11] LABS: Potassium 5.3 mmoL/L (3.5-5.1)
[2024-08-18 07:13] LABS: Alanine Aminotransferase 53 U/L (12-78); Albumin/Globulin Ratio 1.1 (1.1-1.8); Alkaline Phosphatase 127 U/L (38-126); Anion Gap 13.3 mEq/L (5-15); Aspartate Amino Transferase 180 U/L (14-36); Bilirubin,Total 0.4 mg/dl (0.2-1.3); Blood Urea Nitrogen 45 mg/dl (7-17); Carbon Dioxide 19 mmol/L (22.0-30.0); Creatinine Clearance Estimated 15 mL/min (50-200); Estimated Glomerular Filt Rate 14 ml/min (>60); GFR (African American) 16 ML/MIN (>60); Globulin 2.7 g/dL (1.3-3.2); Total Protein,Serum 5.6 g/dl (6.3-8.2)
[2024-08-18 07:14] LABS: Calcium 8.7 mg/dl (8.4-10.2); Glucose 98 mg/dl (74-100); Magnesium 1.8 mg/dl (1.6-2.3)
[2024-08-18] MEDS: ENOXAPARIN 30MG/0.3ML SYRINGE 30 MG SUBCUT (08:55)
[2024-08-18] MEDS: METOPROLOL SUCCINATE XL 25MG TABLET 25 MG PO (08:59)
[2024-08-18] MEDS: RANOLAZINE 500MG ER TABLET 500 MG PO ×2 (08:59→20:11)
[2024-08-18] MEDS: CLOPIDOGREL 75MG TAB 75 MG PO (08:59)
[2024-08-18] MEDS: ASPIRIN EC 81MG TABLET 81 MG PO (08:59)
[2024-08-18] MEDS: BUMETANIDE 1MG/4ML VIAL 1 MG IV (10:16)
[2024-08-18 10:40] LABS: POC Glucose,Bedside 107 (70-110)
[2024-08-18 11:26] LABS: NT Pro Brain Natriuretic Pep. 75000 pg/mL (0-450)
--- NOTE | 2024-08-18 15:48 | PC.NURSE ---
PT IS SITTING UP IN THE CHAIR. ALERT AND ORIENTED X4. PT HAS URINATED ONCE SINCE RECEIVING BUMEX THIS SHIFT. AMBULATED TO THE BATHROOM. EATING AND DRINKING FAIR. EDEMA NOTED TO BILATERAL ANKLES. LUNG SOUNDS DIMINISHED WITH BILATERAL FINE CRACKLES (BASES). ABDOMEN SOFT/NON TENDER WITH ACTIVE BOWEL SOUNDS. WILL CONTINUE TO MONITOR.
[2024-08-18 16:05] LABS: Anion Gap 14.1 mEq/L (5-15); Blood Urea Nitrogen 48 mg/dl (7-17); Calcium 8.9 mg/dl (8.4-10.2); Carbon Dioxide 21 mmol/L (22.0-30.0); Chloride 106 mmol/L (98-107); Creatinine Clearance Estimated 13 mL/min (50-200); Estimated Glomerular Filt Rate 12 ml/min (>60); GFR (African American) 15 ML/MIN (>60); Glucose 121 mg/dl (74-100); Potassium 5.1 mmoL/L (3.5-5.1); Sodium 136 mmol/L (136-145)
[2024-08-18 16:25] LABS: POC Glucose,Bedside 133 (70-110)
--- NOTE | 2024-08-18 16:50 | PC.NURSE ---
CARE PROVIDED BY MINDY HENRIQUEZ [employer] DISPOSAL ENGINEER WITH [employer]NA [employer] SUPERVISION.
[2024-08-18] MEDS: ATORVASTATIN 40MG TABLET 40 MG PO (20:11)
[2024-08-18 20:23] LABS: POC Glucose,Bedside 97 (70-110)
--- NOTE | 2024-08-18 21:53 | EXP.PN ---
Subjective *Date: 08/18/24 *Time: 21:53 Interval history: Patient doing okay, appetite still not back to normal. But improved. Creatinine bumped, Will avoid further diuretics, fluids allow renal function to self resolved in the setting of contrast nephropathy. Exam Data for Last 24 hours Vital signs and Labs for Last 24 Hours: Temp Pulse Resp BP Pulse Ox O2 Del Method O2 Flow Rate 97.5 F L 65 18 153/74 H 97 Room Air 2 08/18/24 19:51 08/18/24 20:00 08/18/24 19:51 08/18/24 19:51 08/18/24 19:51 08/18/24 21:00 08/18/24 03:00 Laboratory Results - last 24 hr 08/18/24 05:36: POC Glucose 98 08/18/24 06:25: WBC 11.7 H D, RBC 3.06 L, Hgb 9.7 L, Hct 29.3 L, MCV 95.8, MCH 31.7 H, MCHC 33.1, RDW 13.9, Plt Count 259, MPV 11.3 H, Neut % (Auto) 73.8, Lymph % (Auto) 12.3, [place] % (Auto) 9.8 H, Eos % (Auto) 3.2, Baso % (Auto) 0.4, Neut # (Auto) 8.6 H, Lymph # (Auto) 1.4, [place] # (Auto) 1.2 H, Eos # (Auto) 0.4, Baso # (Auto) 0.1, Sodium 136, Potassium 5.3 H, Chloride 109 H, Carbon Dioxide 19 L, Anion Gap 13.3, BUN 45 H, Creatinine 3.30 H, Estimated Creat Clear 15, Estimated GFR 14 L*, Est GFR ( Amer) 16 L*, Glucose 98 D, Calcium 8.7, Magnesium 1.8, Total Bilirubin 0.4, AST 180 H D, ALT 53, Alkaline Phosphatase 127 H, NT-Pro-B Natriuret Pep 95068 H, Total Protein 5.6 L, Albumin 2.9 L D, Globulin 2.7, Albumin/Globulin Ratio 1.1 08/18/24 10:30: POC Glucose 107 08/18/24 15:20: Sodium 136, Potassium 5.1, Chloride 106, Carbon Dioxide 21 L, Anion Gap 14.1, BUN 48 H, Creatinine 3.60 H, Estimated Creat Clear 13, Estimated GFR 12 L*, Est GFR ( Amer) 15 L*, Glucose 121 H D, Calcium 8.9 08/18/24 16:05: POC Glucose 133 H 08/18/24 20:14: POC Glucose 97 I & O for Last 24 hours: Intake & Output 08/15/24 08/16/24 08/17/24 08/18/24 23:59 23:59 23:59 23:59 Intake Total 1976 1737 / 1737 2213 / 2213 840 / 840 Output Total 0 / 0 400 / 400 350 / 600 250 / 250 Balance 1976 1337 / 1337 1863 / 1613 590 / 590 Weight 62.596 kg 62.6 kg 66.31 kg 66.224 kg Constitutional Constitutional: no acute distress *Routine HEENT Exam Head: Present normocephalic Eye: Present EOMI and PERRL ENT: Present mucous membranes moist *Routine Neck Exam Neck: Present supple; Absent lymphadenopathy *Routine Respiratory Exam Respiratory: Present CTA bilaterally *Routine Cardiovascular Exam Cardiovascular: Present RRR *Routine Abdominal Exam Abdominal: Present soft and normoactive bowel sounds; Absent tenderness *Routine Extremities Exam Extremities: Absent cyanosis, clubbing or edema *Routine Skin Exam Skin: Present warm; Absent rash *Routine Neurological Exam Neurological: Present alert and oriented X3 Assessment and Plan *Assessment and plan (1) NSTEMI (non-ST elevated myocardial infarction): Status: Resolved Category: Medical Code(s): I21.4 - Non-ST elevation (NSTEMI) myocardial infarction Plan Keyonna Peralta is a 79-year-old female with a medical history significant for NSTEMI/CAD with stents in 2022, HFpEF, OLAF, PAD, type 2 diabetes, CKD who presents after a syncopal event today. Patient states she was dropping off her at [place] today after he had fallen and fractured nonoperable hip. She states this has been especially stressful for her as has Parkinson's, has had recurrent falls, and ultimately broke her hip requiring SNF placement. She states she has not been eating or drinking as well over the past few days, and felt lightheaded today at the nursing facility and had an episode of syncope. She also endorses right-sided chest pain that is ongoing for 2 weeks without radiation, denies shortness of breath, abdominal pain, fever/chills. Workup in the ED significant for WBC 14.2, creatinine 2.6, troponin 0.14, BNP 7970. CT chest showed multiple bilateral noncalcified pulmonary nodules but no acute findings. Case discussed with ED provider and decision was made to admit patient for NSTEMI, ELDA. #NSTEMI #History of CAD with stents, OLAF, PAD #HFrEF ? Two week onset of right-sided chest pain without radiation, shortness of breath. ? Troponins up trended to 14, EKG without acute ischemic changes. ? Cardiology consulted, s/p PCI 08/16/2024 with MATILDA x 10 to RCA, LAD, LMA. Patient tolerated procedure well. However, high risk for contrast nephropathy given advanced CKD. ? Aspirin 81 mg, Plavix 75 mg, metoprolol succinate 25 mg, atorvastatin 40 mg daily. ? ECHO reveals LVEF 40%, with distal and apical akinetic deluna. ? A1c 6.4, LDL 56, TSH slightly elevated 6.16 but acceptable given significant CAD. ? Continuous cardiology telemetry. #Dehydration #ELDA on CKD stage III #Contrast nephropathy ? Creatinine bumped to 3.3 today, from 3.0 this morning. Was given Bumex 1 mg this morning due to signs of slight overload. ?Will avoid further diuretics, fluids allow renal function to self resolved in the setting of contrast nephropathy. #Hypertension ? Hold home irbesartan, eplerenone due to ELDA. #Type 2 diabetes ? ACHS glucose checks, LDSSI. ? A1c 6.4. #Gout ? Hold home allopurinol due to ELDA. Full code DVT prophylaxis: Lovenox 30 mg
[2024-08-19] VITALS: BP 157/77; PULSE 60; PULSE 68; RESP 16; TEMP 36.6; O2SAT 95
--- NOTE | 2024-08-19 03:30 | PC.NURSE ---
Patient is alert and oriented x4. She was observed to have eyes closed, respirations even and unlabored on room air, and no apparent distress for the majority of the night. Patient has not had any complaints of dizziness, lightheadedness, nor chest pain this shift. Previous right radial cath site remains intact. Healing skin tear noted to right elbow. Auscultation of her heart and bowels were within normal findings; upon auscultation of her lungs, crackles were heard bilaterally in the bases. Normal sinus rhythm on telemetry. Blood pressures remain elevated. Patient continues to require x1 assistance during ambulation/transfers. She has been utilizing the bedside commode for elimination needs this shift. Scheduled medications were administered as appropriately per MAR. ACHS glucose checks performed. At this time, the patient is resting in bed without any further complaints. No new needs at this time. Call light within reach.
[2024-08-19 04:00] VITALS: BP 139/79; PULSE 60; PULSE 64; RESP 16; TEMP 36.4; O2SAT 97; BMI 30.7
[2024-08-19 05:34] LABS: POC Glucose,Bedside 93 (70-110)
[2024-08-19 07:59] LABS: Basophils # 0.1 K/mm3 (0-0.2); Basophils % 0.7 % (0.1-2.0); Eosinophils # 0.5 K/mm3 (0.0-0.4); Hematocrit 31.3 % (37.0-47.0); Hemoglobin 10.1 g/dL (12.2-16.2); Lymphocytes # 1.3 K/mm3 (0.7-4.5); Lymphocytes % 13.6 % (10-50); Mean Corpuscular HGB Conc 32.3 g/dL (31.8-35.4); Mean Corpuscular Hemoglobin 30.9 pg (27.0-31.2); Mean Corpuscular Volume 95.7 fl (81-99); Mean Platelet Volume 11.4 fl (7.4-10.4); Monocytes % 10.1 % (1.7-9.3); Neutrophils # 6.8 K/mm3 (1.8-7.8); Neutrophils % 70.1 % (37.0-80.0); Platelet Count 259 K/mm3 (142-424); Red Blood Count 3.27 M/mm3 (4.20-5.40); Red Cell Distribution Width 13.6 % (11.5-17.5); White Blood Count 9.7 K/mm3 (4.8-10.8)
[2024-08-19 08:00] VITALS: BP 149/72; PULSE 69; PULSE 71; RESP 16; TEMP 36.6; O2SAT 97
[2024-08-19 08:09] LABS: Alanine Aminotransferase 46 U/L (12-78); Albumin/Globulin Ratio 1.1 (1.1-1.8); Alkaline Phosphatase 117 U/L (38-126); Anion Gap 14.9 mEq/L (5-15); Aspartate Amino Transferase 107 U/L (14-36); Bilirubin,Total 0.4 mg/dl (0.2-1.3); Blood Urea Nitrogen 52 mg/dl (7-17); Calcium 8.9 mg/dl (8.4-10.2); Carbon Dioxide 19 mmol/L (22.0-30.0); Chloride 106 mmol/L (98-107); Creatinine Clearance Estimated 13 mL/min (50-200); Estimated Glomerular Filt Rate 12 ml/min (>60); GFR (African American) 14 ML/MIN (>60); Globulin 2.8 g/dL (1.3-3.2); Glucose 94 mg/dl (74-100); Magnesium 2.2 mg/dl (1.6-2.3); Potassium 4.9 mmoL/L (3.5-5.1); Sodium 135 mmol/L (136-145); Total Protein,Serum 5.8 g/dl (6.3-8.2)
[2024-08-19] MEDS: ENOXAPARIN 30MG/0.3ML SYRINGE 30 MG SUBCUT (08:44)
[2024-08-19] MEDS: RANOLAZINE 500MG ER TABLET 500 MG PO ×2 (08:44→20:18)
[2024-08-19] MEDS: METOPROLOL SUCCINATE XL 25MG TABLET 25 MG PO (08:44)
[2024-08-19] MEDS: CLOPIDOGREL 75MG TAB 75 MG PO (08:44)
[2024-08-19] MEDS: ASPIRIN EC 81MG TABLET 81 MG PO (08:44)
[2024-08-19 12:00] VITALS: BP 151/73; PULSE 64; PULSE 66; RESP 18; TEMP 36.4; O2SAT 98
[2024-08-19 16:00] VITALS: BP 158/71; PULSE 63; PULSE 68; RESP 20; TEMP 36.6; O2SAT 97
[2024-08-19 17:43] LABS: Chloride 108 mmol/L (98-107); Potassium 4.9 mmoL/L (3.5-5.1); Sodium 137 mmol/L (136-145)
[2024-08-19 17:46] LABS: Anion Gap 13.9 mEq/L (5-15); Blood Urea Nitrogen 50 mg/dl (7-17); Carbon Dioxide 20 mmol/L (22.0-30.0); Creatinine Clearance Estimated 15 mL/min (50-200); Estimated Glomerular Filt Rate 15 ml/min (>60); GFR (African American) 18 ML/MIN (>60)
[2024-08-19 17:47] LABS: Calcium 8.8 mg/dl (8.4-10.2); Glucose 128 mg/dl (74-100)
--- NOTE | 2024-08-19 18:38 | EXP.PN ---
Subjective *Date: 08/19/24 *Time: 21:55 Interval history: Patient states she still has limited appetite today, likely from contrast nephropathy. Creatinine mildly improving from 3.7-3.1 this evening. Anticipate discharge in the morning. Exam Data for Last 24 hours Vital signs and Labs for Last 24 Hours: Temp Pulse Resp BP Pulse Ox O2 Del Method O2 Flow Rate 97.8 F 68 20 158/71 H 97 Room Air 2 08/19/24 16:00 08/19/24 16:00 08/19/24 16:00 08/19/24 16:00 08/19/24 16:00 08/19/24 17:00 08/18/24 03:00 Laboratory Results - last 24 hr 08/18/24 20:14: POC Glucose 97 08/19/24 05:17: POC Glucose 93 08/19/24 07:00: WBC 9.7, RBC 3.27 L, Hgb 10.1 L, Hct 31.3 L, MCV 95.7, MCH 30.9, MCHC 32.3, RDW 13.6, Plt Count 259, MPV 11.4 H, Neut % (Auto) 70.1, Lymph % (Auto) 13.6, [place] % (Auto) 10.1 H, Eos % (Auto) 5.0, Baso % (Auto) 0.7, Neut # (Auto) 6.8, Lymph # (Auto) 1.3, [place] # (Auto) 1.0, Eos # (Auto) 0.5 H, Baso # (Auto) 0.1, Sodium 135 L, Potassium 4.9, Chloride 106, Carbon Dioxide 19 L, Anion Gap 14.9, BUN 52 H, Creatinine 3.70 H, Estimated Creat Clear 13, Estimated GFR 12 L*, Est GFR ( Amer) 14 L*, Glucose 94 D, Calcium 8.9, Magnesium 2.2 D, Total Bilirubin 0.4, AST 107 H D, ALT 46, Alkaline Phosphatase 117, Total Protein 5.8 L, Albumin 3.0 L, Globulin 2.8, Albumin/Globulin Ratio 1.1 08/19/24 17:20: Sodium 137, Potassium 4.9, Chloride 108 H, Carbon Dioxide 20 L, Anion Gap 13.9, BUN 50 H, Creatinine 3.10 H, Estimated Creat Clear 15, Estimated GFR 15 L*, Est GFR ( Amer) 18 L* D, Glucose 128 H D, Calcium 8.8 I & O for Last 24 hours: Intake & Output 08/16/24 08/17/24 08/18/24 08/19/24 23:59 23:59 23:59 23:59 Intake Total 1737 / 1737 2213 / 2213 840 / 990 900 / 900 Output Total 400 / 400 350 / 600 250 / 250 300 / 300 Balance 1337 / 1337 1863 / 1613 590 / 740 600 / 600 Weight 62.6 kg 66.31 kg 66.224 kg 64.546 kg Constitutional Constitutional: no acute distress *Routine HEENT Exam Head: Present normocephalic Eye: Present EOMI and PERRL ENT: Present mucous membranes moist *Routine Neck Exam Neck: Present supple; Absent lymphadenopathy *Routine Respiratory Exam Respiratory: Present CTA bilaterally *Routine Cardiovascular Exam Cardiovascular: Present RRR *Routine Abdominal Exam Abdominal: Present soft and normoactive bowel sounds; Absent tenderness *Routine Extremities Exam Extremities: Absent cyanosis, clubbing or edema *Routine Skin Exam Skin: Present warm; Absent rash *Routine Neurological Exam Neurological: Present alert and oriented X3 Assessment and Plan *Assessment and plan (1) NSTEMI (non-ST elevated myocardial infarction): Status: Resolved Category: Medical Code(s): I21.4 - Non-ST elevation (NSTEMI) myocardial infarction Plan Keyonna Peralta is a 79-year-old female with a medical history significant for NSTEMI/CAD with stents in 2022, HFpEF, OLAF, PAD, type 2 diabetes, CKD who presents after a syncopal event today. Patient states she was dropping off her at [facility] today after he had fallen and fractured nonoperable hip. She states this has been especially stressful for her as has Parkinson's, has had recurrent falls, and ultimately broke her hip requiring SNF placement. She states she has not been eating or drinking as well over the past few days, and felt lightheaded today at the nursing facility and had an episode of syncope. She also endorses right-sided chest pain that is ongoing for 2 weeks without radiation, denies shortness of breath, abdominal pain, fever/chills. Workup in the ED significant for WBC 14.2, creatinine 2.6, troponin 0.14, BNP 7970. CT chest showed multiple bilateral noncalcified pulmonary nodules but no acute findings. Case discussed with ED provider and decision was made to admit patient for NSTEMI, ELDA. #NSTEMI #History of CAD with stents, OLAF, PAD #HFrEF ? Two week onset of right-sided chest pain without radiation, shortness of breath. ? Troponins up trended to 14, EKG without acute ischemic changes. ? Cardiology consulted, s/p PCI 08/16/2024 with MATILDA x 10 to RCA, LAD, LMA. Patient tolerated procedure well. However, high risk for contrast nephropathy given advanced CKD. ? Aspirin 81 mg, Plavix 75 mg, metoprolol succinate 25 mg, atorvastatin 40 mg daily. ? ECHO reveals LVEF 40%, with distal and apical akinetic deluna. ? A1c 6.4, LDL 56, TSH slightly elevated 6.16 but acceptable given significant CAD. ? Continuous cardiology telemetry. #Dehydration #ELDA on CKD stage III #Contrast nephropathy ? Creatinine slightly bumped from 3.6-3.7 this morning, but significantly improved to 3.1 this evening. Likely from resolving contrast nephropathy. #Hypertension ? Hold home irbesartan, eplerenone due to ELDA. #Type 2 diabetes ? ACHS glucose checks, LDSSI. ? A1c 6.4. #Gout ? Hold home allopurinol due to ELDA. Full code DVT prophylaxis: Lovenox 30 mg
--- NOTE | 2024-08-19 18:39 | PC.NURSE ---
pt a&ox4. supine in bed. R radial cath site dressing c/d/i. no complaints of pain this shift. tolerating ra with sats >90%. no needs at this time. call light within reach.
[2024-08-19 20:00] VITALS: BP 158/80; PULSE 65; PULSE 71; RESP 16; TEMP 36.8; O2SAT 96
[2024-08-19] MEDS: ATORVASTATIN 40MG TABLET 40 MG PO (20:18)
[2024-08-19 20:28] LABS: POC Glucose,Bedside 151 (70-110)
[2024-08-19] MEDS: humaLOG 100 UNITS/ML 10ML VIAL (SSI) SUBCUT (21:06)
[2024-08-20] VITALS: BP 141/76; PULSE 72; PULSE 75; RESP 16; TEMP 36.4; O2SAT 97
--- NOTE | 2024-08-20 03:06 | PC.NURSE ---
Patient is alert and oriented x4. She was observed to have eyes closed, respirations even and unlabored on room air, and no apparent distress for the majority of the night. Patient has not had any complaints of dizziness, lightheadedness, nor chest pain this shift. She did complain of some mild soreness in her back during movement but is relieved by rest. Staff has assisted the patient with repositioning accordingly. Previous right radial cath site remains intact (dressing finally removed during this shift). Healing skin tear noted to right elbow. Auscultation of her heart and bowels were within normal findings; upon auscultation of her lungs, crackles were heard in the left lower lobe this time, and soft, expiratory wheezing was heard bilaterally in the bases. Normal sinus rhythm on telemetry. Blood pressures remain slightly elevated. Patient continues to require x1 assistance during ambulation/transfers. She continues to utilize the bedside commode for elimination needs. Scheduled medications were administered as appropriately per MAR. ACHS glucose checks performed. At this time, the patient is resting in bed without any further complaints. No new needs at this time. Call light within reach.
[2024-08-20 04:00] VITALS: BP 154/83; PULSE 65; PULSE 72; RESP 16; TEMP 36.6; O2SAT 96; BMI 30.6
[2024-08-20 05:18] LABS: POC Glucose,Bedside 117 (70-110)
[2024-08-20 07:03] LABS: Basophils % 0.4 % (0.1-2.0); Eosinophils # 0.5 K/mm3 (0.0-0.4); Eosinophils % 5.1 % (0.1-12.0); Hematocrit 30.4 % (37.0-47.0); Lymphocytes # 1.2 K/mm3 (0.7-4.5); Lymphocytes % 12.3 % (10-50); Mean Corpuscular HGB Conc 32.9 g/dL (31.8-35.4); Mean Corpuscular Hemoglobin 31.1 pg (27.0-31.2); Mean Corpuscular Volume 94.4 fl (81-99); Mean Platelet Volume 11.2 fl (7.4-10.4); Monocytes # 0.9 K/mm3 (0.1-1.0); Monocytes % 9.4 % (1.7-9.3); Neutrophils # 6.9 K/mm3 (1.8-7.8); Neutrophils % 72.4 % (37.0-80.0); Platelet Count 282 K/mm3 (142-424); Red Blood Count 3.22 M/mm3 (4.20-5.40); Red Cell Distribution Width 13.4 % (11.5-17.5); White Blood Count 9.5 K/mm3 (4.8-10.8)
[2024-08-20 07:14] LABS: Albumin Level 3.2 g/dl (3.5-5.0); Chloride 110 mmol/L (98-107); Potassium 4.7 mmoL/L (3.5-5.1); Sodium 137 mmol/L (136-145)
[2024-08-20 07:16] LABS: Alanine Aminotransferase 37 U/L (12-78); Aspartate Amino Transferase 81 U/L (14-36); Blood Urea Nitrogen 43 mg/dl (7-17); Creatinine Clearance Estimated 16 mL/min (50-200); Estimated Glomerular Filt Rate 15 ml/min (>60); GFR (African American) 18 ML/MIN (>60)
[2024-08-20 07:17] LABS: Alkaline Phosphatase 139 U/L (38-126); Anion Gap 12.7 mEq/L (5-15); Bilirubin,Total 0.3 mg/dl (0.2-1.3); Calcium 8.5 mg/dl (8.4-10.2); Carbon Dioxide 19 mmol/L (22.0-30.0); Glucose 100 mg/dl (74-100); Magnesium 1.9 mg/dl (1.6-2.3); Total Protein,Serum 5.8 g/dl (6.3-8.2)
[2024-08-20 07:19] LABS: Albumin/Globulin Ratio 1.2 (1.1-1.8); Globulin 2.6 g/dL (1.3-3.2)
[2024-08-20 08:00] VITALS: BP 152/67; PULSE 70; RESP 17; TEMP 36.8; O2SAT 98
[2024-08-20] MEDS: ASPIRIN EC 81MG TABLET 81 MG PO (08:03)
[2024-08-20] MEDS: ENOXAPARIN 30MG/0.3ML SYRINGE 30 MG SUBCUT (08:03)
[2024-08-20] MEDS: METOPROLOL SUCCINATE XL 25MG TABLET 25 MG PO (08:03)
[2024-08-20] MEDS: RANOLAZINE 500MG ER TABLET 500 MG PO (08:03)
[2024-08-20] MEDS: CLOPIDOGREL 75MG TAB 75 MG PO (08:03)
--- NOTE | 2024-08-20 11:42 | EXP.DC.SUM ---
General Admission date:: 08/15/24 HPI HPI HPI: Keyonna Peralta is a 79-year-old female with a medical history significant for NSTEMI/CAD with stents in 2022, HFpEF, OLAF, PAD, type 2 diabetes, CKD who presents after a syncopal event today. Patient states she was dropping off her at [facility] today after he had fallen and fractured nonoperable hip. She states this has been especially stressful for her as has Parkinson's, has had recurrent falls, and ultimately broke her hip requiring SNF placement. She states she has not been eating or drinking as well over the past few days, and felt lightheaded today at the nursing facility and had an episode of syncope. She also endorses right-sided chest pain that is ongoing for 2 weeks without radiation, denies shortness of breath, abdominal pain, fever/chills. Workup in the ED significant for WBC 14.2, creatinine 2.6, troponin 0.14, BNP 7970. CT chest showed multiple bilateral noncalcified pulmonary nodules but no acute findings. Case discussed with ED provider and decision was made to admit patient for NSTEMI, ELDA. Hospital Course Hospital Course Hospital Course: Keyonna Peralta is a 79-year-old female with a medical history significant for NSTEMI/CAD with stents in 2022, HFpEF, OLAF, PAD, type 2 diabetes, CKD who presents after a syncopal event today. Patient states she was dropping off her at [facility] today after he had fallen and fractured nonoperable hip. She states this has been especially stressful for her as has Parkinson's, has had recurrent falls, and ultimately broke her hip requiring SNF placement. She states she has not been eating or drinking as well over the past few days, and felt lightheaded today at the nursing facility and had an episode of syncope. She also endorses right-sided chest pain that is ongoing for 2 weeks without radiation, denies shortness of breath, abdominal pain, fever/chills. Workup in the ED significant for WBC 14.2, creatinine 2.6, troponin 0.14, BNP 7970. CT chest showed multiple bilateral noncalcified pulmonary nodules but no acute findings. Case discussed with ED provider and decision was made to admit patient for NSTEMI, ELDA. #NSTEMI #History of CAD with stents, OLAF, PAD #HFrEF ? Two week onset of right-sided chest pain without radiation, shortness of breath. Troponins up peaked to 14, EKG without acute ischemic changes. ? Cardiology consulted, s/p PCI 08/16/2024 with MATILDA x 10 to RCA, LAD, LMA. Patient tolerated procedure well. However, due to contrast load patient developed contrast nephropathy. See below. ? Aspirin 81 mg, Plavix 75 mg, metoprolol succinate 25 mg, atorvastatin 40 mg daily. ? ECHO reveals LVEF 40%, with distal and apical akinetic deluna. GDMT at this time limited due to ELDA on CKD. Will follow-up with cardiology to start. ? A1c 6.4, LDL 56, TSH slightly elevated 6.16 but acceptable given significant CAD. ? Will follow-up with cardiology within 1 week. #Dehydration #ELDA on CKD stage III #Contrast nephropathy ? Hospital course complicated by contrast nephropathy, creatinine bumping to peak 3.7. Improved to 3.0 today. ? Hold home irbesartan, eplerenone, colchicine, allopurinol until follow-up BMP with cardiology in 1 week. #Hypertension ? Hold home irbesartan, eplerenone due to ELDA. #Type 2 diabetes ? A1c 6.4. ? Continue home glimepiride 1 mg. #Gout ? Hold home allopurinol due to ELDA. Total time spent on discharge: 32 minutes on chart review, counseling, documentation, and direct care with patient. Exam Data for Last 24 hours Vital signs and Labs for Last 24 Hours: Temp Pulse Resp BP Pulse Ox O2 Del Method O2 Flow Rate 98.3 F 70 17 152/67 H 98 Room Air 2 08/20/24 08:00 08/20/24 08:00 08/20/24 08:00 08/20/24 08:00 08/20/24 08:00 08/20/24 09:00 08/18/24 03:00 Laboratory Results - last 24 hr 08/19/24 17:20: Sodium 137, Potassium 4.9, Chloride 108 H, Carbon Dioxide 20 L, Anion Gap 13.9, BUN 50 H, Creatinine 3.10 H, Estimated Creat Clear 15, Estimated GFR 15 L*, Est GFR ( Amer) 18 L* D, Glucose 128 H D, Calcium 8.8 08/19/24 20:20: POC Glucose 151 H 08/20/24 05:05: POC Glucose 117 H 08/20/24 05:45: WBC 9.5, RBC 3.22 L, Hgb 10.0 L, Hct 30.4 L, MCV 94.4, MCH 31.1, MCHC 32.9, RDW 13.4, Plt Count 282, MPV 11.2 H, Neut % (Auto) 72.4, Lymph % (Auto) 12.3, [place] % (Auto) 9.4 H, Eos % (Auto) 5.1, Baso % (Auto) 0.4, Neut # (Auto) 6.9, Lymph # (Auto) 1.2, [place] # (Auto) 0.9, Eos # (Auto) 0.5 H, Baso # (Auto) 0.0, Sodium 137, Potassium 4.7, Chloride 110 H, Carbon Dioxide 19 L, Anion Gap 12.7, BUN 43 H, Creatinine 3.00 H, Estimated Creat Clear 16, Estimated GFR 15 L*, Est GFR ( Amer) 18 L*, Glucose 100 D, Calcium 8.5, Magnesium 1.9 D, Total Bilirubin 0.3, AST 81 H, ALT 37, Alkaline Phosphatase 139 H, Total Protein 5.8 L, Albumin 3.2 L, Globulin 2.6, Albumin/Globulin Ratio 1.2 I & O for Last 24 hours: Intake & Output 08/17/24 08/18/24 08/19/24 08/20/24 23:59 23:59 23:59 23:59 Intake Total 2213 / 2213 840 / 990 1170 / 1470 420 / 420 Output Total 350 / 600 250 / 250 500 / 500 300 / 300 Balance 1863 / 1613 590 / 740 670 / 970 120 / 120 Weight 66.31 kg 66.224 kg 64.546 kg 64.41 kg Constitutional Constitutional: no acute distress and obese *Routine HEENT Exam Head: Present normocephalic and atraumatic ENT: Present mucous membranes moist *Routine Neck Exam Neck: Present supple, full ROM and normal carotid upstroke; Absent JVD, carotid bruit or lymphadenopathy *Routine Respiratory Exam Respiratory: Present CTA bilaterally, normal respiratory effort, able to speak in complete sentences and symmetric chest movement *Routine Cardiovascular Exam Cardiovascular: Present RRR, Normal S1 and Normal S2; Absent murmur or gallop *Routine Abdominal Exam Abdominal: Present soft and normoactive bowel sounds; Absent tenderness, distended or organomegaly *Routine Extremities Exam Extremities: Present full ROM, pulses intact and normal capillary refill; Absent cyanosis, clubbing or edema *Routine Skin Exam Skin: Present intact and warm; Absent erythema *Routine Neurological Exam Neurological: Present alert, oriented X3 and CN II-XII intact; Absent sensory deficit or motor deficit Routine Psychiatric Exam Psychiatric: Present normal affect Results Data Completed and Pending Labs on day of discharge: Labs from last 24 hours 08/20/24 08/20/24 08/19/24 05:45 05:05 20:20 WBC 9.5 RBC 3.22 L Hgb 10.0 L Hct 30.4 L MCV 94.4 MCH 31.1 MCHC 32.9 RDW 13.4 Plt Count 282 MPV 11.2 H Neut % (Auto) 72.4 Lymph % (Auto) 12.3 [place] % (Auto) 9.4 H Eos % (Auto) 5.1 Baso % (Auto) 0.4 Neut # (Auto) 6.9 Lymph # (Auto) 1.2 [place] # (Auto) 0.9 Eos # (Auto) 0.5 H Baso # (Auto) 0.0 Sodium 137 Potassium 4.7 Chloride 110 H Carbon Dioxide 19 L Anion Gap 12.7 BUN 43 H Creatinine 3.00 H Estimated Creat Clear 16 Estimated GFR 15 L* Est GFR ( Amer) 18 L* Glucose 100 D POC Glucose 117 H 151 H Calcium 8.5 Magnesium 1.9 D Total Bilirubin 0.3 AST 81 H ALT 37 Alkaline Phosphatase 139 H Total Protein 5.8 L Albumin 3.2 L Globulin 2.6 Albumin/Globulin Ratio 1.2 08/19/24 17:20 WBC RBC Hgb Hct MCV MCH MCHC RDW Plt Count MPV Neut % (Auto) Lymph % (Auto) [place] % (Auto) Eos % (Auto) Baso % (Auto) Neut # (Auto) Lymph # (Auto) [place] # (Auto) Eos # (Auto) Baso # (Auto) Sodium 137 Potassium 4.9 Chloride 108 H Carbon Dioxide 20 L Anion Gap 13.9 BUN 50 H Creatinine 3.10 H Estimated Creat Clear 15 Estimated GFR 15 L* Est GFR ( Amer) 18 L* D Glucose 128 H D POC Glucose Calcium 8.8 Magnesium Total Bilirubin AST ALT Alkaline Phosphatase Total Protein Albumin Globulin Albumin/Globulin Ratio DS: Diagnosis Discharge Diagnosis (1) NSTEMI (non-ST elevated myocardial infarction): Status: Resolved Code(s): I21.4 - Non-ST elevation (NSTEMI) myocardial infarction Meds Home Medications and Allergies Home Medications ?Medication ?Instructions ?Recorded ?Confirmed ?Type aspirin 81 mg tablet,delayed 81 mg PO DAILY heart health #90 08/26/22 08/27/24 Rx release tabs colchicine 0.6 mg tablet 0.3 mg PO DAILY gout 01/05/23 08/27/24 History glimepiride 1 mg tablet 1 mg PO DAILY #30 tabs 07/11/23 08/27/24 Rx irbesartan 150 mg tablet 150 mg PO BID #60 tabs 06/04/24 08/27/24 Rx allopurinol 100 mg tablet 100 mg PO DAILY 08/15/24 08/27/24 History eplerenone 25 mg tablet (Inspra) 25 mg PO MOWEFR 08/15/24 08/27/24 History atorvastatin 40 mg tablet 40 mg PO HS #90 tabs 08/27/24 08/27/24 Rx clopidogrel 75 mg tablet 75 mg PO DAILY #90 tabs 08/27/24 08/27/24 Rx metoprolol succinate 50 mg 50 mg PO DAILY #90 tabs 08/27/24 08/27/24 Rx tablet,extended release 24 hr New Prescriptions to Start Prescriptions: Allergies Allergy/AdvReac Type Severity Reaction Status Date / Time orange Allergy Unknown ASTHMA Verified 08/27/24 09:27 FLARES UP Sulfa (Sulfonamide Allergy Unknown Unknown Verified 08/27/24 09:27 Antibiotics) (SULFA allergy (SULFONAMIDE ANTIBIOTICS)) reaction walnut (WALNUT) Allergy Unknown Unknown Verified 08/27/24 09:27 allergy reaction Discharge Plan Disposition Patient Disposition: Home, Self-Care Condition: Fair Discharge Order Discharge Orders: Discharge Order (Routine); Ordered 08/20/24 Ordered By: Carlos Lester Follow up Plan Follow up with: Pdero Pablo Aden PA [Physician [employer]] - 08/27/24 9:45 am Rhett Sage MD [Primary Care Provider] - 08/24/24 11:15 am Prescriptions/Medication Reconciliation: Continued aspirin 81 mg tablet,delayed release (DR/EC) 81 mg PO DAILY Qty: 90 3RF glimepiride 1 mg tablet 1 mg PO DAILY Qty: 30 2RF Held colchicine 0.6 mg tablet 0.3 mg PO DAILY Hold Instructions: Resume on 09/03/24. Hold this medication until follow-up with cardiology. Your kidney function bumped but is resolving. irbesartan 150 mg tablet 150 mg PO BID Qty: 60 11RF Hold Instructions: Resume on 09/03/24. Hold this medication until follow-up with cardiology. Your kidney function bumped but is resolving. allopurinol 100 mg tablet 100 mg PO DAILY Hold Instructions: Resume on 09/03/24. Hold this medication until follow-up with cardiology. Your kidney function bumped but is resolving. Rx Instructions: Take 1 tablet by mouth once daily eplerenone [Inspra] 25 mg tablet 25 mg PO MOWEFR Hold Instructions: Resume on 09/03/24. Hold this medication until follow-up with cardiology. Your kidney function bumped but is resolving. Discontinued atorvastatin 80 mg tablet 80 mg PO HS Rx Instructions: TAKE 1 TABLET BY MOUTH ONCE DAILY AT BEDTIME No Action metoprolol succinate 50 mg tablet extended release 24 hr 50 mg PO DAILY Qty: 90 3RF atorvastatin 40 mg tablet 40 mg PO HS Qty: 90 3RF clopidogrel 75 mg tablet 75 mg PO DAILY Qty: 90 3RF Other Ambulatory Orders: Basic Metabolic Panel (Routine) Timeframe: 20240822 Facility: [facility] - Location: Laboratory Ordered By: Carlos Lester Problem Reconciliation Problems Reviewed?: Yes Patient Discharge Instructions Patient Instructions: DI for Syncope in Adults (Fainting), Heart-Healthy Diet Print Language: [place] Providers Primary Care Provider: Rhett Sage Admit Provider: Carlos Lester Attending Provider: Carlos Lester
[2024-08-20] MEDS: POLYETHYLENE GLYCOL 3350 17 GM PACKET PO (11:44)
[2024-08-20] MEDS: BISACODYL 5MG TABLET 5 MG PO (11:45)
[2024-08-20 11:58] VITALS: BP 164/90; PULSE 63; RESP 18; TEMP 36.8; O2SAT 99
[2024-08-20 12:00] VITALS: PULSE 60
--- NOTE | 2024-08-20 12:52 | P.PN_ITS ---
Subjective Subjective Date: 08/20/24 Time: 09:30 Principal diagnosis: NSTEMI Interval history: 79-year-old white female who presented to the hospital with a non-STEMI. She underwent left cardiac catheterization and had 3 stents placed to her right coronary artery 1 stent to her left main and 6 stents placed to her LAD and first diagonal artery. The patient did have some contrast nephropathy following her procedure. Her creatinine peaked at 3.7 yesterday and is down to 3.0 today. She denies any chest pain or pressure. She denies any shortness of breath or edema. She denies any fever, chills, nausea, vomiting, diarrhea, PND orthopnea. She states that she is ready to be discharged home today. Exam Data for Last 24 hours Vital signs and Labs for Last 24 Hours: Temp Pulse Resp BP Pulse Ox O2 Del Method O2 Flow Rate 98.2 F 63 18 164/90 H 99 Room Air 2 08/20/24 11:58 08/20/24 11:58 08/20/24 11:58 08/20/24 11:58 08/20/24 11:58 08/20/24 12:27 08/18/24 03:00 Laboratory Results - last 24 hr 08/19/24 17:20: Sodium 137, Potassium 4.9, Chloride 108 H, Carbon Dioxide 20 L, Anion Gap 13.9, BUN 50 H, Creatinine 3.10 H, Estimated Creat Clear 15, Estimated GFR 15 L*, Est GFR ( Amer) 18 L* D, Glucose 128 H D, Calcium 8.8 08/19/24 20:20: POC Glucose 151 H 08/20/24 05:05: POC Glucose 117 H 08/20/24 05:45: WBC 9.5, RBC 3.22 L, Hgb 10.0 L, Hct 30.4 L, MCV 94.4, MCH 31.1, MCHC 32.9, RDW 13.4, Plt Count 282, MPV 11.2 H, Neut % (Auto) 72.4, Lymph % (Auto) 12.3, [place] % (Auto) 9.4 H, Eos % (Auto) 5.1, Baso % (Auto) 0.4, Neut # (Auto) 6.9, Lymph # (Auto) 1.2, [place] # (Auto) 0.9, Eos # (Auto) 0.5 H, Baso # (Auto) 0.0, Sodium 137, Potassium 4.7, Chloride 110 H, Carbon Dioxide 19 L, Anion Gap 12.7, BUN 43 H, Creatinine 3.00 H, Estimated Creat Clear 16, Estimated GFR 15 L*, Est GFR ( Amer) 18 L*, Glucose 100 D, Calcium 8.5, Magnesium 1.9 D, Total Bilirubin 0.3, AST 81 H, ALT 37, Alkaline Phosphatase 139 H, Total Protein 5.8 L, Albumin 3.2 L, Globulin 2.6, Albumin/Globulin Ratio 1.2 I & O for Last 24 hours: Intake & Output 08/17/24 08/18/24 08/19/24 08/20/24 23:59 23:59 23:59 23:59 Intake Total 2213 / 2213 840 / 990 1170 / 1470 420 / 420 Output Total 350 / 600 250 / 250 500 / 500 300 / 300 Balance 1863 / 1613 590 / 740 670 / 970 120 / 120 Weight 146 lb 3.016 oz 146 lb 142 lb 4.8 oz 142 lb Constitutional Constitutional: no acute distress and obese *Routine HEENT Exam Head: Present normocephalic and atraumatic ENT: Present mucous membranes moist *Routine Neck Exam Neck: Present supple, full ROM and normal carotid upstroke; Absent JVD, carotid bruit or lymphadenopathy *Routine Respiratory Exam Respiratory: Present CTA bilaterally, normal respiratory effort, able to speak in complete sentences and symmetric chest movement *Routine Cardiovascular Exam Cardiovascular: Present RRR, Normal S1 and Normal S2; Absent murmur or gallop *Routine Abdominal Exam Abdominal: Present soft and normoactive bowel sounds; Absent tenderness, distended or organomegaly *Routine Extremities Exam Extremities: Present full ROM, pulses intact and normal capillary refill; Absent cyanosis, clubbing or edema *Routine Skin Exam Skin: Present intact and warm; Absent erythema *Routine Neurological Exam Neurological: Present alert, oriented X3 and CN II-XII intact; Absent sensory deficit or motor deficit Routine Psychiatric Exam Psychiatric: Present normal affect Progress Note: A&P Assessment and plan (1) NSTEMI (non-ST elevated myocardial infarction): Status: Resolved (2) HFrEF (heart failure with reduced ejection fraction): Status: Acute (3) CAD in [place] artery: Status: Acute (4) PAD (peripheral artery disease): Status: Acute (5) Hypertension: Status: Acute (6) Hyperlipidemia: Status: Acute (7) Chronic renal insufficiency: Status: Acute (8) Diabetes: Status: Acute (9) Renal artery stenosis: Status: Acute (10) Contrast-induced nephropathy: Status: Acute Assessment and Plan Assessment and Plan for All Diagnoses:: Plan: 1. The patient was admitted to the hospital with a non-STEMI. Her troponin max was 14.4. She underwent left cardiac catheterization and had 3 stents to her right coronary artery, 1 stent to her left main and 6 stents to her LAD and first diagonal artery. She tolerated the procedure well. She will be on Plavix and aspirin for dual antiplatelet therapy. 2. The patient does have chronic kidney disease. On admission her creatinine was 2.6 which was up from her baseline of 1.4. She did have some contrast nephropathy following left cardiac catheterization and her creatinine peaked at 3.7 yesterday. Her creatinine is down to 3.0 today with no treatment. 3. Continue to hold SHARITA/ARB/ARNI due to the contrast nephropathy. 4. The patient does have HFrEF with an EF of 40%. Her diuretics are currently being held as well due to her contrast nephropathy. She denies any shortness of breath currently. 5. Her blood pressure is well-controlled. 6. Her LDL goal is less than 55. Her LDL is 56. She is on a statin. 7. Patient is diabetic. Her hemoglobin A1c is 6.4%. Will defer to the hospitalist. 8. The patient does have PAD. She states that she was having claudication symptoms prior to coming to the hospital. She states since stenting her legs feel better. If claudication continues to be an issue once she is discharged then we may have to do some further evaluation of her PAD once her kidney function has improved. 9. Renal artery stenosis is likely stable. 10. The patient can be discharged home today from a cardiac standpoint. She will need to be discharged on the following cardiac medications: Atorvastatin 40 mg p.o. nightly, aspirin 81 mg daily, metoprolol succinate 25 mg daily, Plavix 75 mg daily, Ranexa 500 mg p.o. twice daily. continue to hold SHARITA/ARB/ARNI, Will try to get this added on an outpatient basis once her renal function has improved. 11. The patient will need a repeat BMP on Tuesday of this week with follow-up in cardiology clinic on of this week with Pedro Pablo. Thank you for the opportunity to help dissipate in the care of this patient. All recommendations and orders are per Dr. Gastelum.
[2024-08-20 17:34] LABS: POC Glucose,Bedside 144 (70-110)
--- NOTE | 2024-08-22 11:07 | SW/DCPLANNER ---
Phoned patient x2. Patients phone had no voicemail sat up. Dillon Garber
== END 2024-08-20 14:40 | disposition home or self-care (01) | DRG 321 ==
LOC: ER 16:28 → 2ND 16:40 → ICU 08-16 15:29 → 2ND 08-16 20:18
PROVIDERS: Internal Medicine; Physician Assistant; Admitting Provider Student in an Organized Health Care Education/Training Program; Emergency Provider Emergency Medicine; PCP Family Medicine; Visit Provider Student in an Organized Health Care Education/Training Program
PROC: 027 Heart and Great Vessels, Dilation (ICD-10-PCS; principal; 2024-08-16 14:00)
DX: I21.4 Non-ST elevation (NSTEMI) myocardial infarction (principal); N17.9 Acute kidney failure, unspecified; N18.4 Chronic kidney disease, stage 4 (severe); I13.0 Hypertensive heart and chronic kidney disease with heart failure and stage 1 through stage 4 chronic kidney disease, or unspecified chronic kidney disease; I50.20 Unspecified systolic (congestive) heart failure; E78.5 Hyperlipidemia, unspecified; E11.22 Type 2 diabetes mellitus with diabetic chronic kidney disease; I25.10 Atherosclerotic heart disease of native coronary artery without angina pectoris; I70.1 Atherosclerosis of renal artery; N14.11 Contrast-induced nephropathy; Z86.718 Personal history of other venous thrombosis and embolism; Z95.5 Presence of coronary angioplasty implant and graft; Z95.828 Presence of other vascular implants and grafts; Z79.84 Long term (current) use of oral hypoglycemic drugs; Z79.82 Long term (current) use of aspirin; Z79.899 Other long term (current) drug therapy; Z88.2 Allergy status to sulfonamides; Z91.018 Allergy to other foods; E86.0 Dehydration; I25.2 Old myocardial infarction; E87.5 Hyperkalemia; M10.9 Gout, unspecified; I73.9 Peripheral vascular disease, unspecified; Z63.6 Dependent relative needing care at home; Z63.79 Other stressful life events affecting family and household; T50.8X5A Adverse effect of diagnostic agents, initial encounter; Y92.238 Other place in hospital as the place of occurrence of the external cause
CPT/HCPCS: 36415; 70450; 71045; 71250; 72125; 72128; 72131; 80048; 80053; 80061; 81001; 82550; 82570; 82607; 82728; 82962; 83036; 83540; 83550; 83735; 83880; 84145; 84436; 84439; 84443; 84479; 84484; 84540; 85007; 85025; 85347; 85610; 85730; 92928; 92929; 93005; 93306; 93454; 97163; 99152; 99153; 99285; C1725; C1769; C1874; C9600; C9601; J1200; J1644; J1650; J1920; J1939; J1940; J2250; J2405; J3010; J7120; Q9957; Q9967

== ENCOUNTER 2024-08-27 10:10 | Outpatient (CLI) | payer MEDICARE, OTHER, SELFPAY ==
[2024-08-27 10:45] LABS: Hemoglobin 10.9 g/dL (12.2-16.2); Mean Corpuscular HGB Conc 32.1 g/dL (31.8-35.4); Mean Corpuscular Hemoglobin 30.8 pg (27.0-31.2); Platelet Count 348 K/mm3 (142-424); Red Blood Count 3.54 M/mm3 (4.20-5.40); Red Cell Distribution Width 13.6 % (11.5-17.5); White Blood Count 12.3 K/mm3 (4.8-10.8)
[2024-08-27 11:21] LABS: Blood Urea Nitrogen 27 mg/dl (7-17); Calcium 9.1 mg/dl (8.4-10.2); Carbon Dioxide 26 mmol/L (22.0-30.0); Chloride 105 mmol/L (98-107); Estimated Glomerular Filt Rate 23 ml/min (>60); GFR (African American) 28 ML/MIN (>60); Glucose 110 mg/dl (74-100); Sodium 139 mmol/L (136-145); Uric Acid 7.7 mg/dl (2.5-6.2)
[2024-08-27 11:39] LABS: Free T4 (Free Thyroxine) 1.15 ng/dl (0.78-2.19)
[2024-08-27 11:46] LABS: Hemoglobin A1C 6.3 % (4.0-6.0)
[2024-08-27 11:53] LABS: Thyroid Stimulating Hormone 6.17 uIU/mL (0.465-4.68)
[2024-08-27 13:59] LABS: Ferritin 132 ng/ml (11.1-264)
== END 2024-08-27 23:59 | disposition home or self-care (01) ==
LOC: LAB 10:11
PROVIDERS: PCP Family Medicine; Visit Provider Family Medicine
DX: R79.89 Other specified abnormal findings of blood chemistry (principal); E08.22 Diabetes mellitus due to underlying condition with diabetic chronic kidney disease
CPT/HCPCS: 36415; 80048; 82728; 83036; 84439; 84443; 84550; 85027

== ENCOUNTER 2024-09-26 09:20 | Outpatient (CLI) | payer MEDICARE, OTHER, SELFPAY ==
[2024-09-26 10:14] LABS: Anion Gap 10.4 mEq/L (5-15); Blood Urea Nitrogen 25 mg/dl (7-17); Calcium 9.4 mg/dl (8.4-10.2); Carbon Dioxide 21 mmol/L (22.0-30.0); Chloride 115 mmol/L (98-107); Estimated Glomerular Filt Rate 29 ml/min (>60); GFR (African American) 35 ML/MIN (>60); Glucose 81 mg/dl (74-100); Potassium 4.4 mmoL/L (3.5-5.1); Sodium 142 mmol/L (136-145)
== END 2024-09-26 23:59 | disposition home or self-care (01) ==
PROVIDERS: PCP Family Medicine; Visit Provider Physician Assistant
DX: I12.9 Hypertensive chronic kidney disease with stage 1 through stage 4 chronic kidney disease, or unspecified chronic kidney disease (principal); N18.9 Chronic kidney disease, unspecified; E78.5 Hyperlipidemia, unspecified
CPT/HCPCS: 36415; 80048

== ENCOUNTER 2024-11-27 09:30 | Outpatient (CLI) | payer MEDICARE, OTHER, SELFPAY ==
--- OUTSIDE RECORDS SUMMARY | 2024-11-27 09:33 | XMS_ITS | Encounter Summary ---
Author Organization [facility] Address [address] [place] [address] Care Team Providers Care Bridge Inspector Name Role Phone Unavailable Primary Care Provider Unavailabl e Encounter Details Date Type Department Care Team (Late Contact Info) Description 11/21/2024 Orders Only [facility] [address] [place] [phone] Nuvia Rodríguez CKD (chronic kidney disease) stage 4, GFR 15-29 ml/min (CMS/HCC) (Primary Dx); Vitamin D insufficiency Social History Tobacco Use Types Packs/Day Years Used Date Smoking Tobacco: Never Assessed Comments Unknown Sex and Gender Information Value Date Recorded Sex Assigned at Not on file Legal Sex Female 1:30 PM EDT Gender Identity Not on file Sexual Orientation Not on file documented as of this encounter Plan of Treatment Upcoming Encounters Date Type Department Care Team (Late st Contact Info) Description 12/28/2024 11:00 AM EDT Office Visit [facility] [address] [place] [phone] Hanny Dejesus, TEAM MEMBER [address] [address] Scheduled Orders Name Type Priority Associated Diagnoses Orde r Schedule Renal Function Panel, Plasma Lab Routine CKD (chronic kidney disease) stage 4, GFR 15-29 ml/min (CMS/HCC) Expected: 11/21/2024 (Approximate), Expires: 05/24/2026 CBC and Differential Lab Routine CKD (chronic kidney disease) stage 4, GFR 15-29 ml/min (CMS/HCC) Expected: 11/21/2024 (Approximate), Expires: 05/24/2026 Creatinine, Random, Urine Lab Routine CKD (chronic kidney disease) stage 4, GFR 15-29 ml/min ([facility]) Expected: 11/21/2024 (Approximate), Expires: 05/24/2026 Protein, Random, Urine with Creatinine Lab Routine CKD (chronic kidney disease) stage 4, GFR 15-29 ml/min ([facility]) Expected: 11/21/2024 (Approximate), Expires: 05/24/2026 Urinalysis with reflex microscopic (Culture NOT Included) Lab Routine CKD (chronic kidney disease) stage 4, GFR 15-29 ml/min ([facility]) Expected: 11/21/2024 (Approximate), Expires: 05/24/2026 PTH Intact Total Lab Routine CKD (chronic kidney disease) stage 4, GFR 15-29 ml/min ([facility]) Vitamin D insufficiency Expected: 11/21/2024 (Approximate), Expires: 05/24/2026 Vitamin D 25 Hydroxy Lab Routine CKD (chronic kidney disease) stage 4, GFR 15-29 ml/min ([facility]) Vitamin D insufficiency Expected: 11/21/2024 (Approximate), Expires: 05/24/2026 documented as of this encounter Visit Diagnoses Diagnosis CKD (chronic kidney disease) stage 4, GFR 15-29 ml/min ([facility])- Primary Chronic kidney disease, Stage IV (severe) Vitamin D insufficiency documented in this encounter
--- OUTSIDE RECORDS SUMMARY | 2024-11-27 09:34 | XMS_ITS | Clinical Summary ---
Author Organization [facility] Address [address] [id number] Care Team Providers Care Glass Selector Name Role Phone Unavailable Primary Care Provider Unavailabl e Encounters Date Type Department Care Team Description 11/21/2024 Orders Only [facility] [address] [place] [phone] Nuvia Rodríguez CKD (chronic kidney disease) stage 4, GFR 15-29 ml/min (CMS/HCC) (Primary Dx); Vitamin D insufficiency from Last 3 Months Social History Tobacco Use Types Packs/Day Years Used Date Smoking Tobacco: Never Assessed Comments Unknown Sex and Gender Information Value Date Recorded Sex Assigned at Not on file Legal Sex Female 1:30 PM EDT Gender Identity Not on file Sexual Orientation Not on file Plan of Treatment Upcoming Encounters Date Type Department Care Team ([facility] st Contact Info) Description 12/28/2024 11:00 AM EDT Office Visit [facility] [address] [place] [phone] Hanny Dejesus, MENTAL HEALTH SPECIALIST [address] [address] Health Maintenance Due Date Last Done Comments [facility]-Bone Density Scan 1945 [facility]-Depression Screening 1945 [facility]-Hepatitis C Screening 1945 [facility]-Infant/Child/Adol SDOH Screenings 1945 [facility]- SDOH Screenings 01/12/1964 [facility]-Adult SDOH Screenings 01/12/1964 [facility]-DTaP,Tdap,and Td Vaccines (1 - Tdap) 1965 [facility]-Zoster Vaccines (1 of 2) 01/12/1996 [id number] Vaccine (2023- season) 2024 [facility]-Influenza Vaccine (#1) 01/21/202504/13, 04/12/2023, 02/25/2022 [facility]-RSV Vaccine: 60+ Years or Completed 04/12/2023 [facility]-Pneumococcal Vaccine: 50+ Years Completed 04/13/2024 HPV Vaccines Aged Out No longer eligi ble based on patient's age to complete this topic [facility]-HIB Vaccines Aged Out No longer e ligible based on patient's age to complete this topic [facility]-Hepatitis A Vaccines Aged Out No longer eligible based on patient's age to complete this topic [facility]-IPV Vaccines Aged Out No longer e ligible based on patient's age to complete this topic [facility]-Rotavirus Vaccines Aged Out No lo nger eligible based on patient's age to complete this topic
--- NOTE | 2024-11-27 09:35 | XR_ITS ---
FINAL REPORT TECHNIQUE: Chest PA & Lateral CLINICAL HISTORY: Nonspecific cough COMPARISON: 08/17/2024 FINDINGS: 2 views of the chest were performed. The heart size is mildly enlarged. The mediastinum is within normal limits. Chronic changes are noted at the lung bases. There is no acute cardiopulmonary process. There are no pleural effusions. There is no pneumothorax. The bony thorax appears intact. IMPRESSION: Chronic changes without acute cardiopulmonary process. Reviewed, Interpreted and Dictated by Juno Dunaway MD Transcribed by Mary Gillette Authenticated and [facility]
== END 2024-11-27 23:59 | disposition home or self-care (01) ==
LOC: LAB 09:32
PROVIDERS: PCP Family Medicine; Visit Provider Physician Assistant
DX: J45.41 Moderate persistent asthma with (acute) exacerbation (principal); I25.10 Atherosclerotic heart disease of native coronary artery without angina pectoris; I10 Essential (primary) hypertension; I65.23 Occlusion and stenosis of bilateral carotid arteries; Z95.5 Presence of coronary angioplasty implant and graft; R09.89 Other specified symptoms and signs involving the circulatory and respiratory systems
CPT/HCPCS: 71046; 87635

== ENCOUNTER 2024-12-25 10:28 | Outpatient (CLI) | payer MEDICARE, OTHER, SELFPAY ==
--- OUTSIDE RECORDS SUMMARY | 2024-12-25 10:32 | XMS_ITS | Encounter Summary ---
Author Organization [facility] Address [address] [place] [address] Care Team Providers Care Costing Manager Name Role Phone Unavailable Primary Care Provider Unavailabl e Encounter Details Date Type Department Care Team (Late st Contact Info) Description 11/21/2024 Orders Only [facility] [address] [place] [phone] [...] Description 12/28/2024 11:00 AM EDT Office Visit [facility] [address] [place] [phone] Hanny Dejesus, GEAR MACHINIST [address] [address] Scheduled Orders Name Type Priority [...] kidney disease) stage 4, GFR 15-29 ml/min ([facility]) Expected: 11/21/2024 (Approximate), Expires: 05/24/2026 Protein, Random, Urine with Creatinine Lab Routine CKD (chronic kidney disease) stage 4, GFR 15-29 ml/min ([facility]) Expected: 11/21/2024 (Approximate), Expires: 05/24/2026 Urinalysis with reflex microscopic (Culture NOT Included) Lab Routine CKD (chronic kidney disease) stage 4, GFR 15-29 ml/min ([facility]) Expected: 11/21/2024 (Approximate), Expires: 05/24/2026 PTH Intact Total Lab Routine CKD (chronic kidney disease) stage 4, GFR 15-29 ml/min ([facility]) Vitamin D insufficiency Expected: 11/21/2024 (Approximate), Expires: 05/24/2026 Vitamin D 25 Hydroxy Lab Routine CKD (chronic kidney disease) stage 4, GFR 15-29 ml/min ([facility]) Vitamin D insufficiency Expected: 11/21/2024 (Approximate), Expires: 05/24/2026 documented as of this encounter Visit Diagnoses Diagnosis CKD (chronic kidney disease) stage 4, GFR 15-29 ml/min ([facility])- Primary Chronic kidney disease, Stage IV (severe) Vitamin D insufficiency documented in this encounter
--- OUTSIDE RECORDS SUMMARY | 2024-12-25 10:32 | XMS_ITS | Clinical Summary ---
Author Organization [facility] Address [address] [id number] Care Team Providers Care Retail Client Solutions Analyst Name Role Phone Unavailable Primary Care Provider Unavailabl e Encounters Date Type Department Care Team Description 11/21/2024 Orders Only [facility] [address] [place] [phone] [...] Upcoming Encounters Date Type Department Care Team ([facility] st Contact Info) Description 12/28/2024 11:00 AM EDT Office Visit [facility] [address] [place] [phone] Hanny Dejesus, METAL FABRICATING INSPECTOR [address] [address] Health Maintenance Due Date Last Done Comments [facility]-Bone Density Scan 1945 [facility]-Depression Screening 1945 [facility]-Hepatitis C Screening 1946 [facility]-Medicare Annual Wellness (AWV) 1945 [facility]-/Child/Adol SDOH Screenings 1945 [facility]- SDOH Screenings 01/12/1964 [facility]-Adult SDOH Screenings 01/12/1964 [facility]-DTaP,Tdap,and Td Vaccines (1 - Tdap) 1965 [facility]-Zoster Vaccines (1 of 2) 01/12/1996 [id number] Vaccine (1 - 2023- season) 2024 [facility]-Influenza Vaccine (#1) 01/21/202504/13, 04/12/2023, [...] on patient's age to complete this topic Insurance MEDICARE
--- OUTSIDE RECORDS SUMMARY | 2024-12-25 10:32 | XMS_ITS | Encounter Summary ---
Author Organization [facility] Address [address] [place] [address] Care Team Providers Care Director Pharmaceutical Name Role Phone Rhett Sage MD Primary Care Provider + Encounter Details Date Type Department Care Team (Late st Contact Info) Description 09/01/2024 Results Follow-Up [facility] [address] [place] [address] Rhett Sage MD [address] [place] [address] Social History Tobacco Use Types Packs/Day Years Used Date Smoking Tobacco: Never Smokeless Tobacco: Never Alcohol Use Standard Drinks/Week Comments Never 0 (1 standard drink = 0.6 oz pur e alcohol) PHQ-2 Answer Date Recorded Retired PHQ-9: Brief Depression Severity Measure Score 1 04/12/2023 PHQ-2 Answer Date Recorded Patient Health Questionnaire-2 Score 0 04/13/2024 Comments Unknown Sex and Gender Information Value Date Recorded Sex Assigned at Not on file Legal Sex Female 2:47 PM EDT Gender Identity Not on file Sexual Orientation Not on file documented as of this encounter Plan of Treatment Upcoming Encounters Date Type Department Care Team (Late st Contact Info) Description 05/03/2025 2:15 PM EST Office Visit [facility] [address] [place] [address] Rhett Sage MD [address] [place] [address] documented as of this encounter Visit Diagnoses Not on filedocumented in this encounter Care Teams Director Pharmaceutical Relationship Specialty Start Date End Date Rhett Sage MD [address] [place] [address] PCP - General Family Medicine 02/25/22 documented as of this encounter
--- OUTSIDE RECORDS SUMMARY | 2024-12-25 10:32 | XMS_ITS | Clinical Summary ---
Author Organization [facility] Address [address] [place] [address] Care Team Providers Care Rubber Gasket Inspector Trimmer Name Role Phone Rhett Sage MD Primary Care Provider + Allergies Active Allergy Reactions Criticality Noted Date Comments Sulfa Antibiotics Unknown - Low Severity 2021 Told this from childhood Medications aspirin 81 MG EC tablet Take 1 tablet by mouth Daily. Active ketoconazole (NIZORAL) 2 % creamIndications :Dermatitis Apply 1 application topically to the appropriate area as directed Daily. 30 g 1 3 Active eplerenone (INSPRA) 25 MG tablet 4 Active irbesartan (AVAPRO) 150 MG tablet Take 1 tablet by mouth Every 12 (Twelve) Hours. 4 Active atorvastatin (LIPITOR) 40 MG tablet Take 1 tablet by mouth every night at bedtime. 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 90 tablet 3 5 Active allopurinol (ZYLOPRIM) 100 MG tablet Take 1 tablet by mouth Daily. Active metoprolol succinate XL (TOPROL-XL) 50 MG 24 hr tablet Take 1 tablet by mouth Daily. 5 Active glimepiride (AMARYL) 1 MG tabletIndication s:Type 2 diabetes mellitus with diabetic peripheral angiopathy without gangrene, without long-term current use of insulin Take 1 tablet by mouth Every Morning Before Breakfast. 90 tablet 1 5 Active triamcinolone (KENALOG) 0.1 % creamIndications :Dermatitis Apply 1 Application topically to the appropriate area as directed 2 (Two) Times a Day. 30 g 5 Active dapagliflozin Propanediol 10 MG tabletIndication s:Type 2 diabetes mellitus with stage 3b chronic kidney disease, without long-term current use of insulin,Stage 3b chronic kidney disease (CKD) Take 10 mg by mouth Daily. 30 tablet 5 5 Active colchicine 0.6 MG tabletIndication s: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 knee Take 1/2 (one-half) tablet by mouth once daily 45 tablet 3 5 Active Active Problems Problem Noted Date Diagnosed Date Left ventricular systolic dysfunction 10/05/2024 Stage 3b chronic kidney disease (CKD) 07/12/2022 Coronary artery disease invo lving cher-ae heights coronary artery of cher-ae [place] heart with unstable angina pectoris 07/12/2022 Diabetes mellitus type 2 with peripheral artery disease 02/25/2022 Assessment & Plan (04/13/2024 9:58 AM EST): Type 2 diabetes mellitus wit h chronic kidney disease, without long-term current use of insulin 02/25/2022 Encounters Date Type Department Care Team Description 10/20/2024 Refill [facility] [address] [address] Rhett Sage MD 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 knee 10/05/2024 3:45 PM EDT Office Visit [facility] [address] [address] Rhett Sage MD Type 2 diabetes mellitus with stage 3b chronic kidney disease, without long-term current use of insulin (Primary Dx); Stage 3b chronic kidney disease (CKD); Type 2 diabetes mellitus with diabetic peripheral angiopathy without gangrene, without long-term current use of insulin; Dermatitis; 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; Left ventricular systolic dysfunction 10/05/2024 Travel from Last 3 Months Immunizations Immunization Administration Dates Next Due Arexvy (RSV, Adults 60+ yrs) 04/12/2023 Fluzone High-Dose 65+YRS 04/13/2024 Fluzone High-Dose 65+yrs 04/12/2023,02/25/2022 Pneumococcal Conjugate 20-Valent (PCV20) 024 Family History Medical History Relation Name Comments No Known Problems Father Melanoma Mother Relation Name Status Comments Father Mother Social History Tobacco Use Types Packs/Day Years [...] on file Sexual Orientation Not on file Last Filed Vital Signs Vital Sign Reading Time Taken Comments Blood Pressure 130/70 10/05/2024 3:32 PM EDT Pulse 53 10/05/2024 3:32 PM EDT Temperature 36.4 C (97.5 F) 10/05/2024 3:32 PM EDT Respiratory Rate 24 10/05/2024 3:32 PM EDT Oxygen Saturation 98% 10/05/2024 3:32 PM EDT Inhaled Oxygen Concentration - - Weight 64.9 kg (143 lb) 10/05/2024 3:32 PM EDT Height 144.8 cm (4' 9 ) 10/05/2024 3:32 PM EDT Body Mass Index 30.94 10/05/2024 3:32 PM EDT Plan of Treatment Upcoming Encounters Date Type Department Care Team (Late st Contact Info) Description 05/03/2025 2:15 PM EST Office Visit [facility] [address] [address] Rhett Sage MD [address] [address] Health Maintenance Due Date Last Done Comments DXA SCAN 1945 DIABETIC EYE EXAM 01/12/1956 DIABETIC FOOT EXAM 01/12/1956 TDAP/TD VACCINES (1 - Tdap) 1965 ZOSTER VACCINE (1 of 2) 01/12/1996 HEPATITIS C SCREENING 02/22/2022 COVID-19 Vaccine (1 - 2023-2 5 season) 2024 HEMOGLOBIN A1C 10/11/2024 04/13/2024, 05/2 05/2023, 04/12/2023, Additional history exists INFLUENZA VACCINE 02/20/2025 04/13/2024, , 02/25/2022, Additional history exists ANNUAL WELLNESS VISIT 04/13/2025 04/13/2024 , 04/13/2024, 04/12/2023 URINE MICROALBUMIN-CREATININ E RATIO (uACR) 10/05/2025 10/05/2024 RSV Vaccine - Adults Completed 04/12/2023 Pneumococcal Vaccine 50+ Completed 04/13/2024 Procedures Procedure Name Priority Date/Time Associated Diagnosis Comments SCANNED - LABS 11/27/2024 SCANNED - IMAGING 11/27/2024 POC ALBUMIN/CREATININE RATIO Routine 10/05/2024 4:16 PM EDT Type 2 diabetes mellitus with stage 3b chronic kidney disease, without long-term current use of insulin SCANNED - LABS 09/26/2024 POCT GLYCOSYLATED HEMOGLOBIN (HGB A1C) Routine 04/13/2024 9:23 AM EST Type 2 diabetes mellitus with diabetic peripheral angiopathy without gangrene, without long-term current use of insulin from Last 3 Months or Most Recently Relevant to Health Maintenance Results * IMAGING SCANNED (11/27/2024) Anatomical Region Laterality Modality Radiographic Aditi ging Rhett Sage MD IMG DIAGNOSTIC IMAGING O RDERABLES Final Result * LABS SCANNED (11/27/2024) Only the most recent of2 resultswithin the time period is included. Rhett Sage MD LAB BLOOD ORDERABLES Fin al Result * (ABNORMAL) POC Albumin/Creatinine Ratio Urine (10/05/2024 4:16 PM EDT) POC ALBUMIN, URINE 150 mg/L mg/L POC CREATININE, URINE 100 mg/dL mg/dL POC Urine Albumin Creatinine Ratio > 300 mg/g <30 Comment:high abnormal Lot Number [id number] Expiration Date 06/22/2025 Urine 10/05/2024 4:16 PM EDT Rhett Sage MD POINT OF CARE TEST ORDER NEREYDA Final Result * (ABNORMAL) POC Glycosylated Hemoglobin (Hb A1C) (04/13/2024 9:23 AM EST) Hemoglobin A1C 6.3(A) 4.5 - 5.7 % [facility] Lot Number [id number] [facility] Expiration Date 12/28/2025 [facility] Blood 04/13/2024 9:23 AM EST Rhett Sage MD POINT OF CARE TEST ORDER NEREYDA Final Result [facility]
[address] [place] [id number], from Last 3 Months or Most Recently Relevant to Health Maintenance Insurance MEDICARE A & B Member Subscriber Plan / Payer (Ef fective 2010-Present) Name:Keyonna Peralta Member ID:[id number] Relation to Subscriber:Self Name:Keyonna Peralta Subscriber ID:[id number] Payer ID:[id number] Group ID:Not on file Type:Not on file Address: [facility] [id number] [address] [place] [id number] Care Teams Rubber Gasket Inspector Trimmer Relationship Specialty Start Date End Date Rhett Sage MD [address] [place] [address] PCP - General Family Medicine 02/25/22
[2024-12-25 10:36] LABS: Microscopic, Urine URINE MICROSCOPIC (MICROSCOPIC)
[2024-12-25 10:54] LABS: Bilirubin,Urine Negative (Negative); Color,Urine YELLOW (Yellow); Glucose,Urine (UA) Negative (Negative); Hematocrit 36.6 % (37.0-47.0); Hemoglobin 11.4 g/dL (12.2-16.2); Immature Granulocytes % 0.5 %; Ketones,Urine Negative (Negative); Leukocyte Esterase,Urine 1+ (Negative); Mean Corpuscular HGB Conc 31.1 g/dL (31.8-35.4); Mean Corpuscular Hemoglobin 28.9 pg (27.0-31.2); Mean Corpuscular Volume 92.9 fl (81-99); Nucleated Red Blood Cells % 0 %; PH,Urine 5.5 (5.0-8.5); Platelet Count 212 K/mm3 (142-424); Protein,Urine 3+ (Negative); Red Blood Count 3.94 M/mm3 (4.20-5.40); Red Cell Distribution Width-SD 51.8 fL; Specific Gravity, Urine 1.025 (1.005-1.030); Urobilinogen,Urine 0.2 EU/dl (0.2); White Blood Count 7.5 K/mm3 (4.8-10.8)
[2024-12-25 11:18] LABS: Bacteria,Urine Trace /lpf; Hyaline Casts,Urine OCC #/lpf (0)
[2024-12-25 11:29] LABS: Albumin Level 3.4 g/dl (3.5-5.0); Anion Gap 10.5 mEq/L (5-15); Blood Urea Nitrogen 27 mg/dl (7-17); Calcium 9.3 mg/dl (8.4-10.2); Carbon Dioxide 21 mmol/L (22.0-30.0); Chloride 113 mmol/L (98-107); Creatinine,Serum 2.00 mg/dl (0.52-1.04); Estimated Glomerular Filt Rate 24 ml/min (>60); GFR (African American) 29 ML/MIN (>60); Glucose 65 mg/dl (74-100); Phosphorous 4.7 mg/dl (2.5-4.5); Potassium 5.5 mmoL/L (3.5-5.1); Sodium 139 mmol/L (136-145)
[2024-12-25 11:48] LABS: 25-OH Vitamin D, Total 24.1 ng/mL (30-100)
== END 2024-12-25 23:59 | disposition home or self-care (01) ==
LOC: LAB 10:29
PROVIDERS: PCP Family Medicine; Visit Provider Nurse Practitioner
DX: N18.4 Chronic kidney disease, stage 4 (severe) (principal)
CPT/HCPCS: 36415; 80069; 81001; 82306; 82570; 83970; 84156; 85025; 87086

== ENCOUNTER 2025-02-03 12:53 | Emergency (ER) | payer MEDICARE, OTHER, SELFPAY ==
--- OUTSIDE RECORDS SUMMARY | 2024-12-28 11:00 | XMS_ITS | Encounter Summary ---
Author Organization [facility] Address [address] [place] [address] Care Team Providers Care Ethics Manager Name Role Phone Rhett Sage MD Primary Care Provider [phone] Reason for Referral * Imaging (Routine) - Authorized Specialty Diagnoses / Procedures Referred By Contricardo t Referred To Contact Cardiology Diagnoses Renal artery stenosis (CMS/HCC) Procedures [facility] Renal Artery Duplex Hanny Dejesus APRN [address] [address] Phone: tel: fax: Referral ID Status Reason Start Date Expiration Date Visits Requested Visits Authorized [id number] Authorized Perform Procedure 12/28/2024 06/29/2026 1 1 Reason for Visit * Reason Comments Consult Pt is a 79 year old female that presents to the clinic on this date as a new patient. PT denies any complaints or concerns at the current moment. Pt denies pain at the current moment as well. Encounter Details Date Type Department Care Team (Late st Contact Info) Description 12/28/2024 11:00 AM EDT Office Visit [facility] [address] [place] [id number] Hanny Dejesus APRN [address] [address] Stage 3b chronic kidney disease (CMS/HCC) (Primary Dx); Heart failure with reduced ejection fraction (CMS/HCC); Coronary artery disease involving habematolel heart, unspecified vessel or lesion type, unspecified whether angina present; Renal artery stenosis ([facility]); Proteinuria, unspecified type; Chronic kidney disease-mineral and bone disorder; Diabetes mellitus due to underlying condition with diabetic chronic kidney disease, unspecified CKD stage, unspecified whether terminal worker insulin use ([facility]); Hyperkalemia; 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 Never 12/26/2024 Q2: How many drinks containi ng alcohol do you have on a typical day when you are drinking? Patient does not drink Q3: How often do you have si x or more drinks on one occasion? Never 12/26/2024 Comments No Sex and Gender Information Value Date Recorded Sex Assigned at Not on file Legal Sex Female 1:30 PM EDT Gender Identity Not on file Sexual Orientation Not on file documented as of this encounter Last Filed Vital Signs Vital Sign Reading Time Taken Comments Blood Pressure 138/64 12/28/2024 11:10 AM EDT Pulse 68 12/28/2024 11:10 AM EDT Temperature - - Respiratory Rate 18 12/28/2024 11:10 AM EDT Oxygen Saturation 99% 12/28/2024 11:10 AM EDT Inhaled Oxygen Concentration - - Weight 60.3 kg (133 lb) 12/28/2024 11:10 AM EDT Height 144.8 cm (4' 9 ) 12/28/2024 11:10 AM EDT Body Mass Index 28.78 12/28/2024 11:10 AM EDT documented in this encounter Miscellaneous Notes * Progress Notes - Hanny Dejesus APRN - 12/28/2024 11:00 AM EDT Nephrology Outpatient Consult Note Reason for referral: CKD evaluation Referring Provider: Rhett Sage MD HPI: Keyonna Peralta is a 79 y.o. female with PMH of Dm, HTN, CAD, HFrEF, renal artery stenosis s/p bilateral stents, and CKD who presents as a new consult at the request of Rhett Sage MD Patient with known CKD creatinine baseline 1.7-2 prior to 08/2024. In August she was admitted with [place]. She underwent LCA and stenting. Her creatinine pk at 3.7 during her hospitalization. Her creatinine has been 2.2-2.4 post hospitalization. She has had bilateral renal artery stenting. She is unsure of dates/situation. Her EF is noted to be 40%. History of not tolerating Farxiga due to increased UTIs. Denies NSAID use. +neuropathy, +retinopathy. She notes her recently was admitted to the [place]. She is living alone. She states she is feeling ok. Her appetite has decreased over the last few months. She denies any edema. Denies hematuria, dysuria, abd pain, SOA, CP. I have personally reviewed records from referring provider and other consultants. REVIEW OF SYSTEMS A complete 14-point review of systems was obtained and is negative except as reported in the HPI Past Medical History[1] Surgical History[2] Family History[3] Social History Tobacco Use Smoking status: Never Passive exposure: Never Smokeless tobacco: Never Substance Use Topics Alcohol use: Never Medications Current Medications[4] Allergies[5] PHYSICAL EXAMINATION Visit Vitals Smoking Status Never GA: well developed, well nourished, conversant, NAD EYES: Anicteric sclera, no injection, no discharge HENT: Head is normocephalic and atraumatic. Mucous membranes are moist. NECK: Supple. No visible masses or thyromegaly RESP: Normal resp effort. Lungs clear to auscultation bilaterally. No wheezing, rhonchi or crackles CV: Heart RRR, no murmurs or rubs GI: Abdomen soft, non tender, and non distended. Positive bowel sounds. : No suprapubic tenderness, no CVA tenderness MSK/Ext: No edema. No joint swelling. No cyanosis or clubbing NEURO: Grossly intact. No focal deficits. Cooperative PSYCH: Appropriate mood and affect, AAO SKIN: Normal temperature. No rash or ulcers. No jaundice LAB AND IMAGING RESULTS I have independently reviewed and interpreted the test results and discussed with patient. Labs scanned in to media tab of [employer] from an outside facility. Labs completed on 12/25/24 ASSESSMENT/PLAN CKD 3b ELDA 08/2024 pk cr 3.7, now 2 likely new baseline CARRIE- s/p bilateral stenting, imaging unknown DM Documented noncompliance Proteinuria HTN Gout CAD HFrEF Hyperkalemia Creatinine baseline prior to August 21.-2. ELDA with pk cr 3.7 in 08/2024. Creatinine now down to 2. Noted hyperkalemia. States she has been eating a lot of bananas and tomatoes as of late. Discussed with Cardiology [place] PRETTY. Will reduce elperenone to once a day. If remains >5 will stop eplerenone. Discussed need to have low K diet. Risks of SCD reviewed. Patient noted she was on allopurinol and colchicine daily. Discussed colchicine was a treatment medwhen symptoms were present. She notes she has not had a flare for a few years. Discussed need to taper dose as to not induce a flare. Gradual reduction schedule given to patient-- reduce to every other day for a week, then MWF, then TTH, then stop. Continue allopurinol. No recent imaging for renal stents noted in local charting, will order renal duplex ultrasound. RFP in 2 weeks to check potassium, if >5 stop eplerenone (guidance along with local [employer] Associate) Limit dietary K, stop daily multivitamin Pr/cr >7 with tr blood in UA. Likely related to DM, however will do additional testing prior to next visit. RTC in 3 months Hanny Dejesus APRN [1] Past Medical History: Diagnosis Date Diabetes (CMS/HCC) Heart murmur HLD (hyperlipidemia) HTN (hypertension) Renal artery stenosis (CMS/HCC) Renal insufficiency [2] Past Surgical History: Procedure Laterality Date CORONARY STENT PLACEMENT HERNIA REPAIR RENAL ARTERY STENT [3] Family History Problem Relation Name Age of Onset Heart attack Father [4] Current Outpatient Medications Medication Sig Dispense Refill allopurinol (Zyloprim) 100 MG tablet Take 1 tablet by mouth daily. aspirin 81 MG EC tablet Take 1 tablet by mouth daily. atorvastatin (Lipitor) 40 MG tablet Take 1 tablet by mouth daily. clopidogrel (Plavix) 75 MG tablet Take 1 tablet by mouth daily. colchicine (Colcrys) 0.6 MG tablet Take 1 tablet by mouth daily. eplerenone (Inspra) 25 MG tablet Take 1 tablet by mouth daily. glimepiride (Amaryl) 1 MG tablet Take 1 tablet by mouth daily before breakfast. irbesartan (Avapro) 150 MG tablet Take 1 tablet by mouth 2 times a day. metoprolol succinate XL (Toprol-XL) 25 MG 24 hr tablet Take 1 tablet by mouth daily. Do not crush or chew. No current facility-administered medications for this visit. [5] Allergies Allergen Reactions [place] Other - please document in the comment field Asthma flares up Sulfa Drugs Unknown - Patient states they do not know rxn details [place] Unknown - Patient states they do not know rxn details documented in this encounter Plan of Treatment Upcoming Encounters Date Type Department Care Team (Late st Contact Info) Description 04/05/2025 12:20 PM EST Office Visit [facility] [address] [facility] [address] [place] [address] Hanny Dejesus APRN [address] [address] Scheduled Orders Name Type Priority Associated Diagnoses Order Schedule VAS US Renal Artery Duplex Vascular Ultrasound Routine Renal artery stenosis ([facility]) 1 Occurrences starting 12/28/2024 until 07/01/2026 Renal function panel Lab Routine Hyperkalemia Expected: 2025 (Approximate), Expires: 07/01/2026 Renal Function Panel, Plasma Lab Routine Stage 3b chronic kidney disease ([facility]) Expected: 03/30/2025 (Approximate), Expires: 06/30/2026 CBC W/O Differential Lab Routine Stage 3b chronic kidney disease ([facility]/HCC) Expected: 03/30/2025 (Approximate), Expires: 06/30/2026 PTH Intact Total Lab Routine Stage 3b chronic kidney disease ([facility]/HCC) Expected: 03/30/2025 (Approximate), Expires: 06/30/2026 Vitamin D 25 Hydroxy Lab Routine Stage 3b chronic kidney disease ([facility]/HCC) Expected: 03/30/2025 (Approximate), Expires: 06/30/2026 Albumin-creatinine ratio, urine, random Lab Routine Stage 3b chronic kidney disease ([facility]) Expected: 03/30/2025 (Approximate), Expires: 06/30/2026 Urinalysis with reflex microscopic (Culture NOT Included) Lab Routine Stage 3b chronic kidney disease ([facility] Expected: 03/30/2025 (Approximate), Expires: 06/30/2026 Protein, Random, Urine with Creatinine Lab Routine Stage 3b chronic kidney disease ([facility] Expected: 03/30/2025 (Approximate), Expires: 06/30/2026 Uric Acid, Plasma Lab Routine Stage 3b chronic kidney disease ([facility] Expected: 12/28/2024 (Approximate), Expires: 06/30/2026 Antinuclear Antibody ([facility]), HEp-2, IgG Lab Routine Stage 3b chronic kidney disease ([facility] Expected: 12/28/2024 (Approximate), Expires: 06/30/2026 C3 Complement Lab Routine Stage 3b chronic kidney disease ([facility] Expected: 12/28/2024 (Approximate), Expires: 06/30/2026 C4 Complement Lab Routine Stage 3b chronic kidney disease ([facility] Expected: 12/28/2024 (Approximate), Expires: 06/30/2026 Protein electrophoresis, serum Lab Routine Stage 3b chronic kidney disease ([facility] Expected: 12/28/2024 (Approximate), Expires: 06/30/2026 Immunofixation Electrophoresis Lab Routine Stage 3b chronic kidney disease ([facility] Expected: 12/28/2024 (Approximate), Expires: 06/30/2026 [place] Lambda Quant Free Light Chains w/Ratio Lab Routine Stage 3b chronic kidney disease ([facility] Expected: 12/28/2024 (Approximate), Expires: 06/30/2026 documented as of this encounter Visit Diagnoses Diagnosis Stage 3b chronic kidney disease ([facility] Primary Heart failure with reduced ejection fraction ([facility]) Coronary artery disease involving habematolel heart, unspecified vessel or lesion type, unspecified whether angina present Renal artery stenosis ([facility]) Atherosclerosis of renal artery Proteinuria, unspecified type 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, unspecified CKD stage, unspecified whether alf insulin use ([facility]) Hyperkalemia Hyperpotassemia 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
[2025-02-03] VITALS (7 sets, daily range): BP systolic 164–220; BP diastolic 64–81; PULSE 54–62; RESP 15–17; TEMP 36.7–36.9; O2SAT 96–99; BMI 29.6
--- OUTSIDE RECORDS SUMMARY | 2025-02-03 13:04 | XMS_ITS | Encounter Summary ---
Author Organization [facility] Address [address] [place] [address] Care Team Providers Care Charter Representative Name Role Phone Rhett Sage MD Primary Care Provider + Reason for Visit * Reason Onset Date Comments NEW PRESCRIPTION 01/17/2025 Encounter Details Date Type Department Care Team (Late st Contact Info) Description 01/17/2025 Telephone [facility] [address] [place] [address] Rhett Sage MD [address] [place] [address] NEW PRESCRIPTION Social History Tobacco Use Types Packs/Day Years [...] on file documented as of this encounter Miscellaneous Notes * Telephone Encounter - Rhett Sage MD - 01/17/2025 1:43 PM EDT A prescription has been sent to the patient's pharmacy * Telephone Encounter - Aba Galloway RegSched Rep - 01/17/2025 8:07 AM EDT Caller: Keyonna Peralta Relationship: Self Best call back number: [phone] What medication are you requesting: SOMETHING FOR PAIN FROM GOUT What are your current symptoms: PAIN FROM GOUT How long have you been experiencing symptoms: STARTED UP AGAIN TODAY Have you had these symptoms before: [x] Yes [] No Have you been treated for these symptoms before: [x] Yes [] No If a prescription is needed, what is your preferred pharmacy and phone number: [facility] [address] [place], [place] [address] [phone] [facility] [phone] Additional notes: PT STATED HER PRODUCTION SOLDERER TOLD HER TO STOP TAKING HER colchicine 0.6 MG tablet DUE TO RAISING HER POTASIUM. PT STATED SHE STARTED WITH FOOT PAIN AT 2 AM TODAY. PT IS HAVING CATARACT SURGERY TODAY 01-17-25 AND TOMORROW 01-18-25 AND IS ASKING FOR PAIN MEDICATION FOR THE GOUT. documented in this encounter Plan of Treatment Upcoming Encounters Date Type Department Care Team (Late st Contact Info) Description 05/03/2025 2:15 PM EST Office Visit [facility] [address] [place] [place] [phone] Rhett Sage MD [address] [place] [address] documented as of this encounter Visit Diagnoses Not on filedocumented in this encounter Care Teams Charter Representative Relationship Specialty Start Date End Date Rhett Sage MD [address] [place] [address] PCP - General Family Medicine 02/25/22 documented as of this encounter
--- OUTSIDE RECORDS SUMMARY | 2025-02-03 13:04 | XMS_ITS | Clinical Summary ---
Author Organization [facility] Address [address] [id number] Care Team Providers Care Soubrette Name Role Phone Rhett Sage MD Primary Care Provider [phone] Allergies Active Allergy Reactions Criticality Noted Date Comments [place] Other - please docum ent in the comment field Medium 12/26/2024 Asthma flares up Sulfa Drugs Unknown - Patient st ates they do not know rxn details Low 12/26/2024 [place] Unknown - Patient st ates they do not know rxn details Low 12/26/2024 Medications allopurinol (Zyloprim) 100 MG tablet Take 1 tablet by mouth daily. Active aspirin 81 MG EC tablet Take 1 tablet by mouth daily. Active atorvastatin (Lipitor) 40 MG tablet Take 1 tablet by mouth daily. Active clopidogrel (Plavix) 75 MG tablet Take 1 tablet by mouth daily. Active colchicine (Colcrys) 0.6 MG tablet Take 1 tablet by mouth daily. Active eplerenone (Inspra) 25 MG tablet Take 1 tablet by mouth daily. Active glimepiride (Amaryl) 1 MG tablet Take 1 tablet by mouth daily before breakfast. Active irbesartan (Avapro) 150 MG tablet Take 1 tablet by mouth 2 times a day. Active metoprolol succinate XL (Toprol-XL) 25 MG 24 hr tablet Take 1 tablet by mouth daily. Do not crush or chew. Active irbesartan (Avapro) 150 MG tablet Take 1 tablet by mouth nightly. Active Encounters Date Type Department Care Team Description 12/28/2024 11:00 AM EDT Office Visit [facility] [address] [place] [address] Oleg, Hanny F, MOLD CONSTRUCTION SUPERVISOR Stage 3b chronic kidney disease ([facility]) (Primary Dx); Heart failure with reduced ejection fraction ([facility]); Coronary artery disease involving [place] heart, unspecified vessel or lesion type, unspecified whether angina present; Renal artery stenosis ([facility]); Proteinuria, unspecified type; Chronic kidney disease-mineral and bone disorder; Diabetes mellitus due to underlying condition with diabetic chronic kidney disease, unspecified CKD stage, unspecified whether continuous loft operator insulin use ([facility]); Hyperkalemia; 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, unspecified chronicity, unspecified laterality 12/28/2024 Travel 11/21/2024 Orders Only [facility] [address] [place] [address] Nuvia Rodríguez CKD (chronic kidney disease) stage 4, GFR 15-29 ml/min ([facility]) (Primary Dx); Vitamin D insufficiency from Last 3 Months Family History Medical History Relation Name Comments Heart attack Father Relation Name Status Comments Father Social History Tobacco Use Types Packs/Day Years [...] Mass Index 28.78 12/28/2024 11:10 AM EDT Plan of Treatment Upcoming Encounters Date Type Department Care Team (Late st Contact Info) Description 04/05/2025 12:20 PM EST Office Visit [facility] [address] [place] [address] Hanny Dejesus, MOLD CONSTRUCTION SUPERVISOR [address] [address] Health Maintenance Due Date Last Done Comments [facility]-Bone Density Scan 1945 [facility]-Depression Screening 1945 [facility]-Hepatitis C Screening 1945 [facility]-Medicare Annual Wellness (AWV) 1945 [facility]-/Child/Adol SDOH Screenings 1945 Diabetes: Dental Exam 01/12/1956 [facility]- SDOH Screenings 01/12/1964 [facility]-Adult SDOH Screenings 01/12/1964 [facility]-DTaP,Tdap,and Td Vaccines (1 - Tdap) 1965 [facility]-Zoster Vaccines (1 of 2) 01/12/1996 [facility]-Diabetes: Hemoglobin A1C 10/11/2024 04/13/2024, 10/11/2023, 04/12/2023, Additional history exists [id number] Vaccine ( - season) 2025 [facility]-Influenza Vaccine (#1) 01/21/202504/13, 04/12/2023, 02/25/2022 [facility]-RSV Vaccine: 60+ Years or Completed 04/12/2023 [facility]-Pneumococcal Vaccine: 50+ Years Completed 04/13/2024 [facility]-Obesity Intervention Completed 12/28/2024 HPV Vaccines Aged Out No longer eligi [...] age to complete this topic Insurance MEDICARE Care Teams Soubrette Relationship Specialty Start Date End Date Rhett Sage MD [address] [place] [address] PCP - General 12/26/24
--- OUTSIDE RECORDS SUMMARY | 2025-02-03 13:04 | XMS_ITS | Encounter Summary ---
Author Organization [facility] Address [address] [place] [address] Care Team Providers Care Accounts Receivable Assistant Name Role Phone Rhett Sage MD Primary Care Provider [phone] Encounter Details Date Type Department Care Team (Latest Contact Info) Description 12/28/2024 Travel Social History Tobacco Use Types Packs/Day Years [...] Description 04/05/2025 12:20 PM EST Office Visit [facility] [address] [place] [id number] Hanny Dejesus, PRINCIPAL HARDWARE ARCHITECT [address] [address] documented as of this encounter Visit Diagnoses Not on filedocumented in this encounter Additional Health Concerns Assessment Noted Time A Body Mass Index follow-up plan has been documented for the patient 12/28/2024 12:29 PM EDT documented as of this encounter Care Teams Accounts Receivable Assistant Relationship Specialty Start Date End Date Rhett Sage MD [address] [place] [address] PCP - General 12/26/24 documented as of this encounter
--- OUTSIDE RECORDS SUMMARY | 2025-02-03 13:04 | XMS_ITS | Clinical Summary ---
Author Organization [facility] Address [address] [place] [id number] Care Team Providers Care Joss House Keeper Name Role Phone Rhett Sage MD Primary [...] 75 MG tabletIndication s:Coronary artery disease involving [place] coronary artery of [place] heart with unstable angina pectoris Take 1 [...] once daily 45 tablet 3 5 Active methylPREDNISolo ne (MEDROL) 4 MG dose pack Take as directed on package instructions. 21 tablet 5 Active Active Problems Problem Noted Date Diagnosed Date Left ventricular systolic dysfunction 10/05/2024 Stage 3b chronic kidney disease (CKD) 07/12/2022 Coronary artery disease invo lving [place] coronary artery of [place] heart with unstable angina pectoris 07/12/2022 Diabetes mellitus type 2 with peripheral artery disease 02/25/2022 Assessment & Plan (04/13/2024 9:58 AM EST): Type 2 diabetes mellitus wit h chronic kidney disease, without long-term current use of insulin 02/25/2022 Encounters Date Type Department Care Team Description 01/17/2025 Telephone [facility] [address] [place] [address] Rhett Sage MD NEW PRESCRIPTION from Last 3 Months Immunizations Immunization Administration [...] Description 05/03/2025 2:15 PM EST Office Visit [facility] [address] [facility] [place] [address] Rhett Sage MD [address] [facility] [place], [place] [id number] Health Maintenance Due Date Last Done Comments DXA SCAN 1945 DIABETIC EYE EXAM 01/12/1956 DIABETIC FOOT EXAM 01/12/1956 TDAP/TD VACCINES (1 - Tdap) 1965 ZOSTER VACCINE (1 of 2) 01/12/1996 HEPATITIS C SCREENING 02/22/2022 HEMOGLOBIN A1C 10/11/2024 04/13/2024, 05/2 05/2023, 04/12/2023, Additional history exists COVID-19 Vaccine (1 - 2023-2 5 season) 2025 INFLUENZA VACCINE 02/20/2025 04/13/2024, , 02/25/2022, Additional [...] disease, without long-term current use of insulin POCT GLYCOSYLATED HEMOGLOBIN (HGB A1C) Routine 04/13/2024 9:23 AM EST Type 2 diabetes mellitus with diabetic peripheral angiopathy without gangrene, without long-term current use of insulin from Last 3 Months or Most Recently Relevant to Health Maintenance Results * IMAGING SCANNED (11/27/2024) Anatomical Region Laterality Modality Radiographic Aditi ging us Rhett Sage MD IMG DIAGNOSTIC IMAGING O RDERABLES Final Result * LABS SCANNED (11/27/2024) us Rhett Sage MD LAB BLOOD ORDERABLES Fin al Result * (ABNORMAL) POC Albumin/Creatinine Ratio Urine (10/05/2024 4:16 PM EDT) POC ALBUMIN, URINE 150 mg/L mg/L POC CREATININE, URINE 100 mg/dL mg/dL POC Urine Albumin Creatinine Ratio > 300 mg/g <30 Comment:high abnormal Lot Number [id number] Expiration Date 06/22/2025 Urine 10/05/2024 4:16 PM EDT us Rhett Sage MD POINT OF CARE TEST ORDER NEREYDA Final Result * (ABNORMAL) POC Glycosylated Hemoglobin (Hb A1C) (04/13/2024 9:23 AM EST) Hemoglobin A1C 6.3(A) 4.5 - 5.7 % [facility] Lot Number [id number] [facility] Expiration Date 12/28/2025 [facility] Blood 04/13/2024 9:23 AM EST Rhett Sage MD POINT OF CARE TEST ORDER NEREYDA Final Result [facility]
[address] [place] [address], from Last 3 Months or Most Recently Relevant to Health Maintenance Insurance MEDICARE A & B Member Subscriber Plan / Payer (Ef fective 2010-Present) Name:Keyonna Peralta Member ID:[id number] Relation to Subscriber:Self Name:Keyonna Peralta Subscriber ID:[id number] Payer ID:[id number] Group ID:Not on file Type:Not on file Address: [address] [place] [id number] [facility] Care Teams Joss House Keeper Relationship Specialty Start Date End Date Rhett Sage MD [address] [place] [address] PCP - General Family Medicine 02/25/22
--- OUTSIDE RECORDS SUMMARY | 2025-02-03 13:04 | XMS_ITS | Encounter Summary ---
Author Organization [facility] Address [address] [place] [address] Care Team Providers Care Head Up Operator Name Role Phone Rhett Sage MD Primary Care Provider + Encounter Details Date Type Department Care Team (Late st Contact Info) Description 09/01/2024 Results Follow-Up [facility] [address] [place] [address] Rhett Sage MD [address] [place] [address] Social History Tobacco Use Types [...] Description 05/03/2025 2:15 PM EST Office Visit [facility] [address] [place] [address] Rhett Sage MD [address] [place] [address] documented as of this encounter Visit Diagnoses Not on filedocumented in this encounter Care Teams Head Up Operator Relationship Specialty Start Date End Date Rhett Sage MD [address] [place] [address] PCP - General Family Medicine 02/25/22 documented as of this encounter
--- NOTE | 2025-02-03 13:13 | ED_ITS ---
<Statement entered by Radha Ratliff MD - 02/04/25 14:43> I was consulted by the TASNEEM, and we discussed the complexity of the problems being addressed. I approved the treatment and management plan for this patient's care in the emergency department, thus performing a substantive portion of the medical decision making. Radha Ratliff MD, OSMIN, FACEP Discharge Plan Disposition Patient Disposition: Home, Self-Care Prescriptions Prescriptions: No Action aspirin 81 mg tablet,delayed release (DR/EC) 81 mg PO DAILY Qty: 90 3RF colchicine 0.6 mg tablet 0.3 mg PO DAILY clopidogrel 75 mg tablet 75 mg PO DAILY Qty: 90 3RF glimepiride 1 mg tablet 1 mg PO DAILY Qty: 30 2RF albuterol sulfate [Ventolin HFA] 90 mcg/actuation HFA aerosol inhaler 1 inh inhalation QID Qty: 6.7 2RF irbesartan 150 mg tablet 150 mg PO BID Qty: 60 11RF metoprolol succinate 50 mg tablet extended release 24 hr 50 mg PO DAILY Qty: 90 3RF atorvastatin 40 mg tablet 40 mg PO HS Qty: 90 3RF allopurinol 100 mg tablet 100 mg PO DAILY Rx Instructions: Take 1 tablet by mouth once daily eplerenone [Inspra] 25 mg tablet 25 mg PO MOWEFR Referrals Follow up/Referrals: Rhett Sage MD [Primary Care Provider, Medical] - See instructions Activity Restrictions/Add. Instructions Additional Instructions/Restrictions: Today you were evaluated in the emergency department after a fall. Your x-rays do not show any acute fracture. You had glue applied to your wounds, this will come off on its own. Please leave the dressings that I applied on for 24 hours and then remove. Please follow-up with your PCP within 48 hours. Please return to the ED for any worsening of your condition. Clinical Impressions Clinical Impression: Fall, Laceration Instructions Patient Instructions: DI for Laceration Repair, How to Prevent Falls Print Language Print Language: Icelandic Discharge ED Provider: Radha Ratliff General Adult HPI General Chief complaint: Wound/Laceration Stated complaint: AO 02/03/25 1000, fell, inj left handand big toe Time Seen by Provider: 02/03/25 13:03 Mode of Arrival: Ambulatory Source of Information: Patient Description of Symptoms (Recalled from ER Triage Doc. by RN): patient states around 10am she went on back deck to give dog pumpkin roll when the dog jumped on her and she fell hitting the wood. denies LOC denies hitting head. has pain in left hand left big toe left pinky toe. 10/30. on a blood thinner unknown name History of Present Illness HPI narrative: patient is a 80 year old female PMHx HFrEF, CAD, HTN, HLD, PAD, who presents to the ED for complaints of a fall. Patient states she was on her back porch attempting to give her dog retreat when he jumped on her, causing her to fall on a wooden deck. She did not hit her head, did not lose consciousness. Related Data Home Medications ?Medication ?Instructions ?Recorded ?Confirmed colchicine 0.6 mg tablet 0.3 mg PO DAILY gout 3 11/27/24 Held on 08/20/24. Instructions: Resume on 09/03/24. Hold this medication until follow-up with cardiology. Your kidney function bumped but is resolving. allopurinol 100 mg tablet 100 mg PO DAILY 08/15/2401/14 Held on 08/20/24. Instructions: Resume on 09/03/24. Hold this medication until follow-up with cardiology. Your kidney function bumped but is resolving. eplerenone 25 mg tablet (Inspra) 25 mg PO MOWEFR 08/1511/27/24 Previous Rx's ?Medication ?Instructions ?Recorded aspirin 81 mg tablet,delayed 81 mg PO DAILY heart heal th #90 08/26/22 release tabs glimepiride 1 mg tablet 1 mg PO DAILY #30 tabs 07/11 irbesartan 150 mg tablet 150 mg PO BID #60 tabs 06/04 clopidogrel 75 mg tablet 75 mg PO DAILY #90 tabs 12/14 atorvastatin 40 mg tablet 40 mg PO HS #90 tabs 5 metoprolol succinate 50 mg 50 mg PO DAILY #90 tabs tablet,extended release 24 hr albuterol sulfate 90 mcg/actuation 1 inh inhalation QI D #6.7 grams 11/27/24 aerosol inhaler (Ventolin HFA) Allergies Allergy/AdvReac Type Severity Reaction Status Date / Time orange Allergy Unknown ASTHMA Verified 11/27/24 08:52 FLARES UP Sulfa (Sulfonamide Allergy Unknown Unknown Verified 11/27/24 08:52 Antibiotics) (SULFA allergy (SULFONAMIDE ANTIBIOTICS)) reaction walnut (WALNUT) Allergy Unknown Unknown Verified 11/27/24 08:52 allergy reaction [facility] Disclaimer: The information contained in this section may have been updated after the patient was seen, as this information can be updated by other users. Medical History Syncope and collapse Malignant hypertension Contrast-induced nephropathy Wound of right lower extremity Renal artery stenosis Nonadherence to medication Left leg pain Swelling of lower extremity CAD in [place] artery DVT (deep venous thrombosis) Heart murmur Sinus bradycardia Chronic renal insufficiency Diabetes Hypertension Peripheral arterial disease HLD (hyperlipidemia) Umbilical hernia with obstruction Surgically corrected by way of primary repair. Small bowel obstruction Secondary to umbilical hernia. Surgically corrected by way of partial small bowel resection and hernia repair. 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 current occupational exposures/hazards: No caffeine: Yes Have you lived/traveled outside US in past 30 days?: No Contact w/someone who lives/traveled outside US past 30 days?: No Exposure to someone with infectious disease in past 14 days?: No Do you have a fever (greater than 100.4 F or 38 C)?: No Have you tested positive for COVID-19?: No Exposed to someone with COVID-19 in past 14 days?: No Do you have a sore throat?: No Do you have a cough?: No Do you have any weakness?: No Do you have any diarrhea?: No Are you experiencing any unusual bleeding?: No Do you have any muscle aches/pain?: No Do you have any abdominal pain?: No Are you experiencing loss of taste or smell?: No Other Medical History Have you received the Flu Vaccine for this season: No Have you received the Pneumonia Vaccine: No ROS Obtained: Yes Systems reviewed as appropriate & no additional complaints except as documented Physical Exam General General appearance: alert Head Head exam: atraumatic Eye Eye exam: Present PERRL and EOMI; Absent nystagmus Neck Neck exam: Present full ROM Respiratory Respiratory exam: Present normal lung sounds bilaterally Cardiovascular Cardiovascular exam: Present regular rate Abdominal Exam Abdominal exam: Present soft Extremities Exam Extremities exam: Present other (She has left great toe tenderness, ecchymosis, very small laceration. Right hand in between thumb and index finger has a superficial laceration. Patient has a skin tear on her left hand.) Back Exam Back exam: Present full ROM Neurological Exam Neurological exam: Present alert and oriented X3 Skin Skin exam: Present warm Medical Decision Making Medical Records Screening: Per USPSTF and CDC recommendations, given the prevalence of disease in our region, it is our hospital?s policy to screen for HIV and viral Hepatitis for all patients aged 18 and over and those with ongoing risk factors. Alejandro Inquiry Pt receiving controlled substance: No Vital Signs: 02/03/25 12:59 02/03/25 13:00 02/03/25 13:02 Temperature 98.1 F Temperature Source Oral Pulse Rate 59 L 62 Pulse Rate [Right Radial] 60 Respiratory Rate 15 15 15 Blood Pressure 211/74 H 220/81 H Blood Pressure [Right Arm] 220/81 H Blood Pressure Mean Blood Pressure Mean [Right Arm] 127 Blood Pressure Source Blood Pressure Source [Right Arm] Automatic Cuff Blood Pressure Position Blood Pressure Position [Right Arm] Supine 02 Sat by Pulse Oximetry 96 96 96 Oxygen Delivery Method Room Air Room Air 02/03/25 13:35 02/03/25 14:00 02/03/25 14:05 Temperature Temperature Source Pulse Rate 54 L 56 L 58 L Pulse Rate [Right Radial] Respiratory Rate 16 16 17 Blood Pressure 197/70 H 172/66 H 167/64 H Blood Pressure [Right Arm] Blood Pressure Mean 101 98 Blood Pressure Mean [Right Arm] Blood Pressure Source Blood Pressure Source [Right Arm] Blood Pressure Position Blood Pressure Position [Right Arm] 02 Sat by Pulse Oximetry 98 97 97 Oxygen Delivery Method Room Air 02/03/25 14:17 Temperature 98.4 F Temperature Source Oral Pulse Rate 58 L Pulse Rate [Right Radial] Respiratory Rate 16 Blood Pressure 164/64 H Blood Pressure [Right Arm] Blood Pressure Mean Blood Pressure Mean [Right Arm] Blood Pressure Source Automatic Cuff Blood Pressure Source [Right Arm] Blood Pressure Position Supine Blood Pressure Position [Right Arm] 02 Sat by Pulse Oximetry Oxygen Delivery Method Room Air Lab Data Lab Results 02/03/25 13:09: HCV Ab OMA w/Rflx PCR Qn Negative, HIV Ag/Ab Combo Qual Negative Orders (Tests/Meds): ED MEDICATIONS Discontinued Medications Generic Name Dose Route Start Last Admin Trade Name Ramila PRN Reason Stop Dose Admin Acetaminophen 1,000 mg 02/03/25 13:14 02/03/25 13:32 Acetaminophen 500mg Tab PO 02/03/25 13:15 1,000 mg ONCE ONE Administration Diazepam 2 mg 02/03/25 13:14 02/03/25 13:32 Diazepam 2mg Tablet PO 02/03/25 13:15 2 mg ONCE ONE Administration ORDERS Category Date Time Status Foot XR left 2 views [XR foot LT 2V] Stat Exams 02/03/25 13:14 Taken Hand XR left 2 views [XR hand LT 2V] Stat Exams 02/03/25 13:14 Taken Hand XR right 2 views [XR hand RT 2V] Stat Exams 02/03/25 13:14 Taken HIV Combo Stat Lab 02/03/25 13:09 Completed Hepatitis C Ab Qual. W/ RFX Stat Lab 02/03/25 13:09 Completed Medical Decision Narrative: In summary, patient is a 80 year old female PMHx HFrEF, CAD, HTN, HLD, PAD, who presents to the ED for complaints of a fall. Patient states she was on her back porch attempting to give her dog retreat when he jumped on her, causing her to fall on a wooden deck. She did not hit her head, did not lose consciousness. Is not on blood thinners. Patient injured her left great toe, right hand and left hand. Patient has superficial lacerations. Denies any additional complaints. Patient states that she lost her 4 days ago, feels overwhe lmed. She took her blood pressure medication this morning however is hypertensive upon arrival. She is alert and oriented, cooperative. She has left great toe tenderness, ecchymosis, very small laceration. Right hand in between thumb and index finger has a superficial laceration. Patient has a skin tear on her left hand. Denies headache, visual disturbance, neck pain, chest pain, shortness of breath. Differential diagnosis include fracture, abrasion, laceration, strain, among others. Due to patient's hypertension/anxiety due to recent events, I administered 2 mg p.o. Valium Patient's wound was cleaned with Hibiclens, I was able to glue the 3 small lacerations without difficulty. I placed a non-adherent, gauze and Hetal wrap around the wounds. I independently interpreted the x-rays as no acute findings on my read. I discussed in depth with patient and family member wound care instructions. Discussed that she will need to follow-up with her PCP within 48 hours. Discussed return precautions to the ED and they verbalized understanding. Upon discharge, her blood pressure had improved and she was ambulatory from the ED. Critical Care Critical Care Time Critical Care Time: No
--- NOTE | 2025-02-03 13:14 | XR_ITS ---
PROCEDURE INFORMATION: Exam: XR Right Hand Exam date and time: 02/03/2025 1:25 PM Age: 80 years old Clinical indication: Injury or trauma; Fall; Blunt trauma (contusions or hematomas); Hand; Right; Additional info: Fall, foosh TECHNIQUE: Imaging protocol: Radiologic exam of the right hand. Views: 1 or 2 views. Total images: 2 COMPARISON: US CA ARTERIAL DUPLEX UE RT 07/02/2022 10:46 AM FINDINGS: Bones/joints: Osteopenia. No acute fracture or joint dislocation. Age-related mild scattered degenerative changes of the interphalangeal joints and MCP joints. Mild degenerative change 1st carpometacarpal joint. Mild narrowing radiocarpal joint space. No concerning bone lesions. Soft tissues: Grossly unremarkable soft tissues. Vasculature: Atherosclerotic vascular calcifications. IMPRESSION: 1. No acute osseous abnormality. 2. Chronic findings.
--- NOTE | 2025-02-03 13:14 | XR_ITS ---
PROCEDURE INFORMATION: Exam: XR Left Hand Exam date and time: 02/03/2025 1:25 PM Age: 80 years old Clinical indication: Injury or trauma; Fall; Blunt trauma (contusions or hematomas); Hand; Left; Additional info: Fall, foosh TECHNIQUE: Imaging protocol: Radiologic exam of the left hand. Views: 1 or 2 views. Total images: 2 COMPARISON: CR XR WRIST LT MIN 3V 03/08/2022 12:04 PM FINDINGS: Bones/joints: Osteopenia. No acute fracture or joint dislocation. Age-related mild scattered degenerative changes of the interphalangeal joints and MCP joints. Moderate degenerative change 1st carpometacarpal joint. Mild narrowing radiocarpal joint space. No concerning bone lesions. Soft tissues: Grossly unremarkable soft tissues. Vasculature: Atherosclerotic vascular calcifications. IMPRESSION: 1. No acute osseous abnormality. 2. Chronic findings.
--- NOTE | 2025-02-03 13:14 | XR_ITS ---
PROCEDURE INFORMATION: Exam: XR Left Foot Exam date and time: 02/03/2025 1:25 PM Age: 80 years old Clinical indication: Injury or trauma; Fall; Blunt trauma; Foot; Left; Additional info: Fall, great toe pain TECHNIQUE: Imaging protocol: Radiologic exam of the left foot. Views: 1 or 2 views. Total images: 2 COMPARISON: CR XR FOOT WT BEARING LT 3V 08/31/2021 12:13 PM FINDINGS: Bones/joints: Osteopenia. No acute fracture or joint dislocation. Mild degenerative changes throughout the interphalangeal joints and 1st MTP joint. [id number] degenerative changes of the tarsal articulations including dorsal hypertrophic spurring. Prominent calcaneal enthesophytes at the insertion of the Achilles tendon and plantar fascia. Soft tissues: Grossly unremarkable soft tissues. Vasculature: Atherosclerotic vascular calcifications. IMPRESSION: 1. No acute osseous abnormality. 2. Chronic findings.
[2025-02-03] MEDS: ACETAMINOPHEN 500MG TAB 1000 MG PO (13:32)
--- NOTE | 2025-02-03 13:38 | PC.NURSE ---
patients wounds cleaned with hibeclens
[2025-02-03 15:07] LABS: Hepatitis C Ab Qual. W/ RFX NEGATIVE (Negative)
== END 2025-02-03 14:17 | disposition home or self-care (01) ==
PROVIDERS: Nurse Practitioner; Emergency Provider Student in an Organized Health Care Education/Training Program; PCP Family Medicine
DX: S91.112A Laceration without foreign body of left great toe without damage to nail, initial encounter (principal); S61.411A Laceration without foreign body of right hand, initial encounter; S61.402A Unspecified open wound of left hand, initial encounter; W54.1XXA Struck by dog, initial encounter
CPT/HCPCS: 73120; 73620; 86803; 87389; 99284

== ENCOUNTER 2025-02-20 17:56 | Observation (INO) | payer MEDICARE, OTHER, SELFPAY ==
--- OUTSIDE RECORDS SUMMARY | 2024-12-28 11:00 | XMS_ITS | Encounter Summary ---
Author Organization [facility] Address [address] [place] [address] Care Team Providers Care Custom Clothier Name Role Phone Rhett Sage MD Primary Care Provider [phone] Reason for Referral * Imaging (Routine) - Authorized Specialty Diagnoses / Procedures Referred By Contricardo t Referred To Contact Cardiology Diagnoses Renal artery stenosis Procedures [facility] US Renal Artery Duplex Hanny Dejesus APRN [address] [address] Phone: tel: fax: Referral ID Status Reason Start Date Expiration Date Visits Requested Visits Authorized [id number] Authorized Perform Procedure 12/28/2024 06/29/2026 1 1 [...] 12/28/2024 11:00 AM EDT Office Visit [facility] [address] [place] [phone] Hanny Dejesus APRN [address] [address] Stage 3b chronic kidney disease (CMS/HCC) (Primary Dx); Heart failure with reduced ejection fraction (CMS/HCC); Coronary artery disease involving [place] heart, unspecified vessel or lesion type, unspecified whether angina present; Renal artery stenosis (CMS/HCC); Proteinuria, unspecified type; Chronic kidney disease-mineral and bone disorder; Diabetes mellitus due to underlying condition with diabetic chronic kidney disease, unspecified CKD stage, 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 In August she was admitted with [place]. She underwent LCA and stenting. Her creatinine pk at 3.7 during her hospitalization. Her creatinine has been 2.2-2.4 post hospitalization. She has had bilateral renal artery stenting. She is unsure of dates/situation. Her EF is noted to be 40%. History of not tolerating Farxiga due to increased UTIs. Denies NSAID use. +neuropathy, +retinopathy. She notes her recently was admitted to the [place]. She is living alone. She states she [...] Labs scanned in to media tab of [employer] from an outside facility. Labs completed on [...] >5 stop eplerenone (guidance along with local Card Game Operator) Limit dietary K, stop daily multivitamin Pr/cr [...] for this visit. [5] Allergies Allergen Reactions [place] Other - please document in the comment field Asthma flares up Sulfa Drugs Unknown - Patient states they do not know rxn details [place] Unknown - Patient states they do not know rxn details documented in this encounter Plan of Treatment Upcoming Encounters Date Type Department Care Team (Late st Contact Info) Description 04/05/2025 12:20 PM EST Office Visit [facility] [address] [facility] [address] [place] [address] Hanny Dejesus APRN [address] [address] Scheduled Orders Name Type Priority Associated Diagnoses Order Schedule VAS US Renal Artery Duplex Vascular Ultrasound Routine Renal artery stenosis ([facility]) 1 Occurrences starting 12/28/2024 until 07/01/2026 Renal function panel Lab Routine Hyperkalemia Expected: 2025 (Approximate), Expires: 07/01/2026 Renal Function Panel, Plasma Lab Routine Stage 3b chronic kidney disease ([facility]) Expected: 03/30/2025 (Approximate), Expires: 06/30/2026 CBC W/O Differential Lab Routine Stage 3b chronic kidney disease (CMS/HCC) Expected: 03/30/2025 (Approximate), Expires: 06/30/2026 PTH Intact Total Lab Routine Stage 3b chronic kidney disease (CMS/HCC) Expected: 03/30/2025 (Approximate), Expires: 06/30/2026 Vitamin D 25 Hydroxy Lab Routine Stage 3b chronic kidney disease (CMS/HCC) Expected: 03/30/2025 (Approximate), Expires: 06/30/2026 Albumin-creatinine ratio, urine, random Lab Routine Stage 3b chronic kidney disease ([facility]) Expected: 03/30/2025 (Approximate), Expires: 06/30/2026 Urinalysis with reflex microscopic (Culture NOT Included) Lab Routine Stage 3b chronic kidney disease ([facility]) Expected: 03/30/2025 (Approximate), Expires: 06/30/2026 Protein, Random, Urine with Creatinine Lab Routine Stage 3b chronic kidney disease ([facility]) Expected: 03/30/2025 (Approximate), Expires: 06/30/2026 Uric Acid, Plasma Lab Routine Stage 3b chronic kidney disease ([facility]) Expected: 12/28/2024 (Approximate), Expires: 06/30/2026 Antinuclear Antibody ([facility]AM), HEp-2, IgG Lab Routine Stage 3b chronic kidney disease ([facility]) Expected: 12/28/2024 (Approximate), Expires: 06/30/2026 C3 Complement Lab Routine Stage 3b chronic kidney disease ([facility]) Expected: 12/28/2024 (Approximate), Expires: 06/30/2026 C4 Complement Lab Routine Stage 3b chronic kidney disease ([facility]) Expected: 12/28/2024 (Approximate), Expires: 06/30/2026 Protein electrophoresis, serum Lab Routine Stage 3b chronic kidney disease ([facility]) Expected: 12/28/2024 (Approximate), Expires: 06/30/2026 Immunofixation Electrophoresis Lab Routine Stage 3b chronic kidney disease ([facility]) Expected: 12/28/2024 (Approximate), Expires: 06/30/2026 [place] Lambda Quant Free Light Chains w/Ratio Lab Routine Stage 3b chronic kidney disease ([facility]) Expected: 12/28/2024 (Approximate), Expires: 06/30/2026 documented as of this encounter Visit Diagnoses Diagnosis Stage 3b chronic kidney disease ([facility])- Primary Heart failure with reduced ejection fraction Coronary artery disease involving [place] heart, unspecified vessel or lesion type, unspecified whether angina present Renal artery stenosis Atherosclerosis of renal artery Proteinuria, unspecified type 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
[2025-02-20] VITALS (13 sets, daily range): BP systolic 153–218; BP diastolic 64–98; PULSE 53–74; RESP 14–20; TEMP 36.7–36.9; O2SAT 95–100; BMI 28.3; BMI 27.9
--- NOTE | 2025-02-20 17:57 | ECG_ITS ---
APPROVED REPORT Exam: Resting ECG HR:54 bpm ECG Measurements Heart Rate 54 AXES DE 175 P 73 QRSd 103 QRS 32 QT 428 T 95 QTc 415 Conclusion KG showed sinus bradycardia without acute ST or T wave changes concerning for ischemia Electronically signed by : Britta Borrero, 02/21/2025 01:58:39
[2025-02-20] MEDS: DEXTROSE 50% 50ML SYRINGE (CRASH CART) 50 ML IVP ×2 (18:00→20:30)
--- NOTE | 2025-02-20 18:01 | PC.NURSE ---
FSBS reading Critically low at this time.
--- NOTE | 2025-02-20 18:07 | XR_ITS ---
PROCEDURE INFORMATION: Exam: XR Chest Exam date and time: 02/20/2025 6:15 PM Age: 80 years old Clinical indication: Shortness of breath; Additional info: Short of breath TECHNIQUE: Imaging protocol: Radiologic exam of the chest. Views: 1 view. COMPARISON: CR XR CHEST 2V 11/27/2024 9:47 AM FINDINGS: Lungs: Mild central vascular fullness. No overt CHF. Patchy ground-glass airspace opacity of the right lung base more likely corresponds to atelectatic change. Evaluation of the left lung base is limited. Apparent dense airspace consolidation of the left lung base. Upper lung zones are clear. Pleural spaces: Blunting of the left costophrenic angle which may correspond to a left pleural effusion. Heart/Mediastinum: Cardiomegaly. Mediastinal contours are smooth. Dense coronary artery calcifications and coronary artery stents are in place. Vasculature: Heavy atherosclerotic plaque at the aortic arch. Bones/joints: Bones are demineralized. Multilevel advanced degenerative changes are present throughout the spine. Osteoarthritic changes are present at the right and left glenohumeral joint and right and left AC joint. IMPRESSION: 1. Cardiomegaly is stable. Numerous coronary artery stents project over the cardiac silhouette. 2. Potential dense airspace consolidation or atelectasis involving the left lower lobe and lingula. Evaluation is limited on this single AP portable view. Underlying pneumonia at the left lung base is not excluded. Minimal patchy airspace opacity within the right lower lobe may also correspond to atelectatic change or developing infiltrate. 3. Mild central vascular fullness. No overt CHF. 4. Apparent blunting of the left costophrenic angle suggestive of potential left pleural effusion. 5. Follow-up lateral view of the chest would be helpful to further evaluate the lung bases.
[2025-02-20 18:16] LABS: Hematocrit 32.0 % (37.0-47.0); Hemoglobin 10.2 g/dL (12.2-16.2); Immature Granulocytes % 0.6 %; Mean Corpuscular HGB Conc 31.9 g/dL (31.8-35.4); Mean Corpuscular Hemoglobin 29.1 pg (27.0-31.2); Mean Corpuscular Volume 91.2 fl (81-99); Nucleated Red Blood Cells % 0 %; Platelet Count 301 K/mm3 (142-424); Red Blood Count 3.51 M/mm3 (4.20-5.40); Red Cell Distribution Width-SD 50.4 fL; White Blood Count 10.9 K/mm3 (4.8-10.8)
--- OUTSIDE RECORDS SUMMARY | 2025-02-20 18:20 | XMS_ITS | Encounter Summary ---
Author Organization [facility] Address [facility] [place] [address] Care Team Providers Care Spinner Fixer Name Role Phone Rhett Sage MD Primary Care Provider + Reason for Visit * Reason Comments Med Refill Encounter Details Date Type Department Care Team (Late Contact Info) Description 02/17/2025 Refill [facility] [address] [place] [place] [address] Rhett Sage MD [address] [place] [address] Type 2 diabetes mellitus with diabetic peripheral angiopathy without gangrene, without long-term current use of insulin Social History Tobacco Use Types Packs/Day Years [...] Encounters Date Type Department Care Team (Late Contact Info) Description 05/03/2025 2:15 PM EST Office Visit [facility] [address] [address] Rhett Sage MD [address] [place] [address] documented as of this encounter Visit Diagnoses Diagnosis Type 2 diabetes mellitus with diabetic peripheral angiopathy without gangrene, without long-term current use of insulin documented in this encounter Care Teams Spinner Fixer Relationship Specialty Start Date End Date Rhett Sage MD [address] [place] [address] PCP - General Family Medicine 02/25/22 documented as of this encounter
--- NOTE | 2025-02-20 18:21 | ED_ITS ---
<Statement entered by Britta Borerro DO - 02/21/25 01:02> I was consulted by the TASNEEM, and we discussed the complexity of problems being addressed. I approve the treatment and management plan for this patient's care in the emergency department, thus performing a substantial portion of the medical decision making. Britta Borrero DO Discharge Plan Disposition Patient Disposition: Admitted Clinical Impressions Clinical Impression: Hypoglycemia Discharge ED Provider: Britta Borrero General Adult HPI <Rahel Proctor (ED), MEDICAL REFERRAL COORDINATOR - Last Filed: 02/20/25 22:34> General Chief complaint: Weakness Stated complaint: Chest Pain Time Seen by Provider: 02/20/25 18:06 Mode of Arrival: Wheelchair Source of Information: Relative Description of Symptoms (Recalled from ER Triage Doc. by RN): family member states patient is lethargic and not acting herself. he reports last known well was 1700. on triage patients BG was checked and sugar was critically low History of Present Illness HPI narrative: 80-year-old female presents to the ED for being fatigued and not acting herself. Son was worried about her when he asked her what she ate and she did not answer him. Blood sugar read critically low which usually means below 30. So immediately gave her D50. She came back around with that and about 30 seconds. Patient is alert and oriented x 4 now. Patient does have history of heart failure, chronic renal failure, stenosis, CAD, hyperlipidemia, hypertension, PAD, diabetes. She has no complaints now. Related Data Home Medications ?Medication ?Instructions ?Recorded ?Confirmed colchicine 0.6 mg tablet 0.3 mg PO DAILY gout 3 02/20/25 Held on 08/20/24. Instructions: Resume on 09/03/24. Hold this medication until follow-up with cardiology. Your kidney function bumped but is resolving. allopurinol 100 mg tablet 100 mg PO DAILY 08/15/2406/16 Held on 08/20/24. Instructions: Resume on 09/03/24. Hold this medication until follow-up with cardiology. Your kidney function bumped but is resolving. Previous Rx's ?Medication ?Instructions ?Recorded aspirin 81 mg tablet,delayed 81 mg PO DAILY heart heal th #90 08/26/22 release tabs glimepiride 1 mg tablet 1 mg PO DAILY #30 tabs 07/11 clopidogrel 75 mg tablet 75 mg PO DAILY #90 tabs 12/14 atorvastatin 40 mg tablet 40 mg PO HS #90 tabs 5 metoprolol succinate 50 mg 50 mg PO DAILY #90 tabs tablet,extended release 24 hr albuterol sulfate 90 mcg/actuation 1 inh inhalation QI D #6.7 grams 11/27/24 aerosol inhaler (Ventolin HFA) irbesartan 300 mg tablet 300 mg PO DAILY #30 tabs Allergies Allergy/AdvReac Type Severity Reaction Status Date / Time orange Allergy Unknown ASTHMA Verified 11/27/24 08:52 FLARES UP Sulfa (Sulfonamide Allergy Unknown Unknown Verified 11/27/24 08:52 Antibiotics) (SULFA allergy (SULFONAMIDE ANTIBIOTICS)) reaction walnut (WALNUT) Allergy Unknown Unknown Verified 11/27/24 08:52 allergy reaction PFS <Rahel Proctor (ED), MEDICAL REFERRAL COORDINATOR - Last Filed: 02/20/25 22:34> [facility] Disclaimer: The information contained in this section may have been updated after the patient was seen, as this information can be updated by other users. 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 Small bowel obstruction Secondary to umbilical hernia. Surgically corrected by way of partial small bowel resection and hernia repair. 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 current occupational exposures/hazards: No caffeine: Yes Have you lived/traveled outside US in past 30 days?: No Contact w/someone who lives/traveled outside US past 30 days?: No Exposure to someone with infectious disease in past 14 days?: No Do you have a fever (greater than 100.4 F or 38 C)?: No Have you tested positive for COVID-19?: No Exposed to someone with COVID-19 in past 14 days?: No Do you have a sore throat?: No Do you have a cough?: No Do you have any weakness?: No Are you experiencing any nausea/vomitting?: No Do you have any diarrhea?: No Are you experiencing any unusual bleeding?: No Do you have any muscle aches/pain?: No Do you have any abdominal pain?: No Are you experiencing loss of taste or smell?: No Other Medical History Have you received the Flu Vaccine for this season: No Have you received the Pneumonia Vaccine: No <Rahel Proctor (ED), MEDICAL REFERRAL COORDINATOR - Last Filed: 02/20/25 22:34> ROS Obtained: Yes Systems reviewed as appropriate & no additional complaints except as documented Constitutional Constitutional: Reports as per HPI Physical Exam <Rahel Proctor (ED), MEDICAL REFERRAL COORDINATOR - Last Filed: 02/20/25 22:34> General General appearance: alert and lethargic (Initially lethargic but after D50 alert and oriented x 4) Head Head exam: normocephalic Eye Eye exam: Present PERRL and EOMI ENT ENT exam: Present normal oropharynx and mucous membranes moist Neck Neck exam: Present full ROM and trachea midline Respiratory Respiratory exam: Present normal lung sounds bilaterally Cardiovascular Cardiovascular exam: Present regular rate, normal rhythm, normal heart sounds, +S1 and +S2 Abdominal Exam Abdominal exam: Present soft and normal bowel sounds Extremities Exam Extremities exam: Present full ROM and normal capillary refill Neurological Exam Neurological exam: Present alert and oriented X3 Skin Skin exam: Present warm and dry Medical Decision Making <Rahel Proctor (ED), MEDICAL REFERRAL COORDINATOR - Last Filed: 02/20/25 22:34> Medical Records Screening: Per USPSTF and CDC recommendations, given the prevalence of disease in our region, it is our hospital?s policy to screen for HIV and viral Hepatitis for all patients aged 18 and over and those with ongoing risk factors. Alejandro Inquiry Pt receiving controlled substance: No Alejandro was queried for this patient: No Vital Signs: 02/20/25 18:07 02/20/25 18:10 02/20/25 18:12 Temperature 98.4 F Temperature Source Oral Pulse Rate 61 Pulse Rate [Right Radial] 61 Respiratory Rate 14 18 Blood Pressure 193/64 H Blood Pressure [Right Arm] 184/80 H Blood Pressure Mean Blood Pressure Mean [Right Arm] 114 Blood Pressure Source Automatic Cuff Blood Pressure Source [Right Arm] Automatic Cuff Blood Pressure Position Sitting Blood Pressure Position [Right Arm] Supine 02 Sat by Pulse Oximetry 98 98 99 Oxygen Delivery Method Room Air Room Air Room Air 02/20/25 19:31 02/20/25 20:00 02/20/25 20:11 Temperature Temperature Source Pulse Rate 54 L 54 L 53 L Pulse Rate [Right Radial] Respiratory Rate Blood Pressure 214/74 H 218/75 H 193/66 H Blood Pressure [Right Arm] Blood Pressure Mean 110 122 108 Blood Pressure Mean [Right Arm] Blood Pressure Source Blood Pressure Source [Right Arm] Blood Pressure Position Blood Pressure Position [Right Arm] 02 Sat by Pulse Oximetry 100 98 98 Oxygen Delivery Method Room Air 02/20/25 20:30 02/20/25 20:35 02/20/25 21:31 Temperature Temperature Source Pulse Rate 61 61 55 L Pulse Rate [Right Radial] Respiratory Rate Blood Pressure 204/82 H 153/85 H 214/70 H Blood Pressure [Right Arm] Blood Pressure Mean 103 107 102 Blood Pressure Mean [Right Arm] Blood Pressure Source Blood Pressure Source [Right Arm] Blood Pressure Position Blood Pressure Position [Right Arm] 02 Sat by Pulse Oximetry 99 97 99 Oxygen Delivery Method 02/20/25 22:01 02/20/25 22:35 02/20/25 23:04 Temperature 98.1 F Temperature Source Oral Pulse Rate 54 L Pulse Rate [Right Radial] 59 L Respiratory Rate 18 Blood Pressure 211/72 H Blood Pressure [Right Arm] 193/98 H Blood Pressure Mean 107 Blood Pressure Mean [Right Arm] 129 Blood Pressure Source Blood Pressure Source [Right Arm] Automatic Cuff Blood Pressure Position Blood Pressure Position [Right Arm] Supine 02 Sat by Pulse Oximetry 98 95 100 Oxygen Delivery Method Room Air Room Air 02/20/25 23:16 Temperature 98.0 F Temperature Source Oral Pulse Rate 74 Pulse Rate [Right Radial] Respiratory Rate 20 Blood Pressure 190/98 H Blood Pressure [Right Arm] Blood Pressure Mean Blood Pressure Mean [Right Arm] Blood Pressure Source Automatic Cuff Blood Pressure Source [Right Arm] Blood Pressure Position Sitting Blood Pressure Position [Right Arm] 02 Sat by Pulse Oximetry Oxygen Delivery Method Room Air Lab Data Lab Results 02/20/25 18:02: WBC 10.9 H, RBC 3.51 L, Hgb 10.2 L, Hct 32.0 L, MCV 91.2, MCH 29.1, MCHC 31.9, RDW 15.2, Plt Count 301, MPV 11.9 H, Neut % (Auto) 67.6, Lymph % (Auto) 19.8, Swift % (Auto) 9.8 H, Eos % (Auto) 1.7, Baso % (Auto) 0.5, Neut # (Auto) 7.4, Lymph # (Auto) 2.2, Swift # (Auto) 1.1 H, Eos # (Auto) 0.2, Baso # (Auto) 0.1, Sodium 140, Potassium 3.8, Chloride 110 H, Carbon Dioxide 20 L, Anion Gap 13.8, BUN 22 H, Creatinine 1.70 H, Estimated Creat Clear 25, Estimated GFR 29 L, Est GFR ( Amer) 35 L, Glucose 30 L*, Calcium 8.7, Magnesium 1.7, Total Bilirubin 0.4, AST 36, ALT 19, Alkaline Phosphatase 269 H, Troponin I 0.03, NT-Pro-B Natriuret Pep 81810 H, Total Protein 6.0 L, Albumin 3.4 L, Globulin 2.6, Albumin/Globulin Ratio 1.3, Lipase 154 02/20/25 20:51: Lactate 1.2, Troponin I 0.03 02/20/25 18:02 02/20/25 18:02 Orders (Tests/Meds): ED MEDICATIONS Generic Name Dose Route Start Last Admin Trade Name Freq PRN Reason Stop Dose Admin Acetaminophen 650 mg 02/20/25 22:26 Acetaminophen 325mg Tab PO 03/22/25 22:25 Q4HP PRN Fever or Mild Pain (1-3) Dextrose 50 ml 02/20/25 23:41 Dextrose 50% 50ml Syringe (Crash Cart) IVP 03/22/25 23:40 NEEDED PRN hypoglycemia Glucose 15 gm 02/20/25 23:41 Dextrose 15gm Packet PO 03/22/25 23:40 Q5MINP PRN hypoglycemia Heparin Sodium (Porcine) 5,000 unit 02/21/25 09:00 Heparin Sodium 5,000 Unit/Ml Vial SUBCUT 03/23/25 08:59 TID ELIE Dextrose/Sodium Chloride 1,000 mls @ 50 mls/hr 02/20/25 22:30 02/20/25 23:11 Dextrose 5%-0.45% Nacl Iv Soln IV 03/22/25 22:29 50 mls/hr .Q20H ELIE Administration Ondansetron HCl 4 mg 02/20/25 22:26 02/21/25 00:53 Ondansetron 4mg/2ml Vial IV 03/22/25 22:25 4 mg Q8HP PRN Administration Nausea Discontinued Medications Generic Name Dose Route Start Last Admin Trade Name Freq PRN Reason Stop Dose Admin Dextrose 50 ml 02/20/25 18:07 02/20/25 18:00 Dextrose 50% 50ml Syringe (Crash Cart) IVP 02/20/25 18:08 50 ml ONCE ONE Administration Dextrose 100 ml 02/20/25 18:09 02/20/25 18:40 Dextrose 5% In Water 250ml IV 02/20/25 18:10 100 ml ONCE ONE Administration Dextrose 50 ml 02/20/25 20:25 02/20/25 20:30 Dextrose 50% 50ml Syringe (Crash Cart) IVP 02/20/25 20:26 50 ml ONCE ONE Administration ORDERS Category Date Time Status Chest XR -- portable [XR chest portable] Stat Exams 02/20/25 18:07 Completed BNP [NT Pro Brain Natriuretic Pep.] Stat Lab 02/20/25 18:02 Completed Basic Metabolic Panel AMLAB Lab 02/21/25 06:00 Ordered CBC [Complete Blood Count Auto Diff] Stat Lab 02/20/25 18:02 Completed Complete Blood Count Auto Diff AMLAB Lab 02/21/25 06:00 Ordered Comprehensive Metabolic Panel Stat Lab 02/20/25 18:02 Completed Lactic Acid Stat Lab 02/20/25 20:51 Completed Lipase Stat Lab 02/20/25 18:02 Completed Magnesium Stat Lab 02/20/25 18:02 Completed POC Glucose,Bedside Q60MIN Lab 02/20/25 22:28 Ordered POC Glucose,Bedside Q60MIN Lab 02/21/25 22:28 Ordered POC Glucose,Bedside Q60MIN Lab 02/22/25 22:28 Ordered POC Glucose,Bedside Q60MIN Lab 02/23/25 22:28 Ordered POC Glucose,Bedside Q60MIN Lab 02/24/25 22:28 Ordered POC Glucose,Bedside Q60MIN Lab 02/25/25 22:28 Ordered POC Glucose,Bedside Q60MIN Lab 02/26/25 22:28 Ordered POC Glucose,Bedside Q60MIN Lab 02/27/25 22:28 Ordered POC Glucose,Bedside Q60MIN Lab 02/28/25 22:28 Ordered POC Glucose,Bedside Q60MIN Lab 03/01/25 22:28 Ordered Trop I [Troponin I] Stat Lab 02/20/25 18:02 Completed Troponin I Q3H Lab 02/20/25 20:51 Completed Troponin I Q3H Lab 02/21/25 00:25 Received Blood Culture Stat Micro 02/20/25 20:51 Received Medical Decision Narrative: patient is a 80-year-old female presenting to the emergency department for evaluation of lethargy and low blood sugar. Patient is initially arrives to the ED lethargic and confused with critical low blood sugar. Gave D50 and mental status improved alert and oriented x 4.. Differential diagnosis includes critically low blood sugar versus stroke. Workup will be conducted with hematologic labs, specific imaging. White count of 10.9 BUN 22, creatinine 1.7. Critical glucose initially of 30, 1 hour later was 124 then 76, then 76 again I gave another D50 then at 2130 was 155 and now at 2230 it is 90. Initial inventions include crystalloid bolus, d5w, D50 pushes. I have discussed with Frank who accepts patient in admission for monitoring blood glucose. <Britta Borrero, DO - Last Filed: 02/21/25 01:02> Vital Signs: 02/20/25 18:07 02/20/25 18:10 02/20/25 18:12 Temperature 98.4 F Temperature Source Oral Pulse Rate 61 Pulse Rate [Right Radial] 61 Respiratory Rate 14 18 Blood Pressure 193/64 H Blood Pressure [Right Arm] 184/80 H Blood Pressure Mean Blood Pressure Mean [Right Arm] 114 Blood Pressure Source Automatic Cuff Blood Pressure Source [Right Arm] Automatic Cuff Blood Pressure Position Sitting Blood Pressure Position [Right Arm] Supine 02 Sat by Pulse Oximetry 98 98 99 Oxygen Delivery Method Room Air Room Air Room Air 02/20/25 19:31 02/20/25 20:00 02/20/25 20:11 Temperature Temperature Source Pulse Rate 54 L 54 L 53 L Pulse Rate [Right Radial] Respiratory Rate Blood Pressure 214/74 H 218/75 H 193/66 H Blood Pressure [Right Arm] Blood Pressure Mean 110 122 108 Blood Pressure Mean [Right Arm] Blood Pressure Source Blood Pressure Source [Right Arm] Blood Pressure Position Blood Pressure Position [Right Arm] 02 Sat by Pulse Oximetry 100 98 98 Oxygen Delivery Method Room Air 02/20/25 20:30 02/20/25 20:35 02/20/25 21:31 Temperature Temperature Source Pulse Rate 61 61 55 L Pulse Rate [Right Radial] Respiratory Rate Blood Pressure 204/82 H 153/85 H 214/70 H Blood Pressure [Right Arm] Blood Pressure Mean 103 107 102 Blood Pressure Mean [Right Arm] Blood Pressure Source Blood Pressure Source [Right Arm] Blood Pressure Position Blood Pressure Position [Right Arm] 02 Sat by Pulse Oximetry 99 97 99 Oxygen Delivery Method 02/20/25 22:01 02/20/25 22:35 02/20/25 23:04 Temperature 98.1 F Temperature Source Oral Pulse Rate 54 L Pulse Rate [Right Radial] 59 L Respiratory Rate 18 Blood Pressure 211/72 H Blood Pressure [Right Arm] 193/98 H Blood Pressure Mean 107 Blood Pressure Mean [Right Arm] 129 Blood Pressure Source Blood Pressure Source [Right Arm] Automatic Cuff Blood Pressure Position Blood Pressure Position [Right Arm] Supine 02 Sat by Pulse Oximetry 98 95 100 Oxygen Delivery Method Room Air Room Air 02/20/25 23:16 Temperature 98.0 F Temperature Source Oral Pulse Rate 74 Pulse Rate [Right Radial] Respiratory Rate 20 Blood Pressure 190/98 H Blood Pressure [Right Arm] Blood Pressure Mean Blood Pressure Mean [Right Arm] Blood Pressure Source Automatic Cuff Blood Pressure Source [Right Arm] Blood Pressure Position Sitting Blood Pressure Position [Right Arm] 02 Sat by Pulse Oximetry Oxygen Delivery Method Room Air Lab Data Lab results reviewed: Yes I reviewed the patient's lab results. Lab Results 02/20/25 18:02: WBC 10.9 H, RBC 3.51 L, Hgb 10.2 L, Hct 32.0 L, MCV 91.2, MCH 29.1, MCHC 31.9, RDW 15.2, Plt Count 301, MPV 11.9 H, Neut % (Auto) 67.6, Lymph % (Auto) 19.8, Swift % (Auto) 9.8 H, Eos % (Auto) 1.7, Baso % (Auto) 0.5, Neut # (Auto) 7.4, Lymph # (Auto) 2.2, Swift # (Auto) 1.1 H, Eos # (Auto) 0.2, Baso # (Auto) 0.1, Sodium 140, Potassium 3.8, Chloride 110 H, Carbon Dioxide 20 L, Anion Gap 13.8, BUN 22 H, Creatinine 1.70 H, Estimated Creat Clear 25, Estimated GFR 29 L, Est GFR ( Amer) 35 L, Glucose 30 L*, Calcium 8.7, Magnesium 1.7, Total Bilirubin 0.4, AST 36, ALT 19, Alkaline Phosphatase 269 H, Troponin I 0.03, NT-Pro-B Natriuret Pep 77303 H, Total Protein 6.0 L, Albumin 3.4 L, Globulin 2.6, Albumin/Globulin Ratio 1.3, Lipase 154 02/20/25 20:51: Lactate 1.2, Troponin I 0.03 Orders (Tests/Meds): ED MEDICATIONS Generic Name Dose Route Start Last Admin Trade Name Freq PRN Reason Stop Dose Admin Acetaminophen 650 mg 02/20/25 22:26 Acetaminophen 325mg Tab PO 03/22/25 22:25 Q4HP PRN Fever or Mild Pain (1-3) Dextrose 50 ml 02/20/25 23:41 Dextrose 50% 50ml Syringe (Crash Cart) IVP 03/22/25 23:40 NEEDED PRN hypoglycemia Glucose 15 gm 02/20/25 23:41 Dextrose 15gm Packet PO 03/22/25 23:40 Q5MINP PRN hypoglycemia Heparin Sodium (Porcine) 5,000 unit 02/21/25 09:00 Heparin Sodium 5,000 Unit/Ml Vial SUBCUT 03/23/25 08:59 TID ELIE Dextrose/Sodium Chloride 1,000 mls @ 50 mls/hr 02/20/25 22:30 02/20/25 23:11 Dextrose 5%-0.45% Nacl Iv Soln IV 03/22/25 22:29 50 mls/hr .Q20H ELIE Administration Ondansetron HCl 4 mg 02/20/25 22:26 02/21/25 00:53 Ondansetron 4mg/2ml Vial IV 03/22/25 22:25 4 mg Q8HP PRN Administration Nausea Discontinued Medications Generic Name Dose Route Start Last Admin Trade Name Chanduq PRN Reason Stop Dose Admin Dextrose 50 ml 02/20/25 18:07 02/20/25 18:00 Dextrose 50% 50ml Syringe (Crash Cart) IVP 02/20/25 18:08 50 ml ONCE ONE Administration Dextrose 100 ml 02/20/25 18:09 02/20/25 18:40 Dextrose 5% In Water 250ml IV 02/20/25 18:10 100 ml ONCE ONE Administration Dextrose 50 ml 02/20/25 20:25 02/20/25 20:30 Dextrose 50% 50ml Syringe (Crash Cart) IVP 02/20/25 20:26 50 ml ONCE ONE Administration ORDERS Category Date Time Status Chest XR -- portable [XR chest portable] Stat Exams 02/20/25 18:07 Completed BNP [NT Pro Brain Natriuretic Pep.] Stat Lab 02/20/25 18:02 Completed Basic Metabolic Panel AMLAB Lab 02/21/25 06:00 Ordered CBC [Complete Blood Count Auto Diff] Stat Lab 02/20/25 18:02 Completed Complete Blood Count Auto Diff AMLAB Lab 02/21/25 06:00 Ordered Comprehensive Metabolic Panel Stat Lab 02/20/25 18:02 Completed Lactic Acid Stat Lab 02/20/25 20:51 Completed Lipase Stat Lab 02/20/25 18:02 Completed Magnesium Stat Lab 02/20/25 18:02 Completed POC Glucose,Bedside Q60MIN Lab 02/20/25 22:28 Ordered POC Glucose,Bedside Q60MIN Lab 02/21/25 22:28 Ordered POC Glucose,Bedside Q60MIN Lab 02/22/25 22:28 Ordered POC Glucose,Bedside Q60MIN Lab 02/23/25 22:28 Ordered POC Glucose,Bedside Q60MIN Lab 02/24/25 22:28 Ordered POC Glucose,Bedside Q60MIN Lab 02/25/25 22:28 Ordered POC Glucose,Bedside Q60MIN Lab 02/26/25 22:28 Ordered POC Glucose,Bedside Q60MIN Lab 02/27/25 22:28 Ordered POC Glucose,Bedside Q60MIN Lab 02/28/25 22:28 Ordered POC Glucose,Bedside Q60MIN Lab 03/01/25 22:28 Ordered Trop I [Troponin I] Stat Lab 02/20/25 18:02 Completed Troponin I Q3H Lab 02/20/25 20:51 Completed Troponin I Q3H Lab 02/21/25 00:25 Received Blood Culture Stat Micro 02/20/25 20:51 Received Medical Decision Narrative: patient is a 80-year-old female presenting to the emergency department for evaluation of lethargy and low blood sugar. Patient is initially arrives to the ED lethargic and confused with critical low blood sugar. Gave D50 and mental status improved alert and oriented x 4. Differential diagnosis includes critically low blood sugar versus stroke, sepsis, infection, amongst others. Workup will be conducted with hematologic labs, specific imaging. White count of 10.9 BUN 22, creatinine 1.7. Critical glucose initially of 30, 1 hour later was 124 then 76, then 76 again I gave another D50 then at 2130 was 155 and now at 2230 it is 90. CMP was unremarkable except for critically low glucose. Initial troponin was 0.03, second troponin was 0.03. Initial inventions include crystalloid bolus, d5w, D50 pushes. Given the patient continued to be hypoglycemic in the emergency department, blood cultures were ordered given concern for possible infectious related hypoglycemia. Patient continued to be hypoglycemic and I felt that patient warranted overnight observation for frequent blood sugar checks. I have discussed with Frank who accepts patient in admission for monitoring blood glucose. Critical Care <Rahel Proctor (ED), MEDICAL REFERRAL COORDINATOR - Last Filed: 02/20/25 22:34> Critical Care Time Critical Care Time: No
--- OUTSIDE RECORDS SUMMARY | 2025-02-20 18:21 | XMS_ITS | Clinical Summary ---
Author Organization [facility] Address [address] [id number] Care Team Providers Care Database Engineer Name Role Phone Rhett Sage MD Primary Care Provider [phone] Allergies Active Allergy Reactions Criticality Noted Date Comments [place] Other - please docum ent in the comment field Medium 12/26/2024 Asthma flares up Sulfa Drugs Unknown - Patient [facility] at[facility] they do not know rxn details Low 12/26/2024 [place] Unknown - Patient [facility] they do [...] Description 12/28/2024 11:00 AM EDT Office Visit [facility] [address] [place] [address] Oleg, Hanny F, STEP FINISHER Stage 3b chronic kidney disease ([facility]) (Primary Dx); Heart failure with reduced ejection fraction ([facility]); Coronary artery disease involving [place] heart, unspecified vessel or lesion type, unspecified whether angina present; Renal artery stenosis ([facility]); Proteinuria, unspecified type; Chronic kidney disease-mineral and bone disorder; Diabetes mellitus due to underlying condition with diabetic chronic kidney disease, unspecified CKD stage, 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 ([facility]); Hyperkalemia; 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, unspecified chronicity, unspecified laterality 12/28/2024 Travel 11/21/2024 Orders Only [facility] [address] [place] [address] Nuvia Rodríguez CKD (chronic kidney disease) stage 4, GFR 15-29 ml/min ([facility]) (Primary Dx); Vitamin D insufficiency from Last [...] Description 04/05/2025 12:20 PM EST Office Visit [facility] [address] [place] [address] Hanny Dejesus, STEP FINISHER [address] [address] Health Maintenance Due Date Last [...] 10/11/2024 04/13/2024, 10/11/2023, 04/12/2023, Additional history exists [id number] Vaccine ( - season) 2025 UKY-Influenza Vaccine [...] complete this topic Insurance MEDICARE Care Teams Database Engineer Relationship Specialty Start Date End Date Rhett Sage MD [address] [place] [address] PCP - General 12/26/24
--- OUTSIDE RECORDS SUMMARY | 2025-02-20 18:21 | XMS_ITS | Encounter Summary ---
Author Organization [facility] Address [address] [place] [address] Care Team Providers Care Operations Section Manager Name Role Phone Rhett Sage MD Primary Care Provider + Encounter Details Date Type Department Care Team (Late st Contact Info) Description 09/01/2024 Results Follow-Up [facility] [address] [place] [address] Rhett Sage MD [address] [place] [address] Social History Tobacco Use Types [...] Description 05/03/2025 2:15 PM EST Office Visit [facility] [address] [place] [address] Rhett Sage MD [address] [place] [address] documented as of this encounter Visit Diagnoses Not on filedocumented in this encounter Care Teams Operations Section Manager Relationship Specialty Start Date End Date Rhett Sage MD [address] [place] [address] PCP - General Family Medicine 02/25/22 documented as of this encounter
--- OUTSIDE RECORDS SUMMARY | 2025-02-20 18:21 | XMS_ITS | Clinical Summary ---
Author Organization [facility] Address [address] [place] [id number] Care Team Providers Care Tosser Name Role Phone Rhett Sage MD Primary Care Provider + Allergies Active Allergy Reactions Criticality Noted Date Comments Sulfa Antibiotics Unknown - Low Severity 2021 Told this from childhood Medications aspirin 81 MG EC tablet Take 1 tablet by mouth Daily. Active ketoconazole (NIZORAL) 2 % creamIndication s:Dermatitis Apply 1 application topically to the appropriate area as directed Daily. 30 g 1 10/12/19 23 Active eplerenone (INSPRA) 25 MG tablet 09/26/19 24 Active irbesartan (AVAPRO) 150 MG tablet Take 1 tablet by mouth Every 12 (Twelve) Hours. 03/13/20 24 Active atorvastatin (LIPITOR) 40 MG tablet Take 1 tablet by mouth every night at bedtime. 08/21/19 25 Active clopidogrel (Plavix) 75 MG tabletIndicatio ns:Coronary artery disease involving [place] coronary artery of [place] heart with unstable angina pectoris Take 1 tablet by mouth Daily. 90 tablet 3 08/25/19 25 Active allopurinol (ZYLOPRIM) 100 MG tablet Take 1 tablet by mouth Daily. Active metoprolol succinate XL (TOPROL-XL) 50 MG 24 hr tablet Take 1 tablet by mouth Daily. 09/15/19 25 Active triamcinolone (KENALOG) 0.1 % creamIndication s:Dermatitis Apply 1 Application topically to the appropriate area as directed 2 (Two) Times a Day. 30 g 10/06/19 25 Active dapagliflozin Propanediol 10 MG tabletIndicatio ns:Type 2 diabetes mellitus with stage 3b chronic kidney disease, without long-term current use of insulin,Stage 3b chronic kidney disease (CKD) Take 10 mg by mouth Daily. 30 tablet 5 10/06/19 25 Active colchicine 0.6 MG tabletIndicatio ns: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 knee Take 1/2 (one-half) tablet by mouth once daily 45 tablet 3 10/23/19 25 Active methylPREDNISol one (MEDROL) 4 MG dose pack Take as directed on package instructions. 21 tablet 01/18/20 25 Active glimepiride (AMARYL) 1 MG tabletIndicatio ns:Type 2 diabetes mellitus with diabetic peripheral angiopathy without gangrene, without long-term current use of insulin TAKE 1 TABLET BY MOUTH ONCE DAILY IN THE MORNING BEFORE BREAKFAST 90 tablet 02/19/20 25 Active glimepiride (AMARYL) 1 MG tabletIndicatio ns:Type 2 diabetes mellitus with diabetic peripheral angiopathy without gangrene, without long-term current use of insulin Take 1 tablet by mouth Every Morning Before Breakfast. 90 tablet 1 10/06/19 25 025 Discontinued Active Problems Problem Noted Date Diagnosed Date Left ventricular systolic dysfunction 10/05/2024 Stage 3b chronic kidney disease (CKD) 07/12/2022 Coronary artery disease invo [place]ving [place] coronary artery of [place] heart with unstable angina pectoris 07/12/2022 Diabetes mellitus type 2 with peripheral artery disease 02/25/2022 Assessment & Plan (04/13/2024 9:58 AM EST): Type 2 diabetes mellitus wit h chronic kidney disease, without long-term current use of insulin 02/25/2022 Encounters Date Type Department Care Team Description 02/17/2025 Refill [facility] [address] [place] [address] Rhett Sage MD Type 2 diabetes mellitus with diabetic peripheral angiopathy without gangrene, without long-term current use of insulin 01/17/2025 Telephone [facility] [address] [place] [address] Rhett Sage MD NEW PRESCRIPTION from Last [...] Description 05/03/2025 2:15 PM EST Office Visit [facility] [address] [place] [address] Rhett Sage MD [address] [place] [address] Health Maintenance Due Date Last Done Comments DXA SCAN 1945 DIABETIC EYE EXAM 01/12/1956 DIABETIC FOOT EXAM 01/12/1956 TDAP/TD VACCINES (1 - Tdap) 1965 ZOSTER VACCINE (1 of 2) 01/12/1996 HEPATITIS C SCREENING 02/22/2022 HEMOGLOBIN A1C 10/11/2024 04/13/2024, 05/2 05/2023, 04/12/2023, Additional history exists INFLUENZA VACCINE 12/21/2024 04/13/2024, , 02/25/2022, Additional history exists COVID-19 Vaccine (1 - 2023-2 5 season) 2025 ANNUAL WELLNESS VISIT 04/13/2025 04/13/2024 , 04/13/2024, 04/12/2023 URINE MICROALBUMIN-CREATININ E RATIO (uACR) 10/05/2025 10/05/2024 RSV Vaccine - Adults Completed 04/12/2023 Pneumococcal Vaccine 50+ Completed 04/13/2024 Procedures Procedure Name Priority Date/Time Associated Diagnosis Comments SCANNED - LABS 02/03/2025 SCANNED - LABS 02/03/2025 SCANNED - IMAGING 02/03/2025 SCANNED - IMAGING 02/03/2025 SCANNED - IMAGING 02/03/2025 SCANNED - LABS 11/27/2024 SCANNED - IMAGING [...] to Health Maintenance Results * IMAGING SCANNED (02/03/2025) Only the most recent of4 resultswithin the time period is included. Anatomical Region Laterality Modality Radiographic Aditi ging us Rhett Sage MD IMG DIAGNOSTIC IMAGING O RDERABLES Final Result * LABS SCANNED (02/03/2025) Only the most recent of3 resultswithin the time period is included. Rhett [...] Hemoglobin A1C 6.3(A) 4.5 - 5.7 % [facility] Lot Number [id number] [facility] Expiration Date 12/28/2025 [facility] Blood 04/13/2024 9:23 AM EST Rhett Sage MD POINT OF CARE TEST ORDER NEREYDA Final Result [facility]
[address] [place] [address], from Last 3 Months or Most Recently Relevant to Health Maintenance Insurance MEDICARE A & B [facility] SUP Care Teams Tosser Relationship Specialty Start Date End Date Rhett Sage MD [address] [place] [id number] PCP - General Family Medicine 02/25/22
--- OUTSIDE RECORDS SUMMARY | 2025-02-20 18:21 | XMS_ITS | Encounter Summary ---
Author Organization [facility] Address [address] [place] [address] Care Team Providers Care Crisis Specialist Name Role Phone Rhett Sage MD Primary Care Provider + Reason for Visit * Reason Onset Date Comments NEW PRESCRIPTION 01/17/2025 Encounter Details Date Type Department Care Team (Late st Contact Info) Description 01/17/2025 Telephone [facility] [address] [place] [address] Rhett Sage MD [address] [place] [address] NEW PRESCRIPTION Social History Tobacco [...] Peralta Relationship: Self Best call back number: [phone] What medication are you requesting: SOMETHING FOR [...] is your preferred pharmacy and phone number: [facility] [address] [place], [place] [address] [phone] [facility] [phone] Additional notes: 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
--- OUTSIDE RECORDS SUMMARY | 2025-02-20 18:21 | XMS_ITS | Encounter Summary ---
Author Organization [facility] Address [address] [place] [address] Care Team Providers Care Shipyard Painter Name Role Phone Rhett Sage MD Primary Care Provider [phone] Encounter Details Date Type Department Care Team [...] 12:20 PM EST Office Visit [facility] [address] [place] [phone] Hanny Dejesus, MANUFACTURING MECHANIC [address] [address] documented as of this encounter Visit Diagnoses Not on filedocumented in this encounter Additional Health Concerns Assessment Noted Time A Body Mass Index follow-up plan has been documented for the patient 12/28/2024 12:29 PM EDT documented as of this encounter Care Teams Shipyard Painter Relationship Specialty Start Date End Date Rhett Sage MD [address] [place] [address] PCP - General 12/26/24 documented as of this encounter
[2025-02-20 18:24] LABS: Alanine Aminotransferase 19 U/L (12-78); Albumin Level 3.4 g/dl (3.5-5.0); Albumin/Globulin Ratio 1.3 (1.1-1.8); Alkaline Phosphatase 269 U/L (38-126); Anion Gap 13.8 mEq/L (5-15); Aspartate Amino Transferase 36 U/L (14-36); Bilirubin,Total 0.4 mg/dl (0.2-1.3); Blood Urea Nitrogen 22 mg/dl (7-17); Calcium 8.7 mg/dl (8.4-10.2); Carbon Dioxide 20 mmol/L (22.0-30.0); Chloride 110 mmol/L (98-107); Creatinine Clearance Estimated 25 mL/min (50-200); Creatinine,Serum 1.70 mg/dl (0.52-1.04); Estimated Glomerular Filt Rate 29 ml/min (>60); GFR (African American) 35 ML/MIN (>60); Globulin 2.6 g/dL (1.3-3.2); Lipase 154 U/L (23-300); Magnesium 1.7 mg/dl (1.6-2.3); Potassium 3.8 mmoL/L (3.5-5.1); Sodium 140 mmol/L (136-145); Total Protein,Serum 6.0 g/dl (6.3-8.2)
[2025-02-20 18:28] LABS: Glucose 30 mg/dl (74-100)
[2025-02-20 18:36] LABS: Troponin I 0.03 ng/ml (0.00-0.034)
[2025-02-20] MEDS: DEXTROSE 5% IN WATER 250ML 100 ML IV (18:40)
[2025-02-20 21:25] LABS: NT Pro Brain Natriuretic Pep. 26700 pg/mL (0-450)
[2025-02-20 21:27] LABS: Troponin I 0.03 ng/ml (0.00-0.034)
--- NOTE | 2025-02-20 22:53 | EXP.HP ---
History of Present Illness *Admission Date: 02/20/25 *Reason for visit:: Slurred speech *History of present illness: Patient is a 80-year-old female with past medical history of diabetes mellitus hypertension hyperlipidemia CKD, PAD, CAD heart failure with reduced ejection fraction who presents to the hospital due to difficulty ambulation, slurred speech. On arrival to the hospital patient was found to be hypoglycemic, her symptoms improved after repletion of her glucose. Patient has been having recurrent hypoglycemia, denied chest pain shortness of breath nausea vomiting diarrhea constipation dysuria fevers and chills at time of my evaluation. [facility] Disclaimer: The information contained in this section may have been updated after the patient was seen, as this information can be updated by other users. Medical History Syncope and collapse Malignant hypertension Contrast-induced nephropathy Wound of right lower extremity Renal artery stenosis Nonadherence to medication Left leg pain Swelling of lower extremity CAD in [place] artery DVT (deep venous thrombosis) Heart murmur Sinus bradycardia Chronic renal insufficiency Diabetes Hypertension Peripheral arterial disease HLD (hyperlipidemia) Umbilical hernia with obstruction Surgically corrected by way of primary repair. Small bowel obstruction Secondary to umbilical hernia. Surgically corrected by way of partial small bowel resection and hernia repair. 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 current occupational exposures/hazards: No caffeine: Yes Have you lived/traveled outside [place] in past 30 days?: No Contact w/someone who lives/traveled outside US past 30 days?: No Exposure to someone with infectious disease in past 14 days?: No Do you have a fever (greater than 100.4 F or 38 C)?: No Have you tested positive for COVID-19?: No Exposed to someone with COVID-19 in past 14 days?: No Do you have a sore throat?: No Do you have a cough?: No Do you have any weakness?: No Are you experiencing any nausea/vomitting?: No Do you have any diarrhea?: No Are you experiencing any unusual bleeding?: No Do you have any muscle aches/pain?: No Do you have any abdominal pain?: No Are you experiencing loss of taste or smell?: No Other Medical History Have you received the Flu Vaccine for this season: No Have you received the Pneumonia Vaccine: No Review of Systems Review of Systems Review of systems:: pertinent systems reviewed and negative unless documented below Meds Home Medications and Allergies Home Medications ?Medication ?Instructions ?Recorded ?Confirmed ?Type aspirin 81 mg tablet,delayed 81 mg PO DAILY heart health #90 08/26/22 02/20/25 Rx release tabs colchicine 0.6 mg tablet 0.3 mg PO DAILY gout 01/05/23 02/20/25 History Held on 08/20/24. Instructions: Resume on 09/03/24. Hold this medication until follow-up with cardiology. Your kidney function bumped but is resolving. glimepiride 1 mg tablet 1 mg PO DAILY #30 tabs 07/11/23 02/20/25 Rx allopurinol 100 mg tablet 100 mg PO DAILY 08/15/24 02/20/25 History Held on 08/20/24. Instructions: Resume on 09/03/24. Hold this medication until follow-up with cardiology. Your kidney function bumped but is resolving. clopidogrel 75 mg tablet 75 mg PO DAILY #90 tabs 08/27/24 02/20/25 Rx atorvastatin 40 mg tablet 40 mg PO HS #90 tabs 09/14/24 02/20/25 Rx metoprolol succinate 50 mg 50 mg PO DAILY #90 tabs 09/14/24 02/20/25 Rx tablet,extended release 24 hr albuterol sulfate 90 mcg/actuation 1 inh inhalation QID #6.7 grams 11/27/24 02/20/25 Rx aerosol inhaler (Ventolin HFA) irbesartan 300 mg tablet 300 mg PO DAILY #30 tabs 02/07/25 02/20/25 Rx New Prescriptions to Start Prescriptions: Allergies Allergy/AdvReac Type Severity Reaction Status Date / Time orange Allergy Unknown ASTHMA Verified 11/27/24 08:52 FLARES UP Sulfa (Sulfonamide Allergy Unknown Unknown Verified 11/27/24 08:52 Antibiotics) (SULFA allergy (SULFONAMIDE ANTIBIOTICS)) reaction walnut (WALNUT) Allergy Unknown Unknown Verified 11/27/24 08:52 allergy reaction Exam Data for Last 24 hours Vital signs and Labs for Last 24 Hours: Temp Pulse Resp BP Pulse Ox O2 Del Method 98.4 F 54 L 18 211/72 H 98 Room Air 02/20/25 18:07 02/20/25 22:01 02/20/25 18:10 02/20/25 22:01 02/20/25 22:01 02/20/25 19:31 Laboratory Results - last 24 hr 02/20/25 18:02: WBC 10.9 H, RBC 3.51 L, Hgb 10.2 L, Hct 32.0 L, MCV 91.2, MCH 29.1, MCHC 31.9, RDW 15.2, Plt Count 301, MPV 11.9 H, Neut % (Auto) 67.6, Lymph % (Auto) 19.8, [place] % (Auto) 9.8 H, Eos % (Auto) 1.7, Baso % (Auto) 0.5, Neut # (Auto) 7.4, Lymph # (Auto) 2.2, [place] # (Auto) 1.1 H, Eos # (Auto) 0.2, Baso # (Auto) 0.1, Sodium 140, Potassium 3.8, Chloride 110 H, Carbon Dioxide 20 L, Anion Gap 13.8, BUN 22 H, Creatinine 1.70 H, Estimated Creat Clear 25, Estimated GFR 29 L, Est GFR ( Amer) 35 L, Glucose 30 L*, Calcium 8.7, Magnesium 1.7, Total Bilirubin 0.4, AST 36, ALT 19, Alkaline Phosphatase 269 H, Troponin I 0.03, NT-Pro-B Natriuret Pep 77068 H, Total Protein 6.0 L, Albumin 3.4 L, Globulin 2.6, Albumin/Globulin Ratio 1.3, Lipase 154 02/20/25 20:51: Lactate 1.2, Troponin I 0.03 I & O for Last 24 hours: Intake & Output 02/17/25 02/18/25 02/19/25 02/20/25 23:59 23:59 23:59 23:59 Weight 59.421 kg Constitutional Constitutional: no acute distress *Routine HEENT Exam Head: Present normocephalic Eye: Present EOMI and PERRL ENT: Present mucous membranes moist *Routine Neck Exam Neck: Present supple; Absent lymphadenopathy *Routine Respiratory Exam Respiratory: Present CTA bilaterally *Routine Cardiovascular Exam Cardiovascular: Present RRR *Routine Abdominal Exam Abdominal: Present soft and normoactive bowel sounds; Absent tenderness *Routine Rectal Exam Rectal:: deferred *Routine Genitalia Exam Genitalia:: deferred *Routine Extremities Exam Extremities: Absent cyanosis, clubbing or edema *Routine Skin Exam Skin: Present warm; Absent rash *Routine Neurological Exam Neurological: Present alert and oriented X3 Assessment and Plan *Assessment and plan (1) Hypoglycemia: Status: Acute Category: Medical Code(s): E16.2 - Hypoglycemia, unspecified (2) Fall: Status: Acute Category: Medical Code(s): W19.XXXA - Unspecified fall, initial encounter (3) HFrEF (heart failure with reduced ejection fraction): Status: Acute Category: Medical Code(s): I50.20 - Unspecified systolic (congestive) heart failure (4) Diabetes: Status: Acute Qualifiers: Diabetes mellitus type: type 2 Diabetes mellitus assisted insulin use: without terminal block assembler use Diabetes mellitus complication status: with kidney complications Diabetes mellitus complication detail: with chronic kidney disease Chronic kidney disease stage: stage 4 (GFR 15-29) Qualified Code(s): E11.22 - Type 2 diabetes mellitus with diabetic chronic kidney disease; N18.4 - Chronic kidney disease, stage 4 (severe) Category: Medical Code(s): E11.9 - Type 2 diabetes mellitus without complications (5) HLD (hyperlipidemia): Status: Chronic Qualifiers: Hyperlipidemia type: mixed hyperlipidemia Qualified Code(s): E78.2 - Mixed hyperlipidemia Category: Medical Code(s): E78.5 - Hyperlipidemia, unspecified Plan Patient is a 80-year-old female with past medical history of diabetes mellitus hypertension hyperlipidemia CKD, PAD, CAD heart failure with reduced ejection fraction who presents to the hospital due to difficulty ambulation, slurred speech. On arrival to the hospital patient was found to be hypoglycemic, her symptoms improved after repletion of her glucose. Patient has been having recurrent hypoglycemia, denied chest pain shortness of breath nausea vomiting diarrhea constipation dysuria fevers and chills at time of my evaluation. Assessment and plan Recurring hypoglycemia Patient takes glimepiride at home Hold sulfonylurea Patient has started on IV D5W NS at the rate of 50 mL/h, monitor IV fluid intake given history of CHF As needed D10, hypoglycemia precautions ordered Monitor every hour glucose Encourage eating regular diet for now Chronic medical conditions Chronic heart failure with reduced ejection fraction CAD PAD CKD stage III, creatinine at baseline Diabetes mellitus Resume home medications when confirmed DVT prophylaxis-subcutaneous heparin
--- NOTE | 2025-02-20 22:55 | PC.NURSE ---
Patient arrived to floor via wheelchair from ED at 22:54.
[2025-02-20] MEDS: Dex 5% in 0.45% NaCl 1,000 ML 50 ML IV (23:11)
[2025-02-20 23:43] LABS: POC Glucose,Bedside 56 gm/dL (70-110)
[2025-02-20 23:43] LABS: POC Glucose,Bedside 55 gm/dL (70-110)
--- NOTE | 2025-02-20 23:49 | PC.NURSE ---
Addendum entered by Natasha Logan RN 02/21/25 02:58: 0245 b/s was 69 Pt was sleeping. Iv fluids are still going 50 ml / hour. Continue to monitor. 0145 B/S was 80. pt had no complains or concerns. 0117 Dr Rivas came to see PT. pt troponin had came back at 0.4 elevated from prior on 0.3. Addendum entered by Natasha Logan RN 02/21/25 00:49: 0044 PT stated vomiting, B/s is now 68. giving Zophram IV. notified Dr Rivas. Pt has her call light with in reach. NATASHA LOGAN RN Original Note: PT arrived at 2245 did a blood sugar on this Pt and it was [address] Rivas who is covering for the hospitalist. he told me she has d .45 ns At 50 ml a hour. then at 2342 Called the on Called back again pt B/S is at 56. he order some prn d10 for emergencies. NATASHA LOGAN RN
[2025-02-21 00:52] LABS: POC Glucose,Bedside 68 gm/dL (70-110)
[2025-02-21] MEDS: ONDANSETRON 4MG/2ML VIAL 4 MG IV (00:53)
[2025-02-21 00:58] LABS: Troponin I 0.04 ng/ml (0.00-0.034)
[2025-02-21 01:55] LABS: POC Glucose,Bedside 80 gm/dL (70-110)
[2025-02-21 02:56] LABS: POC Glucose,Bedside 69 gm/dL (70-110)
[2025-02-21 03:54] LABS: POC Glucose,Bedside 80 gm/dL (70-110)
[2025-02-21 04:00] VITALS: BP 188/70; PULSE 52; RESP 16; TEMP 36.8; O2SAT 94; BMI 28.0
[2025-02-21 05:21] LABS: POC Glucose,Bedside 75 gm/dL (70-110)
[2025-02-21] MEDS: ALBUTEROL-HFA 90MCG/PUFF INHALER 8GM 1 PUFF IH ×2 (05:54→10:35)
[2025-02-21] MEDS: AEROCHAMBER/OPTIHALER 1 UNIT MC (05:54)
[2025-02-21 05:55] VITALS: O2SAT 95
[2025-02-21 06:03] LABS: Hematocrit 28.9 % (37.0-47.0); Hemoglobin 9.2 g/dL (12.2-16.2); Immature Granulocytes % 0.4 %; Mean Corpuscular HGB Conc 31.8 g/dL (31.8-35.4); Mean Corpuscular Hemoglobin 29.0 pg (27.0-31.2); Mean Corpuscular Volume 91.2 fl (81-99); Nucleated Red Blood Cells % 0 %; Platelet Count 221 K/mm3 (142-424); Red Blood Count 3.17 M/mm3 (4.20-5.40); Red Cell Distribution Width-SD 50.7 fL; White Blood Count 8.0 K/mm3 (4.8-10.8)
[2025-02-21 06:13] LABS: Anion Gap 11.5 mEq/L (5-15); Blood Urea Nitrogen 21 mg/dl (7-17); Calcium 8.0 mg/dl (8.4-10.2); Carbon Dioxide 20 mmol/L (22.0-30.0); Chloride 111 mmol/L (98-107); Creatinine Clearance Estimated 25 mL/min (50-200); Creatinine,Serum 1.70 mg/dl (0.52-1.04); Estimated Glomerular Filt Rate 29 ml/min (>60); GFR (African American) 35 ML/MIN (>60); Glucose 72 mg/dl (74-100); Potassium 4.5 mmoL/L (3.5-5.1); Sodium 138 mmol/L (136-145)
[2025-02-21 08:00] VITALS: BP 152/68; PULSE 55; RESP 18; TEMP 36.7; O2SAT 95
--- NOTE | 2025-02-21 08:39 | HMH.PHAINT1 ---
Pharmacy Intervention Comments: HOME MEDICATION LIST VERIFIED USING THE LIST FROM OUTPATIENT PHARMACY
[2025-02-21 09:35] LABS: POC Glucose,Bedside 97 gm/dL (70-110)
--- NOTE | 2025-02-21 10:21 | EXP.ACUTE.PN ---
Subjective *Date: 02/21/25 *Time: 14:13 Interval history: Denies chest pain or shortness of breath. Back to baseline mentation. Stable on room air. No nausea or vomiting. Tolerating p.o. intake. Medical Exam Vital signs and Labs for Last 24 Hours: Vital Signs Temp Pulse Pulse Resp BP BP Pulse Ox 02/21/25 10:15 02/21/25 08:00 98.0 F 55 L 18 152/68 H 95 02/21/25 07:48 02/21/25 07:48 02/21/25 05:55 95 02/21/25 05:00 02/21/25 04:00 98.3 F 52 L 16 188/70 H 94 L 02/21/25 03:00 02/21/25 01:00 02/20/25 23:16 98.0 F 74 20 190/98 H 02/20/25 23:04 98.1 F 59 L 18 193/98 H 100 02/20/25 23:00 02/20/25 22:35 95 02/20/25 22:01 54 L 211/72 H 98 02/20/25 21:31 55 L 214/70 H 99 02/20/25 20:35 61 153/85 H 97 02/20/25 20:30 61 204/82 H 99 02/20/25 20:11 53 L 193/66 H 98 02/20/25 20:00 54 L 218/75 H 98 02/20/25 19:31 54 L 214/74 H 100 02/20/25 18:12 99 02/20/25 18:10 61 18 193/64 H 98 02/20/25 18:07 98.4 F 61 14 184/80 H 98 O2 Del Method 02/21/25 10:15 Room Air 02/21/25 08:00 Room Air 02/21/25 07:48 Room Air 02/21/25 07:48 Room Air 02/21/25 05:55 Room Air 02/21/25 05:00 Room Air 02/21/25 04:00 Room Air 02/21/25 03:00 Room Air 02/21/25 01:00 Room Air 02/20/25 23:16 Room Air 02/20/25 23:04 Room Air 02/20/25 23:00 Room Air 02/20/25 22:35 Room Air 02/20/25 22:01 02/20/25 21:31 02/20/25 20:35 02/20/25 20:30 02/20/25 20:11 02/20/25 20:00 02/20/25 19:31 Room Air 02/20/25 18:12 Room Air 02/20/25 18:10 Room Air 02/20/25 18:07 Room Air Intake and Output 02/20/25 02/21/25 02/21/25 23:59 07:59 15:59 Intake Total 170 / 650 480 / 650 Output Total 700 / 900 200 / 900 Balance -530 / -250 280 / -250 Intake: Intake, Oral Amount 120 / 600 480 / 600 Intake, Oral Supplement Amount 50 / 50 Output: Output, Urine Amount 700 / 900 200 / 900 Other: Number of Unmeasured Voids 0 Weight 58.604 kg 59.058 kg Patient Weight 02/21/25 23:59 Weight 59.058 kg Laboratory Results - last 24 hr 02/20/25 18:02: WBC 10.9 H, RBC 3.51 L, Hgb 10.2 L, Hct 32.0 L, MCV 91.2, MCH 29.1, MCHC 31.9, RDW 15.2, Plt Count 301, MPV 11.9 H, Neut % (Auto) 67.6, Lymph % (Auto) 19.8, [place] % (Auto) 9.8 H, Eos % (Auto) 1.7, Baso % (Auto) 0.5, Neut # (Auto) 7.4, Lymph # (Auto) 2.2, [place] # (Auto) 1.1 H, Eos # (Auto) 0.2, Baso # (Auto) 0.1, Sodium 140, Potassium 3.8, Chloride 110 H, Carbon Dioxide 20 L, Anion Gap 13.8, BUN 22 H, Creatinine 1.70 H, Estimated Creat Clear 25, Estimated GFR 29 L, Est GFR ( Amer) 35 L, Glucose 30 L*, Calcium 8.7, Magnesium 1.7, Total Bilirubin 0.4, AST 36, ALT 19, Alkaline Phosphatase 269 H, Troponin I 0.03, NT-Pro-B Natriuret Pep 74116 H, Total Protein 6.0 L, Albumin 3.4 L, Globulin 2.6, Albumin/Globulin Ratio 1.3, Lipase 154 02/20/25 20:51: Lactate 1.2, Troponin I 0.03 02/20/25 22:57: POC Glucose 55 L 02/20/25 23:35: POC Glucose 56 L 02/21/25 00:25: Troponin I 0.04 H 02/21/25 00:43: POC Glucose 68 L 02/21/25 01:49: POC Glucose 80 02/21/25 02:48: POC Glucose 69 L 02/21/25 03:46: POC Glucose 80 02/21/25 05:06: POC Glucose 75 02/21/25 05:33: WBC 8.0 D, RBC 3.17 L, Hgb 9.2 L, Hct 28.9 L, MCV 91.2, MCH 29.0, MCHC 31.8, RDW 15.0, Plt Count 221 D, MPV 12.1 H, Neut % (Auto) 70.7, Lymph % (Auto) 15.8, [place] % (Auto) 8.8, Eos % (Auto) 3.7, Baso % (Auto) 0.6, Neut # (Auto) 5.7, Lymph # (Auto) 1.3, [place] # (Auto) 0.7, Eos # (Auto) 0.3, Baso # (Auto) 0.1, Sodium 138, Potassium 4.5, Chloride 111 H, Carbon Dioxide 20 L, Anion Gap 11.5, BUN 21 H, Creatinine 1.70 H, Estimated Creat Clear 25, Estimated GFR 29 L, Est GFR ( Amer) 35 L, Glucose 72 L D, Calcium 8.0 L 02/21/25 09:27: POC Glucose 97 I & O for Labs for Last 24 Hours: Intake & Output 02/18/25 02/19/25 02/20/25 02/21/25 23:59 23:59 23:59 23:59 Intake Total 650 / 650 Output Total 900 / 900 Balance -250 / -250 Weight 58.604 kg 59.058 kg Constitutional: Present no acute distress, average body habitus, chronically ill appearing and cooperative Head: Present atraumatic and normocephalic ENT: Present normal exam Respiratory: Present normal respiratory effort; Absent rhonchi, wheezes or crackles Cardiac: Present Reg Rate and Rhythm GI: Present soft and normal bowel sounds; Absent distention or tenderness Extremities: Present normal inspection and full ROM; Absent edema Skin: Present intact; Absent erythema Neuro: Present Grossly Intact, alert, awake, oriented x 3 and moves all extremities Assessment and Plan *Assessment and plan (1) Hypoglycemia: Status: Acute Category: Medical Code(s): E16.2 - Hypoglycemia, unspecified (2) Fall: Status: Acute Category: Medical Code(s): W19.XXXA - Unspecified fall, initial encounter (3) HFrEF (heart failure with reduced ejection fraction): Status: Acute Category: Medical Code(s): I50.20 - Unspecified systolic (congestive) heart failure (4) Diabetes: Status: Acute Qualifiers: Diabetes mellitus type: type 2 Diabetes mellitus correction insulin use: without terminal make up operator use Diabetes mellitus complication status: with kidney complications Diabetes mellitus complication detail: with chronic kidney disease Chronic kidney disease stage: stage 4 (GFR 15-29) Qualified Code(s): E11.22 - Type 2 diabetes mellitus with diabetic chronic kidney disease; N18.4 - Chronic kidney disease, stage 4 (severe) Category: Medical Code(s): E11.9 - Type 2 diabetes mellitus without complications (5) HLD (hyperlipidemia): Status: Chronic Qualifiers: Hyperlipidemia type: mixed hyperlipidemia Qualified Code(s): E78.2 - Mixed hyperlipidemia Category: Medical Code(s): E78.5 - Hyperlipidemia, unspecified (6) CKD stage 3 due to type 2 diabetes mellitus: Status: Chronic Category: Medical Code(s): E11.22 - Type 2 diabetes mellitus with diabetic chronic kidney disease; N18.30 - Chronic kidney disease, stage 3 unspecified (7) Adverse effect of sulfonylurea: Problem Comment: Hypoglycemia due to sulfonylurea Status: Acute Category: Medical Code(s): T38.3X5A - Adverse effect of insulin and oral hypoglycemic [antidiabetic] drugs, initial encounter Plan Patient is a 80-year-old female with past medical history of diabetes mellitus hypertension hyperlipidemia CKD, PAD, CAD heart failure with reduced ejection fraction who presents to the hospital due to difficulty ambulation, slurred speech. On arrival to the hospital patient was found to be hypoglycemic, her symptoms improved after repletion of her glucose. Patient has been having recurrent hypoglycemia, denied chest pain shortness of breath nausea vomiting diarrhea constipation dysuria fevers and chills at time of my evaluation. Doing better this morning. Will discontinue dextrose drip. Monitor for another 24 hours. Advancing diet. Problems addressed as follows: Recurring hypoglycemia Adverse effect of sulfonylurea -Patient takes glimepiride at home. Last dose was yesterday morning. Holding at this time. - Previous A1c 6.3 earlier this year. Repeat A1c ordered and pending. - Glucoses showing improvement, most recent fingerstick of 97. Will discontinue D5 infusion - Advance diet to regular diet. Will have nutrition consult and discuss diet appropriate for diabetes and gout. - Will monitor glucose every hour for the next 4 hours. If remains stable off D5, transition to ACHS monitoring. - Morning labs with sodium 138, glucose 72, potassium 4.5. Repeat BMP ordered for the morning Chronic heart failure with reduced ejection fraction CAD Gout PAD CKD stage III, creatinine at baseline -Creatinine stable at 1.7, BUN 21. Resume home irbesartan 150 mg twice daily, metoprolol succinate 50 mg, Plavix 75 mg daily, Lipitor 40 mg nightly, and allopurinol 100 mg daily BNP elevated at 23,000, elevated at 75,000 earlier this year. Stable on room air. Will administer one-time dose Lasix 40 mg IV and monitor output. Close monitoring of electrolytes and kidney function due to risk of toxicity. Consider diuretic before discharge home pending response and clinical stability of patient. Echo from August of this year showed reduced EF of 40% and RVSP of 30 to 35 mmHg. Full code Regular diet DVT prophylaxis-subcutaneous heparin
[2025-02-21] MEDS: COLCHICINE 0.6MG TABLET 0.3 MG PO (10:42)
[2025-02-21] MEDS: ALLOPURINOL 100MG TABLET 100 MG PO (10:42)
[2025-02-21] MEDS: METOPROLOL SUCCINATE XL 50MG TABLET 50 MG PO (10:42)
[2025-02-21] MEDS: HEPARIN SODIUM 5,000 UNIT/ML VIAL 5000 UNIT SUBCUT ×3 (10:43→20:43)
[2025-02-21] MEDS: IRBESARTAN 150MG TAB 150 MG PO ×2 (10:43→20:43)
[2025-02-21] MEDS: ASPIRIN EC 81MG TABLET 81 MG PO (10:43)
[2025-02-21] MEDS: FUROSEMIDE 40MG/4ML VIAL 40 MG IV (10:47)
[2025-02-21] MEDS: CLOPIDOGREL 75MG TAB 75 MG PO (10:47)
[2025-02-21 13:52] VITALS: BMI 28.0
--- NOTE | 2025-02-21 15:01 | HMH.OTEV ---
OT Evaluation Rehab OT IP Evaluation Start: 02/21/25 10:18 Freq: ONCE Status: Active Protocol: Document 02/21/25 14:41 [facility] (Rec: 02/21/25 15:01 [facility] [id number]) Rehab OT IP Assessment Subjective History Pt oriented x 3 on arrival. Pt agreeable to engage in therapy evaluation. Pt admitted on 02/20/25 due to hypoglycemia. History and Physical: Patient is a 80-year-old female with past medical history of diabetes mellitus hypertension hyperlipidemia CKD, PAD, CAD heart failure with reduced ejection fraction who presents to the hospital due to difficulty ambulation, slurred speech. On arrival to the hospital patient was found to be hypoglycemic, her symptoms improved after repletion of her glucose. Patient has been having recurrent hypoglycemia, denied chest pain shortness of breath nausea vomiting diarrhea constipation dysuria fevers and chills at time of my evaluation. Subjective Pt reports prior to being in the hospital, she lived at home alone. Pt claims she is usually independent with all ADLs and IADLs. Pt does not use any type of AE during functional transfers. She no longer drives. However, her son and daughter in law complete all grocery shopping and take her to any appointments. Son present and supportive during therapy evaluation. Pt reports she does have 16 stairs to climb to get to her room. Pt's biggest complaint at this time is knee pain . Son reports she is able to stay on one floor if needed and family could provide 24/7 assist. Objective Patient Orientation Person,Place,Birthday Right Upper WFL Extremity Gross ROM Left Upper Extremity WFL Gross ROM Bed Mobility bed mobility-scooting,bed mobility - supine/sit Assist Level Contact Guard/Hand Hold Transfer Training Sit/Stand Transfer Assist Level Minimal x 1 (25% assist) Rehab OT IP prob,goals,plan Problems Date of Evaluation: 02/21/25 OT IP Problems Bed Mobility,Transfers,Balance,Self care,Safety Rehab Potential Rehab Potential Good Equipment Needs Assistive Devices Rolling / Wheeled Walker Plan OT intervention Plan Bed Mobility,Transfers,Balance,Self care,Safety, Therapeutic Exercise OT Plan Frequency Daily Duration LOS Discharge Goals Bed Mobility Ability Standby Assistance Sit to Stand Chair Contact Guard/Hand Hold Transfer Ability Chair Transfer Contact Guard/Hand Hold Ability Chair Transfer Sit to/from Ambulatory Technique Chair Transfer Rolling Walker Assistive Devices Lower Body Dressing Minimal Assistance Ability Performing Toilet Minimal Assistance Hygiene Ability Overall Commode/ Contact Guard Toilet Transfer Ability Commode/Toilet Sit to/from Ambulatory Transfer Technique Discharge Plan OT Discharge Plan Pt will continue to be seen for OT services while at [facility]. Pt can return home if family can assist 13/12 as needed. If she returns home, therapist recommends OT evaluation for continued skilled services. If family cannot assist at home, therapist would recommend short term rehab at SNF following discharge. Continued skilled therapy is important in order for patient to increase independence and reach PLOF. Eval Complexity Eval Charge Codes 92839 - Moderate Complexity PHYSICIAN CERTIFICATION: I certify the specified therapy services for Keyonna Peralta are required, authorized, and reviewed every 30 days.
[2025-02-21 15:15] LABS: POC Glucose,Bedside 136 gm/dL (70-110)
[2025-02-21] MEDS: ACETAMINOPHEN 325MG TAB 650 MG PO (15:28)
--- NOTE | 2025-02-21 15:42 | HMH.PTEV ---
Physical Therapy Evaluation Rehab PT IP Evaluation Start: 02/21/25 10:18 Freq: ONCE Status: Active Protocol: Document 02/21/25 15:30 [email or web address] (Rec: 02/21/25 15:41 PHORNE [id number]) Subjective/History History History 80-year-old female with past medical history of diabetes mellitus hypertension hyperlipidemia CKD, PAD, CAD heart failure with reduced ejection fraction who presents to the hospital due to difficulty ambulation, slurred speech. On arrival to the hospital patient was found to be hypoglycemic, her symptoms improved after repletion of her glucose. Patient has been having recurrent hypoglycemia, denied chest pain shortness of breath nausea vomiting diarrhea constipation dysuria fevers and chills at time of my evaluation. Subjective Subjective Pt reports she lives alone, [address] the home, 1 flight of stairs in her home. She reports she is generally independent with all mobility at baseline without an AD . She currently reports pain in her R knee. I don't know what I did to it. [facility] How much help from another person do you currently need... Turning from your None back to your side while in a flat bed without using bedrails? Moving from lying on None back to sitting on the side of a flat bed without using bedrails? Moving to and from a None bed to a chair ( including a wheelchair)? Standing up from a None chair using your arms? (e.g., wheelchair, bedside chair) Walking in hospital A little room? Climbing 3-5 steps A little with a railing? Mobility Score 22 Mobility Level [facility] Mobility 7 Walk 25 feet or more Mobility Calculator Rehab PT IP Eval Objective Appearance Patient Behavior Appropriate Patient Orientation Person,Place,Time Difficulty following none instructions Speech Pattern Clear Ambulation Patient Able to Yes Ambulate Ambulation Observation IP General Gait Antalgic Gait,Decrease Stride Lngth (R),Decrease Stride Pattern Observation Lngth (L) Ambulation Distance 30 (feet) Ambulation Assistive Rolling Walker Device Ambulation Ability Contact Guard/Hand Hold Balance Ability to Arise Able, uses arms to help Sitting Balance Steady, safe Standing Balance Steady, wide stance Dynamic Sitting Good Balance Ability Dynamic Standing Fair Balance Ability Transfers Bed Transfer Ability Supervision/Stand by Chair Transfer Supervision/Stand by Ability Sit to Stand Bed Supervision/Stand by Transfer Ability Sit to Stand Chair Supervision/Stand by Transfer Ability Rehab PT IP prob,goals,plan Problems Date of Evaluation: 02/21/25 PT IP Problems Bed Mobility,Transfers,Gait Rehab Potential Rehab Potential Good Equipment Needs Assistive Devices Rolling / Wheeled Walker Plan PT Intervention Plan Bed Mobility,Transfers,Gait,Therapeutic Exercise PT Plan Frequency Daily Duration LOS Discharge Goals Bed Transfer Ability Independent Sit to Stand Chair Independent Transfer Ability Ambulation Assistive Rolling Walker Device Ambulation Distance 40 (feet) Discharge Plan PT Discharge Plan Pt is currently appropriate to return home once medically stable for d/c. Skilled acute therapy services are indicated to increase general strength, improve transfers, and increase ambulation ability in order to aid pt improvement in QOL. Recommend Home Health therapy after d/c. Eval Complexity Eval Charge Codes 78070 - Moderate Complexity PHYSICIAN CERTIFICATION: I certify the specified therapy services for Keyonna Peralta are required, authorized, and reviewed every 30 days.
[2025-02-21 16:00] VITALS: BP 193/75; PULSE 54; RESP 16; TEMP 36.6; O2SAT 97
--- NOTE | 2025-02-21 16:17 | PC.NURSE ---
patient has had no hypoglycemic episodes during my shift so far. 1000 BG-97, 1200-94, 1400-136, 1600-143. OK'd by to switch to ACHS. patient has had significant output since administration of IV lasix. Pt c/o pain in right knee, states she may have injured it when she fell before coming in, treated pain per MAR, will continue to monitor.
--- NOTE | 2025-02-21 17:50 | PC.NURSE ---
MERCEDES informed this nurse of multiple high BP readings. This nurse obtained manual BP reading at 190/80, pt MD chris notified.
[2025-02-21 19:53] LABS: Hemoglobin A1C 5.4 % (4.0-6.0)
[2025-02-21 20:00] VITALS: BP 164/61; PULSE 52; RESP 16; TEMP 36.8; O2SAT 95
[2025-02-21] MEDS: MORPHINE 2MG/ML SYRINGE 2 MG IV (20:42)
[2025-02-21] MEDS: ATORVASTATIN 40MG TABLET 40 MG PO (20:43)
[2025-02-21 20:59] LABS: POC Glucose,Bedside 172 gm/dL (70-110)
[2025-02-22 04:00] VITALS: BP 157/55; PULSE 51; RESP 16; TEMP 36.6; O2SAT 93; BMI 27.9
--- NOTE | 2025-02-22 06:10 | INFXCTL.NOTE ---
patient rested well tonight, ambulated to the bathroom several times with a walker and standby assistance. when patient ambulates, she has a significant limp r/t right knee pain from injury r/t hypoglycemia prior to admission.
[2025-02-22 06:12] LABS: Albumin Level 2.6 g/dl (3.5-5.0); Chloride 109 mmol/L (98-107); Sodium 139 mmol/L (136-145)
[2025-02-22 06:13] LABS: Potassium 4.2 mmoL/L (3.5-5.1)
[2025-02-22 06:15] LABS: Alanine Aminotransferase 14 U/L (12-78); Albumin/Globulin Ratio 1.0 (1.1-1.8); Anion Gap 10.2 mEq/L (5-15); Aspartate Amino Transferase 25 U/L (14-36); Blood Urea Nitrogen 25 mg/dl (7-17); Carbon Dioxide 24 mmol/L (22.0-30.0); Creatinine Clearance Estimated 20 mL/min (50-200); Creatinine,Serum 2.10 mg/dl (0.52-1.04); Estimated Glomerular Filt Rate 23 ml/min (>60); GFR (African American) 27 ML/MIN (>60); Globulin 2.5 g/dL (1.3-3.2); Total Protein,Serum 5.1 g/dl (6.3-8.2)
[2025-02-22 06:16] LABS: Alkaline Phosphatase 245 U/L (38-126); Bilirubin,Total 0.2 mg/dl (0.2-1.3); Calcium 8.2 mg/dl (8.4-10.2); Glucose 103 mg/dl (74-100)
--- NOTE | 2025-02-22 07:32 | EXP.DC.SUM ---
General Admission date:: 02/20/25 Discharge date: 02/22/25 HPI HPI HPI: Patient is a 80-year-old female with past medical history of diabetes mellitus hypertension hyperlipidemia CKD, PAD, CAD heart failure with reduced ejection fraction who presents to the hospital due to difficulty ambulation, slurred speech. On arrival to the hospital patient was found to be hypoglycemic, her symptoms improved after repletion of her glucose. Patient has been having recurrent hypoglycemia, denied chest pain shortness of breath nausea vomiting diarrhea constipation dysuria fevers and chills at time of my evaluation. Hospital Course Hospital Course Hospital Course: Patient is a 80-year-old female with past medical history of diabetes mellitus hypertension hyperlipidemia CKD, PAD, CAD heart failure with reduced ejection fraction who presents to the hospital due to difficulty ambulation, slurred speech. On arrival to the hospital patient was found to be hypoglycemic, her symptoms improved after repletion of her glucose. Patient has been having recurrent hypoglycemia, denied chest pain shortness of breath nausea vomiting diarrhea constipation dysuria fevers and chills at time of my evaluation. Doing better by morning. Discontinue dextrose infusion. Glucose stable off dextrose for 24 hours. Blood pressure slightly elevated, adjusted blood pressure regimen. Needs close follow-up with PCP in the next 1 to 2 weeks. Stable discharge home with home health. Problems addressed as follows: Recurring hypoglycemia Adverse effect of sulfonylurea -Patient takes glimepiride at home. Last dose taken morning before admission. Held on admission. Previous A1c of 6.3 earlier this year. Repeat A1c well-controlled at 5.4. Will discontinue all diabetes meds at this time as risk of hypoglycemic events outweighs benefits. Goal A1c less than 8 per most recent ADA recommendations from 2022 given patient's comorbidities and age. Advance to regular diet. Tolerating well. Glucose 103 on morning of discharge with no distress supplementation. Kidney function at baseline along with stable electrolytes. - Needs repeat A1c in 3 months CAD Gout PAD CKD stage III, creatinine at baseline -Creatinine stable at 1.8-2.1 during admission with BUN in the low 20s. Resumed blood pressure regimen for hypertension. Continue irbesartan 150 mg twice daily, metoprolol succinate 50 mg, Plavix 75 mg daily, Lipitor 40 mg nightly, and allopurinol 100 mg daily. Added nifedipine extended release 30 mg daily due to chronic kidney disease and hypertension. Having good response. Blood pressure 157/55 on morning of discharge Hypertension Combined heart failure, EF 40% with RVSP 30 to 35% on echo from 08/16/2024 BNP elevated at 23,000, elevated at 75,000 earlier this year. Stable on room air. Will administer one-time dose Lasix 40 mg IV and monitor output. Close monitoring of electrolytes and kidney function due to risk of toxicity. Consider diuretic before discharge home pending response and clinical stability of patient. Echo from August of this year showed reduced EF of 40% and RVSP of 30 to 35 mmHg. Total time spent on discharge 32 minutes in counseling, documentation, chart review, and direct care with patient. Exam Data for Last 24 hours Vital signs and Labs for Last 24 Hours: Temp Pulse Resp BP Pulse Ox O2 Del Method 98 F 51 L 16 157/55 H 93 L Room Air 02/22/25 04:00 02/22/25 04:00 02/22/25 04:00 02/22/25 04:00 02/22/25 04:00 02/22/25 06:31 Laboratory Results - last 24 hr 02/21/25 05:33: Hemoglobin A1c 5.4 02/21/25 09:27: POC Glucose 97 02/21/25 15:08: POC Glucose 136 H 02/21/25 20:38: POC Glucose 172 H 02/22/25 05:31: Sodium 139, Potassium 4.2, Chloride 109 H, Carbon Dioxide 24, Anion Gap 10.2, BUN 25 H, Creatinine 2.10 H D, Estimated Creat Clear 20, Estimated GFR 23 L, Est GFR ( Amer) 27 L D, Glucose 103 H D, Calcium 8.2 L, Total Bilirubin 0.2, AST 25 D, ALT 14 D, Alkaline Phosphatase 245 H, Total Protein 5.1 L, Albumin 2.6 L D, Globulin 2.5, Albumin/Globulin Ratio 1.0 L I & O for Last 24 hours: Intake & Output 02/19/25 02/20/25 02/21/25 02/22/25 23:59 23:59 23:59 23:59 Intake Total 2052.333 / 2052.333 Output Total 3250 / 3250 250 / 250 Balance -1196.667 / -1196.667 -250 / -250 Weight 58.604 kg 59.058 kg 58.831 kg Microbiology Reports for the Last 24 Hours: Microbiology 02/20/25 20:51 Blood Blood Culture - Preliminary NO GROWTH AFTER 24 HOURS 02/20/25 20:34 Blood Blood Culture - Preliminary NO GROWTH AFTER 24 HOURS Constitutional Constitutional: no acute distress, average body habitus, chronically ill appearing and cooperative *Routine HEENT Exam Head: Present normocephalic and atraumatic ENT: Present mucous membranes moist Comments: Poor dentition *Routine Neck Exam Neck: Present supple, full ROM and normal carotid upstroke; Absent JVD, carotid bruit or lymphadenopathy *Routine Respiratory Exam Respiratory: Present CTA bilaterally, normal respiratory effort, able to speak in complete sentences and symmetric chest movement; Absent rhonchi *Routine Cardiovascular Exam Cardiovascular: Present RRR, Normal S1 and Normal S2; Absent murmur or gallop *Routine Abdominal Exam Abdominal: Present soft and normoactive bowel sounds; Absent tenderness, distended or organomegaly *Routine Rectal Exam Patient deferred: visual exam *Routine Exam Patient deferred: external exam *Routine Extremities Exam Extremities: Present full ROM, pulses intact and normal capillary refill; Absent cyanosis, clubbing or edema Comments: 1+ edema in left upper extremity *Routine Skin Exam Skin: Present intact and warm; Absent erythema *Routine Neurological Exam Neurological: Present alert, oriented X3 and CN II-XII intact; Absent sensory deficit or motor deficit Routine Psychiatric Exam Psychiatric: Present normal affect Results Data Completed and Pending Labs on day of discharge: Labs from last 24 hours 02/22/25 02/21/25 02/21/25 05:31 20:38 15:08 Sodium 139 Potassium 4.2 Chloride 109 H Carbon Dioxide 24 Anion Gap 10.2 BUN 25 H Creatinine 2.10 H D Estimated Creat Clear 20 Estimated GFR 23 L Est GFR ( Amer) 27 L D Glucose 103 H D POC Glucose 172 H 136 H Hemoglobin A1c Calcium 8.2 L Total Bilirubin 0.2 AST 25 D ALT 14 D Alkaline Phosphatase 245 H Total Protein 5.1 L Albumin 2.6 L D Globulin 2.5 Albumin/Globulin Ratio 1.0 L 02/21/25 02/21/25 09:27 05:33 Sodium Potassium Chloride Carbon Dioxide Anion Gap BUN Creatinine Estimated Creat Clear Estimated GFR Est GFR ( Amer) Glucose POC Glucose 97 Hemoglobin A1c 5.4 Calcium Total Bilirubin AST ALT Alkaline Phosphatase Total Protein Albumin Globulin Albumin/Globulin Ratio Preliminary micro results at discharge 02/20/25 20:51 Blood Culture - Preliminary Blood NO GROWTH AFTER 24 HOURS 02/20/25 20:34 Blood Culture - Preliminary Blood NO GROWTH AFTER 24 HOURS DS: Diagnosis Discharge Diagnosis (1) Hypoglycemia: Status: Acute Code(s): E16.2 - Hypoglycemia, unspecified (2) Adverse effect of sulfonylurea: Status: Acute Code(s): T38.3X5A - Adverse effect of insulin and oral hypoglycemic [antidiabetic] drugs, initial encounter Qualifiers: Encounter type: initial encounter Qualified Code(s): T38.3X5A - Adverse effect of insulin and oral hypoglycemic [antidiabetic] drugs, initial encounter Problem details: Hypoglycemia due to sulfonylurea (3) Fall: Status: Acute Code(s): W19.XXXA - Unspecified fall, initial encounter (4) HFrEF (heart failure with reduced ejection fraction): Status: Acute Code(s): I50.20 - Unspecified systolic (congestive) heart failure (5) Diabetes: Status: Acute Code(s): E11.9 - Type 2 diabetes mellitus without complications Qualifiers: Chronic kidney disease stage: stage 4 (GFR 15-29) Diabetes mellitus complication detail: with chronic kidney disease Diabetes mellitus complication status: with kidney complications Diabetes mellitus usp insulin use: without ocean transportation intermediary use Diabetes mellitus type: type 2 Qualified Code(s): E11.22 - Type 2 diabetes mellitus with diabetic chronic kidney disease; N18.4 - Chronic kidney disease, stage 4 (severe) (6) HLD (hyperlipidemia): Status: Chronic Code(s): E78.5 - Hyperlipidemia, unspecified Qualifiers: Hyperlipidemia type: mixed hyperlipidemia Qualified Code(s): E78.2 - Mixed hyperlipidemia (7) CKD stage 3 due to type 2 diabetes mellitus: Status: Chronic Code(s): E11.22 - Type 2 diabetes mellitus with diabetic chronic kidney disease; N18.30 - Chronic kidney disease, stage 3 unspecified (8) Severe protein-calorie malnutrition: Status: Acute Code(s): E43 - Unspecified severe protein-calorie malnutrition (9) Hypertension: Status: Chronic Code(s): I10 - Essential (primary) hypertension Qualifiers: Hypertension type: primary hypertension Qualified Code(s): I10 - Essential (primary) hypertension Meds Home Medications and Allergies Home Medications ?Medication ?Instructions ?Recorded ?Confirmed ?Type aspirin 81 mg tablet,delayed 81 mg PO DAILY heart health #90 08/26/22 02/20/25 Rx release tabs colchicine 0.6 mg tablet 0.3 mg PO DAILY gout 01/05/23 02/20/25 History allopurinol 100 mg tablet 100 mg PO DAILY 08/15/24 02/20/25 History clopidogrel 75 mg tablet 75 mg PO DAILY #90 tabs 08/27/24 02/20/25 Rx atorvastatin 40 mg tablet 40 mg PO HS #90 tabs 09/14/24 02/20/25 Rx metoprolol succinate 50 mg 50 mg PO DAILY #90 tabs 09/14/24 02/20/25 Rx tablet,extended release 24 hr albuterol sulfate 90 mcg/actuation 1 inh inhalation QID #6.7 grams 11/27/24 02/20/25 Rx aerosol inhaler (Ventolin HFA) irbesartan 150 mg tablet 150 mg PO BID 02/21/25 02/21/25 History nifedipine 30 mg tablet,extended 30 mg PO DAILY 30 days #30 tabs 02/22/25 Rx release 24 hr New Prescriptions to Start Prescriptions: Octavio Wylie Allergies Allergy/AdvReac Type Severity Reaction Status Date / Time orange Allergy Unknown ASTHMA Verified 11/27/24 08:52 FLARES UP Sulfa (Sulfonamide Allergy Unknown Unknown Verified 11/27/24 08:52 Antibiotics) (SULFA allergy (SULFONAMIDE ANTIBIOTICS)) reaction walnut (WALNUT) Allergy Unknown Unknown Verified 11/27/24 08:52 allergy reaction Discharge Plan Disposition Patient Disposition: Home Health Service Condition: Fair Discharge Order Discharge Orders: Discharge Order (Routine); Ordered 02/22/25 Ordered By: Octavio Pollack Follow up Plan Follow up with: Rhett Sage MD [Primary Care Provider, Medical] - 03/01/25 11:15 am Referral Note: Please arrive to appointment 15 minutes early. Prescriptions/Medication Reconciliation: New nifedipine 30 mg Tablet Extended Release 24hr 30 mg PO DAILY 30 Days Qty: 30 0RF Continued aspirin 81 mg tablet,delayed release (DR/EC) 81 mg PO DAILY Qty: 90 3RF colchicine 0.6 mg tablet 0.3 mg PO DAILY clopidogrel 75 mg tablet 75 mg PO DAILY Qty: 90 3RF albuterol sulfate [Ventolin HFA] 90 mcg/actuation HFA aerosol inhaler 1 inh inhalation QID Qty: 6.7 2RF metoprolol succinate 50 mg tablet extended release 24 hr 50 mg PO DAILY Qty: 90 3RF atorvastatin 40 mg tablet 40 mg PO HS Qty: 90 3RF irbesartan 150 mg tablet 150 mg PO BID allopurinol 100 mg tablet 100 mg PO DAILY Rx Instructions: Take 1 tablet by mouth once daily Discontinued glimepiride 1 mg tablet 1 mg PO DAILY Qty: 30 2RF Problem Reconciliation Problems Reviewed?: Yes Patient Discharge Instructions ACTIVITY: Continue current activity DIET: continue same diet Patient Instructions: High-Calorie, High-Protein Diet, DI for Hypoglycemia, NCM High-Calorie High-Protein Diet, WM High Calorie High Protein Diet Recipes Print Language: Urdu Providers Primary Care Provider: Rhett Sage Admit Provider: Octavio Pollack Attending Provider: Octavio Pollack
[2025-02-22 08:00] VITALS: BP 159/74; PULSE 54; RESP 14; TEMP 36.4; O2SAT 96
--- NOTE | 2025-02-22 08:03 | SW/DCPLANNER ---
Addendum entered by Natalie Magallanes 02/22/25 09:41: Faxed patients information to [facility] and will update once i hear back if they can accept or not. Dillon Garber Original Note: I spoke w/ patient regarding plans once medically stable for discharge. PT/OT evaluated patient and recommended home health services. Patient is agreeable to home health at time of discharge. Per patient no agency preference. CM will set up services at time of discharge. Discharge date is unknown at this time.
[2025-02-22] MEDS: ASPIRIN EC 81MG TABLET 81 MG PO (08:43)
[2025-02-22] MEDS: IRBESARTAN 150MG TAB 150 MG PO (08:43)
[2025-02-22] MEDS: CLOPIDOGREL 75MG TAB 75 MG PO (08:43)
[2025-02-22] MEDS: COLCHICINE 0.6MG TABLET 0.3 MG PO (08:44)
[2025-02-22] MEDS: HEPARIN SODIUM 5,000 UNIT/ML VIAL 5000 UNIT SUBCUT (08:45)
[2025-02-22] MEDS: ALLOPURINOL 100MG TABLET 100 MG PO (08:45)
[2025-02-22] MEDS: METOPROLOL SUCCINATE XL 50MG TABLET 50 MG PO (08:46)
[2025-02-22 10:24] VITALS: BP 179/59
[2025-02-22 12:27] LABS: POC Glucose,Bedside 94 gm/dL (70-110)
--- NOTE | 2025-02-22 13:41 | CARE MANAGER ---
Patient requires a rolling walker to ambulate safely, and a cane does not provide enough support.
--- NOTE | 2025-02-25 10:45 | SW/DCPLANNER ---
Spoke with patient on the phone. Patient stated that she is doing good. Patient stated that she is aware of her upcoming appointment. Patient stated that she was able to pickle solution maker her new medicine. Patient stated that she has no concerns or questions at this time. Dillon Garber
== END 2025-02-22 13:51 | disposition home health service (06) ==
LOC: ER 22:27 → 2ND 22:35
PROVIDERS: Internal Medicine; Nurse Practitioner; Admitting Provider Internal Medicine Adolescent Medicine; Emergency Provider Student in an Organized Health Care Education/Training Program; PCP Family Medicine; Visit Provider Internal Medicine Adolescent Medicine
DX: E11.649 Type 2 diabetes mellitus with hypoglycemia without coma (principal); E11.51 Type 2 diabetes mellitus with diabetic peripheral angiopathy without gangrene; E11.22 Type 2 diabetes mellitus with diabetic chronic kidney disease; I13.0 Hypertensive heart and chronic kidney disease with heart failure and stage 1 through stage 4 chronic kidney disease, or unspecified chronic kidney disease; T38.3X5A Adverse effect of insulin and oral hypoglycemic [antidiabetic] drugs, initial encounter; I50.41 Acute combined systolic (congestive) and diastolic (congestive) heart failure; N18.4 Chronic kidney disease, stage 4 (severe); E78.2 Mixed hyperlipidemia; E43 Unspecified severe protein-calorie malnutrition; R00.1 Bradycardia, unspecified; I25.10 Atherosclerotic heart disease of native coronary artery without angina pectoris; M10.9 Gout, unspecified; W19.XXXA Unspecified fall, initial encounter; Z68.28 Body mass index [BMI] 28.0-28.9, adult; Z86.718 Personal history of other venous thrombosis and embolism; Z96.0 Presence of urogenital implants; Z95.5 Presence of coronary angioplasty implant and graft; Z88.2 Allergy status to sulfonamides; Z91.018 Allergy to other foods; Z79.82 Long term (current) use of aspirin; Z79.02 Long term (current) use of antithrombotics/antiplatelets; Z79.899 Other long term (current) drug therapy
CPT/HCPCS: 36415; 71045; 80048; 80053; 82962; 83036; 83605; 83690; 83735; 83880; 84484; 85025; 87040; 93005; 94640; 96361; 96372; 96374; 96375; 97116; 97162; 97166; 99285; G0378; J1644; J1938; J2270; J2405; J7060